=== PATIENT | female | born 1960 | race Caucasian/White ===

== ENCOUNTER 2020-05-04 15:03 | Outpatient (REF) | payer OTHER, SELFPAY | END 2020-05-04 15:04 | disposition home or self-care (01) | LOC: HO.BBR 15:03 | PROVIDERS: PCP Internal Medicine; Visit Provider Internal Medicine | DX: E83.110 Hereditary hemochromatosis (principal) | CPT/HCPCS: 99195 ==

== ENCOUNTER 2020-06-01 15:07 | Outpatient (REF) | payer OTHER, SELFPAY | END 2020-06-01 15:08 | disposition home or self-care (01) | LOC: HO.BBR 15:07 | PROVIDERS: PCP Internal Medicine; Visit Provider Internal Medicine | DX: Z13.89 Encounter for screening for other disorder (principal) ==

== ENCOUNTER 2020-06-01 16:19 | Outpatient (REF) | payer SELFPAY ==
[2020-06-01 17:20] LABS: Cholesterol 214 mg/dL
== END 2020-06-01 16:20 | disposition home or self-care (01) ==
LOC: HO.LNC 16:19
PROVIDERS: Visit Provider Pathology Anatomic Pathology & Clinical Pathology
DX: Z76.89 Persons encountering health services in other specified circumstances (principal)
CPT/HCPCS: 82465

== ENCOUNTER 2020-06-27 10:15 | Outpatient (REF) | payer OTHER, SELFPAY | END 2020-06-27 10:16 | disposition home or self-care (01) | LOC: HO.LAB 10:15 | PROVIDERS: Visit Provider Internal Medicine | DX: Z20.828 Contact with and (suspected) exposure to other viral communicable diseases (principal) | CPT/HCPCS: C9803; U0003 ==

== ENCOUNTER 2020-07-11 14:51 | Outpatient (REF) | payer OTHER, SELFPAY | END 2020-07-11 14:52 | disposition home or self-care (01) | LOC: HO.BBR 14:51 | PROVIDERS: PCP Internal Medicine; Visit Provider Internal Medicine | DX: Z13.89 Encounter for screening for other disorder (principal) ==

== ENCOUNTER 2020-08-09 12:20 | Outpatient (REF) | payer OTHER, SELFPAY ==
--- NOTE | 2020-08-09 12:33 | XR_ITS ---
EXAMINATION: XR FOREARM, RIGHT XR HAND, RIGHT CLINICAL INFORMATION: Pain in the right arm. Carpal tunnel syndrome. COMPARISON: None TECHNIQUE: Right forearm, 2 views Right hand, 3 views FINDINGS: Right forearm: Old, healed fracture of the distal radial metaphysis. Otherwise, the radius and ulna have normal density and shape. There are no lytic or osteoblastic lesions in the visualized distal humerus or forearm. Alignment is normal at the elbow and wrist. No elbow joint effusion. Soft tissues are unremarkable. Right hand: Old, healed fracture of the distal radial metaphysis. The wrist joint spaces are normal. Carpal bones are intact and have normal alignment. The metacarpophalangeal and proximal interphalangeal joints are unremarkable. At the DIP joints, there is narrowing of joint space and osteophyte formation. Minimal degenerative ulnar sided subluxation is noted at the second and third DIP joints. A small ossicle projects dorsal to the degenerated second DIP joint. No abnormal soft tissue calcifications. XR/XR forearm RT 2V IMPRESSION: * Old, healed fracture of the distal radial metaphysis. 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 * Carpal bones are normal.
--- NOTE | 2020-08-09 12:33 | XR_ITS ---
EXAMINATION: XR FOREARM, RIGHT XR HAND, RIGHT CLINICAL INFORMATION: Pain in the right arm. Carpal tunnel syndrome. COMPARISON: None TECHNIQUE: Right forearm, 2 views Right hand, 3 views FINDINGS: Right forearm: Old, healed fracture of the distal radial metaphysis. Otherwise, the radius and ulna have normal density and shape. There are no lytic or osteoblastic lesions in the visualized distal humerus or forearm. Alignment is normal at the elbow and wrist. No elbow joint effusion. Soft tissues are unremarkable. Right hand: Old, healed fracture of the distal radial metaphysis. The wrist joint spaces are normal. Carpal bones are intact and have normal alignment. The metacarpophalangeal and proximal interphalangeal joints are unremarkable. At the DIP joints, there is narrowing of joint space and osteophyte formation. Minimal degenerative ulnar sided subluxation is noted at the second and third DIP joints. A small ossicle projects dorsal to the degenerated second DIP joint. No abnormal soft tissue calcifications. XR/XR hand RT 2V IMPRESSION: * Old, healed fracture of the distal radial metaphysis. 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 * Carpal bones are normal.
[2020-08-09 12:44] LABS: MANUAL DIFF FLAG NO
[2020-08-09 12:55] LABS: Basophils Percent Auto 0.6 % (0-2); Eosinophils Absolute Auto 0.3 X10*3/uL (0.0-0.4); Eosinophils Percent Auto 5.4 % (0-4); Hematocrit 38.4 % (37-47); Hemoglobin 12.1 g/dl (12.0-16.0); Imm Gran Abs Auto 0.02 X10*3/uL (0.00-0.03); Imm Gran Pct Auto 0.4 % (0.0-0.4); Lymphocytes Absolute Auto 1.7 X10*3/uL (1.2-4.9); Lymphocytes Percent Auto 31.9 % (20-40); Mean Corpuscular HGB Conc 31.5 g/dl (31.0-35.0); Mean Corpuscular Hemoglobin 28.7 pg (27.0-33.0); Mean Platelet Volume 10.3 fL (9.4-12.3); Monocytes Absolute Auto 0.5 X10*3/uL (0.1-1.2); Monocytes Percent Auto 9.9 % (2-11); Neutrophils Absolute Auto 2.8 X10*3/uL (2.0-8.3); Neutrophils Percent Auto 51.8 % (45-73); Platelet Count 264 X10*3/uL (160-400); Red Blood Count 4.22 X10*6/uL (4.20-5.50); Red Cell Distribution Width 14.2 % (11.0-16.0); White Blood Count 5.3 X10*3/uL (4.8-10.8)
[2020-08-09 13:17] LABS: Alanine Aminotransferase 120 U/L (0-31); Albumin Level 4.2 g/dL (3.5-5.0); Alkaline Phosphatase 88 U/L (39-117); Anion Gap 14 (12-20); Aspartate Amino Transferase 136 U/L (5-31); Bilirubin Direct 0.3 mg/dL (0.0-0.5); Bilirubin Total 0.5 mg/dL (0.0-1.0); Blood Urea Nitrogen 16 mg/dL (9-16); Carbon Dioxide 28 mmol/L (22-29); Chloride 104 mmol/L (96-108); Estimated Glomerular Filt Rate > 60; Glucose Fasting 102 mg/dL (60-99); Sodium 142 mmol/L (135-145); Total Protein 7.2 g/dL (6.5-8.0)
== END 2020-08-09 12:21 | disposition home or self-care (01) ==
LOC: HO.LAB 12:20
PROVIDERS: PCP Internal Medicine; Visit Provider Nurse Practitioner Family
DX: M79.601 Pain in right arm (principal); M19.90 Unspecified osteoarthritis, unspecified site; G56.01 Carpal tunnel syndrome, right upper limb
CPT/HCPCS: 36415; 73090; 73120; 80048; 80076; 85025

== ENCOUNTER 2020-08-15 09:09 | Outpatient (REF) | payer OTHER, SELFPAY ==
[2020-08-18 17:07] LABS: HPV mRNA E6/E7 rflx Not Detected (Not Detected)
== END 2020-08-15 09:10 | disposition home or self-care (01) ==
LOC: HO.LAB 09:09
PROVIDERS: PCP Internal Medicine; Visit Provider Advanced Practice Midwife
DX: Z12.4 Encounter for screening for malignant neoplasm of cervix (principal); Z98.890 Other specified postprocedural states
CPT/HCPCS: 36415; 87624; 88142

== ENCOUNTER 2020-08-17 14:57 | Outpatient (REF) | payer OTHER, SELFPAY | END 2020-08-17 14:58 | disposition home or self-care (01) | LOC: HO.BBR 14:57 | PROVIDERS: Visit Provider Internal Medicine | DX: Z13.89 Encounter for screening for other disorder (principal) ==

== ENCOUNTER 2020-09-12 13:58 | Outpatient (REF) | payer OTHER, SELFPAY | END 2020-09-12 13:59 | disposition home or self-care (01) | LOC: HO.BBR 13:58 | PROVIDERS: PCP Internal Medicine; Visit Provider Internal Medicine | DX: Z13.89 Encounter for screening for other disorder (principal) ==

== ENCOUNTER → 2020-09-28 13:59 | Outpatient (BNV) | payer OTHER, SELFPAY | PROVIDERS: PCP Internal Medicine; Referring Provider Internal Medicine; Visit Provider Internal Medicine | DX: E83.19 Other disorders of iron metabolism (principal) | CPT/HCPCS: 99203; 99212; 99213; 99214; G2211 ==

== ENCOUNTER 2020-10-27 15:05 | Emergency (ER) | payer OTHER, SELFPAY ==
--- NOTE | ~2020-10-27 | CT_ITS ---
EXAMINATION: CT ABDOMEN AND PELVIS WITH CONTRAST CLINICAL INFORMATION: Right lower quadrant pain COMPARISON: CT abdomen pelvis 09/16/2017 TECHNIQUE: Multidetector volumetric images were obtained from the superior aspect of the liver through the pubic symphysis following administration 85 mL of Omnipaque 350 intravenous contrast. Sagittal and coronal reformatted images were obtained on the technologist's workstation. Oral contrast: No This CT examination was performed using dose optimization techniques as appropriate, variously including the following: *Automated exposure control *Adjustment of mA and/or kV according to patient size (this includes techniques or standardized protocols for targeted exams where dose is matched to indication/reason for exam; i.e. extremities or head) *Use of iterative reconstruction technique DLP: 758 mGy-cm FINDINGS: LUNG BASES: The visualized lung bases are unremarkable. Mild scarring present at the left lung base LIVER, GALLBLADDER, AND BILIARY TREE: The liver is enlarged measuring over 21 cm in greatest length and demonstrates hepatic steatosis with areas of focal fatty sparing adjacent to the gallbladder. No focal hepatic lesion or biliary ductal dilatation is present. The gallbladder is unremarkable with no evidence of radiopaque gallstones, gallbladder wall thickening, or obvious pericholecystic inflammatory changes. PANCREAS: Unremarkable. SPLEEN: Unremarkable. ADRENAL GLANDS: Unremarkable. KIDNEYS AND URETERS: The kidneys are normal in size, shape, and attenuation. No hydronephrosis, hydroureter, or calculi seen. No perinephric stranding. BLADDER: Unremarkable. GASTROINTESTINAL TRACT: Extensive diverticular changes are present throughout the colon most marked in the sigmoid and cecum. Of note, marked inflammatory changes are present adjacent to the cecum consistent with acute diverticulitis. No extraluminal air or adjacent fluid collections are seen. The appendix appears normal although inflammatory changes associated with the cecum extending towards the appendix. The appendix does appear somewhat thickened but the lumen is filled with air.. The small and large bowel are otherwise unremarkable. ABDOMINAL WALL: No significant hernia is appreciated. LYMPH NODES: Normal. VASCULAR: Both ovarian veins aren't dilated and there is reflux of contrast on the left with moderate left-sided pelvic varices. The aorta in the iliofemoral vessels are unremarkable. PELVIC VISCERA: An anteverted uterus is present. An abnormal adnexal mass is not seen. No free intraperitoneal fluid is present. OSSEOUS STRUCTURES: Degenerative changes present in the lower thoracic spine. No bony destructive lesions seen. CT/CT abdomen pelvis w con IMPRESSION: Marked acute inflammatory process centered at the cecum which I suspect is acute cecal diverticulitis. The appendix is adjacent to this that is filled with air. Mild inflammatory changes from the cecum extend towards the appendix. Incidental note made of an enlarged fatty liver and dilated bilateral ovarian veins with reflux and pelvic varices.
[2020-10-27 15:14] VITALS: BP 111/60; PULSE 84; RESP 19; TEMP 36.8; O2SAT 96; BMI 37.8
[2020-10-27 17:55] LABS: MANUAL DIFF FLAG NO
[2020-10-27 17:57] LABS: Basophils Percent Auto 0.3 % (0-2); Eosinophils Absolute Auto 0.1 X10*3/uL (0.0-0.4); Eosinophils Percent Auto 1.1 % (0-4); Hematocrit 40.2 % (37-47); Hemoglobin 13.1 g/dl (12.0-16.0); Imm Gran Abs Auto 0.03 X10*3/uL (0.00-0.03); Imm Gran Pct Auto 0.3 % (0.0-0.4); Lymphocytes Absolute Auto 2.2 X10*3/uL (1.2-4.9); Lymphocytes Percent Auto 21.6 % (20-40); Mean Corpuscular HGB Conc 32.6 g/dl (31.0-35.0); Mean Corpuscular Hemoglobin 29.4 pg (27.0-33.0); Mean Corpuscular Volume 90.3 fL (80-98); Mean Platelet Volume 10.3 fL (9.4-12.3); Monocytes Percent Auto 9.9 % (2-11); Neutrophils Absolute Auto 6.7 X10*3/uL (2.0-8.3); Neutrophils Percent Auto 66.8 % (45-73); Platelet Count 271 X10*3/uL (160-400); Red Blood Count 4.45 X10*6/uL (4.20-5.50)
[2020-10-27 18:26] VITALS: BP 119/59; PULSE 84; RESP 18; TEMP 36.8; O2SAT 95
[2020-10-27 18:26] LABS: Alanine Aminotransferase 63 U/L (0-31); Albumin Level 4.4 g/dL (3.5-5.0); Alkaline Phosphatase 95 U/L (39-117); Anion Gap 15 (12-20); Aspartate Amino Transferase 42 U/L (5-31); Blood Urea Nitrogen 11 mg/dL (9-16); Calcium 9.6 mg/dL (8.4-10.2); Carbon Dioxide 27 mmol/L (22-29); Chloride 101 mmol/L (96-108); Creatinine Clr Calc Pharmacy 78.6; Estimated Glomerular Filt Rate > 60; Glucose Random 89 mg/dL (60-115); Potassium 4.1 mmol/L (3.3-5.1); Sodium 139 mmol/L (135-145); Total Protein 7.6 g/dL (6.5-8.0)
[2020-10-27 18:49] LABS: Glucose Urine UA NEG (NEG); Leukocyte Esterase Urine NEG (NEG); Nitrite Urine NEG (NEG); Specific Gravity - Urine 1.015 (1.005-1.025); Urine Blood NEG (NEG); Urine Ketones NEG (NEG); Urine Protein NEG (NEG-TRACE)
[2020-10-27 18:50] LABS: Appearance Urine CLEAR; Color Urine YELLOW
[2020-10-27 19:15] LABS: INTERNATIONAL NORM RATIO 1.1 (0.9-1.1); Prothrombin Time 12.9 SEC (10.8-13.0)
[2020-10-27 19:17] LABS: Partial Thromboplastin Time 35.1 SEC (24.1-38.0)
[2020-10-27] MEDS: Ketorolac Tromethamine 30 MG/ML VIAL IVPUSH (19:24)
[2020-10-27] MEDS: 0.9 % Sodium Chloride 1,000 ML 999 ML IV (19:25)
--- NOTE | 2020-10-27 19:25 | PC.NURSE ---
patient a&ox3, iv inserted, labs previously drawn, pt medicated per order pt 03/24 rt abd pain, pt awaiting ct scan, will continue to monitor.
--- NOTE | 2020-10-27 19:30 | ED_ITS ---
HPI - Abdominal Pain General Chief Complaint: Abdominal Pain Stated Complaint: right lower side pain Time Seen by Provider: 10/27/20 20:52 Source: patient Mode of arrival: ambulatory Limitations: no limitations History of Present Illness HPI narrative: Patient presents to the ED for right lower quadrant pain and sta rted to a.m. this morning. Patient denies any nausea vomiting fever, chills, diarrhea, dysuria, hematuria, or flank pain. Patient denies any recent trauma to the area. MD elicited complaint: abdominal pain Related Data Home Medications Medication Instructions Recorded Confirmed carvedilol 25 mg tablet 25 mg PO BID 08/01/20 09/28/20 hydrochlorothiazide 25 mg tablet 25 mg PO QAM 08/01/20 09/28/20 losartan 25 mg tablet 25 mg PO DAILY 08/01/20 09/28/20 ergocalciferol (vitamin D2) 1,250 mcg PO QWEEK 09/28/20 09/28/20 [Vitamin D2] multivitamin 1 tab PO DAILY 09/28/20 09/28/20 elderberry fruit-honey ml PO DAILY 10/11/20 Previous Rx's Medication Instructions Recorded albuterol sulfate 90 mcg/actuation 1 inh INHALATION QID PRN 30 Days 05/09/20 aerosol inhaler #8.5 g acetaminophen 650 mg 650 mg PO Q12H 10 Days #20 tab 08/01/20 tablet,extended release amoxicillin-pot clavulanate 1 tab PO Q12H 10 Days #20 tab 10/27/20 [Augmentin] metronidazole 500 mg PO Q12H 7 Days #14 tab 10/27/20 naproxen 500 mg PO BID PRN #20 tab 10/27/20 Allergies Allergy/AdvReac Type Severity Reaction Status Date / Time ciprofloxacin [Cipro] Allergy Unknown hives Verified 10/27/20 15:13 dogs Allergy Unknown Itching Uncoded 09/28/20 14:15 MANY ENVIRONMENTAL and Allergy Unknown Itching Uncoded 09/28/20 14:15 possibl Review of Systems Review of Systems Yes all other systems are reviewed and are negative Constitutional: Reports as per HPI and Reports no additional constitutional complaints Eyes: Reports as per HPI and Reports no additional eye complaints Reports system reviewed and no additional complaints, except as documented and Reports as per HPI Cardiovascular: Reports as per HPI and Reports no additional cardiovascular complaints Respiratory: Reports as per HPI and Reports no additional respiratory complaints Gastrointestinal: Reports as per HPI, Reports no additional gastrointestinal complaints and Reports abdominal pain (Right lower quadrant) Genitourinary: Reports no additional female genitourinary complaints and Reports as per HPI Musculoskeletal: Reports no additional musculoskeletal complaints and Reports as per HPI Reports system reviewed and no additional complaints, except as documented and R eports as per HPI Psychiatric: Reports no additional psychiatric complaints and Reports as per HPI Physical Exam Vital Signs: Vital Signs: Last Vital Signs Temp 98.2 F 10/27/20 21:54 Pulse 67 10/27/20 21:54 Resp 18 10/27/20 21:54 BP 100/54 L 10/27/20 21:54 Pulse Ox 95 10/27/20 21:54 Body Mass Index 37.8 Const: General: cooperative, healthy appearing, comfortable, no acute distress, well developed, alert, awake and Physically active Orientation/consciousness: patient oriented x3 HENMT: Head: Yes normal to inspection, Yes No palpable skull fracture present, Yes normocephalic, Yes atraumatic, No abrasion, No Acrocyanosis present, No Christensen's sign, No contusion, No cranial bruits, No hematoma, No laceration, No occipital foramen tenderness, No palpable skull fracture, No raccoon eyes, No scalp lesion, No scalp tenderness, No Temporal artery tenderness present and No periorbital ecchymosis Eyes: General: appearance normal, both eyes and all related structures Neck: Neck: Yes normal visual inspection, Yes full ROM, Yes no lymphadenopathy, Yes no meningeal signs, Yes trachea midline, Yes supple and No tender Chest: Chest palpation & inspection: normal inspection of the chest and normal palpation of entire chest wall Resp: Effort & Inspection: normal respiratory effort and able to speak in complete sentences Cardio: Jugular venous distension: no JVD Heart sounds: S1 normal heart sound present and S2 normal heart sound present GI: Inspection: Yes normal to inspection and No abdominal wall ecchymosis P alpation (GI): Soft to palpation, not firm, Tenderness to palpation present (GI) in the RLQ, no guarding and not rigid : General: No CVA tenderness and Yes no CVA tenderness Back/Spine/Pelvis: Back: no CVA tenderness, No CVA tenderness and No back tenderness Skin: General skin exam: no rashes or lesions noted and elasticity normal Neuro: General: patient oriented x3, no meningeal signs and CN's II-XI intact bilaterally Cranial nerves: Yes CN's II-XII intact bilaterally Extrem: General: Yes normal to inspection and Yes full ROM Psych: Appearance: grossly normal, well kempt and not disheveled Course Course Course Narrative: Patient has significant right lower quadrant tenderness on palpation. Patient will be sent for CT scan of right lower quadrant to rule out appendicitis. Labs drawn and UA sent. Reevaluation(s) Reevaluation #1: UA negative for UTI. White blood cell count normal. Due to p atient still having pain was sent for CT scan to rule out appendicitis. Reevaluation #2: CT scan showed acute cecal diverticulitis, but no appendicitis. Due to patient having pain in right lower quadrants Dr. Hernandez of surgery was called and informed of patient's history, physical exam, diagnostic, and CT scan report. She states patient is not having appendicitis and patient only is having cecal diverticulitis and patient does not need any surgical intervention. Patient presently does not need admission. Patient does not have any elevated white blood cell count and vital signs are stable. Will discharge with p.o. antibiotics. MDM - Abdominal Pain Lab Data Result diagrams: 10/27/20 17:23 10/27/20 17:23 Labs: Lab Results 10/27/20 10/27/20 10/27/20 Range/Units 17:23 17:23 17:23 WBC 10.0 (4.8-10.8) X10*3/uL RBC 4.45 (4.20-5.50) X10*6/uL Hgb 13.1 (12.0-16.0) g/dl Hct 40.2 (37-47) % MCV 90.3 (80-98) fL MCH 29.4 (27.0-33.0) pg MCHC 32.6 (31.0-35.0) g/dl RDW 15.0 (11.0-16.0) % Plt Count 271 (160-400) X10*3/uL MPV 10.3 (9.4-12.3) fL Immature Gran % (Auto) 0.3 (0.0-0.4) % Neut % (Auto) 66.8 (45-73) % Lymph % (Auto) 21.6 (20-40) % Coos % (Auto) 9.9 (2-11) % Eos % (Auto) 1.1 (0-4) % Baso % (Auto) 0.3 (0-2) % Lymph # (Auto) 2.2 (1.2-4.9) X10*3/uL [place] # (Auto) 1.0 (0.1-1.2) X10*3/uL Eos # (Auto) 0.1 (0.0-0.4) X10*3/uL Baso # (Auto) 0.0 (0.0-0.2) X10*3/uL Abs Immat Gran (auto) 0.03 (0.00-0.03) X10*3/uL Absolute Neuts (auto) 6.7 (2.0-8.3) X10*3/uL Absolute Nucleated RBC 0.000 (0.0-0.012) X10*3/uL Nucleated RBC % (auto) 0.0 (0.0-0.2) /100WBC PT 12.9 (10.8-13.0) SEC INR 1.1 (0.9-1.1) APTT 35.1 (24.1-38.0) SEC Hold Blue Top SEE NOTE Sodium 139 (135-145) mmol/L Potassium 4.1 (3.3-5.1) mmol/L Chloride 101 (96-108) mmol/L Carbon Dioxide 27 (22-29) mmol/L Anion Gap 15 (12-20) BUN 11 (9-16) mg/dL Creatinine 0.77 (0.5-1.4) mg/dL Estim Creat Clear Calc 78.6 Estimated GFR > 60 Random Glucose 89 (60-115) mg/dL Calcium 9.6 D (8.4-10.2) mg/dL Total Bilirubin 1.0 (0.0-1.0) mg/dL AST 42 H D (5-31) U/L ALT 63 H (0-31) U/L Alkaline Phosphatase 95 (39-117) U/L Total Protein 7.6 (6.5-8.0) g/dL Albumin 4.4 (3.5-5.0) g/dL Urine Color Urine Appearance Urine pH (5.0-8.0) Ur Specific [place] (1.005-1.025) Urine Protein (NEG-TRACE) MG/DL Urine Glucose (UA) (NEG) MG/DL Urine Ketones (NEG) MG/DL Urine Blood (NEG) Urine Nitrite (NEG) Ur Leukocyte Esterase (NEG) 10/27/20 Range/Units 18:31 WBC (4.8-10.8) X10*3/uL RBC (4.20-5.50) X10*6/uL Hgb (12.0-16.0) g/dl Hct (37-47) % MCV (80-98) fL MCH (27.0-33.0) pg MCHC (31.0-35.0) g/dl RDW (11.0-16.0) % Plt Count (160-400) X10*3/uL MPV (9.4-12.3) fL Immature Gran % (Auto) (0.0-0.4) % Neut % (Auto) (45-73) % Lymph % (Auto) (20-40) % Coos % (Auto) (2-11) % Eos % (Auto) (0-4) % Baso % (Auto) (0-2) % Lymph # (Auto) (1.2-4.9) X10*3/uL Coos # (Auto) (0.1-1.2) X10*3/uL Eos # (Auto) (0.0-0.4) X10*3/uL Baso # (Auto) (0.0-0.2) X10*3/uL Abs Immat Gran (auto) (0.00-0.03) X10*3/uL Absolute Neuts (auto) (2.0-8.3) X10*3/uL Absolute Nucleated RBC (0.0-0.012) X10*3/uL Nucleated RBC % (auto) (0.0-0.2) /100WBC PT (10.8-13.0) SEC INR (0.9-1.1) APTT (24.1-38.0) SEC Hold Blue Top Sodium (135-145) mmol/L Potassium (3.3-5.1) mmol/L Chloride (96-108) mmol/L Carbon Dioxide (22-29) mmol/L Anion Gap (12-20) BUN (9-16) mg/dL Creatinine (0.5-1.4) mg/dL Estim Creat Clear Calc Estimated GFR Random Glucose (60-115) mg/dL Calcium (8.4-10.2) mg/dL Total Bilirubin (0.0-1.0) mg/dL AST (5-31) U/L ALT (0-31) U/L Alkaline Phosphatase (39-117) U/L Total Protein (6.5-8.0) g/dL Albumin (3.5-5.0) g/dL Urine Color YELLOW Urine Appearance CLEAR Urine pH 6.0 (5.0-8.0) Ur Specific [place] 1.015 (1.005-1.025) Urine Protein NEG (NEG-TRACE) MG/DL Urine Glucose (UA) NEG (NEG) MG/DL Urine Ketones NEG (NEG) MG/DL Urine Blood NEG (NEG) Urine Nitrite NEG (NEG) Ur Leukocyte Esterase NEG (NEG) Discharge Plan Discharge Clinical Impression: Diverticulitis Patient Disposition: Home, Self-Care Instructions: Diverticulitis (ED) Additional Instructions: Return to the ED immediately for worsening abdominal pain, nausea, vomiting, fever, chills, blood in stool, dizziness, weakness, or any other concerning symptoms. Prescriptions: New amoxicillin-pot clavulanate [Augmentin] 875-125 mg tablet 1 tab PO Q12H 10 Days Qty: 20 RF: 0 metronidazole 500 mg tablet 500 mg PO Q12H 7 Days Qty: 14 RF: 0 naproxen 500 mg tablet 500 mg PO BID PRN (Reason: pain) Qty: 20 RF: 0 No Action albuterol sulfate [Ventolin HFA] 90 mcg/actuation HFA aerosol inhaler 1 inh inhalation QID PRN (Reason: shortness of breath or wheezing) 30 Days Qty: 8.5 RF: 11 multivitamin Tablet 1 tab PO DAILY RF: 0 Vitamin D2 1,000 unit Capsule 1,250 mcg PO QWEEK RF: 0 elderberry fruit-honey 0.7-3 gram/7.5 mL Liquid PO DAILY RF: 0 losartan 25 mg tablet 25 mg PO DAILY RF: 0 hydrochlorothiazide 25 mg tablet 25 mg PO QAM RF: 0 carvedilol 25 mg tablet 25 mg PO BID RF: 0 acetaminophen [Tylenol Arthritis Pain] 650 mg tablet extended release 650 mg PO Q12H 10 Days Qty: 20 RF: 0 Referrals: Danuta Barboza MD [Primary Care Provider] - 2 days (Cecal diverticulitis) Interventions: ED Discharge Assessment Last Done: 10/27/20 22:01 Discharge Date/Time: 10/27/20 22:52 Print Language: Estonian [facility] Past Medical History Medical History (Updated 10/28/20 @ 00:01 by Kat Irizarry) Arthritis Carpal tunnel syndrome, right Family history of liver disease Hemochromatosis Pain in right arm Surgical History (Updated 09/28/20 @ 14:24 by Vickie Dooley MD) H/O knee surgery H/O right heart catheterization History of loop electrical excision procedure (LEEP) Family History Family History (Updated 09/28/20 @ 14:14 by Sena Novak) Father Diabetes Heart disease Stroke COPD (chronic obstructive pulmonary disease) High cholesterol Mother Diabetes Alzheimer disease HTN (hypertension) Brother Brain aneurysm Heart valve replaced Sister COPD (chronic obstructive pulmonary disease) Diabetes Social History Social History (Updated 09/28/20 @ 14:14 by Sena Novak) Alcohol intake: current Alcohol intake frequency: 0-2 drinks per day Alcohol type: wine Smoking Status: Never smoker Packs Per Day: 1 Use of substances other than those prescribed or required for medical reasons: No Advance Directives: No Advance Directives Information Provided: No
[2020-10-27] MEDS: iohexoL 350 MG/ML 100 ML INFUS..BTL IV (19:48)
[2020-10-27 20:25] VITALS: BP 99/47; PULSE 69; RESP 18; TEMP 36.8; O2SAT 95
--- NOTE | 2020-10-27 20:26 | PC.NURSE ---
patient a&ox3, vss, pt states her pain has decreased some with medication to710, ct scan has been performed, pt awaiting results, ivf continue to run slowly, will continue to monitor.
[2020-10-27] MEDS: metroNIDAZOLE 500 MG TABLET PO (21:41)
[2020-10-27] MEDS: Amoxicillin/Potassium Clav 875 MG TABLET PO (21:41)
--- NOTE | 2020-10-27 21:43 | PC.NURSE ---
patient medicated with antibiotics per order
[2020-10-27 21:54] VITALS: BP 100/54; PULSE 67; RESP 18; TEMP 36.8; O2SAT 95
== END 2020-10-27 22:52 | disposition home or self-care (01) ==
PROVIDERS: Physician Assistant; Emergency Provider Internal Medicine; PCP Internal Medicine
DX: K57.32 Diverticulitis of large intestine without perforation or abscess without bleeding (principal); R10.31 Right lower quadrant pain; Z79.899 Other long term (current) drug therapy
CPT/HCPCS: 36415; 74177; 80053; 81003; 85025; 85610; 85730; 96361; 96365; 96375; 99284; J1885; Q9967

== ENCOUNTER 2020-11-18 09:51 | Outpatient (REF) | payer OTHER, SELFPAY ==
--- NOTE | ~2020-11-18 | MM_ITS ---
EXAMINATION: MM SCREENING DIGITAL BREAST TOMOSYNTHESIS, BILATERAL CLINICAL INFORMATION: Screening. Asymptomatic. The lifetime risk of breast cancer based on the Tyrer-Cuzick Model is 4%. COMPARISON: Mammography: 06/19/2019, 05/23/2018, 05/01/2017 TECHNIQUE: Digital breast tomosynthesis is performed in both the craniocaudal and mediolateral oblique views along with computer-aided detection (CAD). Synthesized 2D images are generated from the tomosynthesis. FINDINGS: The breasts are almost entirely fatty (ACR BI-RADS breast composition Category a). There are no significant masses, abnormal calcifications, or other abnormalities. The axilla and skin contours are unremarkable. MM/MM tomosynthesis screening BI IMPRESSION: No mammographic evidence of malignancy. ASSESSMENT: BI-RADS 1: Negative RECOMMENDATION: Routine annual mammography screening. This patient's information was entered into a reminder system with a target due date for their next mammogram.
== END 2020-11-18 09:52 | disposition home or self-care (01) ==
LOC: HO.MAMMO 09:51
PROVIDERS: PCP Internal Medicine; Visit Provider Internal Medicine
DX: Z12.31 Encounter for screening mammogram for malignant neoplasm of breast (principal)
CPT/HCPCS: 77063; 77067

== ENCOUNTER 2021-01-24 14:28 | Outpatient (REF) | payer OTHER, SELFPAY | END 2021-01-24 14:29 | disposition home or self-care (01) | LOC: HO.BBR 14:28 | PROVIDERS: PCP Internal Medicine; Visit Provider Internal Medicine | DX: Z13.89 Encounter for screening for other disorder (principal) ==

== ENCOUNTER 2021-04-03 10:37 | Outpatient (REF) | payer OTHER, SELFPAY ==
[2021-04-03 12:30] LABS: Blood Urea Nitrogen 12 mg/dL (9-16); Estimated Glomerular Filt Rate > 60
== END 2021-04-03 10:38 | disposition home or self-care (01) ==
LOC: HO.LAB 10:37
PROVIDERS: PCP Internal Medicine; Visit Provider Internal Medicine
DX: K57.92 Diverticulitis of intestine, part unspecified, without perforation or abscess without bleeding (principal)
CPT/HCPCS: 36415; 82565; 84520

== ENCOUNTER 2021-04-04 08:58 | Outpatient (REF) | payer OTHER, SELFPAY ==
--- NOTE | ~2021-04-04 | CT_ITS ---
EXAMINATION: CT ABDOMEN AND PELVIS WITH CONTRAST CLINICAL INFORMATION: Diverticulitis COMPARISON: Previous CT scans most recent October 2020 TECHNIQUE: Multidetector volumetric images were obtained from the superior aspect of the liver through the pubic symphysis following administration 85 mL of Omnipaque 350 intravenous contrast. Sagittal and coronal reformatted images were obtained on the technologist's workstation. Oral contrast: Yes This CT examination was performed using dose optimization techniques as appropriate, variously including the following: *Automated exposure control *Adjustment of mA and/or kV according to patient size (this includes techniques or standardized protocols for targeted exams where dose is matched to indication/reason for exam; i.e. extremities or head) *Use of iterative reconstruction technique DLP: 620 mGy-cm FINDINGS: LUNG BASES: The visualized lung bases are unremarkable. LIVER, GALLBLADDER, AND BILIARY TREE: Biliary tree liver is low in attenuation suggestive of fatty infiltration. No focal liver lesion or biliary duct dilatation. The gallbladder is unremarkable with no evidence of radiopaque gallstones, gallbladder wall thickening, or obvious pericholecystic inflammatory changes. PANCREAS: Unremarkable. SPLEEN: Unremarkable. ADRENAL GLANDS: Unremarkable. KIDNEYS AND URETERS: The kidneys are normal in size, shape, and attenuation. No hydronephrosis, hydroureter, or calculi seen. No perinephric stranding. BLADDER: Unremarkable. GASTROINTESTINAL TRACT: There is diverticulosis of the colon. No evidence of diverticulitis is seen. The small and large bowel are otherwise unremarkable. The appendix is unremarkable. ABDOMINAL WALL: No significant hernia is appreciated. LYMPH NODES: Normal. VASCULAR: Unremarkable. PELVIC VISCERA: There are prominent pelvic vessels suggestive of pelvic congestion. Uterus and adnexa are unremarkable. OSSEOUS STRUCTURES: There are degenerative changes of the spine. CT/CT abdomen pelvis w con IMPRESSION: Diverticulosis. No evidence of diverticulitis. Fatty liver. Prominent pelvic vessels questionable for pelvic congestion.
[2021-04-04] MEDS: iohexoL 350 MG/ML 100 ML INFUS..BTL IV (11:17)
[2021-04-04] MEDS: Barium Sulfate Oral (Berry) 450 ML ORAL.SUSP 900 ML PO (11:17)
== END 2021-04-04 08:59 | disposition home or self-care (01) ==
LOC: HO.CT 08:58
PROVIDERS: Visit Provider Internal Medicine
DX: K57.92 Diverticulitis of intestine, part unspecified, without perforation or abscess without bleeding (principal)
CPT/HCPCS: 74177; Q9967

== ENCOUNTER 2021-04-26 14:39 | Outpatient (REF) | payer OTHER, SELFPAY | END 2021-04-26 14:40 | disposition home or self-care (01) | LOC: HO.BBR 14:39 | PROVIDERS: Visit Provider Internal Medicine | DX: Z13.89 Encounter for screening for other disorder (principal) ==

== ENCOUNTER 2021-06-01 15:10 | Outpatient (REF) | payer OTHER, SELFPAY | END 2021-06-01 15:11 | disposition home or self-care (01) | LOC: HO.BBR 15:10 | PROVIDERS: Visit Provider Internal Medicine | DX: Z13.89 Encounter for screening for other disorder (principal) ==

== ENCOUNTER 2021-06-12 08:26 | Day surgery (SDC) | payer OTHER, SELFPAY ==
[2021-06-02 14:53] VITALS: BMI 39.9
--- NOTE | 2021-06-07 08:38 | P.CONAN_ITS ---
Documented by User: Lupe Osborne NP 06/07/21 08:38 HPI - Anesthesia Eval Consult details Narrative: 60yo F for Colonoscopy PMFSH Active Problems Active Problems: All Active Problems (Updated 06/02/21 @ 11:51 by Era Aguillon RN) Iron overload (Chronic) Essential hypertension (Acute) Obesity (BMI 35.0-39.9 without comorbidity) (Acute) Mild persistent asthma (Acute) Diverticulitis (Acute) Hemochromatosis (Acute) Family history of liver disease (Acute) Arthritis (Acute) Carpal tunnel syndrome, right (Acute) Pain in right arm (Acute) Past Medical History Medical History Arthritis Carpal tunnel syndrome, right COVID-19 vaccine series completed Diverticulitis Essential hypertension Family history of liver disease Hemochromatosis IBS (irritable bowel syndrome) Mild persistent asthma Obesity (BMI 35.0-39.9 without comorbidity) Pain in right arm Ventricular bigeminy Family History Family History Father Diabetes Heart disease Stroke COPD (chronic obstructive pulmonary disease) High cholesterol Mother Diabetes Alzheimer disease HTN (hypertension) Brother Brain aneurysm Heart valve replaced Sister COPD (chronic obstructive pulmonary disease) Diabetes Surgical History Surgical History H/O colonoscopy H/O knee surgery H/O right heart catheterization History of esophagogastroduodenoscopy (EGD) History of loop electrical excision procedure (LEEP) Hx of foot surgery Social History Social History Housing: House Alcohol intake: current Alcohol intake frequency: 0-2 drinks per day Alcohol type: wine Patient Tobacco Use Status: Former Tobacco user Quit Date: >10 yrs ago Tobacco use type: Cigarette Cigarette Packs Per Day: 1 e-Cigarette/Vaping Use: Never Used Second Hand Smoke Exposure: No Use of substances other than those prescribed or required for medical reasons: No Advance Directives Information Provided: Yes (informational brochure mailed) Advance Directives on File: No service: No Current occupational status: employed Current occupational exposures/hazards: No Meds Allergies Allergy/AdvReac Type Severity Reaction Status Date / Time ciprofloxacin [Cipro] Allergy Intermediate hives Verified 03/28/21 09:45 dog dander [dogs] Allergy Intermediate Itching Verified 06/02/21 11:40 environmental Allergy Intermediate Itching Uncoded 06/02/21 11:40 Home Medications Medication Instructions Recorded Confirmed Last Taken Type carvedilol 25 mg tablet 25 mg PO BID 08/01/20 06/02/21 Unknown History losartan 25 mg tablet 25 mg PO DAILY 08/01/20 06/02/21 Unknown History ergocalciferol (vitamin D2) 1,000 1,250 mcg PO QWEEK 09/28/20 06/02/21 Unknown History unit capsule multivitamin 1 tab PO DAILY 09/28/20 06/02/21 Unknown History elderberry fruit 0.7 gram-honey 3 3 ml PO DAILY 10/11/20 06/02/21 Unknown History gram/7.5 mL oral liquid Exam Exam Date and Time: June 07, 2021 0838 Height,Weight and Vital Signs: Height 5 ft 1 in Weight 95.708 kg Assessment and Plan Assessment Anesthesia Assessment: Chart Reviewed Documented by User: Patricia Rojas MD 06/12/21 09:50 [facility] Past Medical History Medical History Arthritis Carpal tunnel syndrome, right COVID-19 vaccine series completed Diverticulitis Essential hypertension Family history of liver disease Hemochromatosis IBS (irritable bowel syndrome) Mild persistent asthma Obesity (BMI 35.0-39.9 without comorbidity) Pain in right arm Ventricular bigeminy Family History Family History Father Diabetes Heart disease Stroke COPD (chronic obstructive pulmonary disease) High cholesterol Mother Diabetes Alzheimer disease HTN (hypertension) Brother Brain aneurysm Heart valve replaced Sister COPD (chronic obstructive pulmonary disease) Diabetes Surgical History Surgical History H/O colonoscopy H/O knee surgery H/O right heart catheterization History of esophagogastroduodenoscopy (EGD) History of loop electrical excision procedure (LEEP) Hx of foot surgery History of Problems with Anesthesia: No Social History Social History Housing: House Alcohol intake: current Alcohol intake frequency: 0-2 drinks per day Alcohol type: wine Patient Tobacco Use Status: Former Tobacco user Quit Date: >10 yrs ago Tobacco use type: Cigarette Cigarette Packs Per Day: 1 e-Cigarette/Vaping Use: Never Used Second Hand Smoke Exposure: No Use of substances other than those prescribed or required for medical reasons: No Advance Directives Information Provided: Yes (informational brochure mailed) Advance Directives on File: No service: No Current occupational status: employed Current occupational exposures/hazards: No Meds Allergies Allergy/AdvReac Type Severity Reaction Status Date / Time ciprofloxacin [Cipro] Allergy Intermediate hives Verified 03/28/21 09:45 dog dander [dogs] Allergy Intermediate Itching Verified 06/02/21 11:40 environmental Allergy Intermediate Itching Uncoded 06/02/21 11:40 Home Medications Medication Instructions Recorded Confirmed Last Taken Type carvedilol 25 mg tablet 25 mg PO BID 08/01/20 06/02/21 Unknown History losartan 25 mg tablet 25 mg PO DAILY 08/01/20 06/02/21 Unknown History ergocalciferol (vitamin D2) 1,000 1,250 mcg PO QWEEK 09/28/20 06/02/21 Unknown History unit capsule multivitamin 1 tab PO DAILY 09/28/20 06/02/21 Unknown History elderberry fruit 0.7 gram-honey 3 3 ml PO DAILY 10/11/20 06/02/21 Unknown History gram/7.5 mL oral liquid Exam Airway Mallampati Class: II (Edentulous) TM Dist: >3cm Neck ROM: Full Denture: Upper and Lower Loose/Missing/Broken Teeth: Yes, Upper and Lower Heart: RRR Lungs: CTA Assessment and Plan Assessment Anesthesia Assessment: Anesthesia Plan Discussed Final Anesthetic Review History of Problems with Anesthesia: No NPO: Yes ASA Class: III Final Preanesthetic Review: Meds/Allgs Chart Reviewed, Consent Obtained/Reviewed and Anes Risks/Benef Reviewed Patient Risk: Intermediate Procedure Risk: Low Anesthetic Plan Anesthetic Plan: MAC: Disposition: Standard PACU
[2021-06-12 08:46] VITALS: BP 155/79; PULSE 80; RESP 16; TEMP 36.7; O2SAT 95
[2021-06-12] MEDS: Lactated Ringers 1,000 ML 100 ML IVCONT (09:08)
--- NOTE | 2021-06-12 10:31 | P.BOP_ITS ---
Brief Operative Note Date of Service: 06/12/21 Pre-op diagnosis: Screening Post-op diagnosis: other (Colon polyp) Procedure: Colonoscopy to the cecum and TI with bx/removal of polyp Surgeon: Peter Rojas Anesthesia: MAC Was an Pinked Edge Sewing Machine Operator used for this Procedure?: No Estimated blood loss (mL): 2.0 Pathology: other (A. Ascending colon polyp) Condition: stable Disposition: PACU
[2021-06-12 10:32] VITALS: BP 107/66; PULSE 83; RESP 20; TEMP 37.4; O2SAT 97
[2021-06-12 10:47] VITALS: BP 115/68; PULSE 75; RESP 18; TEMP 37.3; O2SAT 96
--- NOTE | 2021-06-12 13:16 | OP_ITS ---
SURGEON: Peter Rojas MD INDICATIONS: The patient presents for evaluation of colorectal cancer screening. Full consent has been obtained from her for this, including risks of bleeding and perforation. PREOPERATIVE DIAGNOSIS: Colorectal cancer screening. POSTOPERATIVE DIAGNOSIS: PROCEDURE PERFORMED: Colonoscopy to the cecum and terminal ileum with biopsy and removal of polyp. ESTIMATED BLOOD LOSS: COMPLICATIONS: ANESTHESIA: Monitored anesthesia care. ASSISTANTS: SPECIMENS: POSTOPERATIVE DIAGNOSES: Colorectal cancer screening, colon polyp, diverticulosis and internal hemorrhoids. DESCRIPTION OF PROCEDURE: The patient was placed in the left lateral decubitus position. The digital rectal exam revealed no abnormalities. The Olympus video pediatric colonoscope was entered into the rectum and advanced easily to the cecum. Once in the cecum, I did identify normal-appearing cecal pouch with appendiceal orifice and a normal-appearing ileocecal valve. The terminal ileum was cannulated and appeared normal. The scope was withdrawn back in the colon. The entire cecum was well visualized. I did not visualize any definitive diverticula in the area of the cecum. The scope was then slowly withdrawn assessing all mucosal surfaces carefully. Preparation was excellent. In the proximal ascending colon on a fold, was an approximately 5 mm flat polyp, which was biopsied and completely removed with cold biopsy forceps. I did not visualize any other polyps, colitis, nor angiodysplasia. There was a mild amount of sigmoid diverticulosis. In the rectum, scope was retroflexed visualizing internal hemorrhoids, but no other pathology. The rectal mucosa appeared normal. The scope was straightened out and withdrawn from the patient. She tolerated the procedure well and was returned to the recovery area in stable condition. IMPRESSION: 1. Colon polyp, status post biopsy and removal. 2. Diverticulosis. 3. Internal hemorrhoids. PLAN: The results of biopsy will be checked. If this is a tubular adenoma, I would recommend a repeat colonoscopy in 5 years. If it is a serrated polyp, I would recommend a repeat colonoscopy in 3 years. If it is only hyperplastic, I would recommend a followup colonoscopy in 10 years. She will otherwise see me on a p.r.n. basis. She was advised to use Metamucil on a regular basis with stool softeners as needed to avoid constipation in regard to the previous history of diverticulitis. MD LAZARO Briones/LONI / [id number] RANDOLPH
== END 2021-06-12 11:40 | disposition home or self-care (01) ==
PROVIDERS: PCP Internal Medicine; Visit Provider Internal Medicine
PROC: 0DJD8ZZ Inspection of Lower Intestinal Tract, Via Natural or Artificial Opening Endoscopic (ICD-10-PCS; CPT 45378; principal; 2021-06-12 09:30)
DX: Z12.11 Encounter for screening for malignant neoplasm of colon (principal); D12.2 Benign neoplasm of ascending colon; K57.30 Diverticulosis of large intestine without perforation or abscess without bleeding; K64.8 Other hemorrhoids; K58.9 Irritable bowel syndrome, unspecified; Z87.19 Personal history of other diseases of the digestive system; E83.119 Hemochromatosis, unspecified; I10 Essential (primary) hypertension; R00.8 Other abnormalities of heart beat; J45.909 Unspecified asthma, uncomplicated; Z79.899 Other long term (current) drug therapy; Z87.891 Personal history of nicotine dependence
CPT/HCPCS: 45380; 88305

== ENCOUNTER 2021-07-11 15:01 | Outpatient (REF) | payer OTHER, SELFPAY ==
[2021-07-11 16:39] LABS: Ferritin 122 ng/mL (10-250)
== END 2021-07-11 15:02 | disposition home or self-care (01) ==
LOC: HO.BBR 15:01
PROVIDERS: Visit Provider Internal Medicine
DX: E83.110 Hereditary hemochromatosis (principal)
CPT/HCPCS: 36415; 82728

== ENCOUNTER 2021-08-02 14:06 | Outpatient (REF) | payer OTHER, SELFPAY | END 2021-08-02 14:07 | disposition home or self-care (01) | LOC: HO.BBR 14:06 | PROVIDERS: Visit Provider Internal Medicine | DX: Z13.89 Encounter for screening for other disorder (principal) ==

== ENCOUNTER 2021-08-16 15:24 | Outpatient (REF) | payer OTHER, SELFPAY ==
[2021-08-16 15:58] LABS: Appearance Urine CLEAR; Color Urine YELLOW; Glucose Urine UA NEG (NEG); Leukocyte Esterase Urine NEG (NEG); Nitrite Urine NEG (NEG); Urine Blood NEG (NEG); Urine Ketones NEG (NEG); Urine Protein NEG (NEG-TRACE)
== END 2021-08-16 15:25 | disposition home or self-care (01) ==
LOC: HO.LAB 15:24
PROVIDERS: PCP Internal Medicine; Visit Provider Internal Medicine
DX: R30.0 Dysuria (principal)
CPT/HCPCS: 81003

== ENCOUNTER → 2021-08-21 09:35 | Outpatient (BNVA) | payer OTHER, SELFPAY | PROVIDERS: PCP Internal Medicine; Visit Provider Advanced Practice Midwife ==

== ENCOUNTER 2021-09-27 14:00 | Outpatient (REF) | payer OTHER, SELFPAY | END 2021-09-27 14:01 | disposition home or self-care (01) | LOC: HO.BBR 14:00 | PROVIDERS: Visit Provider Internal Medicine | DX: Z13.89 Encounter for screening for other disorder (principal) ==

== ENCOUNTER 2021-11-24 08:56 | Outpatient (REF) | payer OTHER, SELFPAY ==
--- NOTE | ~2021-11-24 | MM_ITS ---
EXAMINATION: MM SCREENING DIGITAL BREAST TOMOSYNTHESIS, BILATERAL CLINICAL INFORMATION: Screening. Asymptomatic. The lifetime risk of breast cancer based on the Tyrer-Cuzick Model is 5%. COMPARISON: Mammography: 11/18/2020, 06/19/2019, 05/23/2018 TECHNIQUE: Digital breast tomosynthesis is performed in both the craniocaudal and mediolateral oblique views along with computer-aided detection (CAD). Synthesized 2D images are generated from the tomosynthesis. Additional right MLO view is provided. FINDINGS: The breasts are almost entirely fatty (ACR BI-RADS breast composition Category a). There are no significant masses, abnormal calcifications, or other abnormalities. Background stromal and fibroglandular densities are stable. The axilla and skin contours are unremarkable. MM/MM tomosynthesis screening BI IMPRESSION: No mammographic evidence of malignancy. ASSESSMENT: BI-RADS 1: Negative RECOMMENDATION: Routine annual mammography screening. This patient's information was entered into a reminder system with a target due date for their next mammogram.
== END 2021-11-24 08:57 | disposition home or self-care (01) ==
LOC: HO.MAMMO 08:56
PROVIDERS: PCP Internal Medicine; Visit Provider Internal Medicine
DX: Z12.31 Encounter for screening mammogram for malignant neoplasm of breast (principal)
CPT/HCPCS: 77063; 77067

== ENCOUNTER 2021-11-29 14:06 | Outpatient (REF) | payer OTHER, SELFPAY | END 2021-11-29 14:07 | disposition home or self-care (01) | LOC: HO.BBR 14:06 | PROVIDERS: Visit Provider Internal Medicine | DX: Z13.89 Encounter for screening for other disorder (principal) ==

== ENCOUNTER 2022-01-02 11:40 | Outpatient (REF) | payer OTHER, SELFPAY ==
[2022-01-02 13:44] LABS: Alanine Aminotransferase 90 U/L (0-31); Albumin Level 4.3 g/dL (3.5-5.0); Alkaline Phosphatase 98 U/L (39-117); Anion Gap 14 (12-20); Aspartate Amino Transferase 109 U/L (5-31); Bilirubin Total 0.7 mg/dL (0.0-1.0); Blood Urea Nitrogen 11 mg/dL (9-16); Calcium 9.3 mg/dL (8.4-10.2); Carbon Dioxide 25 mmol/L (22-29); Chloride 103 mmol/L (96-108); Cholesterol 201 mg/dL; Estimated Glomerular Filt Rate > 60; Glucose Fasting 106 mg/dL (60-99); HDL Cholesterol 58 mg/dL; LDL Cholesterol Calculated 121 mg/dl; Sodium 138 mmol/L (135-145); Total Protein 7.5 g/dL (6.5-8.0); Triglycerides 113 mg/dL
[2022-01-07 18:45] LABS: Vitamin D 25-OH, D2 <4 ng/mL; Vitamin D 25-OH, D3 53 ng/mL; Vitamin D 25-OH, Total 53 ng/mL (30-100)
== END 2022-01-02 11:41 | disposition home or self-care (01) ==
LOC: HO.LAB 11:40
PROVIDERS: PCP Internal Medicine; Visit Provider Internal Medicine
DX: E78.5 Hyperlipidemia, unspecified (principal); I10 Essential (primary) hypertension; E55.9 Vitamin D deficiency, unspecified
CPT/HCPCS: 36415; 80053; 80061; 82306

== ENCOUNTER 2022-01-31 14:03 | Outpatient (REF) | payer OTHER, SELFPAY | END 2022-01-31 14:04 | disposition home or self-care (01) | LOC: HO.BBR 14:03 | PROVIDERS: Visit Provider Internal Medicine | DX: Z13.89 Encounter for screening for other disorder (principal) ==

== ENCOUNTER 2022-03-20 14:34 | Outpatient (REF) | payer OTHER, SELFPAY ==
--- NOTE | ~2022-03-20 | MM_ITS ---
EXAMINATION: MM DIAGNOSTIC DIGITAL BREAST TOMOSYNTHESIS, RIGHT US DIAGNOSTIC ULTRASOUND BREAST, RIGHT CLINICAL INFORMATION: Palpable nodule outer subareolar right breast noted by patient for approximately 4 months. No discharge. Mild tenderness. The lifetime risk of breast cancer based on the Tyrer-Cuzick Model is 5%. COMPARISON: Mammography: 11/24/2021, 11/18/2020 TECHNIQUE: Digital breast tomosynthesis is performed in both the craniocaudal and mediolateral oblique views along with computer-aided detection (CAD). Synthesized 2D images are generated from the tomosynthesis. Ultrasound right breast is targeted to the area of clinical concern. Patient is able to point to the area time of imaging. Grayscale imaging and color Doppler are performed without and with harmonics. FINDINGS: The breasts are almost entirely fatty (ACR BI-RADS breast composition Category a). Background stromal markings are similar to prior studies. There is no interval mass or developing density or architectural abnormality. No skin thickening or coarsening of the Rich's ligaments. No abnormal calcifications. Ultrasound demonstrates a small cyst 9:00 areolar corresponding to the palpable concern measuring 4 x 3 mm. The cyst resides within the deep dermis. There is no surrounding hyperemia on color Doppler. No edema tracking in soft tissue planes. No solid mass or architectural abnormality or duct ectasia. Results are discussed with the patient at time of visit. MM/MM tomosynthesis diagnostic BI IMPRESSION: -No mammographic evidence of malignancy. -Small benign-appearing intradermal cyst 9:00 areolar. This may represent epidermal cyst, sebaceous cyst, Griffith gland cyst. No surrounding inflammation. ASSESSMENT: BI-RADS 2: Benign RECOMMENDATION: 1. Patient may be managed based on the clinical impression. 2. Otherwise, routine annual screening mammography. This patient's information was entered into a reminder system with a target due date for their next mammogram.
== END 2022-03-20 14:35 | disposition home or self-care (01) ==
LOC: HO.MAMMO 14:34
PROVIDERS: PCP Internal Medicine; Visit Provider Internal Medicine
DX: N63.15 Unspecified lump in the right breast, overlapping quadrants (principal)
CPT/HCPCS: 76642; 77062; 77066

== ENCOUNTER 2022-04-04 14:07 | Outpatient (REF) | payer OTHER, SELFPAY | END 2022-04-04 14:08 | disposition home or self-care (01) | LOC: HO.BBR 14:07 | PROVIDERS: Visit Provider Internal Medicine | DX: Z13.89 Encounter for screening for other disorder (principal) ==

== ENCOUNTER 2022-06-06 14:04 | Outpatient (REF) | payer OTHER, SELFPAY | END 2022-06-06 14:05 | disposition home or self-care (01) | LOC: HO.BBR 14:04 | PROVIDERS: Visit Provider Internal Medicine | DX: Z13.89 Encounter for screening for other disorder (principal) ==

== ENCOUNTER 2022-08-14 14:40 | Outpatient (REF) | payer OTHER, SELFPAY | END 2022-08-14 14:41 | disposition home or self-care (01) | LOC: HO.BBR 14:40 | PROVIDERS: Visit Provider Internal Medicine | DX: Z13.89 Encounter for screening for other disorder (principal) ==

== ENCOUNTER 2022-08-15 14:09 | Outpatient (REF) | payer OTHER, SELFPAY | END 2022-08-15 14:10 | disposition home or self-care (01) | LOC: HO.BBR 14:09 | PROVIDERS: Visit Provider Internal Medicine | DX: Z13.89 Encounter for screening for other disorder (principal) ==

== ENCOUNTER 2022-10-26 15:07 | Outpatient (REF) | payer OTHER, SELFPAY | END 2022-10-26 15:08 | disposition home or self-care (01) | LOC: HO.BBR 15:07 | PROVIDERS: PCP Internal Medicine; Visit Provider Internal Medicine | DX: Z13.89 Encounter for screening for other disorder (principal) ==

== ENCOUNTER → 2022-11-13 08:37 | Outpatient (BNVA) | payer OTHER, SELFPAY | PROVIDERS: PCP Internal Medicine; Visit Provider Advanced Practice Midwife ==

== ENCOUNTER 2022-11-30 09:29 | Outpatient (REF) | payer OTHER, SELFPAY ==
--- NOTE | ~2022-11-30 | MM_ITS ---
EXAMINATION: MM SCREENING DIGITAL BREAST TOMOSYNTHESIS, BILATERAL CLINICAL INFORMATION: Screening. Asymptomatic. The lifetime risk of breast cancer based on the Tyrer-Cuzick Model is 5%. COMPARISON: Mammography: 03/20/2022, 11/24/2021, 11/18/2020, 06/19/2019; right breast ultrasound 03/20/2022. TECHNIQUE: Digital breast tomosynthesis is performed in both the craniocaudal and mediolateral oblique views along with computer-aided detection (CAD). Synthesized 2D images are generated from the tomosynthesis. FINDINGS: The breasts are almost entirely fatty (ACR BI-RADS breast composition Category a). Background stromal and fibroglandular densities are stable. No architectural abnormality or developing density. There are no significant masses, abnormal calcifications, or other abnormalities. The axilla and skin contours are unremarkable. MM/MM tomosynthesis screening BI IMPRESSION: No mammographic evidence of malignancy. ASSESSMENT: BI-RADS 1: Negative RECOMMENDATION: Routine annual mammography screening. This patient's information was entered into a reminder system with a target due date for their next mammogram.
== END 2022-11-30 09:30 | disposition home or self-care (01) ==
LOC: HO.MAMMO 09:29
PROVIDERS: Visit Provider Internal Medicine
DX: Z12.31 Encounter for screening mammogram for malignant neoplasm of breast (principal)
CPT/HCPCS: 77063; 77067

== ENCOUNTER 2023-01-02 14:01 | Outpatient (REF) | payer OTHER, SELFPAY | END 2023-01-02 14:02 | disposition home or self-care (01) | LOC: HO.BBR 14:01 | PROVIDERS: PCP Internal Medicine; Visit Provider Internal Medicine | DX: Z13.89 Encounter for screening for other disorder (principal) ==

== ENCOUNTER 2023-01-18 08:58 | Outpatient (REF) | payer OTHER, SELFPAY | END 2023-01-18 08:59 | disposition home or self-care (01) | LOC: HO.LAB 08:58 | PROVIDERS: PCP Internal Medicine; Visit Provider Internal Medicine | DX: R42 Dizziness and giddiness (principal); E78.5 Hyperlipidemia, unspecified | CPT/HCPCS: 36415; 80053; 80061 ==

== ENCOUNTER 2023-01-18 14:00 | Outpatient (RCR) | payer OTHER, SELFPAY ==
[2023-01-16 15:08] VITALS: BP 103/58; PULSE 78
--- NOTE | 2023-01-16 16:03 | MHC.PT.EP ---
[facility] Office [place] Office [place] Office [address] [phone] F: [phone] F: [phone] F: [phone] F: [phone] Physical Therapy Plan of Care Date of Evaluation: Date of Surgery: NA Diagnosis: Dizziness and giddiness Assessment: Vielka is a 62 year old female who is referred to PT for dizziness and giddiness . She reports of having symptoms of dizziness for about 2 months. She reports of having room spinning dizziness with rolling in bed, looking up and down, supine <> sit and it lasts for a few seconds. She also reports of having nausea. On PT examination she has intact visual tracking, smooth pursuit, saccades, negative for head thrust and negative VBI. She was positive for BPPV in [facility]. She lives with her . She is independent with all ADLs but does them slowly to avoid LOB. 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 She would benefit from skilled PT to address the aforementioned impairments and improve tolerance to functional activities. Frequency and Duration: The patient will be seen 2/week for 4 weeks Short Term Goals: Necktie Centralizing Machine Operator Goals: Patient to be educated on symptoms and indications to return to therapy when needed min 4 weeks. Pt will be negative for nystagmus or reports of vertigo in all diagnostic positions bilaterally to resolution of BPPV in 4 weeks. Patient to be able to functionally move in all planes and directions without provocation of dizziness to show return to PLOF in 4 weeks. Treatment Plan: Modalities to reduce pain, spasms and effusion. Manual therapy to restore motion and function. Therapeutic exercise to improve strength and flexibility. Neuromuscular re-education for posture and balance. Therapeutic activities to return to functional activities of daily living. Electronically signed by: Francisca Smith PT DPT Please sign and return to therapist. Thank you for your referral.
--- NOTE | 2023-02-18 08:31 | MHC.PT.DC ---
[facility] [place] [facility] [place] Office [place] Office [address] [facility] [phone] F: [phone] F: [phone] F: [phone] F: [phone] Physical Therapy Discharge Report Diagnosis: Dizziness and giddiness Date of Surgery: NA Date of Evaluation: 01/16/23 Date of Discharge: 02/18/23 Treatments to Date: 2 Cancellations to Date: 0 No Shows to Date: 0 Discharge Status: Achieved Goals Improved Function Discharge Summary: Vielka has had no symptoms of vestibular dysfunction in a month. She is therefore being d/c from PT. Electronically signed by: Francisca Smith PT DPT Please sign and return to therapist. Thank you for your referral.
== END 2023-02-18 08:31 | disposition home or self-care (01) ==
LOC: HO.PT 14:00
PROVIDERS: PCP Internal Medicine; Visit Provider Internal Medicine
DX: R42 Dizziness and giddiness (principal)
CPT/HCPCS: 95992; 97112; 97161

== ENCOUNTER 2023-03-04 14:59 | Outpatient (REF) | payer OTHER, SELFPAY | END 2023-03-04 15:00 | disposition home or self-care (01) | LOC: HO.BBR 14:59 | PROVIDERS: PCP Internal Medicine; Visit Provider Internal Medicine | DX: Z13.89 Encounter for screening for other disorder (principal) ==

== ENCOUNTER 2023-04-02 12:04 | Outpatient (AMB) | payer OTHER, SELFPAY ==
--- NOTE | 2023-04-02 13:21 | AM.OFFWIN_ITS ---
Intake Vital Signs 04/02/23 13:23 Weight 210 lb BP 130/80 Blood Pressure Location Lt brachial Position Sitting Pulse 74 Pulse Source Pulse Oximeter Temp 98.9 F Temp Source Oral Pulse Oximetry (%) 97 Oxygen Delivery Method Room Air Intake Visit Reasons: EP Sore throat, Cough (masked) Intake Note: Patient here for sore throat that has been present since last saturday, bodyaches, lower back pain, cough, slight SOB. Patient Tobacco Use Status: Former Tobacco user Quit Date: >10 yrs ago Allergies ciprofloxacin [Cipro] Allergy (Intermediate, Verified 04/02/23 13:46) hives dog dander [dogs] Allergy (Intermediate, Verified 04/02/23 13:46) Itching environmental Allergy (Intermediate, Uncoded 04/02/23 13:46) Itching Medication List - Last Reconciled 04/02/23 by James Vasquez MD albuterol sulfate 90 mcg/actuation (Ventolin HFA) 1 inh inhalation QID PRN 30 days carvedilol 25 mg PO BID elderberry fruit-honey 0.7-3 gram/7.5 mL 3 mL PO DAILY ergocalciferol (vitamin D2) 1,250 mcg PO QWEEK hydrochlorothiazide 25 mg PO QAM losartan 25 mg PO DAILY 90 days multivitamin 1 tab PO DAILY drsugzi-zmpb-hfbyl-oreg-capryl 100 mg-150 mg- 50 mg-150 mg 1 cap PO DAILY Do you need a note to return to daycare/school/sports/work: No HPI EP Sore throat, Cough (masked) HPI Details Patient presents for a sick visit. Reporting symptoms of sinus congestion, sore throat and difficulty swallowing. Low-grade fever. No family member is sick. No recent travel. Patient reports symptoms of malaise and fatigue. [facility] Medical History Arthritis Carpal tunnel syndrome, right COVID-19 vaccine series completed Diverticulitis Essential hypertension Family history of liver disease Hemochromatosis Hypovitaminosis D IBS (irritable bowel syndrome) Mild persistent asthma Obesity (BMI 35.0-39.9 without comorbidity) Pain in right arm Sciatica Ventricular bigeminy Surgical History H/O colonoscopy H/O knee surgery H/O right heart catheterization History of esophagogastroduodenoscopy (EGD) History of loop electrical excision procedure (LEEP) Hx of foot surgery Family History (Updated 01/02/23 @ 16:15 by Danuta Santiago MD) Father Diabetes Heart disease Stroke COPD (chronic obstructive pulmonary disease) High cholesterol Mother Diabetes Alzheimer disease HTN (hypertension) Brother Brain aneurysm Leukemia Sister COPD (chronic obstructive pulmonary disease) Diabetes Brother Heart valve replaced Social History Household Members: Spouse Housing: House Alcohol intake: current Alcohol intake frequency: 0-2 drinks per day Alcohol type: wine Patient Tobacco Use Status: Former Tobacco user Quit Date: >10 yrs ago Tobacco use type: Cigarette Cigarette Packs Per Day: 1 e-Cigarette/Vaping Use: Never Used Second Hand Smoke Exposure: No service: No Current occupational status: employed Current occupational exposures/hazards: No Sexual orientation: Straight/Heterosexual Gender identity: Female Cognitive needs: No Hearing needs: No Vision needs: Yes (glasses) Physical Exam Vital Signs: Last Vital Signs Temp 98.9 F 04/02/23 13:23 Pulse 74 04/02/23 13:23 BP 130/80 04/02/23 13:23 Pulse Ox 97 04/02/23 13:23 Oxygen Delivery Method Room Air 04/02/23 13:23 Const General: cooperative and healthy appearing Nutritional Appearance: well nourished Orientation/consciousness: patient oriented x3 Limitations: no limitations HEENT Head: Yes normal to inspection Eyes General: appearance normal, both eyes and all related structures Neck Neck: Yes normal visual inspection Chest Chest palpation & inspection: normal palpation of entire chest wall Resp Effort & Inspection: normal respiratory effort Neuro General: patient oriented x3 Results AMB Rapid Strep AMB Rapid Strep Negative Last Edit by MARCUS Olsen on 04/02/23 13:38 Results Reviewed Results Reviewed: Laboratory Last Values Strep Scn Rapid Clinic Negative 04/02/23 13:37 Assessment & Plan Assessment & Plan (1) Upper respiratory tract infection: Code(s): J06.9 - Acute upper respiratory infection, unspecified Plan: Antibiotics ordered. Increase fluid intake. Tylenol for aches and pains. If symptoms worsen, follow-up here for a recheck. Orders: Orders AMB Rapid Strep Screen Today Z13.9 - Encounter for screening, unspecified Coding Level of Care Code Est Pt Level 3 (12759) Diagnoses Upper respiratory tract infection J06.9
[2023-04-02 13:23] VITALS: BP 130/80; PULSE 74; TEMP 37.2; O2SAT 97
== END 2023-04-02 14:00 | disposition home or self-care (01) ==
PROVIDERS: PCP Internal Medicine; Visit Provider Internal Medicine
DX: J02.9 Acute pharyngitis, unspecified (principal); J06.9 Acute upper respiratory infection, unspecified
CPT/HCPCS: 87880; 99213

== ENCOUNTER 2023-04-10 15:31 | Outpatient (REF) | payer OTHER, SELFPAY | END 2023-04-10 15:32 | disposition home or self-care (01) | LOC: HO.BBR 15:31 | PROVIDERS: PCP Internal Medicine; Visit Provider Internal Medicine | DX: Z13.89 Encounter for screening for other disorder (principal) ==

== ENCOUNTER 2023-05-08 14:59 | Outpatient (REF) | payer OTHER, SELFPAY | END 2023-05-08 15:00 | disposition home or self-care (01) | LOC: HO.BBR 14:59 | PROVIDERS: PCP Internal Medicine; Visit Provider Internal Medicine | DX: Z13.89 Encounter for screening for other disorder (principal) ==

== ENCOUNTER 2023-06-05 15:00 | Outpatient (REF) | payer OTHER, SELFPAY | END 2023-06-05 15:01 | disposition home or self-care (01) | LOC: HO.BBR 15:00 | PROVIDERS: PCP Internal Medicine; Visit Provider Internal Medicine | DX: Z13.89 Encounter for screening for other disorder (principal) ==

== ENCOUNTER 2023-07-03 14:10 | Outpatient (REF) | payer OTHER, SELFPAY | END 2023-07-03 14:11 | disposition home or self-care (01) | LOC: HO.BBR 14:10 | PROVIDERS: PCP Internal Medicine; Visit Provider Internal Medicine | DX: Z13.89 Encounter for screening for other disorder (principal) ==

== ENCOUNTER 2023-07-31 15:00 | Outpatient (REF) | payer OTHER, SELFPAY | END 2023-07-31 15:01 | disposition home or self-care (01) | LOC: HO.BBR 15:00 | PROVIDERS: PCP Internal Medicine; Visit Provider Internal Medicine | DX: Z13.89 Encounter for screening for other disorder (principal) ==

== ENCOUNTER 2023-08-06 08:57 | Outpatient (REF) | payer OTHER, SELFPAY ==
--- NOTE | ~2023-08-06 | US_ITS ---
EXAMINATION: US COMPLETE ABDOMEN WITH LIVER ELASTOGRAPHY CLINICAL INFORMATION: Elevated liver function tests. COMPARISON: None available. TECHNIQUE: Real-time imaging of the abdominal viscera. Noninvasive ultrasound liver fibrosis assessment is performed using Leonora ElastPQ point quantification shear wave elastography (2D-SWE) with a C5-2 MHz transducer. Multiple elastography samples are obtained. FINDINGS: PANCREAS: Limited. The visualized pancreatic head and body are normal in appearance. The remainder of the pancreas is obscured from visualization by the overlying bowel gas. ABDOMINAL AORTA: The proximal, middle, and distal aortic segments are normal in caliber. INFERIOR VENA CAVA: Visualized portions are normal. LIVER: The liver demonstrates normal contour and increased echogenicity. No focal lesion or intrahepatic biliary duct dilatation. The right lobe measures 18.1 cm in length. The left lobe measures 12.8 cm in length. Portal flow is towards the liver (hepatopetal). Shear wave liver elastography median stiffness is 1.66 m/s (reference: normal median stiffness is 1.3 m/s or less). IQR/median stiffness to assess sampling precision is 0.15 (reference: good quality data set is IQR/median stiffness of 0.15 or less). GALLBLADDER: Normal. The gallbladder is physiologically distended without evidence of stones, sludge, polyps, wall thickening or pericholecystic fluid. COMMON BILE DUCT: Normal in caliber measuring 0.3 cm in diameter. RIGHT KIDNEY: Normal. No hydronephrosis. No renal calculi or focal parenchymal lesions. The kidney measures 10.7 cm in maximum dimension. LEFT KIDNEY: Normal. No hydronephrosis. No renal calculi or focal parenchymal lesions. The kidney measures 11.1 cm in maximum dimension. SPLEEN: Normal. The spleen measures 10.0 cm in maximum dimension. FREE FLUID: None. US/US abdomen comp w elastography IMPRESSION: 1. There is mild hepatomegaly. 2. There is generalized increase in hepatic echotexture, consistent with fatty infiltration or hepatocellular disease. Please correlate clinically. No focal hepatic mass or intrahepatic biliary dilatation is seen. 3. Liver elastography: In the absence of other known clinical signs, measurements rule out compensated advanced chronic liver disease. If there are known clinical signs, further testing may be needed for confirmation. 4. Technically limited ultrasound examination of the pancreas. REFERENCE: Society of Radiologists in Ultrasound Liver Stiffness Thresholds (2020): LIVER STIFFNESS THRESHOLDS: *Liver Stiffness equal or less than 1.3 m/s: High probability of being normal. *Liver Stiffness less than 1.7 m/s: In the absence of other known clinical signs, rules out compensated advanced chronic liver disease. *Liver Stiffness 1.7-2.1 m/s: Suggestive of compensated advanced chronic liver disease but need further test for confirmation. *Liver Stiffness over 2.1 m/s: Rules in compensated advanced chronic liver disease. *Liver Stiffness over 2.4 m/s: Suggestive of clinically significant portal hypertension. QUALITY OF DATA SET: *IQR/Median value equal or less than 0.15 implies a quality data set. *IQR/Median value over 0.15 implies a poor quality data set. SIGNIFICANT CHANGE FROM PRIOR EXAM: Significant change if liver stiffness measurement is 10% or greater from prior exam. OTHER CONSIDERATIONS: The stage of liver fibrosis may be overestimated in the setting of acute hepatitis, liver inflammation, elevated liver function tests, hepatic vascular congestion, obstructive cholestasis, non-fasting state, and infiltrative diseases such as amyloidosis and lymphoma. In some patients with NAFLD, the liver stiffness thresholds for compensated advanced chronic liver disease may be lower. In causes other than viral hepatitis and NAFLD, liver stiffness thresholds are not well established.
[2023-08-06 10:27] LABS: MANUAL DIFF FLAG NO
[2023-08-06 11:16] LABS: Basophils Percent Auto 0.2 % (0-2); Eosinophils Absolute Auto 0.1 X10*3/uL (0.0-0.4); Eosinophils Percent Auto 2.1 % (0-4); Hematocrit 36.8 % (37.0-47.0); Hemoglobin 12.3 g/dl (12.0-16.0); Imm Gran Abs Auto 0.01 X10*3/uL (0.00-0.03); Imm Gran Pct Auto 0.2 % (0.0-0.4); Lymphocytes Absolute Auto 1.6 X10*3/uL (1.2-4.9); Lymphocytes Percent Auto 36.9 % (20-40); Mean Corpuscular HGB Conc 33.4 g/dl (31.0-35.0); Mean Corpuscular Hemoglobin 31.6 pg (27.0-33.0); Mean Corpuscular Volume 94.6 fL (80.0-98.0); Mean Platelet Volume 10.5 fL (9.4-12.3); Monocytes Absolute Auto 0.5 X10*3/uL (0.1-1.2); Monocytes Percent Auto 10.5 % (2-11); Neutrophils Absolute Auto 2.1 x10*3/uL (2.0-8.3); Neutrophils Percent Auto 50.1 % (45-73); Platelet Count 247 X10*3/uL (160-400); Red Blood Count 3.89 X10*6/uL (4.20-5.50); Red Cell Distribution Width 12.8 % (11.0-16.0); White Blood Count 4.3 X10*3/uL (4.8-10.8)
[2023-08-06 11:18] LABS: Prothrombin Time 11.6 SEC (11.1-13.3)
[2023-08-06 12:32] LABS: HBS Num1 0.48 mIU/mL (0-7.99); HBc Num1 0.11 S/CO (0.00-0.79); HBsAGNum1 0.26 S/CO (0.00-0.99); Hepatitis A Antibody IgM 0.11 Index (0-0.79); Hepatitis B Core Antibody Nonreactive (Nonreactive); Hepatitis B Surface Antigen Negative (Negative); ~HepC Num1 0.07 S/CO (0.00-0.79); ~Hepatitis A Antibody IgM Nonreactive (Nonreactive); ~Hepatitis B Surface Antibody NONREACTIVE (Nonreactive); ~Hepatitis C Antibody Nonreactive (Nonreactive)
[2023-08-06 12:37] LABS: Ferritin 38 ng/mL (10-250)
[2023-08-06 12:38] LABS: Alanine Aminotransferase 41 U/L (0-31); Albumin Level 4.1 g/dL (3.5-5.0); Alkaline Phosphatase 99 U/L (39-117); Aspartate Amino Transferase 35 U/L (5-31); Bilirubin Direct 0.2 mg/dL (0.0-0.5); Bilirubin Total 0.6 mg/dL (0.0-1.0); Iron 46 mcg/dL (30-160); Percent Iron Saturation 17 % (15-50); Total Iron Binding Capacity 271 mcg/dL (228-428); Total Protein 7.3 g/dL (6.5-8.0); Unsaturated Iron Binding 225 ug/dL
[2023-08-08 01:29] LABS: Alpha 1 Anti-trypsin 153 mg/dL (83-199)
[2023-08-09 16:19] LABS: Smooth Muscle Antibody <20 U (<20)
[2023-08-12 13:18] LABS: Mitochondrial Antibodies NEGATIVE (NEGATIVE)
[2023-08-12 16:59] LABS: FIB-ALT 32 U/L (6-29); FIB-Alpha-2-Macroglobulin 227 mg/dL (106-279); FIB-Apolipoprotein A1 180 mg/dL (101-198); FIB-GGT 52 U/L (3-65); FIB-Haptoglobin 188 mg/dL (43-212); FIB-Total Bilirubin 0.6 mg/dL (0.2-1.2); Liver Fibrosis Score 0.24; Liver Fibrosis Stage F0-F1; Nec Inflam Act Grade A0; Nec Inflam Act Score 0.15
[2023-08-13 11:19] LABS: Anti Nuclear Antibody Screen NEGATIVE (NEGATIVE)
== END 2023-08-06 08:58 | disposition home or self-care (01) ==
LOC: HO.US 08:57
PROVIDERS: PCP Internal Medicine; Visit Provider Internal Medicine
DX: E83.110 Hereditary hemochromatosis (principal); R79.89 Other specified abnormal findings of blood chemistry
CPT/HCPCS: 36415; 76700; 76981; 80076; 81256; 81596; 82103; 82105; 82728; 83540; 85025; 85610; 86015; 86038; 86381; 86704; 86706; 86709; 86803; 87340

== ENCOUNTER 2023-08-17 12:53 | Emergency (ER) | payer OTHER, SELFPAY ==
--- NOTE | ~2023-08-17 | XR_ITS ---
EXAMINATION: XR ABDOMEN KUB CLINICAL INDICATION: Abdominal pain and nausea COMPARISON: None available. TECHNIQUE: AP view of the abdomen. FINDINGS: Mild stool burden. Nonobstructive bowel gas pattern. No free air. No suspicious calcifications. Degenerative changes spine. XR/XR KUB IMPRESSION: Nonobstructive bowel gas pattern. Mild stool burden.
[2023-08-17 13:05] VITALS: BP 109/64; PULSE 95; RESP 16; TEMP 36.4; O2SAT 94; BMI 39.7
--- NOTE | 2023-08-17 13:06 | ED_ITS ---
HPI - General Adult General Chief complaint: Abdominal Pain Stated complaint: abd pain Time Seen by Provider: 08/17/23 16:55 Source: patient Mode of arrival: ambulatory Limitations: no limitations History of Present Illness HPI narrative: Patient is a 63 year old assigned female at with a history of HTN presenting to the emergency department today with abdominal pain. Patient states that over the last 3 days she has had abdominal pain with no BM. Patient states that she has been passing gas but has not been able to have a full movement. Patient denies any dizziness, lightheadedness, nausea, vomiting, fever, chills, blurry vision, double vision, loss of vision, chest pain, difficulty breathing, shortness of breath, back pain, night sweats, pain with urination, increased urinary frequency, increased urinary urgency, blood in her urine or stool, syncope or a near syncopal episode, recent trauma or falls, bowel incontinence, bladder incontinence, bladder retention, or any other complaints at this time. Onset (ago): day(s) (3) Location: abdomen Radiation: non-radiation Severity: mild Severity scale (1-10): 3 Quality: aching Pain Consistency: constant Relieving factors: none Exacerbating factors: none Associated symptoms: denies other symptoms Treatments prior to arrival: none Related Data Home Medications Medication Instructions Recorded Confirmed carvedilol 25 mg tablet 25 mg PO BID 08/01/20 02/22/23 ergocalciferol (vitamin D2) 1,000 1,250 mcg PO QWEEK 09/28/20 02/22/23 unit capsule multivitamin 1 tab PO DAILY 09/28/20 02/22/23 elderberry fruit 0.7 gram-honey 3 3 ml PO DAILY 10/11/20 02/22/23 gram/7.5 mL oral liquid tumeric 100 mg-sean 150 mg-olive 1 cap PO DAILY 08/21/21 02/22/23 50 mg-oreg 150 mg-caprylate capsule Previous Rx's Medication Instructions Recorded losartan 25 mg tablet 25 mg PO DAILY 90 days #90 tabs 08/01/21 albuterol sulfate 90 mcg/actuation 1 inh inhalation QID PRN shortness 03/07/22 aerosol inhaler (Ventolin HFA) of breath or wheezing 30 days #8.5 grams hydrochlorothiazide 25 mg tablet 25 mg PO QAM #90 caps 10/30/22 azithromycin 250 mg tablet See Rx Instructions PO .COMPLEX #6 04/02/23 tabs meloxicam 15 mg tablet 15 mg PO DAILY #14 tabs 04/02/23 cefuroxime axetil 250 mg tablet 250 mg PO BID 7 days #14 tabs 08/17/23 Allergies Allergy/AdvReac Type Severity Reaction Status Date / Time ciprofloxacin [Cipro] Allergy Intermediate hives Verified 08/17/23 13:10 dog dander [dogs] Allergy Intermediate Itching Verified 08/17/23 13:10 environmental Allergy Intermediate Itching Uncoded 08/17/23 13:10 Review of Systems 2 Constitutional: Constitutional: Reports no additional constitutional complaints, Denies chills, Denies fever(s) and Denies night sweats Eyes: Eyes: Reports no additional eye complaints, Denies blurry vision, Denies change in vision, Denies diplopia, Denies eye discharge, Denies loss of vision and Denies eye pain ENT: Denies dizziness Cardiovascular: Cardiovascular: Reports no additional cardiovascular complaints, Denies chest pain, Denies lightheadedness, Denies Loss of Consciousness and Denies dyspnea Respiratory: Respiratory: Reports no additional respiratory complaints and Denies dyspnea Gastrointestinal: Gastrointestinal: Reports no additional gastrointestinal complaints, Reports abdominal pain, Denies melena, Denies hematochezia, Denies change in bowel habits, Reports change in stool character and Reports constipation Genitourinary: Genitourinary: Denies hematuria, Denies urinary frequency, Denies dysuria, Denies urinary incontinence, Denies urinary hesitancy and Denies urinary urgency Musculoskeletal: Musculoskeletal: Reports no additional musculoskeletal complaints, Denies numbness and Denies tingling Neurologic: Denies dizziness, Denies loss of vision, Denies numbness and Denies tingling Psychiatric: Psychiatric: Reports no additional psychiatric complaints Endocrine: Endocrine: Reports no additional endocrine complaints Hematologic/Lymphatic: Hematologic/Lymphatic: Reports no additional hematologic/lymphatic complaints Allergic/Immunologic: Allergic/Immunologic: Reports no additional allergic/immunologic complaints PMFSH Past Medical History Attestation statement: The following information was validated with the patient. Source: old records reviewed and nursing notes reviewed Medical History Upper respiratory tract infection Transaminitis Breast lump Morbid obesity with BMI of 40.0-44.9, adult Obesity (BMI 35.0-39.9 without comorbidity) Sciatica Hypovitaminosis D Ventricular bigeminy COVID-19 vaccine series completed IBS (irritable bowel syndrome) Essential hypertension Mild persistent asthma Diverticulitis Hemochromatosis Family history of liver disease Arthritis Carpal tunnel syndrome, right Pain in right arm Surgical History Hx of foot surgery History of esophagogastroduodenoscopy (EGD) H/O colonoscopy H/O right heart catheterization History of loop electrical excision procedure (LEEP) H/O knee surgery Family History Family History Father Diabetes Heart disease Stroke COPD (chronic obstructive pulmonary disease) High cholesterol Mother Diabetes Alzheimer disease HTN (hypertension) Brother Brain aneurysm Leukemia Sister COPD (chronic obstructive pulmonary disease) Diabetes Brother Heart valve replaced Social History Social History Household Members: Spouse Housing: House Alcohol intake: current Alcohol intake frequency: holidays/special occasions only Alcohol type: wine Patient Tobacco Use Status: Former Tobacco user Quit Date: >10 yrs ago Tobacco use type: Cigarette Cigarette Packs Per Day: 1 Smoked in Last 30 Days: No e-Cigarette/Vaping Use: Never Used Second Hand Smoke Exposure: No Use of substances other than those prescribed or required for medical reasons: No Advance Directives: No Advance Directives Information Provided: No Patient : No service: No Current occupational status: employed Current occupational exposures/hazards: No Sexual orientation: Straight/Heterosexual Gender identity: Female Cognitive needs: No Hearing needs: No Vision needs: Yes (glasses) Physical Exam ED Vital Signs: Vital Signs - 24 hr 08/17/23 13:05 08/17/23 16:57 Temperature 97.5 F 98.9 F Pulse Rate 95 89 Respiratory Rate 16 16 Blood Pressure 109/64 139/69 Pulse Oximetry 94 98 Oxygen Delivery Method Room Air Room Air BMI result Body Mass Index 39.7 Const General: cooperative, no acute distress, alert and awake Nutritional Appearance: well nourished Orientation/consciousness: patient oriented x3 Limitations: no limitations HENMT Head: Yes normal to inspection and Yes atraumatic Ears: hearing grossly normal bilaterally and external ears normal General nose exam: Normal external nose present, no nasal discharge noted and no epistaxis Face and sinus: Yes normal facial exam, No abrasion and No laceration Mouth: Normal oral and palatal mucosa present, no drooling and no muffled voice Eyes General: appearance normal, both eyes and all related structures Periorbital: periorbital findings normal Eyelids: Yes eyelids normal Conjunctivae: conjunctivae normal Pupils: Equal, round and reactive pupils present EOM: EOMs intact bilaterally Neck Neck: Yes normal visual inspection, Yes full ROM and Yes no lymphadenopathy Chest Chest palpation & inspection: normal inspection of the chest Resp Effort & Inspection: normal respiratory effort and able to speak in complete sentences GI Inspection: Yes normal to inspection Palpation (GI): Soft to palpation, not firm, nontender and no guarding Neuro General: patient oriented x3 and moves all extremities Cranial nerves: Yes Equal, round and reactive pupils present Cognition (Neuro): normal cognition Motor exam (neuro): 5/5 motor strength present throughout Sensory Exam: Normal double simultaneous stimulation for sensation Coordination: [id number] test normal Extrem General: Yes normal to inspection, Yes full ROM and Yes capillary refill normal Psych Appearance: grossly normal Mental Status: mental status grossly normal Affect: normal affect Attitude: cooperative Thought process: Normal thought process present Thought content: Normal thought content present Insight: Good insight present (Psych) Course Course Course Narrative: This is a rapid medical exam: Additional HPI, ROS, PE not included below will be deferred to primary provider. Patient is a 63-year-old female presenting to the ED with complaint of generalized abdominal pain and constipation for 3 days. Is able to pass gas. States normally has a daily bowel movement, but none in 3 days. Took OTC stool softner without relief. Rates pain at 8 or 9/10. Nausea without vomiting. Plan: EKG, labs, UA, KUB Medical Decision Making Medical Decision Making MDM Narrative: Patient is a 63 year old assigned female at with a history of HTN presenting to the emergency department today with abdominal pain. Patient's physical exam was unremarkable. Patient's blood work showed a mild hypokalemia but was otherwise unremarkable. Patient's urine showed a possible UTI, given the patient's current presentation, will treat. Patient's KUB x-ray showed constipation. I explained my physical exam findings as well as all test results to the patient. I answered all questions asked by the patient. Patient received a bed side enema which she stated helped her symptoms significantly. I stressed the importance of the patient taking her medication as prescribed. I stressed the importance of the patient following up with her primary care provider. I stressed the importance of the patient returning to the emergency department immediately if her symptoms were to worsen or if she were to develop any dizziness, shortness of breath, difficulty breathing, chest pain, blurry vision, loss of vision, nausea, vomiting, abdominal pain, fever, chills, back pain, or any other complaints. Patient verbalized agreement and understanding with this treatment plan and discharge. Differential Diagnosis Differential Diagnoses: The differential diagnosis associated with the presentation includes Constipation UTI Abdominal pain Admission/Observation Consideration of admission/observation: Escalation of care including admission/observation considered Patient would have been admitted to the hospital had her work up had any findings where hospital admission was appropriate and her clinical presentation warranted hospital admission. Lab Data [facility] Lab Attestation statement: I reviewed the patient's lab results. My interpretation of these results are in the [facility] Rationale portion of this note. 08/17/23 13:24 08/17/23 13:24 Labs: Lab Results 08/17/23 08/17/23 Range/Units 13:24 17:08 WBC 11.7 H (4.8-10.8) X10*3/uL RBC 3.96 L (4.20-5.50) X10*6/uL Hgb 12.5 (12.0-16.0) g/dl Hct 36.0 L (37.0-47.0) % MCV 90.9 (80.0-98.0) fL MCH 31.6 (27.0-33.0) pg MCHC 34.7 (31.0-35.0) g/dl RDW 12.7 (11.0-16.0) % Plt Count 258 (160-400) X10*3/uL MPV 9.8 (9.4-12.3) fL Immature Gran % (Auto) 0.3 (0.0-0.4) % Neut % (Auto) 78.9 H (45-73) % Lymph % (Auto) 11.8 L (20-40) % Ramsey % (Auto) 8.6 (2-11) % Eos % (Auto) 0.2 (0-4) % Baso % (Auto) 0.2 (0-2) % Lymph # (Auto) 1.4 (1.2-4.9) X10*3/uL Ramsey # (Auto) 1.0 (0.1-1.2) X10*3/uL Eos # (Auto) 0.0 (0.0-0.4) X10*3/uL Baso # (Auto) 0.0 (0.0-0.2) X10*3/uL Abs Immat Gran (auto) 0.03 (0.00-0.03) X10*3/uL Absolute Neuts (auto) 9.2 H (2.0-8.3) x10*3/uL Absolute Nucleated RBC 0.000 (0.0-0.012) X10*3/uL Nucleated RBC % (auto) 0.0 (0.0-0.2) /100WBC Sodium 140 (135-145) mmol/L Potassium 3.2 L (3.3-5.1) mmol/L Chloride 104 (96-108) mmol/L Carbon Dioxide 25 (22-29) mmol/L Anion Gap 14 (12-20) BUN 9 (9-16) mg/dL Creatinine 0.77 (0.5-1.4) mg/dL Estim Creat Clear Calc 77.8 Estimated GFR > 60 Random Glucose 131 H (60-115) mg/dL Calcium 9.6 (8.4-10.2) mg/dL Total Bilirubin 1.4 H (0.0-1.0) mg/dL AST 26 (5-31) U/L ALT 41 H (0-31) U/L Alkaline Phosphatase 81 (39-117) U/L Troponin I High Sens < 2.7 (<3.5-17.0) ng/L Total Protein 7.6 (6.5-8.0) g/dL Albumin 4.2 (3.5-5.0) g/dL Urine Color Dark Yellow Urine Appearance Clear Urine pH 6.5 (5.0-9.0) Ur Specific Zephyr 1.025 (1.005-1.025) Urine Protein 30 (1+) H (Neg-Trace) mg/dL Urine Glucose (UA) Negative (Negative) mg/dL Urine Ketones 15 (Negative) mg/dL Urine Blood Negative (Negative) Urine Nitrite Negative (Negative) Ur Leukocyte Esterase Moderate (2+) H (Negative) Urine RBC 0-2 (0-2) /HPF Urine WBC 6-10 H (0-5) /HPF Ur Squamous Epith Cells 0-2 (0-2) /HPF Urine Bacteria None Seen (None Seen) Hyaline Casts 0-2 (0-2) /LPF COVID-19 (ALBERTO) Negative (Negative) COVID-19 Clin Com See Note Influenza Type A (MICHAEL) Negative (Negative) Influenza Type B (MICHAEL) Negative (Negative) Influenza A & B Note See Note Independent Interpretation I performed an independent interpretation of an: Plain X-Ray Interpretation: My interpretation is in agreement with the radiologist's impression of this imaging study. - EXAMINATION: XR ABDOMEN KUB CLINICAL INDICATION: Abdominal pain and nausea COMPARISON: None available. TECHNIQUE: AP view of the abdomen. FINDINGS: Mild stool burden. Nonobstructive bowel gas pattern. No free air. No suspicious calcifications. Degenerative changes spine. XR/XR KUB IMPRESSION: Nonobstructive bowel gas pattern. Mild stool burden. Dictated By: Patricia Smith MD Signed By: Electronically signed by Patricia Smith MD 08/17/23 7240 Radiology Impression Discussion of test interpretation with radiology: I have reviewed the radiologist's reading. Chronic Conditions Patient?s care impacted by: Hypertension Discharge Plan Discharge Clinical Impression: Acute hypokalemia, Constipation, UTI (urinary tract infection) Patient Disposition: Home, Self-Care Instructions: Constipation (DC), Urinary Tract Infection in Women (DC), Potassium Content of Foods List (ED), Hypokalemia (ED) Additional Instructions: You can use sugar free Haribo gummy bears or magnesium citrate over the counter for constipation. Follow up with your primary care provider. Return to the emergency department immediately if your symptoms worsen or if you develop any dizziness, shortness of breath, difficulty breathing, chest pain, blurry vision, loss of vision, nausea, vomiting, abdominal pain, fever, chills, back pain, or any other complaints. Prescriptions: New cefuroxime axetil 250 mg tablet 250 mg PO BID 7 Days Qty: 14 0RF No Action losartan 25 mg tablet 25 mg PO DAILY 90 Days Qty: 90 1RF albuterol sulfate [Ventolin HFA] 90 mcg/actuation HFA aerosol inhaler 1 inh inhalation QID PRN (Reason: shortness of breath or wheezing) 30 Days Qty: 8.5 11RF hydrochlorothiazide 25 mg tablet 25 mg PO QAM Qty: 90 3RF multivitamin Tablet 1 tab PO DAILY Vitamin D2 1,000 unit Capsule 1,250 mcg PO QWEEK elderberry fruit-honey 0.7-3 gram/7.5 mL Liquid 3 ml PO DAILY carvedilol 25 mg tablet 25 mg PO BID azithromycin 250 mg tablet See Rx Instructions PO .COMPLEX Qty: 6 0RF Rx Instructions: take 500 mg today (day 1), then 250 mg for 4 days (days 2-5) PO meloxicam 15 mg tablet 15 mg PO DAILY Qty: 14 0RF ydpzwuz-trgh-qykvm-oreg-capryl 100 mg-150 mg- 50 mg-150 mg capsule 1 cap PO DAILY Referrals: Danuta Barboza MD [Primary Care Provider] - Interventions: ED Discharge Assessment Last Done: 08/17/23 18:45 Discharge Date/Time: 08/17/23 18:45 Print Language: Malawian
--- NOTE | 2023-08-17 13:08 | ECG_ITS ---
Test Reason : abd pain Blood Pressure : / mmHG Vent. Rate : 091 BPM Atrial Rate : 091 BPM P-R Int : 172 ms QRS Dur : 096 ms QT Int : 372 ms P-R-T Axes : 039 -33 007 degrees QTc Int : 457 ms Normal sinus rhythm Left axis deviation Minimal voltage criteria for LVH, may be normal variant ( R in aVL ) T wave abnormality, consider anterior ischemia Abnormal ECG When compared with ECG of 05-JUN-2012 19:32, Premature ventricular complexes are no longer Present Referred By: Janis Baugh Electronically Signed By:ANA LUNA MD
[2023-08-17 13:28] LABS: MANUAL DIFF FLAG NO
[2023-08-17 13:34] LABS: Basophils Percent Auto 0.2 % (0-2); Eosinophils Percent Auto 0.2 % (0-4); Hemoglobin 12.5 g/dl (12.0-16.0); Imm Gran Abs Auto 0.03 X10*3/uL (0.00-0.03); Imm Gran Pct Auto 0.3 % (0.0-0.4); Lymphocytes Absolute Auto 1.4 X10*3/uL (1.2-4.9); Lymphocytes Percent Auto 11.8 % (20-40); Mean Corpuscular HGB Conc 34.7 g/dl (31.0-35.0); Mean Corpuscular Hemoglobin 31.6 pg (27.0-33.0); Mean Corpuscular Volume 90.9 fL (80.0-98.0); Mean Platelet Volume 9.8 fL (9.4-12.3); Monocytes Percent Auto 8.6 % (2-11); Neutrophils Absolute Auto 9.2 x10*3/uL (2.0-8.3); Neutrophils Percent Auto 78.9 % (45-73); Platelet Count 258 X10*3/uL (160-400); Red Blood Count 3.96 X10*6/uL (4.20-5.50); Red Cell Distribution Width 12.7 % (11.0-16.0); White Blood Count 11.7 X10*3/uL (4.8-10.8)
[2023-08-17 13:48] LABS: Alanine Aminotransferase 41 U/L (0-31); Albumin Level 4.2 g/dL (3.5-5.0); Alkaline Phosphatase 81 U/L (39-117); Anion Gap 14 (12-20); Aspartate Amino Transferase 26 U/L (5-31); Bilirubin Total 1.4 mg/dL (0.0-1.0); Blood Urea Nitrogen 9 mg/dL (9-16); COVID-19 Test Negative (Negative); Calcium 9.6 mg/dL (8.4-10.2); Carbon Dioxide 25 mmol/L (22-29); Chloride 104 mmol/L (96-108); Creatinine Clr Calc Pharmacy 77.8; Estimated Glomerular Filt Rate > 60; Glucose Random 131 mg/dL (60-115); IDNOW Serial# 152EDE1D; Potassium 3.2 mmol/L (3.3-5.1); Sodium 140 mmol/L (135-145); Total Protein 7.6 g/dL (6.5-8.0)
[2023-08-17 13:49] LABS: IDNOW Serial# 08D9AD1C; Influenza A Negative (Negative); Influenza B2 Negative (Negative)
[2023-08-17 13:57] LABS: Troponin-I High Sensitivity < 2.7 ng/L (<3.5-17.0)
[2023-08-17 16:57] VITALS: BP 139/69; PULSE 89; RESP 16; TEMP 37.2; O2SAT 98
--- NOTE | 2023-08-17 17:02 | PC.NURSE ---
a&ox4. vss and up to date. pt presents to the ED to an increase in generalized abd pain/nausea x a few days. pt states pain radiates to the lower back bilaterally. pt unable to have a BM x 3 days. pt denies any urinary sx. states she has had general issues w/ abdominal pain for years and thinks it is a flare up. abd tender upon palpation. distension noted to upper abdomen. pt able to ambulate to restroom independently w/ steady gait. urine sample obtained/sent to lab. no sob/wob noted. respirations even and unlabored. bedside for support. call gates placed within reach.
[2023-08-17 17:21] LABS: Appearance Urine Clear; Color Urine Dark Yellow; Glucose Urine UA Negative (Negative); Leukocyte Esterase Urine Moderate (2+) (Negative); Nitrite Urine Negative (Negative); PH 6.5 (5.0-9.0); Specific Gravity - Urine 1.025 (1.005-1.025); UMIC TRIGGER UACC YES; Urine Blood Negative (Negative); Urine Ketones 15 mg/dL (Negative); Urine Protein 30 (1+) mg/dL (Neg-Trace)
--- NOTE | 2023-08-17 17:33 | PC.NURSE ---
soap suds enema administered. commode placed bedside. effectiveness pending. call gates placed within reach.
[2023-08-17 17:41] LABS: Bacteria Urine None Seen (None Seen); Hyaline Casts Urine 0-2 /LPF (0-2); RBC Urine 0-2 /HPF (0-2); Squamous Epithelial Cell Urine 0-2 /HPF (0-2); UACC Culture Trigger YES
== END 2023-08-17 18:45 | disposition home or self-care (01) ==
PROVIDERS: Registered Nurse Emergency; Emergency Provider Emergency Medicine Emergency Medical Services; PCP Internal Medicine
DX: E87.6 Hypokalemia (principal); K59.00 Constipation, unspecified; N39.0 Urinary tract infection, site not specified; I10 Essential (primary) hypertension; E78.00 Pure hypercholesterolemia, unspecified; Z79.899 Other long term (current) drug therapy; Z11.52 Encounter for screening for COVID-19
CPT/HCPCS: 74018; 80053; 81001; 84484; 85025; 87086; 87502; 87635; 93005; 99284; 99285

== ENCOUNTER → 2023-08-17 13:08 | Outpatient (BNV) | payer OTHER, SELFPAY | PROVIDERS: Emergency Provider Emergency Medicine Emergency Medical Services; PCP Internal Medicine; Visit Provider Internal Medicine Cardiovascular Disease | DX: R10.9 Unspecified abdominal pain (principal) | CPT/HCPCS: 93010 ==

== ENCOUNTER 2023-08-22 15:36 | Inpatient (IN) | payer OTHER, SELFPAY ==
--- NOTE | ~2023-08-22 | CT_ITS ---
EXAMINATION: CT ABDOMEN AND PELVIS WITH CONTRAST CLINICAL INFORMATION: Left lower quadrant pain with history of diverticulitis COMPARISON: CT abdomen pelvis 04/04/2021. TECHNIQUE: Multidetector volumetric images were obtained from the superior aspect of the liver through the pubic symphysis following administration 85 mL of Omnipaque 350 intravenous contrast. Sagittal and coronal reformatted images were obtained on the technologist's workstation. Oral contrast: No This CT examination was performed using dose optimization techniques as appropriate, variously including the following: *Automated exposure control *Adjustment of mA and/or kV according to patient size (this includes techniques or standardized protocols for targeted exams where dose is matched to indication/reason for exam; i.e. extremities or head) *Use of iterative reconstruction technique DLP: 680 mGy-cm FINDINGS: LUNG BASES: There is platelike atelectasis. The heart size is normal. LIVER, GALLBLADDER, AND BILIARY TREE: The liver is enlarged in size measuring 19 cm. It has normal shape, and attenuation. No focal hepatic lesion or biliary ductal dilatation is present. The gallbladder is unremarkable with no evidence of radiopaque gallstones, gallbladder wall thickening, or obvious pericholecystic inflammatory changes. PANCREAS: Unremarkable. SPLEEN: Unremarkable. ADRENAL GLANDS: Unremarkable. KIDNEYS AND URETERS: The kidneys are normal in size, shape, and attenuation. No hydronephrosis, hydroureter, or calculi seen. No perinephric stranding. BLADDER: Unremarkable. GASTROINTESTINAL TRACT: There are diverticuli and diffuse mural thickening involving the sigmoid colon without pericolic fat stranding suggestive of diverticulitis. There is a multiloculated abscess superior and to the right of fundal uterus. It measures 7.5 cm AP, 2.8 cm wide and 3.8 cm in craniocaudad length. It has air-fluid level and a solid component more anteriorly. The appendix is suggested that and appears normal caliber. There is minimal scattered stool in the rest the colon. There is no obstruction. The small bowel loops are normal caliber. There is gas visualized within the fundal endometrium suspicious for a fistula. ABDOMINAL WALL: No significant hernia is appreciated. LYMPH NODES: Normal. VASCULAR: The abdominal aorta is of normal caliber. No retroperitoneal lymph nodes or mass seen. PELVIC VISCERA: There is a right pelvic abscess and fat stranding with induration. No abnormal pelvic lymph nodes OSSEOUS STRUCTURES: No aggressive lytic or sclerotic process seen. Mild facet joint arthropathy is noted at L5-S1, L4-L5 disc levels. CT/CT abdomen pelvis w IV con IMPRESSION: 1. Sigmoid diverticulitis with a multiloculated abscess superior and to the right of fundal uterus. There is gas visualized within the fundal endometrium suspicious for a fistula. There is scattered diverticula in the rest the colon 2. No abnormal pelvic or retroperitoneal lymph nodes seen. 3. Bibasilar atelectasis. 4. The appendix is normal caliber. There is no bowel obstruction. No free air seen in the abdomen. Fleischner guidelines were followed.
--- NOTE | ~2023-08-22 | CT_ITS ---
EXAMINATION: CT ABDOMEN AND PELVIS WITHOUT CONTRAST CLINICAL INFORMATION: Follow-up diverticular abscess COMPARISON: 08/22/2023 TECHNIQUE: Multidetector volumetric imaging was performed from the superior aspect of the liver through the pubic symphysis. Sagittal and coronal reformatted images were obtained on the technologist's workstation. Examination performed following oral contrast administration only This CT examination was performed using dose optimization techniques as appropriate, variously including the following: *Automated exposure control *Adjustment of mA and/or kV according to patient size (this includes techniques or standardized protocols for targeted exams where dose is matched to indication/reason for exam; i.e. extremities or head) *Use of iterative reconstruction technique DLP: 1147 mGy-cm FINDINGS: LUNG BASES: The visualized lung bases are unremarkable. LIVER, GALLBLADDER, AND BILIARY TREE: The liver is normal in size, shape, and attenuation. No focal hepatic lesion or biliary ductal dilatation is present. The gallbladder is unremarkable with no evidence of radiopaque gallstones, gallbladder wall thickening, or obvious pericholecystic inflammatory changes. PANCREAS: Unremarkable. SPLEEN: Unremarkable. ADRENAL GLANDS: Unremarkable. KIDNEYS AND URETERS: The kidneys are normal in size, shape, and attenuation. No hydronephrosis, hydroureter, or calculi seen. No perinephric stranding. BLADDER: Urinary bladder decompressed GASTROINTESTINAL TRACT: There is enlarged in size and intensity abscess formation in the pelvis and lower abdomen adjacent to the inflamed and thickened wall of the descending colon consistent with abscess formation and perforation. No abscess is inseparable from the uterus is irregular collection of air measured 3.0 x 3.2 cm. Another collection is smaller and connected to the described 1. Small abscess collection seen in the vicinity. ABDOMINAL WALL: No significant hernia is appreciated. LYMPH NODES: Normal. VASCULAR: Unremarkable. PELVIC VISCERA: The uterus revealed a are in endometrial most likely due to: Vaginal fistula OSSEOUS STRUCTURES: Unremarkable. CT/CT abdomen pelvis wo IV con IMPRESSION: Growing abscess with perforation and suspicious for colovaginal fistula Fleischner guidelines were followed.
--- NOTE | ~2023-08-22 | XR_ITS ---
EXAMINATION: XR CHEST CLINICAL INFORMATION: Preop. COMPARISON: 07/07/2018. TECHNIQUE: Frontal view of the chest was obtained. FINDINGS: The cardiomediastinal silhouette is stable. There is no focal lung consolidation or pleural effusion. The bony structures and soft tissues are unremarkable. XR/XR chest 1V IMPRESSION: No acute cardiopulmonary process.
[2023-08-22 15:41] VITALS: BP 104/58; PULSE 84; O2SAT 99
--- NOTE | 2023-08-22 15:41 | ED_ITS ---
HPI - Abdominal Pain General Chief Complaint: Abdominal Pain Stated Complaint: L ABD PAIN,NO BM X DAYS PER EMS Time Seen by Provider: 08/22/23 19:34 Source: patient Mode of arrival: ambulatory Limitations: no limitations History of Present Illness HPI narrative: Patient's history of diverticulosis been complaining of lower abdominal pain for last 7 days was seen here on 08/17 and Fleet enema was given for constipation still not able to move her bowels in not eating much discomfort in the left lower abdominal no nausea no vomiting no fever or chills no blood in the stool no significant history of constipated in the past patient does have discomfort in left lower quadrant when she tried to move her bowels Related Data Home Medications Medication Instructions Recorded Confirmed carvedilol 25 mg tablet 25 mg PO BID 08/01/20 08/22/23 multivitamin 1 tab PO DAILY 09/28/20 08/22/23 Previous Rx's Medication Instructions Recorded losartan 25 mg tablet 25 mg PO DAILY 90 days #90 tabs 08/01/21 albuterol sulfate 90 mcg/actuation 1 inh inhalation QID PRN shortness 03/07/22 aerosol inhaler (Ventolin HFA) of breath or wheezing 30 days #8.5 grams hydrochlorothiazide 25 mg tablet 25 mg PO QAM #90 caps 10/30/22 colostomy bags 3 #30 ea 09/05/23 omeprazole 20 mg capsule,delayed 20 mg PO DAILY #30 caps 09/05/23 release oxycodone 5 mg tablet 5 mg PO Q4H PRN pain (scale score 09/05/23 7-10) #26 tabs walker (Ultra-Light Rollator misc) #1 ea 09/05/23 amoxicillin 875 mg-potassium 1 tab PO BID #10 tabs 09/06/23 clavulanate 125 mg tablet Allergies Allergy/AdvReac Type Severity Reaction Status Date / Time ciprofloxacin [Cipro] Allergy Intermediate hives Verified 08/17/23 13:10 dog dander [dogs] Allergy Intermediate Itching Verified 08/17/23 13:10 environmental Allergy Intermediate Itching Uncoded 08/17/23 13:10 Review of Systems Review of Systems Yes all other systems are reviewed and are negative PMFSH Past Medical History Medical History Upper respiratory tract infection Transaminitis Breast lump Morbid obesity with BMI of 40.0-44.9, adult Obesity (BMI 35.0-39.9 without comorbidity) Sciatica Hypovitaminosis D Ventricular bigeminy COVID-19 vaccine series completed IBS (irritable bowel syndrome) Essential hypertension Mild persistent asthma Diverticulitis Hemochromatosis Family history of liver disease Arthritis Carpal tunnel syndrome, right Pain in right arm Surgical History Hx of foot surgery History of esophagogastroduodenoscopy (EGD) H/O colonoscopy H/O right heart catheterization History of loop electrical excision procedure (LEEP) H/O knee surgery Family History Family History Father Diabetes Heart disease Stroke COPD (chronic obstructive pulmonary disease) High cholesterol Mother Diabetes Alzheimer disease HTN (hypertension) Brother Brain aneurysm Leukemia Sister COPD (chronic obstructive pulmonary disease) Diabetes Brother Heart valve replaced Social History Social History Household Members: Spouse Housing: House Do you presently have visiting nurse or other home services: No Alcohol intake: current Alcohol intake frequency: 0-2 drinks per day Alcohol type: wine Patient Tobacco Use Status: Former Tobacco user Quit Date: 1985 Tobacco use type: Cigarette Cigarette Packs Per Day: 1 e-Cigarette/Vaping Use: Never Used Second Hand Smoke Exposure: No Advance Directives Date on File: 08/22/23 service: No Current occupational status: employed Current occupational exposures/hazards: No Sexual orientation: Straight/Heterosexual Gender identity: Female Cognitive needs: No Hearing needs: No Vision needs: Yes (glasses) Physical Exam ED Vital Signs: Vital Signs - 24 hr 08/22/23 16:09 08/22/23 19:53 08/22/23 22:28 Temperature 98.4 F 98.3 F 98.3 F Pulse Rate 81 68 65 Respiratory Rate 16 16 14 Blood Pressure 90/47 L 106/53 L 76/37 L Pulse Oximetry 96 97 96 Oxygen Delivery Method Room Air Room Air Room Air BMI result Body Mass Index 38.5 Appearance: Alert. Oriented X3. No acute distress. Eyes: No pallor or icterus ENT: Pharynx normal. Oral Mucosa moist Neck: Normal inspection. Neck supple. CVS: Normal heart rate and rhythm. Pulses normal. Respiratory: No respiratory distress. Equal air entry bilateral, no wheezing/rales/rhonchi Abdomen: Soft , tenderness in left lower quadrant and suprapubic area with guarding and rebound tenderness + sounds are present, no mass palpable, no CVA tenderness Skin: Skin warm and dry. Normal skin color. Normal skin turgor. Extremities: No lower extremity edema. No calf tenderness Neuro: Oriented X 3. Course Course Course Narrative: RME: Lower abdominal pain since Saturday, 03/24. Seen in this ED on Saturday for same symptoms. Diagnosed with constipation and UTI. Been taking antibiotics. States she has not moved her bowels in 3 days, passing flatus. Tried 'little gummies' for constipation with no relief. Medical Decision Making Medical Decision Making [facility] Narrative: Patient with complicated diverticulitis with perforation with multiloculated abscesses suspicion of a fistula to fundus. Case discussed Dr. Avery will admit to surgical service patient was given IV Zosyn normal lactic acid level. Admit to the surgery Differential Diagnosis Differential Diagnoses: The differential diagnosis associated with the presentation includes Diverticulitis/constipation / bowel perforation Admission/Observation Consideration of admission/observation: Escalation of care including admission/observation considered Consult Healthcare Provider Management of the patient was discussed with: [facility] T[employer] Surgery Dr. Avery Lab Data [facility] Lab Attestation statement: I reviewed the patient's lab results. 08/31/23 05:44 08/31/23 05:44 Labs: Lab Results 08/22/23 08/22/23 Range/Units 16:25 21:42 WBC 10.5 (4.8-10.8) X10*3/uL RBC 3.97 L (4.20-5.50) X10*6/uL Hgb 12.2 (12.0-16.0) g/dl Hct 36.2 L (37.0-47.0) % MCV 91.2 (80.0-98.0) fL MCH 30.7 (27.0-33.0) pg MCHC 33.7 (31.0-35.0) g/dl RDW 12.3 (11.0-16.0) % Plt Count 316 (160-400) X10*3/uL MPV 9.8 (9.4-12.3) fL Immature Gran % (Auto) 0.8 H (0.0-0.4) % Neut % (Auto) 76.0 H (45-73) % Lymph % (Auto) 12.2 L (20-40) % Larimer % (Auto) 9.5 (2-11) % Eos % (Auto) 1.2 (0-4) % Baso % (Auto) 0.3 (0-2) % Lymph # (Auto) 1.3 (1.2-4.9) X10*3/uL Larimer # (Auto) 1.0 (0.1-1.2) X10*3/uL Eos # (Auto) 0.1 (0.0-0.4) X10*3/uL Baso # (Auto) 0.0 (0.0-0.2) X10*3/uL Abs Immat Gran (auto) 0.08 H (0.00-0.03) X10*3/uL Absolute Neuts (auto) 7.9 (2.0-8.3) x10*3/uL Absolute Nucleated RBC 0.000 (0.0-0.012) X10*3/uL Nucleated RBC % (auto) 0.0 (0.0-0.2) /100WBC Sodium 135 (135-145) mmol/L Potassium 3.2 L (3.3-5.1) mmol/L Chloride 99 (96-108) mmol/L Carbon Dioxide 25 (22-29) mmol/L Anion Gap 14 (12-20) BUN 18 H (9-16) mg/dL Creatinine 1.07 (0.5-1.4) mg/dL Estim Creat Clear Calc 55.1 Estimated GFR 52 Random Glucose 109 (60-115) mg/dL Lactic Acid 0.9 (0.5-2.0) mmol/L Calcium 9.9 (8.4-10.2) mg/dL Phosphorus 4.1 (2.7-4.5) mg/dL Magnesium 2.4 (1.6-2.6) mg/dL Total Bilirubin 0.7 (0.0-1.0) mg/dL AST 31 (5-31) U/L ALT 34 H (0-31) U/L Alkaline Phosphatase 75 (39-117) U/L Total Protein 7.7 (6.5-8.0) g/dL Albumin 4.0 (3.5-5.0) g/dL Independent Interpretation I performed an independent interpretation of an: CT Scan Radiology Impression Discussion of test interpretation with radiology: I have reviewed the radiologist's reading. Radiologist Impression: [address] [address] [address] Scan Report Signed Patient: Vielka Palomino MR#: [id number] : 1960 Acct:[id number] Age/Sex: 63 / F ADM Date: 08/22/23 Loc: HO.ED Attending Dr: Ordering Physician: Lester Flores MD Date of Service: 08/22/23 Procedure(s): CT abdomen pelvis w IV con Accession Number(s): [id number] cc: Danuta Barboza MD; Lester Flores MD~ EXAMINATION: CT ABDOMEN AND PELVIS WITH CONTRAST CLINICAL INFORMATION: Left lower quadrant pain with history of diverticulitis COMPARISON: CT abdomen pelvis 04/04/2021. TECHNIQUE: Multidetector volumetric images were obtained from the superior aspect of the liver through the pubic symphysis following administration 85 mL of Omnipaque 350 intravenous contrast. Sagittal and coronal reformatted images were obtained on the technologist's workstation. Oral contrast: No This CT examination was performed using dose optimization techniques as appropriate, variously including the following: *Automated exposure control *Adjustment of mA and/or kV according to patient size (this includes techniques or standardized protocols for targeted exams where dose is matched to indication/reason for exam; i.e. extremities or head) *Use of iterative reconstruction technique DLP: 680 mGy-cm FINDINGS: LUNG BASES: There is platelike atelectasis. The heart size is normal. LIVER, GALLBLADDER, AND BILIARY TREE: The liver is enlarged in size measuring 19 cm. It has normal shape, and attenuation. No focal hepatic lesion or biliary ductal dilatation is present. The gallbladder is unremarkable with no evidence of radiopaque gallstones, gallbladder wall thickening, or obvious pericholecystic inflammatory changes. PANCREAS: Unremarkable. SPLEEN: Unremarkable. ADRENAL GLANDS: Unremarkable. KIDNEYS AND URETERS: The kidneys are normal in size, shape, and attenuation. No hydronephrosis, hydroureter, or calculi seen. No perinephric stranding. BLADDER: Unremarkable. GASTROINTESTINAL TRACT: There are diverticuli and diffuse mural thickening involving the sigmoid colon without pericolic fat stranding suggestive of diverticulitis. There is a multiloculated abscess superior and to the right of fundal uterus. It measures 7.5 cm AP, 2.8 cm wide and 3.8 cm in craniocaudad length. It has air-fluid level and a solid component more anteriorly. The appendix is suggested that and appears normal caliber. There is minimal scattered stool in the rest the colon. There is no obstruction. The small bowel loops are normal caliber. There is gas visualized within the fundal endometrium suspicious for a fistula. ABDOMINAL WALL: No significant hernia is appreciated. LYMPH NODES: Normal. VASCULAR: The abdominal aorta is of normal caliber. No retroperitoneal lymph nodes or mass seen. PELVIC VISCERA: There is a right pelvic abscess and fat stranding with induration. No abnormal pelvic lymph nodes OSSEOUS STRUCTURES: No aggressive lytic or sclerotic process seen. Mild facet joint arthropathy is noted at L5-S1, L4-L5 disc levels. CT/CT abdomen pelvis w IV con IMPRESSION: 1. Sigmoid diverticulitis with a multiloculated abscess superior and to the right of fundal uterus. There is gas visualized within the fundal endometrium suspicious for a fistula. There is scattered diverticula in the rest the colon 2. No abnormal pelvic or retroperitoneal lymph nodes seen. 3. Bibasilar atelectasis. 4. The appendix is normal caliber. There is no bowel obstruction. No free air seen in the abdomen. Fleischner guidelines were followed. Medications Administered Discontinued Medications Generic Name Dose Route Start Last Admin Trade Name Freq PRN Reason Stop Dose Admin Amoxicillin/Clavulanate Potassium 500 mg 09/05/23 19:00 09/06/23 05:59 Amoxicillin/Potassium Clav 500 Mg Tablet PO 500 mg Q12H KARLA Administration Barium Sulfate 900 ml 08/26/23 14:18 08/26/23 14:19 Barium Sulfate Oral (Vanilla) 450 Ml Oral.Susp PO 08/26/23 14:19 900 ml ONCE ONE Administration Benzocaine 1 lozenge 08/28/23 12:02 09/05/23 21:15 Throat Lozenge, Medicated Lozenge MUCOUS MEM 1 lozenge Q2H PRN Administration Sore Throat Carvedilol 12.5 mg 08/24/23 21:00 09/06/23 09:07 Carvedilol 12.5 Mg Tablet PO 12.5 mg BID KARLA Administration Protocol Hydromorphone HCl 0.5 mg 08/22/23 22:35 09/06/23 09:15 Hydromorphone Hcl 0.5 Mg/0.5 Ml Syringe IVPUSH 0.5 mg Q3H PRN Administration Pain, Severe (Pain Scale 7-10) Protocol Hydromorphone HCl 0.25 mg 08/27/23 14:33 08/27/23 16:05 Hydromorphone Hcl 0.5 Mg/0.5 Ml Syringe IVPUSH 0.25 mg Q5M PRN Administration Pain, Severe (Pain Scale 7-10) Protocol Sodium Chloride 1,000 mls @ 999 mls/hr 08/22/23 19:56 08/22/23 23:07 Ns IV 08/22/23 20:56 Infused .Q1H1M ONE Infusion Piperacillin Sod/Tazobactam 50 mls @ 100 mls/hr 08/22/23 21:29 08/22/23 22:35 Sod 3.375 gm/ Sodium Chloride IV 08/22/23 21:58 Infused ONCE ONE Infusion Acetaminophen 1,000 mg in 100 mls @ 400 mls/hr 08/22/23 23:00 08/23/23 17:14 Ofirmev IV 08/23/23 17:14 Infused Q6H KARLA Infusion Dextrose/Lactated Ringer's 1,000 mls @ 125 mls/hr 08/22/23 22:45 08/25/23 01:45 D5lr IVCONT Infused .Q8H KARLA Infusion Piperacillin Sod/Tazobactam 50 mls @ 100 mls/hr 08/23/23 04:00 09/02/23 04:36 Sod 3.375 gm/ Sodium Chloride IV Infused Q6H KARLA Infusion Potassium Chloride 10 meq in 100 mls @ 100 mls/hr 08/23/23 06:00 08/23/23 14:19 Potassium Chloride/H20 IV 08/23/23 09:59 Infused Q1H KARLA Infusion Dextrose/Lactated Ringer's 1,000 mls @ 125 mls/hr 08/25/23 10:15 08/28/23 17:57 D5lr IVCONT Infused .Q8H KARLA Infusion Potassium Chloride 10 meq in 100 mls @ 100 mls/hr 08/26/23 08:00 08/26/23 11:13 Potassium Chloride/H20 IV 08/26/23 09:59 Infused Q1H KARLA Infusion Acetaminophen 1,000 mg in 100 mls @ 400 mls/hr 08/28/23 12:00 08/31/23 06:06 Ofirmev IV Infused Q6H KARLA Infusion Iohexol 100 ml 08/22/23 20:47 08/22/23 20:47 Iohexol 350 Mg/Ml 100 Ml Infus..Btl IV 08/22/23 20:48 85 ml ONCE ONE Administration Lorazepam 1 mg 08/26/23 11:10 08/26/23 11:25 Lorazepam 2 Mg/Ml Vial IVPUSH 08/26/23 11:11 1 mg ONCE ONE Administration Lorazepam 0.5 mg 08/26/23 13:04 08/26/23 13:35 Lorazepam 0.5 Mg Tablet PO 08/26/23 13:05 0.5 mg ONCE ONE Administration Lorazepam 0.5 mg 08/28/23 12:02 08/30/23 09:05 Lorazepam 0.5 Mg Tablet PO 0.5 mg Q8H PRN Administration Anxiety Morphine Sulfate 4 mg 08/22/23 19:56 08/22/23 20:35 Morphine Sulfate 4 Mg/Ml Cartridge IVPUSH 08/22/23 19:57 4 mg ONCE ONE Administration Protocol Omeprazole 20 mg 09/02/23 19:55 09/06/23 05:59 Omeprazole 20 Mg Capsule.Dr PO 20 mg BID@0630,1630 KARLA Administration Ondansetron HCl 4 mg 08/22/23 19:56 08/22/23 20:35 Ondansetron Hcl 4 Mg/2 Ml Vial IVPUSH 08/22/23 19:57 4 mg ONCE ONE Administration Ondansetron HCl 4 mg 08/22/23 22:35 09/02/23 17:08 Ondansetron Hcl 4 Mg/2 Ml Vial IVPUSH 4 mg QID PRN Administration Nausea Oxycodone HCl 5 mg 08/28/23 11:40 09/02/23 04:39 Oxycodone Hcl Immed Release 5 Mg Tablet PO 5 mg Q4H PRN Administration Pain, Moderate(Pain Scale 4-6) Oxycodone HCl 10 mg 08/28/23 11:40 09/01/23 16:42 Oxycodone Hcl Immed Release 5 Mg Tablet PO 10 mg Q4H PRN Administration Pain, Severe (Pain Scale 7-10) Oxycodone HCl 10 mg 09/02/23 18:13 09/06/23 14:11 Oxycodone Hcl Immed Release 5 Mg Tablet PO 10 mg Q4H PRN Administration Pain, Severe (Pain Scale 7-10) Sodium Chloride 3 ml 08/23/23 00:00 09/06/23 09:07 0.9 % Sodium Chloride Flush 3 Ml Syringe IVFLUSH 3 ml QSHIFT KARLA Administration Discharge Plan Discharge Clinical Impression: Diverticulitis of colon with perforation Patient Disposition: Admitted As Inpatient Interventions: Admission Worksheet (ED) Last Done: 08/23/23 07:59 Discharge Date/Time: 08/23/23 08:28
[2023-08-22 16:09] VITALS: BP 90/47; PULSE 81; RESP 16; TEMP 36.9; O2SAT 96; BMI 38.5
[2023-08-22 16:28] LABS: MANUAL DIFF FLAG NO
[2023-08-22 16:30] LABS: Basophils Percent Auto 0.3 % (0-2); Eosinophils Absolute Auto 0.1 X10*3/uL (0.0-0.4); Eosinophils Percent Auto 1.2 % (0-4); Hematocrit 36.2 % (37.0-47.0); Hemoglobin 12.2 g/dl (12.0-16.0); Imm Gran Abs Auto 0.08 X10*3/uL (0.00-0.03); Imm Gran Pct Auto 0.8 % (0.0-0.4); Lymphocytes Absolute Auto 1.3 X10*3/uL (1.2-4.9); Lymphocytes Percent Auto 12.2 % (20-40); Mean Corpuscular HGB Conc 33.7 g/dl (31.0-35.0); Mean Corpuscular Hemoglobin 30.7 pg (27.0-33.0); Mean Corpuscular Volume 91.2 fL (80.0-98.0); Mean Platelet Volume 9.8 fL (9.4-12.3); Monocytes Percent Auto 9.5 % (2-11); Neutrophils Absolute Auto 7.9 x10*3/uL (2.0-8.3); Platelet Count 316 X10*3/uL (160-400); Red Blood Count 3.97 X10*6/uL (4.20-5.50); Red Cell Distribution Width 12.3 % (11.0-16.0); White Blood Count 10.5 X10*3/uL (4.8-10.8)
[2023-08-22 16:43] LABS: Alanine Aminotransferase 34 U/L (0-31); Alkaline Phosphatase 75 U/L (39-117); Anion Gap 14 (12-20); Aspartate Amino Transferase 31 U/L (5-31); Bilirubin Total 0.7 mg/dL (0.0-1.0); Blood Urea Nitrogen 18 mg/dL (9-16); Calcium 9.9 mg/dL (8.4-10.2); Carbon Dioxide 25 mmol/L (22-29); Chloride 99 mmol/L (96-108); Creatinine Clr Calc Pharmacy 55.1; Estimated Glomerular Filt Rate 52; Glucose Random 109 mg/dL (60-115); Magnesium 2.4 mg/dL (1.6-2.6); Phosphorus 4.1 mg/dL (2.7-4.5); Potassium 3.2 mmol/L (3.3-5.1); Sodium 135 mmol/L (135-145); Total Protein 7.7 g/dL (6.5-8.0)
--- NOTE | 2023-08-22 19:34 | PC.NURSE ---
Pt reports no BM since last sat, 08/17/2023. Unable to eat as it feels like it gets stuck . Abd is soft and tende with + bowel sounds in all quadrants. Pending physician eval.
[2023-08-22 19:53] VITALS: BP 106/53; PULSE 68; RESP 16; TEMP 36.8; O2SAT 97
[2023-08-22] MEDS: ondansetron HCL 4 MG/2 ML VIAL IVPUSH (20:35)
[2023-08-22] MEDS: Morphine Sulfate 4 MG/ML CARTRIDGE IVPUSH (20:35)
[2023-08-22] MEDS: 0.9 % Sodium Chloride 1,000 ML 999 ML IV (20:36)
[2023-08-22] MEDS: iohexoL 350 MG/ML 100 ML INFUS..BTL IV (20:47)
[2023-08-22] MEDS: Piperacillin Sodium/Tazobactam 3.375 GM in 0.9 % Sodium Chloride 50 ML IV (21:52)
[2023-08-22 21:57] LABS: Lactic Acid 0.9 mmol/L (0.5-2.0)
--- NOTE | 2023-08-22 22:07 | ECG_ITS ---
Test Reason : HYPOTENSIVE Blood Pressure : / mmHG Vent. Rate : 063 BPM Atrial Rate : 063 BPM P-R Int : 180 ms QRS Dur : 100 ms QT Int : 452 ms P-R-T Axes : 056 -26 -15 degrees QTc Int : 462 ms Normal sinus rhythm T wave abnormality, consider anterior ischemia - there is also artifact in V3 Abnormal ECG When compared with ECG of 17-AUG-2023 13:19, No significant change was found Referred By: Lester Flores Electronically Signed By:HAIR SOFIA
--- NOTE | 2023-08-22 22:19 | PHA.MEDREC ---
Pharmacy Consult ? Medication Reconciliation Pharmacy has completed the medication reconciliation. Patient reproted medications. Iris Marshall, GretaD
[2023-08-22 22:28] VITALS: BP 76/37; PULSE 65; RESP 14; TEMP 36.8; O2SAT 96
[2023-08-22 22:45] VITALS: BP 92/51; PULSE 63; RESP 18
[2023-08-22] MEDS: Acetaminophen 1,000 MG/100 ML PIGGYBACK 400 MG IV (23:15)
[2023-08-22] MEDS: Dextrose 5 % and Lactated Ring 1,000 ML 125 ML IVCONT (23:15)
[2023-08-22] MEDS: 0.9 % Sodium Chloride Flush 3 ML SYRINGE IVFLUSH (23:18)
[2023-08-22 23:28] LABS: INTERNATIONAL NORM RATIO 1.2 (0.9-1.1); Prothrombin Time 14.7 SEC (11.1-13.3)
[2023-08-22 23:31] LABS: Partial Thromboplastin Time 30.1 SEC (26.0-36.8)
[2023-08-23] MEDS: Acetaminophen 1,000 MG/100 ML PIGGYBACK 400 MG IV ×3 (04:14→16:59)
[2023-08-23] MEDS: Piperacillin Sodium/Tazobactam 3.375 GM in 0.9 % Sodium Chloride 50 ML IV ×4 (04:14→20:49)
[2023-08-23 05:14] LABS: MANUAL DIFF FLAG NO
[2023-08-23 05:17] LABS: Basophils Percent Auto 0.3 % (0-2); Eosinophils Absolute Auto 0.2 X10*3/uL (0.0-0.4); Eosinophils Percent Auto 2.2 % (0-4); Hematocrit 30.4 % (37.0-47.0); Hemoglobin 10.1 g/dl (12.0-16.0); Imm Gran Abs Auto 0.05 X10*3/uL (0.00-0.03); Imm Gran Pct Auto 0.7 % (0.0-0.4); Lymphocytes Absolute Auto 1.6 X10*3/uL (1.2-4.9); Lymphocytes Percent Auto 22.4 % (20-40); Mean Corpuscular HGB Conc 33.2 g/dl (31.0-35.0); Mean Corpuscular Hemoglobin 31.1 pg (27.0-33.0); Mean Corpuscular Volume 93.5 fL (80.0-98.0); Mean Platelet Volume 10.2 fL (9.4-12.3); Monocytes Absolute Auto 0.8 X10*3/uL (0.1-1.2); Monocytes Percent Auto 10.8 % (2-11); Neutrophils Absolute Auto 4.6 x10*3/uL (2.0-8.3); Neutrophils Percent Auto 63.6 % (45-73); Platelet Count 253 X10*3/uL (160-400); Red Blood Count 3.25 X10*6/uL (4.20-5.50); Red Cell Distribution Width 12.6 % (11.0-16.0); White Blood Count 7.2 X10*3/uL (4.8-10.8)
[2023-08-23 05:47] LABS: Anion Gap 14 (12-20); Blood Urea Nitrogen 21 mg/dL (9-16); Calcium 8.5 mg/dL (8.4-10.2); Carbon Dioxide 25 mmol/L (22-29); Chloride 101 mmol/L (96-108); Creatinine Clr Calc Pharmacy 65.5; Estimated Glomerular Filt Rate > 60; Glucose Random 128 mg/dL (60-115); Potassium 2.6 mmol/L (3.3-5.1); Sodium 137 mmol/L (135-145)
[2023-08-23] MEDS: Potassium Chloride/H20 10 MEQ/100 ML PIGGYBACK 100 MEQ IV ×4 (06:45→13:19)
--- NOTE | 2023-08-23 07:42 | P.HPGS_ITS ---
History of Present Illness History of Present Illness Date of Service: 08/23/23 Chief complaint: Diverticulitis with abscess Narrative: Vielka Palomino is a 63 year old female presenting with complaints of abdominal pain in the left lower quadrant of 2 days' duration. She reports a previous history of similar pain which resolved with antibiotics. She was evaluated by colonoscopy with Dr. Rojas in 2020 which revealed benign polyps. A repeat colonoscopy was recommended after 5 years. The current episode was associated with nausea without vomiting, chills without fever. The pain is mainly in the left lower quadrant without radiation. She presented to the emergency department and was noted to have tenderness in the left lower quadrant but normal WBC. CT abdomen and pelvis revealed a multiloculated abscess superior into the right of the fundal uterus measuring 7.5 x 2.8 x 3.8 cm. There air-fluid levels and a more solid component anteriorly. She is admitted to the surgical service for IV antibiotics and possible IR drainage. This morning she does feel somewhat improved with decreased abdominal pain after receiving pain medication. Repeat WBC is normal as well. Review of Systems Review of Systems: Yes all other systems are reviewed and are negative Constitutional: Constitutional: Reports chills, Denies fever(s), Denies headache(s), Denies poor appetite and Denies weakness ENT: Denies headache(s) Cardiovascular: Cardiovascular: Denies chest pain, Denies irregular heart rhythm, Denies palpitations and Denies dyspnea Respiratory: Respiratory: Denies cough, Denies excessive phlegm production and Denies dyspnea Gastrointestinal: Gastrointestinal: Reports abdominal pain, Denies bloating, Denies change in bowel habits, Reports constipation, Denies heartburn, Denies diarrhea, Reports nausea and Denies vomiting Genitourinary: Genitourinary: Denies urinary frequency Comments: Dark urine Musculoskeletal: Musculoskeletal: Denies back pain, Denies muscle weakness and Denies numbness Integumentary/Breasts: Skin/Breast: Denies changing lesions and Denies unusual bruising Neurologic: Denies headache(s), Denies numbness, Denies paresthesias and Denies weakness Psychiatric: Psychiatric: Denies anxiety and Denies depression Endocrine: Endocrine: Denies palpitations Hematologic/Lymphatic: Hematologic/Lymphatic: Denies lymphadenopathy PMFSH Past Medical History Medical History Upper respiratory tract infection Transaminitis Breast lump Morbid obesity with BMI of 40.0-44.9, adult Obesity (BMI 35.0-39.9 without comorbidity) Sciatica Hypovitaminosis D Ventricular bigeminy COVID-19 vaccine series completed IBS (irritable bowel syndrome) Essential hypertension Mild persistent asthma Diverticulitis Hemochromatosis Family history of liver disease Arthritis Carpal tunnel syndrome, right Pain in right arm Family History Family History Father Diabetes Heart disease Stroke COPD (chronic obstructive pulmonary disease) High cholesterol Mother Diabetes Alzheimer disease HTN (hypertension) Brother Brain aneurysm Leukemia Sister COPD (chronic obstructive pulmonary disease) Diabetes Brother Heart valve replaced Surgical History Surgical History Hx of foot surgery History of esophagogastroduodenoscopy (EGD) H/O colonoscopy H/O right heart catheterization History of loop electrical excision procedure (LEEP) H/O knee surgery Social History Social History Household Members: Spouse Housing: House Alcohol intake: current Alcohol intake frequency: 0-2 drinks per day Alcohol type: wine Patient Tobacco Use Status: Former Tobacco user Quit Date: >10 yrs ago Tobacco use type: Cigarette Cigarette Packs Per Day: 1 Smoked in Last 30 Days: No e-Cigarette/Vaping Use: Never Used Second Hand Smoke Exposure: No Use of substances other than those prescribed or required for medical reasons: No Advance Directives: Yes Advance Directives on File: Yes Advance Directives Date on File: 08/22/23 Nutrition Risks: No Nutritional Risk Patient : No service: No Current occupational status: employed Current occupational exposures/hazards: No Sexual orientation: Straight/Heterosexual Gender identity: Female Cognitive needs: No Hearing needs: No Vision needs: Yes (glasses) Meds Allergies Allergy/AdvReac Type Severity Reaction Status Date / Time ciprofloxacin [Cipro] Allergy Intermediate hives Verified 08/17/23 13:10 dog dander [dogs] Allergy Intermediate Itching Verified 08/17/23 13:10 environmental Allergy Intermediate Itching Uncoded 08/17/23 13:10 Active Medications: Current Medications Albuterol Sulfate (Albuterol Sulfate 90 Mcg 8 Gm Inhaler) 1 puff INHALE QID PRN PRN Reason: shortness of breath or wheezing Hydromorphone HCl (Hydromorphone Hcl 0.5 Mg/0.5 Ml Syringe) 0.5 mg IVPUSH Q3H PRN; Protocol PRN Reason: Pain, Severe (Pain Scale 7-10) Acetaminophen (Ofirmev) 1,000 mg in 100 mls @ 400 mls/hr IV Q6H [facility] Stop: 08/23/23 17:14 Last Infusion: 08/23/23 04:57 Dose: Infused Dextrose/Lactated Ringer's (D5lr) 1,000 mls @ 125 mls/hr IVCONT .Q8H [facility] Last Admin: 08/22/23 23:15 Dose: 125 mls/hr Piperacillin Sod/Tazobactam (Sod 3.375 gm/ Sodium Chloride) 50 mls @ 100 mls/hr IV Q6H [facility] Last Infusion: 08/23/23 04:57 Dose: Infused Potassium Chloride (Potassium Chloride/H20) 10 meq in 100 mls @ 100 mls/hr IV Q1H [facility] Stop: 08/23/23 09:59 Last Admin: 08/23/23 06:45 Dose: 100 mls/hr Ondansetron HCl (Ondansetron Hcl 4 Mg/2 Ml Vial) 4 mg IVPUSH QID PRN PRN Reason: Nausea Sodium Chloride (0.9 % Sodium Chloride Flush 3 Ml Syringe) 3 ml IVFLUSH QSHIFT [facility] Last Admin: 08/22/23 23:18 Dose: 3 ml Zolpidem Tartrate (Zolpidem Tartrate 5 Mg Tablet) 5 mg PO BEDTIME PRN PRN Reason: Insomnia Home Medications Medication Instructions Recorded Confirmed Last Taken Type carvedilol 25 mg tablet 25 mg PO BID 08/01/20 08/22/23 08/22/23 History multivitamin 1 tab PO DAILY 09/28/20 08/22/23 08/22/23 History Physical Exam Vital Signs: Vital Signs: Last Vital Signs Temp 98.3 F 08/22/23 22:28 Pulse 63 08/22/23 22:45 Resp 18 08/22/23 22:45 BP 92/51 L 08/22/23 22:45 Pulse Ox 96 08/22/23 22:28 O2 Del Method Room Air 08/22/23 22:28 BMI result Body Mass Index 38.5 Const: General: cooperative and no acute distress Nutritional Appearance: well nourished Orientation/consciousness: patient oriented x3 Limitations: no limitations HEENT: Head: Yes normocephalic and Yes atraumatic Ears: hearing grossly normal bilaterally Resp: Effort & Inspection: normal respiratory effort, no audible wheezes, no cough and no respiratory distress Cardio: Jugular venous distension: no JVD GI: Inspection: Yes normal to inspection Palpation (GI): Soft to palpation, Tenderness to palpation present (GI) in the LLQ; with no rebound tenderness, no guarding, not rigid and No hepatosplenomegaly present Skin: Other: Warm, dry, no rash Neuro: General: patient oriented x3 Extrem: General: Yes no clubbing, cyanosis or edema Results Results Labs: Short CBC 08/22/23 08/23/23 Range/Units 16:25 04:49 WBC 10.5 7.2 (4.8-10.8) X10*3/uL Hgb 12.2 10.1 L (12.0-16.0) g/dl Hct 36.2 L 30.4 L (37.0-47.0) % Plt Count 316 253 (160-400) X10*3/uL BMP 08/22/23 08/23/23 16:25 04:49 Sodium 135 137 Potassium 3.2 L 2.6 L* Chloride 99 101 Carbon Dioxide 25 25 BUN 18 H 21 H Creatinine 1.07 0.90 Calcium 9.9 8.5 D Liver Function 08/22/23 Range/Units 16:25 Total Bilirubin 0.7 (0.0-1.0) mg/dL AST 31 (5-31) U/L ALT 34 H (0-31) U/L Alkaline Phosphatase 75 (39-117) U/L Albumin 4.0 (3.5-5.0) g/dL Assessment and Plan (1) Diverticulitis of colon with perforation: Status: Acute Plan 63-year-old female patient presenting with complaints of left lower quadrant abdominal pain found to have sigmoid diverticulitis with a multiloculated abscess extending to the fundus of the uterus. Patient may be a candidate for IR drainage of this abscess. Patient also has been placed on IV Zosyn. Once the acute infection has resolved, she would be a candidate for sigmoid resection to prevent further recurrence of complicated diverticulitis. Patient expressed understanding and agrees with the plan. Quality Stroke Does the patient have a stroke diagnosis?: No VTE Prior VTE?: No VTE Risk Level:: Surgical - moderate VTE Device Contraindication: N/A - Device Ordered VTE Drug Contraindication: Treatment Not Indicated Procedures Date of Service Date of Service: 08/23/23
[2023-08-23 07:45] VITALS: BP 87/51; PULSE 56; RESP 14; TEMP 36.6; O2SAT 97
[2023-08-23 08:23] VITALS: BP 94/46; PULSE 57; RESP 21
[2023-08-23 08:58] VITALS: BP 96/55; PULSE 57; RESP 18; TEMP 36.3; O2SAT 98
--- NOTE | 2023-08-23 09:22 | P.CONHOSP_ITS ---
History of Present Illness Data of Consult Service Date: 08/23/23 Primary Care Provider: Danuta Santiago MD HPI Reason for consult: medical management The patient is a 63 year old female with a PMH as outlined below who presented [facility] on 08/22 for the second time in 1 week for abdominal complaints. The patient reported abdominal pain and inability to have BM for about 1 week. She reported concurrent nausea withtout vomiting. Denied fevers or chills. Denies any such prior episode. Last colonoscopy was in 2020, which revealed polyps. In the ED, work up revealed multiloculated abscess. She has been given IVF and IV antibiotics. She was admitted to the surgical services and medical consult requested for medical mgmt. In regards to her medical history, she has a documented history of ventricular bigeminy. She reports chronically low blood pressure, although is on 3 antihypertensives. She denies any history of CAD/[place] but reports a history of cardiomyopathy . She also has hemochromatosis, for which she gets therapeutic phlebotomy every month. Pt seen and examined on . She reports improvement in her abdominal symptoms. Denies any cp / sob. Denies any vomiting. Review of Systems 2 Review of Systems: Negative except HPI/interval history. [facility] Medical History Upper respiratory tract infection Transaminitis Breast lump Morbid obesity with BMI of 40.0-44.9, adult Obesity (BMI 35.0-39.9 without comorbidity) Sciatica Hypovitaminosis D Ventricular bigeminy COVID-19 vaccine series completed IBS (irritable bowel syndrome) Essential hypertension Mild persistent asthma Diverticulitis Hemochromatosis Family history of liver disease Arthritis Carpal tunnel syndrome, right Pain in right arm Family History Father Diabetes Heart disease Stroke COPD (chronic obstructive pulmonary disease) High cholesterol Mother Diabetes Alzheimer disease HTN (hypertension) Brother Brain aneurysm Leukemia Sister COPD (chronic obstructive pulmonary disease) Diabetes Brother Heart valve replaced Surgical History Hx of foot surgery History of esophagogastroduodenoscopy (EGD) H/O colonoscopy H/O right heart catheterization History of loop electrical excision procedure (LEEP) H/O knee surgery Social History Household Members: Spouse Housing: House Do you presently have visiting nurse or other home services: No Alcohol intake: current Alcohol intake frequency: 0-2 drinks per day Alcohol type: wine Patient Tobacco Use Status: Former Tobacco user Quit Date: 1985 Tobacco use type: Cigarette Cigarette Packs Per Day: 1 e-Cigarette/Vaping Use: Never Used Second Hand Smoke Exposure: No Advance Directives Date on File: 08/22/23 service: No Current occupational status: employed Current occupational exposures/hazards: No Sexual orientation: Straight/Heterosexual Gender identity: Female Cognitive needs: No Hearing needs: No Vision needs: Yes (glasses) Meds Allergies Allergy/AdvReac Type Severity Reaction Status Date / Time ciprofloxacin [Cipro] Allergy Intermediate hives Verified 08/17/23 13:10 dog dander [dogs] Allergy Intermediate Itching Verified 08/17/23 13:10 environmental Allergy Intermediate Itching Uncoded 08/17/23 13:10 Active Medications: Current Medications Albuterol Sulfate (Albuterol Sulfate 90 Mcg 8 Gm Inhaler) 1 puff INHALE QID PRN PRN Reason: shortness of breath or wheezing Hydromorphone HCl (Hydromorphone Hcl 0.5 Mg/0.5 Ml Syringe) 0.5 mg IVPUSH Q3H PRN; Protocol PRN Reason: Pain, Severe (Pain Scale 7-10) Acetaminophen (Ofirmev) 1,000 mg in 100 mls @ 400 mls/hr IV Q6H [facility] Stop: 08/23/23 17:14 Last Infusion: 08/23/23 04:57 Dose: Infused Dextrose/Lactated Ringer's (D5lr) 1,000 mls @ 125 mls/hr IVCONT .Q8H [facility] Last Admin: 08/22/23 23:15 Dose: 125 mls/hr Piperacillin Sod/Tazobactam (Sod 3.375 gm/ Sodium Chloride) 50 mls @ 100 mls/hr IV Q6H [facility] Last Infusion: 08/23/23 04:57 Dose: Infused Potassium Chloride (Potassium Chloride/H20) 10 meq in 100 mls @ 100 mls/hr IV Q1H [facility] Stop: 08/23/23 09:59 Last Admin: 08/23/23 06:45 Dose: 100 mls/hr Ondansetron HCl (Ondansetron Hcl 4 Mg/2 Ml Vial) 4 mg IVPUSH QID PRN PRN Reason: Nausea Sodium Chloride (0.9 % Sodium Chloride Flush 3 Ml Syringe) 3 ml IVFLUSH QSHIFT [facility] Last Admin: 08/22/23 23:18 Dose: 3 ml Zolpidem Tartrate (Zolpidem Tartrate 5 Mg Tablet) 5 mg PO BEDTIME PRN PRN Reason: Insomnia Home Medications Medication Instructions Recorded Confirmed Last Taken Type carvedilol 25 mg tablet 25 mg PO BID 08/01/20 08/22/23 08/22/23 History multivitamin 1 tab PO DAILY 09/28/20 08/22/23 08/22/23 History Physical Exam 2 Vital Signs and Narrative: Vital Signs: Last Vital Signs Temp 97.3 F 08/23/23 08:58 Pulse 57 08/23/23 08:58 Resp 18 08/23/23 08:58 BP 96/55 L 08/23/23 08:58 Pulse Ox 98 08/23/23 08:58 O2 Del Method Room Air 08/23/23 08:58 BMI result Body Mass Index 38.5 Const: Other: Constitutional - Awake and Alert, No apparent distress Eyes - PERRLA, EOMI Cardiovascular - S1S2, RRR, No edema Respiratory - Normal lung expansion, Normal respiratory effort, No respiratory distress, CTA bilaterally Gastrointestinal - soft with TTP in the LLQ without rebound or guarding - No CVA tenderness Extremities - no calf tenderness bilaterally, no swelling Musculoskeletal - Normal inspection, normal ROM Skin - Warm/Dry Neurological - Alert & oriented x3, No focal deficit Psychological - Appropriate affect Results Labs 08/26/23 04:37 08/26/23 04:37 Labs: Laboratory Results - last 24 hr 08/22/23 08/22/23 08/22/23 16:25 21:42 23:12 MCV 91.2 MCH 30.7 MCHC 33.7 RDW 12.3 Plt Count 316 MPV 9.8 Immature Gran % (Auto) 0.8 H Neut % (Auto) 76.0 H Lymph % (Auto) 12.2 L Mercer % (Auto) 9.5 Eos % (Auto) 1.2 Baso % (Auto) 0.3 Lymph # (Auto) 1.3 Mercer # (Auto) 1.0 Eos # (Auto) 0.1 Baso # (Auto) 0.0 Abs Immat Gran (auto) 0.08 H Absolute Neuts (auto) 7.9 Absolute Nucleated RBC 0.000 Nucleated RBC % (auto) 0.0 PT 14.7 H D INR 1.2 H APTT 30.1 Anion Gap 14 Estim Creat Clear Calc 55.1 Estimated GFR 52 Random Glucose 109 Lactic Acid 0.9 Calcium 9.9 Phosphorus 4.1 Magnesium 2.4 Total Bilirubin 0.7 AST 31 ALT 34 H Alkaline Phosphatase 75 Total Protein 7.7 Albumin 4.0 Blood Type Antibody Screen 08/23/23 08/23/23 00:18 04:49 MCV 93.5 MCH 31.1 MCHC 33.2 RDW 12.6 Plt Count 253 MPV 10.2 Immature Gran % (Auto) 0.7 H Neut % (Auto) 63.6 Lymph % (Auto) 22.4 Mercer % (Auto) 10.8 Eos % (Auto) 2.2 Baso % (Auto) 0.3 Lymph # (Auto) 1.6 Mercer # (Auto) 0.8 Eos # (Auto) 0.2 Baso # (Auto) 0.0 Abs Immat Gran (auto) 0.05 H Absolute Neuts (auto) 4.6 Absolute Nucleated RBC 0.000 Nucleated RBC % (auto) 0.0 PT INR APTT Anion Gap 14 Estim Creat Clear Calc 65.5 Estimated GFR > 60 Random Glucose 128 H Lactic Acid Calcium 8.5 D Phosphorus Magnesium Total Bilirubin AST ALT Alkaline Phosphatase Total Protein Albumin Blood Type O Positive Antibody Screen NEGATIVE Imaging Radiologist's Impressions: Impressions Abdomen/Pelvis CT 08/22/23 20:52 IMPRESSION: 1. Sigmoid diverticulitis with a multiloculated abscess superior and to the right of fundal uterus. There is gas visualized within the fundal endometrium suspicious for a fistula. There is scattered diverticula in the rest the colon 2. No abnormal pelvic or retroperitoneal lymph nodes seen. 3. Bibasilar atelectasis. 4. The appendix is normal caliber. There is no bowel obstruction. No free air seen in the abdomen. Fleischner guidelines were followed. Chest X-Ray 08/22/23 22:50 IMPRESSION: No acute cardiopulmonary process. Assessment and Plan (1) Diverticulitis of colon with perforation: Status: Acute Plan 63 yo F sigmoid diverticulitis and abscess who is admitted under the surgical services. The patient reports a history of hemochromatosis, irregular heart beat (Ventricular bigeminy), CMP (unknown EF). Medical consult requested for med mgmt. 1. Low BP relative, without any symptoms continue IVF hold antihypertensives 2. ? history of CMP, ventricular bigeminy will see if she [place] [facility] [place] [facility]; (Briefly -- pt with history of dilated CMP in the past with EF 25-30%. However, latest cardiology notes from Mar 2023 indicate that she has recovered EF). with place her on tele for now 3. ? HTN hold bp meds 4. asthma prn inhalers 5. Sigmoid diverticulitis w/ abscess plan for gen surg 6. HypoK on IVF with potassium and being supplement 40meq IV will repeat later Will follow along
[2023-08-23] MEDS: HYDROmorphone HCl 0.5 MG/0.5 ML SYRINGE IVPUSH ×2 (09:33→20:55)
[2023-08-23] MEDS: 0.9 % Sodium Chloride Flush 3 ML SYRINGE IVFLUSH ×2 (09:34→20:43)
[2023-08-23] MEDS: Dextrose 5 % and Lactated Ring 1,000 ML 125 ML IVCONT ×3 (09:40→20:44)
--- NOTE | 2023-08-23 09:47 | MHC.CM.PN ---
PATIENT IS FROM HOME WITH . [employer]CTION[facility] INDEPEND[facility]. DENIES ANY SERVICES OR DME. PCP: EDUARD GARNER MD HCP: ON FILE AND VERIFIED, [facility] [phone] DP: GOAL IS HOME SELF CARE, DOES NOT ANTICIPATE THE NEED FOR SERVICES. FAMILY TO TRANSPORT. CM WILL CONTINUE TO FOLLOW FOR DC NEEDS.
[2023-08-23 15:20] VITALS: BP 125/65; PULSE 62; RESP 18; TEMP 36.6; O2SAT 96
[2023-08-23 18:57] LABS: Potassium 3.5 mmol/L (3.3-5.1)
[2023-08-23 19:35] VITALS: BP 110/59; PULSE 68; RESP 18; TEMP 37.1; O2SAT 95
[2023-08-24 03:46] VITALS: BP 104/57; PULSE 74; RESP 18; TEMP 36.7; O2SAT 98
[2023-08-24] MEDS: Piperacillin Sodium/Tazobactam 3.375 GM in 0.9 % Sodium Chloride 50 ML IV ×4 (04:22→20:52)
[2023-08-24] MEDS: Dextrose 5 % and Lactated Ring 1,000 ML 125 ML IVCONT ×3 (04:23→19:32)
[2023-08-24 07:55] VITALS: BP 98/55; PULSE 70; RESP 18; TEMP 36.3; O2SAT 97
[2023-08-24] MEDS: HYDROmorphone HCl 0.5 MG/0.5 ML SYRINGE IVPUSH ×3 (08:21→20:52)
[2023-08-24 11:32] VITALS: BP 91/52; PULSE 70
--- NOTE | 2023-08-24 11:36 | PC.NURSE ---
MD Prajapati made aware holding Carvedilol for BP 91/52 HR 70, pt aware.
--- NOTE | 2023-08-24 12:50 | HO.PM.IMPN ---
Subjective Subjective Date of Service: 08/24/23 Interval History: No acute medical issues overnight. Still complains of left lower quadrant pain Review of Systems Denies chest pain Denies shortness of breath Denies nausea vomiting diarrhea Denies fever chills Physical Exam Vital Signs: Vital Signs: Last Vital Signs Temp 97.4 F 08/24/23 07:55 Pulse 70 08/24/23 11:32 Resp 18 08/24/23 07:55 BP 91/52 L 08/24/23 11:32 Pulse Ox 97 08/24/23 07:55 O2 Del Method Room Air 08/24/23 07:55 BMI result Body Mass Index 38.5 Const: Other: Awake alert resting quietly in bed Resp: Other: Clear to auscultation bilaterally no rales rhonchi or wheezes Cardio: Other: No S4; positive S1-S2; no S3 murmurs rubs or gallops GI: Other: Soft quiet bowel sounds. Mild guarding with no rebound left lower quadrant Extrem: Other: No edema bilaterally Objective Data Active Medications Albuterol Sulfate (Albuterol Sulfate 90 Mcg 8 Gm Inhaler) 1 puff INHALE QID PRN PRN Reason: shortness of breath or wheezing Carvedilol (Carvedilol 25 Mg Tablet) 25 mg PO BID [facility]; Protocol Hydromorphone HCl (Hydromorphone Hcl 0.5 Mg/0.5 Ml Syringe) 0.5 mg IVPUSH Q3H PRN; Protocol PRN Reason: Pain, Severe (Pain Scale 7-10) Last Admin: 08/24/23 08:21 Dose: 0.5 mg Documented By: NIECY Dextrose/Lactated Ringer's (D5lr) 1,000 mls @ 125 mls/hr IVCONT .Q8H [facility] Last Admin: 08/24/23 11:55 Dose: 125 mls/hr Documented By: NIECY Piperacillin Sod/Tazobactam (Sod 3.375 gm/ Sodium Chloride) 50 mls @ 100 mls/hr IV Q6H [facility] Last Infusion: 08/24/23 10:18 Dose: Infused Documented By: NIECY Ondansetron HCl (Ondansetron Hcl 4 Mg/2 Ml Vial) 4 mg IVPUSH QID PRN PRN Reason: Nausea Sodium Chloride (0.9 % Sodium Chloride Flush 3 Ml Syringe) 3 ml IVFLUSH QSHIFT [facility] Last Admin: 08/24/23 08:33 Dose: Not Given Documented By: NIECY Non-Admin Reason: IV Running Zolpidem Tartrate (Zolpidem Tartrate 5 Mg Tablet) 5 mg PO BEDTIME PRN PRN Reason: Insomnia Labs 08/23/23 04:49 08/23/23 14:48 Microbiology Microbiology Results: Microbiology 08/22/23 21:51 Blood Culture - Preliminary Blood - Venous No growth after 24 hours. 08/22/23 21:42 Blood Culture - Preliminary Blood - Venous No growth after 24 hours. Assessment and Plan (1) Essential hypertension: Status: Acute (2) Diverticulitis of colon with perforation: Status: Acute Plan 63 yo F sigmoid diverticulitis and abscess who is admitted under the surgical services. The patient reports a history of hemochromatosis, irregular heart beat (Ventricular bigeminy), CMP (unknown EF). Medical consult requested for med mgmt. 1. Hypertension (by history) -relative hypotension without any symptoms -continue IVF -unclear indication for Coreg; will add back add half-normal dose as tolerated. (would hold for SBP less than 90) 2. History of dilated cardiomyopathy -will attempt to continue Coreg at half usual doses as tolerated -add back other therapies as clinically indicated -will review [facility] records 3. Sigmoid diverticulitis w/ abscess -Zosyn (2) -further management as per surgery 6. HypoK.. Low normal and response to therapies -continue IVF with potassium and being supplement 40meq IV -follow renals/divalents Will continue to follw Quality Stroke Does the patient have a stroke diagnosis?: No VTE Prior VTE?: No VTE Risk Level:: Surgical - moderate VTE Device Contraindication: N/A - Device Ordered VTE Drug Contraindication: Treatment Not Indicated
[2023-08-24 16:00] VITALS: BP 106/59; PULSE 67; RESP 18; TEMP 36.6; O2SAT 94
[2023-08-24 19:25] VITALS: BP 129/58; PULSE 68; RESP 20; TEMP 36.6; O2SAT 94
--- NOTE | 2023-08-24 19:45 | PM.PNGS ---
Subjective Subjective Date of Service: 08/24/23 Interval history: feeling ok, tired. still with some pain but not as bad as before, no nausea or vomiting wants to eat as hungry Physical Exam Vital Signs: Vital Signs: Last Vital Signs Temp 97.8 F 08/24/23 19:25 Pulse 68 08/24/23 19:25 Resp 20 08/24/23 19:25 BP 129/58 L 08/24/23 19:25 Pulse Ox 94 08/24/23 19:25 O2 Del Method Room Air 08/24/23 19:25 BMI result Body Mass Index 38.5 Const: General: cooperative, healthy appearing, comfortable and no acute distress Orientation/consciousness: patient oriented x3 Resp: Effort & Inspection: normal respiratory effort and able to speak in complete sentences Auscultation: clear to auscultation bilaterally Cardio: Rate: regular rate Rhythm: regular rhythm GI: Other: abdo soft nondistended tender in lower abdomen area with some mild guarding no peritonitis Neuro: General: patient oriented x3 Psych: Appearance: grossly normal Mental Status: mental status grossly normal Speech and movement: Normal speech and movement present Affect: normal affect Attitude: cooperative Thought process: Normal thought process present Objective Data Active Medications Albuterol Sulfate (Albuterol Sulfate 90 Mcg 8 Gm Inhaler) 1 puff INHALE QID PRN PRN Reason: shortness of breath or wheezing Carvedilol (Carvedilol 12.5 Mg Tablet) 12.5 mg PO BID [facility]; Protocol Last Admin: 08/24/23 19:36 Dose: Not Given Documented By: MADELAINE Non-Admin Reason: Patient Refused Hydromorphone HCl (Hydromorphone Hcl 0.5 Mg/0.5 Ml Syringe) 0.5 mg IVPUSH Q3H PRN; Protocol PRN Reason: Pain, Severe (Pain Scale 7-10) Last Admin: 08/24/23 14:43 Dose: 0.5 mg Documented By: NIECY Dextrose/Lactated Ringer's (D5lr) 1,000 mls @ 125 mls/hr IVCONT .Q8H [facility] Last Admin: 08/24/23 19:32 Dose: 125 mls/hr Documented By: MADELAINE Piperacillin Sod/Tazobactam (Sod 3.375 gm/ Sodium Chloride) 50 mls @ 100 mls/hr IV Q6H [facility] Last Infusion: 08/24/23 16:51 Dose: Infused Documented By: NIECY Ondansetron HCl (Ondansetron Hcl 4 Mg/2 Ml Vial) 4 mg IVPUSH QID PRN PRN Reason: Nausea Sodium Chloride (0.9 % Sodium Chloride Flush 3 Ml Syringe) 3 ml IVFLUSH QSHIFT [facility] Last Admin: 08/24/23 16:24 Dose: Not Given Documented By: NIECY Non-Admin Reason: IV Running Zolpidem Tartrate (Zolpidem Tartrate 5 Mg Tablet) 5 mg PO BEDTIME PRN PRN Reason: Insomnia Labs 08/23/23 04:49 08/23/23 14:48 Microbiology Microbiology Results: Microbiology 08/22/23 21:51 Blood Culture - Preliminary Blood - Venous No growth after 24 hours. 08/22/23 21:42 Blood Culture - Preliminary Blood - Venous No growth after 24 hours. Procedures Date of Service Date of Service: 08/24/23 Progress Note: A&P Assessment and plan (1) Diverticulitis of colon with perforation: Status: Acute Assessment and Plan: HD#2 with perf diverticulitis with confined pelvic abscess - so far doing well with iv antibx and bowel rest. afeb, less tender, wbc better. plan to cont with conservative care and consider if need to do IR drainage early next week if not improving. Pt agrees. Time Spent With Patient Time: Total time managing care of this patient today ____ minutes. Quality Stroke Does the patient have a stroke diagnosis?: No VTE Prior VTE?: No VTE Risk Level:: Surgical - moderate VTE Device Contraindication: N/A - Device Ordered VTE Drug Contraindication: Treatment Not Indicated
[2023-08-25] MEDS: HYDROmorphone HCl 0.5 MG/0.5 ML SYRINGE IVPUSH ×5 (01:46→21:32)
[2023-08-25] MEDS: Piperacillin Sodium/Tazobactam 3.375 GM in 0.9 % Sodium Chloride 50 ML IV ×4 (03:22→21:20)
[2023-08-25 03:41] VITALS: BP 113/56; PULSE 70; RESP 16; TEMP 36.8; O2SAT 92
[2023-08-25 05:43] LABS: MANUAL DIFF FLAG NO
[2023-08-25 05:47] LABS: Basophils Percent Auto 0.4 % (0-2); Eosinophils Absolute Auto 0.2 X10*3/uL (0.0-0.4); Eosinophils Percent Auto 2.7 % (0-4); Hematocrit 34.5 % (37.0-47.0); Hemoglobin 11.3 g/dl (12.0-16.0); Imm Gran Abs Auto 0.03 X10*3/uL (0.00-0.03); Imm Gran Pct Auto 0.4 % (0.0-0.4); Lymphocytes Absolute Auto 1.3 X10*3/uL (1.2-4.9); Mean Corpuscular HGB Conc 32.8 g/dl (31.0-35.0); Mean Corpuscular Hemoglobin 30.8 pg (27.0-33.0); Mean Platelet Volume 10.2 fL (9.4-12.3); Monocytes Absolute Auto 0.8 X10*3/uL (0.1-1.2); Neutrophils Absolute Auto 4.6 x10*3/uL (2.0-8.3); Neutrophils Percent Auto 66.5 % (45-73); Platelet Count 299 X10*3/uL (160-400); Red Blood Count 3.67 X10*6/uL (4.20-5.50); Red Cell Distribution Width 12.4 % (11.0-16.0); White Blood Count 6.9 X10*3/uL (4.8-10.8)
[2023-08-25 06:06] LABS: Alanine Aminotransferase 19 U/L (0-31); Albumin Level 3.2 g/dL (3.5-5.0); Alkaline Phosphatase 63 U/L (39-117); Anion Gap 12 (12-20); Aspartate Amino Transferase 18 U/L (5-31); Bilirubin Total 0.5 mg/dL (0.0-1.0); Blood Urea Nitrogen 5 mg/dL (9-16); Calcium 9.3 mg/dL (8.4-10.2); Carbon Dioxide 27 mmol/L (22-29); Chloride 107 mmol/L (96-108); Creatinine Clr Calc Pharmacy 85.3; Estimated Glomerular Filt Rate > 60; Glucose Fasting 88 mg/dL (60-99); Potassium 3.4 mmol/L (3.3-5.1); Sodium 143 mmol/L (135-145); Total Protein 6.3 g/dL (6.5-8.0)
[2023-08-25 07:08] VITALS: BP 122/58; PULSE 71; RESP 18; TEMP 36.4; O2SAT 95
[2023-08-25] MEDS: 0.9 % Sodium Chloride Flush 3 ML SYRINGE IVFLUSH ×2 (08:54→15:29)
[2023-08-25] MEDS: Dextrose 5 % and Lactated Ring 1,000 ML 125 ML IVCONT ×2 (10:27→18:39)
--- NOTE | 2023-08-25 13:22 | P.PNIM_ITS ---
Subjective Subjective Date of Service: 08/25/23 Interval History: Still with considerable pain left lower quadrant Review of Systems Denies chest pain Denies shortness of breath Denies nausea vomiting diarrhea Denies fever chills Physical Exam 2 Vital Signs: Vital Signs: Last Vital Signs Temp 97.5 F 08/25/23 07:08 Pulse 71 08/25/23 07:08 Resp 18 08/25/23 07:08 BP 122/58 L 08/25/23 07:08 Pulse Ox 95 08/25/23 07:08 O2 Del Method Room Air 08/25/23 07:08 BMI result Body Mass Index 38.5 Const: Other: Awake alert resting quietly in bed Resp: Other: Clear to auscultation bilaterally no rales rhonchi or wheezes Cardio: Other: No S4; positive S1-S2; no S3 murmurs rubs or gallops GI: Other: Soft quiet bowel sounds. Mild guarding with no rebound left lower quadrant Extrem: Other: No edema bilaterally Objective Data Active Medications Albuterol Sulfate (Albuterol Sulfate 90 Mcg 8 Gm Inhaler) 1 puff INHALE QID PRN PRN Reason: shortness of breath or wheezing Carvedilol (Carvedilol 12.5 Mg Tablet) 12.5 mg PO BID [facility]; Protocol Last Admin: 08/25/23 07:35 Dose: Not Given Documented By: NIECY Non-Admin Reason: Patient Refused Hydromorphone HCl (Hydromorphone Hcl 0.5 Mg/0.5 Ml Syringe) 0.5 mg IVPUSH Q3H PRN; Protocol PRN Reason: Pain, Severe (Pain Scale 7-10) Last Admin: 08/25/23 10:24 Dose: 0.5 mg Documented By: NIECY Piperacillin Sod/Tazobactam (Sod 3.375 gm/ Sodium Chloride) 50 mls @ 100 mls/hr IV Q6H [facility] Last Infusion: 08/25/23 09:59 Dose: Infused Documented By: NIECY Dextrose/Lactated Ringer's (D5lr) 1,000 mls @ 125 mls/hr IVCONT .Q8H [facility] Last Admin: 08/25/23 10:27 Dose: 125 mls/hr Documented By: NIECY Ondansetron HCl (Ondansetron Hcl 4 Mg/2 Ml Vial) 4 mg IVPUSH QID PRN PRN Reason: Nausea Sodium Chloride (0.9 % Sodium Chloride Flush 3 Ml Syringe) 3 ml IVFLUSH QSHIFT [facility] Last Admin: 08/25/23 08:54 Dose: 3 ml Documented By: NIECY Zolpidem Tartrate (Zolpidem Tartrate 5 Mg Tablet) 5 mg PO BEDTIME PRN PRN Reason: Insomnia Labs 08/25/23 05:07 08/25/23 05:07 Labs: Laboratory Results - last 24 hr 08/25/23 05:07 MCV 94.0 MCH 30.8 MCHC 32.8 RDW 12.4 Plt Count 299 MPV 10.2 Immature Gran % (Auto) 0.4 Neut % (Auto) 66.5 Lymph % (Auto) 19.0 L [place] % (Auto) 11.0 Eos % (Auto) 2.7 Baso % (Auto) 0.4 Lymph # (Auto) 1.3 [place] # (Auto) 0.8 Eos # (Auto) 0.2 Baso # (Auto) 0.0 Abs Immat Gran (auto) 0.03 Absolute Neuts (auto) 4.6 Absolute Nucleated RBC 0.000 Nucleated RBC % (auto) 0.0 Anion Gap 12 Estim Creat Clear Calc 85.3 Estimated GFR > 60 Fasting Glucose 88 Calcium 9.3 D Total Bilirubin 0.5 AST 18 ALT 19 Alkaline Phosphatase 63 Total Protein 6.3 L Albumin 3.2 L Microbiology Microbiology Results: Microbiology 08/22/23 21:51 Blood Culture - Preliminary Blood - Venous No growth after 48 hours. 08/22/23 21:42 Blood Culture - Preliminary Blood - Venous No growth after 48 hours. Assessment and Plan (1) Diverticulitis of colon with perforation: Status: Acute (2) Essential hypertension: Status: Acute Plan 63 yo F sigmoid diverticulitis and abscess who is admitted under the surgical services. The patient reports a history of hemochromatosis, irregular heart beat (Ventricular bigeminy), CMP (unknown EF). Medical consult requested for med mgmt. 1. Hypertension (by history) -relative hypotension without any symptoms -continue IVF -add back Coreg as tolerated 2. History of dilated cardiomyopathy -will attempt to continue Coreg at half usual doses as tolerated -add back other therapies as clinically indicated -will review [facility] records 3. Sigmoid diverticulitis w/ abscess -Ivan (3) -further management as per surgery 6. HypoK.. Low normal and response to therapies -continue IVF with potassium and being supplement 40meq IV -follow renals/divalents Will continue to follw Quality Stroke Does the patient have a stroke diagnosis?: No VTE Prior VTE?: No VTE Risk Level:: Surgical - moderate VTE Device Contraindication: N/A - Device Ordered VTE Drug Contraindication: Treatment Not Indicated
[2023-08-25 16:00] VITALS: BP 131/71; PULSE 69; RESP 16; TEMP 36.3; O2SAT 94
--- NOTE | 2023-08-25 16:29 | PC.NURSE ---
Pt endorsing pain and swelling in left AC, upon assessment site appears pink and edematous, Pt had IV at this site that was removed 08/24/23. Site outlined, timed, and dated with skin marker. Dr. Villafana at bedside at this time assessed site. Recommended warm compress. No new orders at this time.
[2023-08-25 20:00] VITALS: BP 124/59; PULSE 71; RESP 20; TEMP 36.6; O2SAT 95
[2023-08-25] MEDS: carvediloL 12.5 MG TABLET PO (21:21)
--- NOTE | 2023-08-25 21:24 | P.PNGS_ITS ---
Subjective Subjective Date of Service: 08/25/23 Interval history: pt still having abdo pain left arm with some swelling and pain from iv infiltration Physical Exam 2 Vital Signs: Vital Signs: Last Vital Signs Temp 97.8 F 08/25/23 20:00 Pulse 71 08/25/23 20:00 Resp 20 08/25/23 20:00 BP 124/59 L 08/25/23 20:00 Pulse Ox 95 08/25/23 20:00 O2 Del Method Room Air 08/25/23 20:00 BMI result Body Mass Index 38.5 Const: General: cooperative, healthy appearing and comfortable Resp: Effort & Inspection: normal respiratory effort Auscultation: clear to auscultation bilaterally Cardio: Rate: regular rate GI: Other: abdomen is soft but tender lower abdomen midline the most Objective Data Active Medications Albuterol Sulfate (Albuterol Sulfate 90 Mcg 8 Gm Inhaler) 1 puff INHALE QID PRN PRN Reason: shortness of breath or wheezing Carvedilol (Carvedilol 12.5 Mg Tablet) 12.5 mg PO BID [facility]; Protocol Last Admin: 08/25/23 07:35 Dose: Not Given Documented By: NIECY Non-Admin Reason: Patient Refused Hydromorphone HCl (Hydromorphone Hcl 0.5 Mg/0.5 Ml Syringe) 0.5 mg IVPUSH Q3H PRN; Protocol PRN Reason: Pain, Severe (Pain Scale 7-10) Last Admin: 08/25/23 18:34 Dose: 0.5 mg Documented By: NIECY Piperacillin Sod/Tazobactam (Sod 3.375 gm/ Sodium Chloride) 50 mls @ 100 mls/hr IV Q6H [facility] Last Infusion: 08/25/23 15:58 Dose: Infused Documented By: NIECY Dextrose/Lactated Ringer's (D5lr) 1,000 mls @ 125 mls/hr IVCONT .Q8H [facility] Last Admin: 08/25/23 18:39 Dose: 125 mls/hr Documented By: NIECY Ondansetron HCl (Ondansetron Hcl 4 Mg/2 Ml Vial) 4 mg IVPUSH QID PRN PRN Reason: Nausea Sodium Chloride (0.9 % Sodium Chloride Flush 3 Ml Syringe) 3 ml IVFLUSH QSHIFT [facility] Last Admin: 08/25/23 20:12 Dose: Not Given Documented By: ANTONIA Non-Admin Reason: IV Running Zolpidem Tartrate (Zolpidem Tartrate 5 Mg Tablet) 5 mg PO BEDTIME PRN PRN Reason: Insomnia Labs 08/25/23 05:07 08/25/23 05:07 Labs: Laboratory Results - last 24 hr 08/25/23 05:07 MCV 94.0 MCH 30.8 MCHC 32.8 RDW 12.4 Plt Count 299 MPV 10.2 Immature Gran % (Auto) 0.4 Neut % (Auto) 66.5 Lymph % (Auto) 19.0 L [place] % (Auto) 11.0 Eos % (Auto) 2.7 Baso % (Auto) 0.4 Lymph # (Auto) 1.3 [place] # (Auto) 0.8 Eos # (Auto) 0.2 Baso # (Auto) 0.0 Abs Immat Gran (auto) 0.03 Absolute Neuts (auto) 4.6 Absolute Nucleated RBC 0.000 Nucleated RBC % (auto) 0.0 Anion Gap 12 Estim Creat Clear Calc 85.3 Estimated GFR > 60 Fasting Glucose 88 Calcium 9.3 D Total Bilirubin 0.5 AST 18 ALT 19 Alkaline Phosphatase 63 Total Protein 6.3 L Albumin 3.2 L Microbiology Microbiology Results: Microbiology 08/22/23 21:51 Blood Culture - Preliminary Blood - Venous No growth after 48 hours. 08/22/23 21:42 Blood Culture - Preliminary Blood - Venous No growth after 48 hours. Procedures Date of Service Date of Service: 08/25/23 Progress Note: A&P Assessment and plan (1) Diverticulitis of colon with perforation: Status: Acute Plan hd#3 with perf diverticulitis and abscess . pt vitals good but stil tneder, will most likely need to pursue IR drainage. cont with iv antibx, compresses on arm, clear liquids Time Spent With Patient Time: Total time managing care of this patient today ____ minutes. Quality Stroke Does the patient have a stroke diagnosis?: No VTE Prior VTE?: No VTE Risk Level:: Surgical - moderate VTE Device Contraindication: N/A - Device Ordered VTE Drug Contraindication: Treatment Not Indicated
[2023-08-26] MEDS: Dextrose 5 % and Lactated Ring 1,000 ML 125 ML IVCONT ×3 (02:33→16:34)
[2023-08-26] MEDS: HYDROmorphone HCl 0.5 MG/0.5 ML SYRINGE IVPUSH ×6 (02:38→23:26)
[2023-08-26] MEDS: Piperacillin Sodium/Tazobactam 3.375 GM in 0.9 % Sodium Chloride 50 ML IV ×4 (03:15→22:02)
[2023-08-26 03:28] VITALS: BP 99/55; PULSE 67; RESP 16; TEMP 37.3; O2SAT 92
[2023-08-26 05:56] LABS: MANUAL DIFF FLAG NO
[2023-08-26 06:00] LABS: Basophils Percent Auto 0.2 % (0-2); Eosinophils Absolute Auto 0.2 X10*3/uL (0.0-0.4); Eosinophils Percent Auto 1.8 % (0-4); Hematocrit 31.6 % (37.0-47.0); Hemoglobin 10.2 g/dl (12.0-16.0); Imm Gran Abs Auto 0.04 X10*3/uL (0.00-0.03); Imm Gran Pct Auto 0.5 % (0.0-0.4); Lymphocytes Absolute Auto 1.2 X10*3/uL (1.2-4.9); Lymphocytes Percent Auto 14.1 % (20-40); Mean Corpuscular HGB Conc 32.3 g/dl (31.0-35.0); Mean Corpuscular Hemoglobin 30.3 pg (27.0-33.0); Mean Corpuscular Volume 93.8 fL (80.0-98.0); Mean Platelet Volume 10.4 fL (9.4-12.3); Monocytes Absolute Auto 0.8 X10*3/uL (0.1-1.2); Monocytes Percent Auto 10.2 % (2-11); Neutrophils Percent Auto 73.2 % (45-73); Platelet Count 316 X10*3/uL (160-400); Red Blood Count 3.37 X10*6/uL (4.20-5.50); Red Cell Distribution Width 12.4 % (11.0-16.0); White Blood Count 8.1 X10*3/uL (4.8-10.8)
[2023-08-26 06:20] LABS: Alanine Aminotransferase 16 U/L (0-31); Alkaline Phosphatase 56 U/L (39-117); Anion Gap 12 (12-20); Aspartate Amino Transferase 17 U/L (5-31); Bilirubin Total 0.5 mg/dL (0.0-1.0); Blood Urea Nitrogen 5 mg/dL (9-16); Calcium 8.6 mg/dL (8.4-10.2); Carbon Dioxide 26 mmol/L (22-29); Chloride 107 mmol/L (96-108); Creatinine Clr Calc Pharmacy 86.6; Estimated Glomerular Filt Rate > 60; Glucose Fasting 105 mg/dL (60-99); Potassium 3.2 mmol/L (3.3-5.1); Sodium 142 mmol/L (135-145)
[2023-08-26 07:44] VITALS: BP 118/61; PULSE 66; RESP 16; TEMP 36.9; O2SAT 94
--- NOTE | 2023-08-26 08:07 | P.PNGS_ITS ---
Subjective Subjective Date of Service: 08/26/23 Interval history: Reports moving her bowels but does still have abdominal pain in the lower quadrants. Denies nausea or vomiting. Physical Exam 2 Vital Signs: Vital Signs: Last Vital Signs Temp 98.4 F 08/26/23 07:44 Pulse 66 08/26/23 07:44 Resp 16 08/26/23 07:44 BP 118/61 08/26/23 07:44 Pulse Ox 94 08/26/23 07:44 O2 Del Method Room Air 08/26/23 07:44 BMI result Body Mass Index 38.5 Const: General: no acute distress Nutritional Appearance: well nourished Orientation/consciousness: patient oriented x3 Resp: Effort & Inspection: normal respiratory effort GI: Inspection: Yes normal to inspection Palpation (GI): Soft to palpation, Tenderness to palpation present (GI) in the LLQ; with no rebound tenderness, no guarding and not rigid Percussion: Yes normal to percussion Neuro: General: patient oriented x3 Extrem: General: No edema Objective Data Active Medications Albuterol Sulfate (Albuterol Sulfate 90 Mcg 8 Gm Inhaler) 1 puff INHALE QID PRN PRN Reason: shortness of breath or wheezing Carvedilol (Carvedilol 12.5 Mg Tablet) 12.5 mg PO BID [facility]; Protocol Last Admin: 08/25/23 21:21 Dose: 12.5 mg Documented By: ANTONIA Hydromorphone HCl (Hydromorphone Hcl 0.5 Mg/0.5 Ml Syringe) 0.5 mg IVPUSH Q3H PRN; Protocol PRN Reason: Pain, Severe (Pain Scale 7-10) Last Admin: 08/26/23 02:38 Dose: 0.5 mg Documented By: SHRUTI Piperacillin Sod/Tazobactam (Sod 3.375 gm/ Sodium Chloride) 50 mls @ 100 mls/hr IV Q6H [facility] Last Infusion: 08/26/23 03:52 Dose: Infused Documented By: SHRUTI Dextrose/Lactated Ringer's (D5lr) 1,000 mls @ 125 mls/hr IVCONT .Q8H [facility] Last Infusion: 08/26/23 03:52 Dose: 125 mls/hr Documented By: SHRUTI Potassium Chloride (Potassium Chloride/H20) 10 meq in 100 mls @ 100 mls/hr IV Q1H [facility] Stop: 08/26/23 09:59 Ondansetron HCl (Ondansetron Hcl 4 Mg/2 Ml Vial) 4 mg IVPUSH QID PRN PRN Reason: Nausea Sodium Chloride (0.9 % Sodium Chloride Flush 3 Ml Syringe) 3 ml IVFLUSH QSHIFT [facility] Last Admin: 08/25/23 20:12 Dose: Not Given Documented By: ANTONIA Non-Admin Reason: IV Running Zolpidem Tartrate (Zolpidem Tartrate 5 Mg Tablet) 5 mg PO BEDTIME PRN PRN Reason: Insomnia Labs 08/26/23 04:37 08/26/23 04:37 Labs: Laboratory Results - last 24 hr 08/26/23 04:37 MCV 93.8 MCH 30.3 MCHC 32.3 RDW 12.4 Plt Count 316 MPV 10.4 Immature Gran % (Auto) 0.5 H Neut % (Auto) 73.2 H Lymph % (Auto) 14.1 L [place] % (Auto) 10.2 Eos % (Auto) 1.8 Baso % (Auto) 0.2 Lymph # (Auto) 1.2 [place] # (Auto) 0.8 Eos # (Auto) 0.2 Baso # (Auto) 0.0 Abs Immat Gran (auto) 0.04 H Absolute Neuts (auto) 6.0 Absolute Nucleated RBC 0.000 Nucleated RBC % (auto) 0.0 Anion Gap 12 Estim Creat Clear Calc 86.6 Estimated GFR > 60 Fasting Glucose 105 H Calcium 8.6 D Total Bilirubin 0.5 AST 17 ALT 16 Alkaline Phosphatase 56 Total Protein 6.0 L Albumin 3.0 L Procedures Date of Service Date of Service: 08/26/23 Progress Note: A&P Assessment and plan (1) Diverticulitis of colon with perforation: Status: Acute Plan 63-year-old female patient with sigmoid diverticulitis found to have an abscess in the pelvis. I reviewed the images with radiology this morning once again. A clear window for drainage is not identified due to surrounding vessels/nerves. Continue IV antibiotics. I will repeat the CT abdomen and pelvis to evaluate the interval changes. Patient expressed understanding and agrees with the plan. Time Spent With Patient Time: Total time managing care of this patient today ____ minutes. Quality Stroke Does the patient have a stroke diagnosis?: No VTE Prior VTE?: No VTE Risk Level:: Surgical - moderate VTE Device Contraindication: N/A - Device Ordered VTE Drug Contraindication: Treatment Not Indicated
[2023-08-26] MEDS: 0.9 % Sodium Chloride Flush 3 ML SYRINGE IVFLUSH ×2 (08:29→21:59)
[2023-08-26 08:35] LABS: Magnesium 1.8 mg/dL (1.6-2.6)
[2023-08-26] MEDS: Potassium Chloride/H20 10 MEQ/100 ML PIGGYBACK 100 MEQ IV ×2 (09:07→10:13)
--- NOTE | 2023-08-26 10:37 | MHC.CM.PN ---
EMR reviewed. Patient is not medically cleared for dc at this time. No change to dc plan, home self care. CM will continue to follow.
[2023-08-26] MEDS: LORazepam 2 MG/ML VIAL 1 MG IVPUSH (11:25)
--- NOTE | 2023-08-26 12:25 | HO.PM.IMPN ---
Subjective Subjective Date of Service: 08/26/23 Interval History: c/o LLQ pain not improved no fever Review of Systems Review of Systems: Yes all other systems are reviewed and are negative Physical Exam Vital Signs: Vital Signs: Last Vital Signs Temp 98.4 F 08/26/23 07:44 Pulse 66 08/26/23 07:44 Resp 16 08/26/23 07:44 BP 118/61 08/26/23 07:44 Pulse Ox 94 08/26/23 07:44 O2 Del Method Room Air 08/26/23 07:44 BMI result Body Mass Index 38.5 Gen: in no acute distress HEENT: sclera anicteric, moist mucus membranes Neck: supple Lungs: clear to auscultation bilaterally Heart: regular rate and rhythm, no murmurs Abd: soft, LLQ tender without rebound Ext: no edema Skin: warm/well-perfused Neuro: alert and oriented x3, no focal findings Psych: appropriate affect Objective Data Active Medications Albuterol Sulfate (Albuterol Sulfate 90 Mcg 8 Gm Inhaler) 1 puff INHALE QID PRN PRN Reason: shortness of breath or wheezing Carvedilol (Carvedilol 12.5 Mg Tablet) 12.5 mg PO BID [facility]; Protocol Last Admin: 08/26/23 08:34 Dose: Not Given Documented By: YURIDIA Non-Admin Reason: NPO Hydromorphone HCl (Hydromorphone Hcl 0.5 Mg/0.5 Ml Syringe) 0.5 mg IVPUSH Q3H PRN; Protocol PRN Reason: Pain, Severe (Pain Scale 7-10) Last Admin: 08/26/23 10:36 Dose: 0.5 mg Documented By: YURIDIA Piperacillin Sod/Tazobactam (Sod 3.375 gm/ Sodium Chloride) 50 mls @ 100 mls/hr IV Q6H [facility] Last Infusion: 08/26/23 08:59 Dose: Infused Documented By: YURIDIA Dextrose/Lactated Ringer's (D5lr) 1,000 mls @ 125 mls/hr IVCONT .Q8H [facility] Last Admin: 08/26/23 10:13 Dose: 125 mls/hr Documented By: YURIDIA Ondansetron HCl (Ondansetron Hcl 4 Mg/2 Ml Vial) 4 mg IVPUSH QID PRN PRN Reason: Nausea Sodium Chloride (0.9 % Sodium Chloride Flush 3 Ml Syringe) 3 ml IVFLUSH QSHIFT [facility] Last Admin: 08/26/23 08:29 Dose: 3 ml Documented By: YURIDIA Zolpidem Tartrate (Zolpidem Tartrate 5 Mg Tablet) 5 mg PO BEDTIME PRN PRN Reason: Insomnia Labs 08/26/23 04:37 08/26/23 04:37 Labs: Laboratory Results - last 24 hr 08/26/23 04:37 MCV 93.8 MCH 30.3 MCHC 32.3 RDW 12.4 Plt Count 316 MPV 10.4 Immature Gran % (Auto) 0.5 H Neut % (Auto) 73.2 H Lymph % (Auto) 14.1 L [place] % (Auto) 10.2 Eos % (Auto) 1.8 Baso % (Auto) 0.2 Lymph # (Auto) 1.2 [place] # (Auto) 0.8 Eos # (Auto) 0.2 Baso # (Auto) 0.0 Abs Immat Gran (auto) 0.04 H Absolute Neuts (auto) 6.0 Absolute Nucleated RBC 0.000 Nucleated RBC % (auto) 0.0 Anion Gap 12 Estim Creat Clear Calc 86.6 Estimated GFR > 60 Fasting Glucose 105 H Calcium 8.6 D Magnesium 1.8 Total Bilirubin 0.5 AST 17 ALT 16 Alkaline Phosphatase 56 Total Protein 6.0 L Albumin 3.0 L Assessment and Plan (1) Diverticulitis of colon with perforation: Status: Acute (2) Essential hypertension: Status: Acute Plan d5 63yo F admitted to Gen Surg for sigmoid diverticulitis with abscess, hospitalist consult for management of comorbid medical conditions sigmoid diverticulitis with abscess - pip/mary anne 08/23- - repeat CT scan per Gen Surg today hx nonischemic cardiomyopathy with recovered EF - continue carvedilol hemochromatosis - undergoes periodic therapeutic phlebotomy asthma - prn albuterol hypoK - replete + recheck level VTE ppx - SCDs dispo - TBD In my clinical judgment, the patient requires continued inpatient hospitalization for the following reasons: IV ABX, abscess drainage? Total time managing care of this patient today: 35 minutes. Quality Stroke Does the patient have a stroke diagnosis?: No VTE Prior VTE?: No VTE Risk Level:: Surgical - moderate VTE Device Contraindication: N/A - Device Ordered VTE Drug Contraindication: Treatment Not Indicated
[2023-08-26] MEDS: LORazepam 0.5 MG TABLET PO (13:35)
[2023-08-26] MEDS: Barium Sulfate Oral (Vanilla) 450 ML ORAL.SUSP 900 ML PO (14:19)
--- NOTE | 2023-08-26 14:22 | PC.NURSE ---
Patient refusing CT scan this morning due to claustrophobia. Patient educated about the fine details of exam and medicated with ativan. MD at bedside to explain risks of refusal of imaging. Patient cooperative this afternoon and able to successfully obtain ABD CT
[2023-08-26 15:16] VITALS: BP 132/61; PULSE 70; RESP 17; TEMP 36.1; O2SAT 93
[2023-08-26 19:08] VITALS: BP 116/55; PULSE 73; RESP 18; TEMP 37.1; O2SAT 94
[2023-08-26] MEDS: carvediloL 12.5 MG TABLET PO (21:58)
[2023-08-27] VITALS (13 sets, daily range): BP systolic 95–132; BP diastolic 39–66; PULSE 64–80; RESP 16–28; TEMP 36.4–38.1; O2SAT 93–99
[2023-08-27] MEDS: Dextrose 5 % and Lactated Ring 1,000 ML 125 ML IVCONT ×3 (02:03→17:03)
[2023-08-27] MEDS: HYDROmorphone HCl 0.5 MG/0.5 ML SYRINGE IVPUSH ×4 (03:22→21:14)
[2023-08-27] MEDS: Piperacillin Sodium/Tazobactam 3.375 GM in 0.9 % Sodium Chloride 50 ML IV ×4 (03:24→21:20)
[2023-08-27 05:48] LABS: MANUAL DIFF FLAG NO
[2023-08-27 05:54] LABS: Basophils Percent Auto 0.3 % (0-2); Eosinophils Absolute Auto 0.2 X10*3/uL (0.0-0.4); Eosinophils Percent Auto 2.8 % (0-4); Hematocrit 31.6 % (37.0-47.0); Hemoglobin 10.5 g/dl (12.0-16.0); Imm Gran Abs Auto 0.02 X10*3/uL (0.00-0.03); Imm Gran Pct Auto 0.3 % (0.0-0.4); Lymphocytes Absolute Auto 1.2 X10*3/uL (1.2-4.9); Lymphocytes Percent Auto 16.7 % (20-40); Mean Corpuscular HGB Conc 33.2 g/dl (31.0-35.0); Mean Corpuscular Hemoglobin 30.8 pg (27.0-33.0); Mean Corpuscular Volume 92.7 fL (80.0-98.0); Mean Platelet Volume 9.8 fL (9.4-12.3); Monocytes Absolute Auto 0.6 X10*3/uL (0.1-1.2); Monocytes Percent Auto 8.6 % (2-11); Neutrophils Absolute Auto 5.1 x10*3/uL (2.0-8.3); Neutrophils Percent Auto 71.3 % (45-73); Platelet Count 290 X10*3/uL (160-400); Red Blood Count 3.41 X10*6/uL (4.20-5.50); Red Cell Distribution Width 12.5 % (11.0-16.0); White Blood Count 7.2 X10*3/uL (4.8-10.8)
[2023-08-27 06:04] LABS: Alanine Aminotransferase 15 U/L (0-31); Alkaline Phosphatase 54 U/L (39-117); Anion Gap 12 (12-20); Aspartate Amino Transferase 18 U/L (5-31); Bilirubin Total 0.5 mg/dL (0.0-1.0); Blood Urea Nitrogen 3 mg/dL (9-16); Calcium 8.7 mg/dL (8.4-10.2); Carbon Dioxide 26 mmol/L (22-29); Chloride 107 mmol/L (96-108); Creatinine Clr Calc Pharmacy 86.6; Estimated Glomerular Filt Rate > 60; Glucose Fasting 117 mg/dL (60-99); Glucose Random 116 mg/dL (60-115); Potassium 3.5 mmol/L (3.3-5.1); Sodium 141 mmol/L (135-145)
[2023-08-27] MEDS: 0.9 % Sodium Chloride Flush 3 ML SYRINGE IVFLUSH ×3 (07:15→21:14)
[2023-08-27] MEDS: carvediloL 12.5 MG TABLET PO ×2 (07:16→21:18)
--- NOTE | 2023-08-27 07:52 | P.PNGS_ITS ---
<Statement entered by Clayton Avery MD - 08/27/23 08:24> Agree with the assessment and plan . Patient continues to have pain despite antibiotic treatment. Repeat CT not red at the time of this dictation however abscess does appear to be larger. Patient continues to have pain requiring IV pain medications. Abscess is not in a position which will allow IR drainage. In addition increased air seen in uterus suggestive of a fistula. Patient does since that she is passing gas. Discussed the options of management but would recommend exploratory laparotomy, partial colectomy with end colostomy (Timoteo procedure ) as the safest management. I reviewed the procedure, risks, alternatives, as well as postoperative restrictions and need for further surgery at least 3 months following the procedure To reverse the colostomy. After this discussion, she consents to an exploratory laparotomy, sigmoid colectomy with end-colostomy ( Timoteo procedure ). She has been added onto the operative schedule for today. Subjective Subjective Date of Service: 08/27/23 <Gauri Cisse PA-C - Last Filed: 08/27/23 09:10> 08/27/23 <Clayton Avery MD - Last Filed: 08/27/23 08:25> Interval history: Continues to have severe pain, requiring IV analgesics frequently. < ALBINO Ribera Last Filed: 08/27/23 09:10> Physical Exam 2 Vital Signs: Vital Signs: Last Vital Signs Temp 97.6 F 08/27/23 07:18 Pulse 72 08/27/23 07:18 Resp 20 08/27/23 07:18 BP 125/53 L 08/27/23 07:18 Pulse Ox 96 08/27/23 07:18 O2 Del Method Room Air 08/27/23 07:18 BMI result Body Mass Index 38.5 <ALBINO Ribera Last Filed: 08/27/23 09:10> Const: General: comfortable, no acute distress and alert <ALBINO Ribera Last Filed: 08/27/23 09:10> Orientation/consciousness: patient oriented x3 <ALBINO Ribera Last Filed: 08/27/23 09:10> Resp: Effort & Inspection: normal respiratory effort <ALBINO Ribera Filed: 08/27/23 09:10> GI: Inspection: No distended <ALBINO Ribera Last Filed: 08/27/23 09:10> Palpation (GI): Soft to palpation, Tenderness to palpation present (GI) (mild diffuse, marked in LLQ) with rebound tenderness (LLQ), no guarding and not rigid <ALBINO Ribera Last Filed: 08/27/23 09:10> Percussion: Yes normal to percussion <ALBINO Ribera Last Filed: 08/27/23 09:10> Skin: General skin exam: no rashes or lesions noted <ALBINO Ribera Last Filed: 08/27/23 09:10> Neuro: General: patient oriented x3 <ALBINO Ribera Last Filed: 08/27/23 09:10> Objective Data Active Medications Albuterol Sulfate (Albuterol Sulfate 90 Mcg 8 Gm Inhaler) 1 puff INHALE QID PRN PRN Reason: shortness of breath or wheezing Carvedilol (Carvedilol 12.5 Mg Tablet) 12.5 mg PO BID [facility]; Protocol Last Admin: 08/27/23 07:16 Dose: 12.5 mg Documented By: YURIDIA Hydromorphone HCl (Hydromorphone Hcl 0.5 Mg/0.5 Ml Syringe) 0.5 mg IVPUSH Q3H PRN; Protocol PRN Reason: Pain, Severe (Pain Scale 7-10) Last Admin: 08/27/23 07:10 Dose: 0.5 mg Documented By: YURIDIA Piperacillin Sod/Tazobactam (Sod 3.375 gm/ Sodium Chloride) 50 mls @ 100 mls/hr IV Q6H [facility] Last Infusion: 08/27/23 04:02 Dose: Infused Documented By: DEREK Dextrose/Lactated Ringer's (D5lr) 1,000 mls @ 125 mls/hr IVCONT .Q8H [facility] Last Infusion: 08/27/23 04:02 Dose: 125 mls/hr Documented By: DEREK Ondansetron HCl (Ondansetron Hcl 4 Mg/2 Ml Vial) 4 mg IVPUSH QID PRN PRN Reason: Nausea Sodium Chloride (0.9 % Sodium Chloride Flush 3 Ml Sy[facility]) [facility] Last Admin: 08/27/23 07:15 Dose: 3 ml Documented By: YURIDIA Zolpidem Tartrate (Zolpidem Tartrate 5 Mg Tablet) 5 mg PO BEDTIME PRN PRN Reason: Insomnia <Gauri Cisse PA-C - Last Filed: 08/27/23 09:10> Labs CBC & Chem 7: 08/27/23 05:42 08/27/23 05:42 <Gauri Cisse PA-C - Last Filed: 08/27/23 09:10> Labs: Laboratory Results - last 24 hr 08/26/23 08/27/23 04:37 05:42 MCV 92.7 MCH 30.8 MCHC 33.2 RDW 12.5 Plt Count 290 MPV 9.8 Immature Gran % (Auto) 0.3 Neut % (Auto) 71.3 Lymph % (Auto) 16.7 L [place] % (Auto) 8.6 Eos % (Auto) 2.8 Baso % (Auto) 0.3 Lymph # (Auto) 1.2 [place] # (Auto) 0.6 Eos # (Auto) 0.2 Baso # (Auto) 0.0 Abs Immat Gran (auto) 0.02 Absolute Neuts (auto) 5.1 Absolute Nucleated RBC 0.000 Nucleated RBC % (auto) 0.0 Anion Gap 12 Estim Creat Clear Calc 86.6 Estimated GFR > 60 Random Glucose 116 H Fasting Glucose 117 H Calcium 8.7 Magnesium 1.8 Total Bilirubin 0.5 AST 18 ALT 15 Alkaline Phosphatase 54 Total Protein 6.0 L Albumin 3.0 L <Gauri Cisse PA-C - Last Filed: 08/27/23 09:10> Procedures Date of Service Date of Service: 08/27/23 <Gauri Cisse PA-C - Last Filed: 08/27/23 09:10> 08/27/23 <Clayton Avery MD - Last Filed: 08/27/23 08:25> Progress Note: A&P Assessment and plan (1) Diverticulitis of colon with perforation: Status: Acute <ALBINO Ribera Last Filed: 08/27/23 09:10> Assessment and Plan: 63-year-old female patient with sigmoid diverticulitis found to have an abscess in the pelvis, unable to perform IR drainage due to surrounding vessels/nerves. Repeat CT abdomen and pelvis yesterday has worsening inflammatory changes of the sigmoid and she continues to have severe pain. Will proceed with exploratory laparotomy, sigmoid resection, likely end colostomy today given no significant improvement. Risks, benefits, alternatives of ex lap, sigmoid resection, colostomy were reviewed with the patient and included but not limited to bleeding, infection, numbness, pain, scarring, injury to surrounding structures including ureter, vasculature. Patient understands and agrees with plan. <ALBINO Ribera Last Filed: 08/27/23 09:10> Time Spent With Patient Time: Total time managing care of this patient today ____ minutes. <ALBINO Ribera Last Filed: 08/27/23 09:10> Quality Stroke Does the patient have a stroke diagnosis?: No <Gauri Cisse PA-C Last Filed: 08/27/23 09:10> VTE Prior VTE?: No <ALBINO Ribera Filed: 08/27/23 09:10> VTE Risk Level:: Surgical - moderate <ALBINO Ribera Filed: 08/27/23 09:10> VTE Device Contraindication: N/A - Device Ordered <ALBINO Ribera Last Filed: 08/27/23 09:10> VTE Drug Contraindication: Treatment Not Indicated <ALBINO Ribera Filed: 08/27/23 09:10>
--- NOTE | 2023-08-27 11:09 | PC.NURSE ---
IV #22 right forearm, red, tender to touch, pain with IV flush. IV removed. New IV access #20 right hand obtained by Linda Alanis RN.
--- NOTE | 2023-08-27 11:17 | P.PNIM_ITS ---
Subjective Subjective Date of Service: 08/27/23 Interval History: LLQ pain unrelieved no fever CT shows abscess larger and possible fistulization to uterus Review of Systems Review of Systems: Yes all other systems are reviewed and are negative Physical Exam 2 Vital Signs: Vital Signs: Last Vital Signs Temp 100.5 F H 08/27/23 11:03 Pulse 80 08/27/23 11:03 Resp 16 08/27/23 11:03 BP 132/61 08/27/23 11:03 Pulse Ox 95 08/27/23 11:03 O2 Del Method Room Air 08/27/23 11:03 BMI result Body Mass Index 38.5 Gen: in no acute distress HEENT: sclera anicteric, moist mucus membranes Neck: supple Lungs: clear to auscultation bilaterally Heart: regular rate and rhythm, no murmurs Abd: soft, LLQ tender without rebound Ext: no edema Skin: warm/well-perfused Neuro: alert and oriented x3, no focal findings Psych: appropriate affect Objective Data Active Medications Albuterol Sulfate (Albuterol Sulfate 90 Mcg 8 Gm Inhaler) 1 puff INHALE QID PRN PRN Reason: shortness of breath or wheezing Carvedilol (Carvedilol 12.5 Mg Tablet) 12.5 mg PO BID [facility]; Protocol Last Admin: 08/27/23 07:16 Dose: 12.5 mg Documented By: YURIDIA Hydromorphone HCl (Hydromorphone Hcl 0.5 Mg/0.5 Ml Syringe) 0.5 mg IVPUSH Q3H PRN; Protocol PRN Reason: Pain, Severe (Pain Scale 7-10) Last Admin: 08/27/23 07:10 Dose: 0.5 mg Documented By: YURIDIA Piperacillin Sod/Tazobactam (Sod 3.375 gm/ Sodium Chloride) 50 mls @ 100 mls/hr IV Q6H [facility] Last Infusion: 08/27/23 10:45 Dose: Infused Documented By: YURIDIA Dextrose/Lactated Ringer's (D5lr) 1,000 mls @ 125 mls/hr IVCONT .Q8H [facility] Last Admin: 08/27/23 10:15 Dose: 125 mls/hr Documented By: YURIDIA Ondansetron HCl (Ondansetron Hcl 4 Mg/2 Ml Vial) 4 mg IVPUSH QID PRN PRN Reason: Nausea Sodium Chloride (0.9 % Sodium Chloride Flush 3 Ml Syringe) 3 ml IVFLUSH QSHIFT [facility] Last Admin: 08/27/23 07:15 Dose: 3 ml Documented By: YURIDIA Zolpidem Tartrate (Zolpidem Tartrate 5 Mg Tablet) 5 mg PO BEDTIME PRN PRN Reason: Insomnia Labs 08/27/23 05:42 08/27/23 05:42 Labs: Laboratory Results - last 24 hr 08/27/23 08/27/23 05:42 09:20 MCV 92.7 MCH 30.8 MCHC 33.2 RDW 12.5 Plt Count 290 MPV 9.8 Immature Gran % (Auto) 0.3 Neut % (Auto) 71.3 Lymph % (Auto) 16.7 L [place] % (Auto) 8.6 Eos % (Auto) 2.8 Baso % (Auto) 0.3 Lymph # (Auto) 1.2 [place] # (Auto) 0.6 Eos # (Auto) 0.2 Baso # (Auto) 0.0 Abs Immat Gran (auto) 0.02 Absolute Neuts (auto) 5.1 Absolute Nucleated RBC 0.000 Nucleated RBC % (auto) 0.0 Anion Gap 12 Estim Creat Clear Calc 86.6 Estimated GFR > 60 Random Glucose 116 H Fasting Glucose 117 H Calcium 8.7 Total Bilirubin 0.5 AST 18 ALT 15 Alkaline Phosphatase 54 Total Protein 6.0 L Albumin 3.0 L Blood Type O Positive Antibody Screen NEGATIVE Assessment and Plan (1) Diverticulitis of colon with perforation: Status: Acute (2) Essential hypertension: Status: Acute Plan d6 63yo F admitted to Gen Surg for sigmoid diverticulitis with abscess, hospitalist consult for management of comorbid medical conditions sigmoid diverticulitis with abscess - pip/mary anne 08/23- - repeat CT scan shows larger abscess and no safe path for CT-guided drainage; also possible fistulization to uterus. NPO for OR today. hx nonischemic cardiomyopathy with recovered EF - no current CHF symptoms. Cardiology note from [facility] [Mar 2023] reviewed; EF recovered. Continue carvedilol hemochromatosis - undergoes periodic therapeutic phlebotomy asthma - prn albuterol hypoK - repleted VTE ppx - SCDs dispo - TBD In my clinical judgment, the patient requires continued inpatient hospitalization for the following reasons: operative management Total time managing care of this patient today: 35 minutes. Quality Stroke Does the patient have a stroke diagnosis?: No VTE Prior VTE?: No VTE Risk Level:: Surgical - moderate VTE Device Contraindication: N/A - Device Ordered VTE Drug Contraindication: Treatment Not Indicated
--- NOTE | 2023-08-27 14:32 | HO.ANESPROP2 ---
HPI - Anesthesia Eval Consult details Narrative: 63-year-old female here with diverticulitis of colon with perforation presenting for colectomy with diverting colostomy PMF Active Problems Active Problems: All Active Problems (Updated 08/23/23 @ 00:36 by Lester Flores MD) Diverticulitis of colon with perforation (Acute) Vertigo (Acute) Sciatica (Acute) Ventricular bigeminy (Acute) Pure hypercholesterolemia (Acute) Hereditary hemochromatosis (Acute) Hypovitaminosis D (Acute) Iron overload (Chronic) Essential hypertension (Acute) Mild persistent asthma (Acute) Diverticulitis (Acute) Hemochromatosis (Acute) Family history of liver disease (Acute) Arthritis (Acute) Carpal tunnel syndrome, right (Acute) Pain in right arm (Acute) Past Medical History Medical History Upper respiratory tract infection Transaminitis Breast lump Morbid obesity with BMI of 40.0-44.9, adult Obesity (BMI 35.0-39.9 without comorbidity) Sciatica Hypovitaminosis D Ventricular bigeminy COVID-19 vaccine series completed IBS (irritable bowel syndrome) Essential hypertension Mild persistent asthma Diverticulitis Hemochromatosis Family history of liver disease Arthritis Carpal tunnel syndrome, right Pain in right arm Family History Family History Father Diabetes Heart disease Stroke COPD (chronic obstructive pulmonary disease) High cholesterol Mother Diabetes Alzheimer disease HTN (hypertension) Brother Brain aneurysm Leukemia Sister COPD (chronic obstructive pulmonary disease) Diabetes Brother Heart valve replaced Family history of problems with anesthesia: No Surgical History Surgical History Hx of foot surgery History of esophagogastroduodenoscopy (EGD) H/O colonoscopy H/O right heart catheterization History of loop electrical excision procedure (LEEP) H/O knee surgery History of Problems with Anesthesia: No Social History Social History Household Members: Spouse Housing: House Do you presently have visiting nurse or other home services: No Alcohol intake: current Alcohol intake frequency: 0-2 drinks per day Alcohol type: wine Patient Tobacco Use Status: Former Tobacco user Quit Date: 1985 Tobacco use type: Cigarette Cigarette Packs Per Day: 1 Smoked in Last 30 Days: No e-Cigarette/Vaping Use: Never Used Second Hand Smoke Exposure: No Use of substances other than those prescribed or required for medical reasons: No Currently Displaying Signs/Symptoms of Drug Intoxication Withdrawal: No Have you been hit, kicked, punched, or otherwise hurt by someone within the past year? If so, by whom?: No Do you feel safe in your current relationship?: No Is there a partner from a previous relationship who is making you feel unsafe now?: No Are you made to feel afraid or neglected: No Spiritism Healthcare Practices: cathloic Are you DNR?: No Advance Directives: Yes Advance Directives on File: Yes Advance Directives Date on File: 08/22/23 Do you have thoughts of harming others: None Do you have a plan to hurt others: No Plan Recently lost weight without trying: No How much weight loss: Not applicable Eating poorly because of decreased appetite: Yes Nutrition screen score: 1 Nutrition Risks: Poor intake 0-25% >4 days Patient : No : No Poor oral hygiene: No service: No Current occupational status: employed Current occupational exposures/hazards: No Sexual orientation: Straight/Heterosexual Gender identity: Female Cognitive needs: No Hearing needs: No Vision needs: Yes (glasses) Meds Allergies Allergy/AdvReac Type Severity Reaction Status Date / Time ciprofloxacin [Cipro] Allergy Intermediate hives Verified 08/17/23 13:10 dog dander [dogs] Allergy Intermediate Itching Verified 08/17/23 13:10 environmental Allergy Intermediate Itching Uncoded 08/17/23 13:10 Active Medications: Current Medications Albuterol Sulfate (Albuterol Sulfate 90 Mcg 8 Gm Inhaler) 1 puff INHALE QID PRN PRN Reason: shortness of breath or wheezing Carvedilol (Carvedilol 12.5 Mg Tablet) 12.5 mg PO BID [facility]; Protocol Last Admin: 08/27/23 07:16 Dose: 12.5 mg Hydromorphone HCl (Hydromorphone Hcl 0.5 Mg/0.5 Ml Syringe) 0.5 mg IVPUSH Q3H PRN; Protocol PRN Reason: Pain, Severe (Pain Scale 7-10) Last Admin: 08/27/23 07:10 Dose: 0.5 mg Piperacillin Sod/Tazobactam (Sod 3.375 gm/ Sodium Chloride) 50 mls @ 100 mls/hr IV Q6H [facility] Last Infusion: 08/27/23 10:45 Dose: Infused Dextrose/Lactated Ringer's (D5lr) 1,000 mls @ 125 mls/hr IVCONT .Q8H [facility] Last Admin: 08/27/23 10:15 Dose: 125 mls/hr Ondansetron HCl (Ondansetron Hcl 4 Mg/2 Ml Vial) 4 mg IVPUSH QID PRN PRN Reason: Nausea Sodium Chloride (0.9 % Sodium Chloride Flush 3 Ml Syringe) 3 ml IVFLUSH QSHIFT [facility] Last Admin: 08/27/23 07:15 Dose: 3 ml Zolpidem Tartrate (Zolpidem Tartrate 5 Mg Tablet) 5 mg PO BEDTIME PRN PRN Reason: Insomnia Home Medications Medication Instructions Recorded Confirmed Last Taken Type carvedilol 25 mg tablet 25 mg PO BID 08/01/20 08/22/23 08/22/23 History multivitamin 1 tab PO DAILY 09/28/20 08/22/23 08/22/23 History Exam Height,Weight and Vital Signs: Height 5 ft 1 in Weight 204 lb Last Vital Signs Temp 100.5 F H 08/27/23 11:03 Pulse 80 08/27/23 11:03 Resp 16 08/27/23 11:03 BP 132/61 08/27/23 11:03 Pulse Ox 95 08/27/23 11:03 O2 Del Method Room Air 08/27/23 11:03 Pertinent Lab Results Pertinent Lab Results: Laboratory Tests 08/22/23 08/22/23 08/22/23 16:25 21:42 23:12 WBC 10.5 RBC 3.97 L Hgb 12.2 Hct 36.2 L MCV 91.2 MCH 30.7 MCHC 33.7 RDW 12.3 Plt Count 316 MPV 9.8 Immature Gran % (Auto) 0.8 H Neut % (Auto) 76.0 H Lymph % (Auto) 12.2 L [place] % (Auto) 9.5 Eos % (Auto) 1.2 Baso % (Auto) 0.3 Lymph # (Auto) 1.3 [place] # (Auto) 1.0 Eos # (Auto) 0.1 Baso # (Auto) 0.0 Abs Immat Gran (auto) 0.08 H Absolute Neuts (auto) 7.9 Absolute Nucleated RBC 0.000 Nucleated RBC % (auto) 0.0 PT 14.7 H D INR 1.2 H APTT 30.1 Sodium 135 Potassium 3.2 L Chloride 99 Carbon Dioxide 25 Anion Gap 14 BUN 18 H Creatinine 1.07 Estim Creat Clear Calc 55.1 Estimated GFR 52 Random Glucose 109 Fasting Glucose Lactic Acid 0.9 Calcium 9.9 Phosphorus 4.1 Magnesium 2.4 Total Bilirubin 0.7 AST 31 ALT 34 H Alkaline Phosphatase 75 Total Protein 7.7 Albumin 4.0 Blood Type Antibody Screen 08/23/23 08/23/23 08/23/23 00:18 04:49 14:48 WBC 7.2 RBC 3.25 L Hgb 10.1 L Hct 30.4 L MCV 93.5 MCH 31.1 MCHC 33.2 RDW 12.6 Plt Count 253 MPV 10.2 Immature Gran % (Auto) 0.7 H Neut % (Auto) 63.6 Lymph % (Auto) 22.4 [place] % (Auto) 10.8 Eos % (Auto) 2.2 Baso % (Auto) 0.3 Lymph # (Auto) 1.6 [place] # (Auto) 0.8 Eos # (Auto) 0.2 Baso # (Auto) 0.0 Abs Immat Gran (auto) 0.05 H Absolute Neuts (auto) 4.6 Absolute Nucleated RBC 0.000 Nucleated RBC % (auto) 0.0 PT INR APTT Sodium 137 Potassium 2.6 L* 3.5 D Chloride 101 Carbon Dioxide 25 Anion Gap 14 BUN 21 H Creatinine 0.90 Estim Creat Clear Calc 65.5 Estimated GFR > 60 Random Glucose 128 H Fasting Glucose Lactic Acid Calcium 8.5 D Phosphorus Magnesium Total Bilirubin AST ALT Alkaline Phosphatase Total Protein Albumin Blood Type O Positive Antibody Screen NEGATIVE 08/25/23 08/26/23 08/27/23 05:07 04:37 05:42 WBC 6.9 8.1 7.2 RBC 3.67 L 3.37 L 3.41 L Hgb 11.3 L 10.2 L 10.5 L Hct 34.5 L 31.6 L 31.6 L MCV 94.0 93.8 92.7 MCH 30.8 30.3 30.8 MCHC 32.8 32.3 33.2 RDW 12.4 12.4 12.5 Plt Count 299 316 290 MPV 10.2 10.4 9.8 Immature Gran % (Auto) 0.4 0.5 H 0.3 Neut % (Auto) 66.5 73.2 H 71.3 Lymph % (Auto) 19.0 L 14.1 L 16.7 L [place] % (Auto) 11.0 10.2 8.6 Eos % (Auto) 2.7 1.8 2.8 Baso % (Auto) 0.4 0.2 0.3 Lymph # (Auto) 1.3 1.2 1.2 [place] # (Auto) 0.8 0.8 0.6 Eos # (Auto) 0.2 0.2 0.2 Baso # (Auto) 0.0 0.0 0.0 Abs Immat Gran (auto) 0.03 0.04 H 0.02 Absolute Neuts (auto) 4.6 6.0 5.1 Absolute Nucleated RBC 0.000 0.000 0.000 Nucleated RBC % (auto) 0.0 0.0 0.0 PT INR APTT Sodium 143 142 141 Potassium 3.4 3.2 L 3.5 Chloride 107 107 107 Carbon Dioxide 27 26 26 Anion Gap 12 12 12 BUN 5 L 5 L 3 L Creatinine 0.69 0.68 0.68 Estim Creat Clear Calc 85.3 86.6 86.6 Estimated GFR > 60 > 60 > 60 Random Glucose 116 H Fasting Glucose 88 105 H 117 H Lactic Acid Calcium 9.3 D 8.6 D 8.7 Phosphorus Magnesium 1.8 Total Bilirubin 0.5 0.5 0.5 AST 18 17 18 ALT 19 16 15 Alkaline Phosphatase 63 56 54 Total Protein 6.3 L 6.0 L 6.0 L Albumin 3.2 L 3.0 L 3.0 L Blood Type Antibody Screen 08/27/23 09:20 WBC RBC Hgb Hct MCV MCH MCHC RDW Plt Count MPV Immature Gran % (Auto) Neut % (Auto) Lymph % (Auto) [place] % (Auto) Eos % (Auto) Baso % (Auto) Lymph # (Auto) [place] # (Auto) Eos # (Auto) Baso # (Auto) Abs Immat Gran (auto) Absolute Neuts (auto) Absolute Nucleated RBC Nucleated RBC % (auto) PT INR APTT Sodium Potassium Chloride Carbon Dioxide Anion Gap BUN Creatinine Estim Creat Clear Calc Estimated GFR Random Glucose Fasting Glucose Lactic Acid Calcium Phosphorus Magnesium Total Bilirubin AST ALT Alkaline Phosphatase Total Protein Albumin Blood Type O Positive Antibody Screen NEGATIVE Airway Mallampati Class: IV TM Dist: >3cm Neck ROM: Full Denture: Upper and Lower Assessment and Plan Assessment Anesthesia Assessment: Anesthesia Plan Discussed and Chart Reviewed Final Anesthetic Review Family History of Problems with Anesthesia: No History of Problems with Anesthesia: No NPO: Yes ASA Class: III Final Preanesthetic Review: No Changes in Pt Med Stat, Meds/Allgs Chart Reviewed, Consent Obtained/Reviewed and Anes Risks/Benef Reviewed Patient Risk: Intermediate Procedure Risk: Intermediate Anesthetic Plan Anesthetic Plan: GA and Regional Block Disposition: Standard PACU
--- NOTE | 2023-08-27 14:44 | MHC.SHP ---
Pre-Procedural Eval Section A - 24 Hr Update-Section A only Date of Service: 08/27/23 The patient is an INPATIENT: Yes Section B - Complete if H&P > 30 days Chief Complaint: Diverticulitis with abscess Allergies: Allergies Allergy/AdvReac Type Severity Reaction Status Date / Time ciprofloxacin [Cipro] Allergy Intermediate hives Verified 08/17/23 13:10 dog dander [dogs] Allergy Intermediate Itching Verified 08/17/23 13:10 environmental Allergy Intermediate Itching Uncoded 08/17/23 13:10 Plan Diagnosis/Plan: Unchanged I have reviewed the history and physical and performed a pertinent physical examination on my patient. No changes have occurred unless specified. Time Spent With Patient Time: Total time managing care of this patient today ____ minutes.
--- NOTE | 2023-08-27 14:45 | W.PM.OPN ---
Operative Note Operative Note Date of Service: 08/27/23 Narrative: Preoperative diagnosis: Perforated sigmoid diverticulitis with abscess, colovaginal fistula Postoperative diagnosis: Perforated sigmoid diverticulitis with abscess, colo salpingo fistula Procedure: Exploratory laparotomy, drainage of diverticular abscess, sigmoid colectomy with end pouch and descending colostomy (Timoteo procedure), repair of colo salpingo fistula. Surgeon: Clayton Avery MD Chemical Plant Operator Supervisor: Gauri Cisse PA-C, ТАТЬЯНА Pérez Anesthesia: General endotracheal Indications for procedure: 63-year-old female patient presenting with complaints of abdominal pain in the lower quadrants left greater than right. Patient presented to the emergency department and was noted to have evidence of sigmoid diverticulitis with abscess. Also noted was air within the vagina and uterus. Patient was treated with IV antibiotics however after several days of treatment her pain began to increase. A repeat CT revealed increase in the size of the abscess. She presents now for a Timoteo procedure. Operative findings: Large area of sigmoid diverticulitis with phlegmon, abscess formation, and fistula to the right fimbria and tube. Specimen: Sigmoid colon, wound culture from abscess Estimated blood loss: 20 mL Complications: None Procedure details: Patient was brought to the OR and placed in a supine position. After administering general anesthesia the patient's abdomen was prepped with ChloraPrep and draped in a sterile fashion. A surgical time-out was called the consent confirmed. Patient received ongoing antibiotics of Zosyn. Venodyne boots were in place. A generous midline incision was created around the umbilicus and carried out through subcutaneous tissue through the linea alba into the abdominal cavity. The abdomen was explored in the above findings noted. A Bookwalter retractor was placed. Adhesions of the omentum were taken down using the LigaSure. Small bowel was packed away from the sigmoid colon. An area of thickening was noted extending into the pelvis and attached to the fimbria on the right side. The affected sigmoid colon was mobilized along the mesentery both the right and left side. An area of proximal sigmoid colon was identified as having a normal texture. The mesentery below this was divided. A SHAHBAZ stapler was then used to divide the bowel at this level. A LigaSure was then used to divide the mesentery below the diseased distal sigmoid colon. This was difficult dissection due to the extensive inflammatory change in phlegmon. Further dissection down to the uterus revealed a large abscess which was drained and cultured. The abscess cavity was included in the dissection. The dissection was continued down into the pelvis to just proximal of the rectosigmoid junction. The mesentery was then divided using the LigaSure into an area of less diseased bowel. A TA 60 stapler was then used with a green reload to divide the bowel at this level. The specimen was removed and sent to pathology for further examination. The abdominal cavity was then thoroughly irrigated using IrriSept followed by warm saline solution. The proximal sigmoid colon was then mobilized along the white line of Toldt in preparation for the descending colostomy. A circular incision was then made in the left lower quadrant just lateral to the umbilicus. This was carried down through the subcutaneous tissue up to the anterior rectus sheath. A cruciate incision was then made in the anterior rectus sheath. The rectus muscle was then and posterior sheath and peritoneum entered. This was dilated with 3 fingers. The proximal sigmoid was then brought up through this circular incision. This was held in place with 2 [place]cocks while the midline incision was closed. Midline incision was closed using a running looped 0 PDS suture. Subcutaneous tissue was then irrigated with saline solution and suctioned dry. Subcutaneous tissue and dermis were then reapproximated using interrupted 3-0 Polysorb sutures. Skin was closed using skin joaquin. The colostomy was then matured using interrupted 3-0 Polysorb sutures to create a [place] by securing the mucosa serosa and dermis in 4 quadrants. The remainder of the mucosa was approximated to the skin using interrupted 3-0 Polysorb sutures. Sterile dressings and ostomy appliance were then applied. The patient tolerated the procedure well. Sponge, instrument, and needle counts reported as correct. The patient was transferred to PACU in stable condition.
[2023-08-27] MEDS: HYDROmorphone HCl 0.5 MG/0.5 ML SYRINGE 0.25 MG IVPUSH (16:05)
[2023-08-28] MEDS: Dextrose 5 % and Lactated Ring 1,000 ML 125 ML IVCONT ×2 (01:04→09:29)
[2023-08-28] MEDS: HYDROmorphone HCl 0.5 MG/0.5 ML SYRINGE IVPUSH ×4 (01:11→19:38)
[2023-08-28 02:08] VITALS: BP 115/60; PULSE 58; RESP 18; TEMP 36.1; O2SAT 94
[2023-08-28] MEDS: Piperacillin Sodium/Tazobactam 3.375 GM in 0.9 % Sodium Chloride 50 ML IV ×4 (03:51→21:45)
[2023-08-28 07:16] VITALS: BP 125/57; PULSE 63; RESP 16; TEMP 36.1; O2SAT 98
[2023-08-28 07:31] LABS: Hematocrit 31.8 % (37.0-47.0); Hemoglobin 10.5 g/dl (12.0-16.0); Mean Corpuscular Hemoglobin 30.5 pg (27.0-33.0); Mean Corpuscular Volume 92.4 fL (80.0-98.0); Platelet Count 307 X10*3/uL (160-400); Red Blood Count 3.44 X10*6/uL (4.20-5.50); Red Cell Distribution Width 12.4 % (11.0-16.0)
[2023-08-28 07:47] LABS: Anion Gap 12 (12-20); Blood Urea Nitrogen 4 mg/dL (9-16); Calcium 8.8 mg/dL (8.4-10.2); Carbon Dioxide 25 mmol/L (22-29); Chloride 110 mmol/L (96-108); Creatinine Clr Calc Pharmacy 87.9; Estimated Glomerular Filt Rate > 60; Glucose Random 170 mg/dL (60-115); Potassium 3.8 mmol/L (3.3-5.1); Sodium 143 mmol/L (135-145)
--- NOTE | 2023-08-28 09:20 | PM.PNGS ---
Subjective Subjective Date of Service: 08/28/23 Interval history: Feels ok this morning. Sore at incision site especially when coughing. Using incentive spirometer, has not gotten OOB yet. Denies nausea. Physical Exam Vital Signs: Vital Signs: Last Vital Signs Temp 96.9 F 08/28/23 07:16 Pulse 63 08/28/23 07:16 Resp 16 08/28/23 07:16 BP 125/57 L 08/28/23 07:16 Pulse Ox 98 08/28/23 07:16 O2 Del Method Nasal Cannula 08/28/23 07:16 O2 Flow Rate 2 08/28/23 07:16 BMI result Body Mass Index 38.5 Const: General: comfortable, no acute distress and alert Orientation/consciousness: patient oriented x3 Resp: Effort & Inspection: normal respiratory effort GI: Other: colostomy pink, no output in appliance Inspection: No distended and Yes incision (dressing c/d/i) Palpation (GI): Soft to palpation, Tenderness to palpation present (GI) (moderate incisional), no guarding and not rigid Percussion: Yes normal to percussion Skin: General skin exam: no rashes or lesions noted Neuro: General: patient oriented x3 Objective Data Active Medications Albuterol Sulfate (Albuterol Sulfate 90 Mcg 8 Gm Inhaler) 1 puff INHALE QID PRN PRN Reason: shortness of breath or wheezing Carvedilol (Carvedilol 12.5 Mg Tablet) 12.5 mg PO BID [facility]; Protocol Last Admin: 08/27/23 21:18 Dose: 12.5 mg Documented By: DEREK Hydromorphone HCl (Hydromorphone Hcl 0.5 Mg/0.5 Ml Syringe) 0.5 mg IVPUSH Q3H PRN; Protocol PRN Reason: Pain, Severe (Pain Scale 7-10) Last Admin: 08/28/23 06:40 Dose: 0.5 mg Documented By: DEREK Piperacillin Sod/Tazobactam (Sod 3.375 gm/ Sodium Chloride) 50 mls @ 100 mls/hr IV Q6H [facility] Last Infusion: 08/28/23 04:23 Dose: Infused Documented By: DEREK Dextrose/Lactated Ringer's (D5lr) 1,000 mls @ 125 mls/hr IVCONT .Q8H [facility] Last Admin: 08/28/23 01:04 Dose: 125 mls/hr Documented By: DEREK Ondansetron HCl (Ondansetron Hcl 4 Mg/2 Ml Vial) 4 mg IVPUSH QID PRN PRN Reason: Nausea Sodium Chloride (0.9 % Sodium Chloride Flush 3 Ml Syringe) 3 ml IVFLUSH QSHIFT [facility] Last Admin: 08/27/23 21:14 Dose: 3 ml Documented By: DEREK Zolpidem Tartrate (Zolpidem Tartrate 5 Mg Tablet) 5 mg PO BEDTIME PRN PRN Reason: Insomnia Labs 08/28/23 07:23 08/28/23 07:23 Labs: Laboratory Results - last 24 hr 08/27/23 08/28/23 09:20 07:23 MCV 92.4 MCH 30.5 MCHC 33.0 RDW 12.4 Plt Count 307 MPV 10.0 Absolute Nucleated RBC 0.000 Nucleated RBC % (auto) 0.0 Anion Gap 12 Estim Creat Clear Calc 87.9 Estimated GFR > 60 Random Glucose 170 H Calcium 8.8 Blood Type O Positive Antibody Screen NEGATIVE Microbiology Microbiology Results: Microbiology 08/22/23 21:51 Blood Culture - Final Blood - Venous No growth after 5 days. 08/22/23 21:42 Blood Culture - Final Blood - Venous No growth after 5 days. 08/27/23 Unknown Gram Stain - Final Abdomen - Abscess Procedures Date of Service Date of Service: 08/28/23 Progress Note: A&P Assessment and plan (1) Diverticulitis of colon with perforation: Status: Acute Plan POD #1 s/p exploratory laparotomy, drainage of diverticular abscess, sigmoid colectomy with end pouch and descending colostomy (Timoteo procedure), repair of colo salpingo fistula for perforated sigmoid diverticulitis with abscess, colo salpingo fistula. Doing fairly well post op. Pain controlled. VSS. Abd exam with appropriate post op tenderness, dressing c/d/i with viable appearing colostomy. Will advance to clear liquids. Encouraged OOB at least to recliner today, incentive spirometer use. Dc oswald. WBC slightly elevated this am, likely reactive. Cont IVF, IV abx. Await culture results. Time Spent With Patient Time: Total time managing care of this patient today ____ minutes. Quality Stroke Does the patient have a stroke diagnosis?: No VTE Prior VTE?: No VTE Risk Level:: Surgical - moderate VTE Device Contraindication: N/A - Device Ordered VTE Drug Contraindication: Treatment Not Indicated
--- NOTE | 2023-08-28 09:23 | PM.PNGS ---
Subjective Subjective Date of Service: 08/28/23 Interval history: Pod 1 following Timoteo procedure.Patient reports incisional pain, reports being thirsty. Denies any nausea or vomiting. Physical Exam Vital Signs: Vital Signs: Last Vital Signs Temp 96.9 F 08/28/23 07:16 Pulse 63 08/28/23 07:16 Resp 16 08/28/23 07:16 BP 125/57 L 08/28/23 07:16 Pulse Ox 98 08/28/23 07:16 O2 Del Method Nasal Cannula 08/28/23 07:16 O2 Flow Rate 2 08/28/23 07:16 BMI result Body Mass Index 38.5 Const: General: no acute distress Nutritional Appearance: well nourished Orientation/consciousness: patient oriented x3 Limitations: no limitations Resp: Effort & Inspection: normal respiratory effort GI: Other: midline dressings are clean, dry, and intact. Ostomy is pink and viable with serous fluid within the bag but no gas or stool. Inspection: Yes normal to inspection Skin: General skin exam: dry skin Neuro: General: patient oriented x3 Extrem: General: No edema Objective Data Active Medications Albuterol Sulfate (Albuterol Sulfate 90 Mcg 8 Gm Inhaler) 1 puff INHALE QID PRN PRN Reason: shortness of breath or wheezing Carvedilol (Carvedilol 12.5 Mg Tablet) 12.5 mg PO BID [facility]; Protocol Last Admin: 08/27/23 21:18 Dose: 12.5 mg Documented By: DEREK Hydromorphone HCl (Hydromorphone Hcl 0.5 Mg/0.5 Ml Syringe) 0.5 mg IVPUSH Q3H PRN; Protocol PRN Reason: Pain, Severe (Pain Scale 7-10) Last Admin: 08/28/23 06:40 Dose: 0.5 mg Documented By: DEREK Piperacillin Sod/Tazobactam (Sod 3.375 gm/ Sodium Chloride) 50 mls @ 100 mls/hr IV Q6H [facility] Last Infusion: 08/28/23 04:23 Dose: Infused Documented By: DEREK Dextrose/Lactated Ringer's (D5lr) 1,000 mls @ 125 mls/hr IVCONT .Q8H [facility] Last Admin: 08/28/23 01:04 Dose: 125 mls/hr Documented By: DEREK Ondansetron HCl (Ondansetron Hcl 4 Mg/2 Ml Vial) 4 mg IVPUSH QID PRN PRN Reason: Nausea Sodium Chloride (0.9 % Sodium Chloride Flush 3 Ml Syringe) 3 ml IVFLUSH QSHIFT [facility] Last Admin: 08/27/23 21:14 Dose: 3 ml Documented By: DEREK Zolpidem Tartrate (Zolpidem Tartrate 5 Mg Tablet) 5 mg PO BEDTIME PRN PRN Reason: Insomnia Labs 08/28/23 07:23 08/28/23 07:23 Labs: Laboratory Results - last 24 hr 08/27/23 08/28/23 09:20 07:23 MCV 92.4 MCH 30.5 MCHC 33.0 RDW 12.4 Plt Count 307 MPV 10.0 Absolute Nucleated RBC 0.000 Nucleated RBC % (auto) 0.0 Anion Gap 12 Estim Creat Clear Calc 87.9 Estimated GFR > 60 Random Glucose 170 H Calcium 8.8 Blood Type O Positive Antibody Screen NEGATIVE Microbiology Microbiology Results: Microbiology 08/22/23 21:51 Blood Culture - Final Blood - Venous No growth after 5 days. 08/22/23 21:42 Blood Culture - Final Blood - Venous No growth after 5 days. 08/27/23 Unknown Gram Stain - Final Abdomen - Abscess Procedures Date of Service Date of Service: 08/28/23 Progress Note: A&P Assessment and plan (1) Diverticulitis of colon with perforation: Status: Acute Plan Pod 1 following open Timoteo procedure. She is hemodynamically stable in the ostomy is patent and viable. No gas or stool was noted within the bag. Will start clear liquids today. Encouraged out of bed and ambulation. Incentive spirometry q.1 hour while awake. Time Spent With Patient Time: Total time managing care of this patient today ____ minutes. Quality Stroke Does the patient have a stroke diagnosis?: No VTE Prior VTE?: No VTE Risk Level:: Surgical - moderate VTE Device Contraindication: N/A - Device Ordered VTE Drug Contraindication: Treatment Not Indicated
[2023-08-28] MEDS: carvediloL 12.5 MG TABLET PO ×2 (09:29→19:38)
--- NOTE | 2023-08-28 09:42 | P.PNIM_ITS ---
Subjective Subjective Date of Service: 08/28/23 Interval History: POD1 c/o postop pain no N/V Review of Systems Review of Systems: Yes all other systems are reviewed and are negative Physical Exam 2 Vital Signs: Vital Signs: Last Vital Signs Temp 96.9 F 08/28/23 07:16 Pulse 63 08/28/23 07:16 Resp 16 08/28/23 07:16 BP 125/57 L 08/28/23 07:16 Pulse Ox 98 08/28/23 07:16 O2 Del Method Nasal Cannula 08/28/23 07:16 O2 Flow Rate 2 08/28/23 07:16 BMI result Body Mass Index 38.5 Gen: in no acute distress HEENT: sclera anicteric, moist mucus membranes Neck: supple Lungs: clear to auscultation bilaterally Heart: regular rate and rhythm, no murmurs Abd: soft, dry laparotomy dressing, stoma pink Ext: no edema Skin: warm/well-perfused Neuro: alert and oriented x3, no focal findings Psych: appropriate affect Objective Data Active Medications Albuterol Sulfate (Albuterol Sulfate 90 Mcg 8 Gm Inhaler) 1 puff INHALE QID PRN PRN Reason: shortness of breath or wheezing Carvedilol (Carvedilol 12.5 Mg Tablet) 12.5 mg PO BID [facility]; Protocol Last Admin: 08/28/23 09:29 Dose: 12.5 mg Documented By: RUBIO Hydromorphone HCl (Hydromorphone Hcl 0.5 Mg/0.5 Ml Syringe) 0.5 mg IVPUSH Q3H PRN; Protocol PRN Reason: Pain, Severe (Pain Scale 7-10) Last Admin: 08/28/23 06:40 Dose: 0.5 mg Documented By: DEREK Piperacillin Sod/Tazobactam (Sod 3.375 gm/ Sodium Chloride) 50 mls @ 100 mls/hr IV Q6H [facility] Last Admin: 08/28/23 09:28 Dose: 100 mls/hr Documented By: RUBIO Dextrose/Lactated Ringer's (D5lr) 1,000 mls @ 125 mls/hr IVCONT .Q8H [facility] Last Admin: 08/28/23 09:29 Dose: 125 mls/hr Documented By: RUBIO Ondansetron HCl (Ondansetron Hcl 4 Mg/2 Ml Vial) 4 mg IVPUSH QID PRN PRN Reason: Nausea Sodium Chloride (0.9 % Sodium Chloride Flush 3 Ml Syringe) 3 ml IVFLUSH QSHIFT [facility] Last Admin: 08/28/23 09:38 Dose: Not Given Documented By: RUBIO Non-Admin Reason: IV Running Zolpidem Tartrate (Zolpidem Tartrate 5 Mg Tablet) 5 mg PO BEDTIME PRN PRN Reason: Insomnia Labs 08/28/23 07:23 08/28/23 07:23 Labs: Laboratory Results - last 24 hr 08/27/23 08/28/23 09:20 07:23 MCV 92.4 MCH 30.5 MCHC 33.0 RDW 12.4 Plt Count 307 MPV 10.0 Absolute Nucleated RBC 0.000 Nucleated RBC % (auto) 0.0 Anion Gap 12 Estim Creat Clear Calc 87.9 Estimated GFR > 60 Random Glucose 170 H Calcium 8.8 Blood Type O Positive Antibody Screen NEGATIVE Microbiology Microbiology Results: Microbiology 08/22/23 21:51 Blood Culture - Final Blood - Venous No growth after 5 days. 08/22/23 21:42 Blood Culture - Final Blood - Venous No growth after 5 days. 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 Cardiology note from [facility] [Mar 2023] reviewed; EF recovered. Continue carvedilol hemochromatosis - undergoes periodic therapeutic phlebotomy asthma - prn albuterol hypoK - repleted VTE ppx - SCDs dispo - TBD In my clinical judgment, the patient requires continued inpatient hospitalization for the following reasons: postop care Total time managing care of this patient today: 35 minutes. Quality Stroke Does the patient have a stroke diagnosis?: No VTE Prior VTE?: No VTE Risk Level:: Surgical - moderate VTE Device Contraindication: N/A - Device Ordered VTE Drug Contraindication: Treatment Not Indicated
--- NOTE | 2023-08-28 10:31 | MHC.CLN ---
NUTRITION PATIENT WITH NEW OSTOMY 08/27. DIET ADVANCED TO CLEAR LIQUIDS 08/28. FOLLOW FOR DIET ADVANCEMENT.
--- NOTE | 2023-08-28 10:45 | MHC.CM.PN ---
EMR reviewed. Per MD rounds patient is not medically cleared. POD1 s/p colostomy. CM met with patient, will plan for new HVNA on dc. CM will continue to follow for dc needs.
[2023-08-28] MEDS: LORazepam 0.5 MG TABLET PO (12:08)
[2023-08-28] MEDS: Acetaminophen 1,000 MG/100 ML PIGGYBACK 400 MG IV ×2 (12:08→17:49)
[2023-08-28] MEDS: oxyCODONE HCl Immed Release 5 MG TABLET 10 MG PO (12:08)
[2023-08-28] MEDS: Throat Lozenge, Medicated LOZENGE 1 LOZENGE MUCOUS MEM ×2 (12:08→16:28)
[2023-08-28 15:13] VITALS: BP 115/63; PULSE 60; RESP 16; TEMP 36.6; O2SAT 92
--- NOTE | 2023-08-28 17:43 | HO.POSTANES ---
Post Anesthesia Evaluation Post Anesthesia Evaluation Date of Service: 08/28/23 Vital Signs: Vital Signs Temp Pulse Resp BP Pulse Ox O2 Del Method O2 Flow Rate 08/28/23 15:13 97.9 F 60 16 115/63 92 Room Air 08/28/23 07:16 96.9 F 63 16 125/57 L 98 Nasal Cannula 2 Anesthesia: General Endotracheal-GETA Mental Status: Awake Pain Control: Satisfactory Nausea/Vomiting: None Hydration: Adequate Anesthesia-Related Issues: No Anes. Related Issues
[2023-08-28 19:09] VITALS: BP 135/65; PULSE 59; RESP 16; TEMP 36.2; O2SAT 96
[2023-08-28] MEDS: 0.9 % Sodium Chloride Flush 3 ML SYRINGE IVFLUSH (19:38)
[2023-08-29] MEDS: Acetaminophen 1,000 MG/100 ML PIGGYBACK 400 MG IV ×4 (00:24→17:14)
[2023-08-29] MEDS: HYDROmorphone HCl 0.5 MG/0.5 ML SYRINGE IVPUSH ×6 (00:48→23:28)
[2023-08-29] MEDS: Piperacillin Sodium/Tazobactam 3.375 GM in 0.9 % Sodium Chloride 50 ML IV ×4 (03:15→21:27)
--- NOTE | 2023-08-29 06:54 | PM.PNGS ---
Subjective Subjective Date of Service: 08/29/23 <[facility] - Last Filed: 08/29/23 07:12> 08/29/23 <Gauri Cisse PA-C - Last Filed: 08/29/23 07:30> 08/29/23 <Clayton Avery MD - Last Filed: 08/29/23 07:51> Interval history: Patient was seen this morning, she endorsed slight nausea but denied vomiting. She has been ambulating to the bathroom. Continues to use her incentive spirometer. She has been passing gas as well. Patient did endorse pain around the incision only when ambulating and states its a 6/10 on a pain scale. Other burgos she says she feels well. <[facility] Last Filed: 08/29/23 07:12> Physical Exam Vital Signs: Vital Signs: Last Vital Signs Temp 97.1 F 08/28/23 19:09 Pulse 59 08/28/23 19:09 Resp 16 08/28/23 19:09 BP 135/65 08/28/23 19:09 Pulse Ox 96 08/28/23 19:09 O2 Del Method Room Air 08/28/23 19:09 O2 Flow Rate 2 08/28/23 07:16 BMI result Body Mass Index 38.5 <[facility] Last Filed: 08/29/23 07:12> Const: General: comfortable, no acute distress, alert and awake; No acute distress <[facility] Last Filed: 08/29/23 07:12> Orientation/consciousness: patient oriented x3 <[facility] Last Filed: 08/29/23 07:12> Resp: Effort & Inspection: normal respiratory effort, able to speak in complete sentences and no respiratory distress <[facility] Last Filed: 08/29/23 07:12> GI: Other: tender to palpation around the incision site. Abdomen soft, no rebound tenderness or guarding. <[facility] Last Filed: 08/29/23 07:12> Other: tender to palpation around the incision site. Abdomen soft, no rebound tenderness or guarding. <Gauri Cisse PA-C - Last Filed: 08/29/23 07:30> Palpation (GI): Soft to palpation, no guarding and No Rebound tenderness present <[facility] Last Filed: 08/29/23 07:12> Skin: Other: incision dry, clean, and without drainage. Colostomy pink and without leakage <[facility] Last Filed: 08/29/23 07:12> Neuro: General: patient oriented x3 <[facility] Last Filed: 08/29/23 07:12> Objective Data Active Medications Albuterol Sulfate (Albuterol Sulfate 90 Mcg 8 Gm Inhaler) 1 puff INHALE QID PRN PRN Reason: shortness of breath or wheezing Benzocaine (Throat Lozenge, Medicated Lozenge) 1 lozenge MUCOUS MEM Q2H PRN PRN Reason: Sore Throat Last Admin: 08/28/23 16:28 Dose: 1 lozenge Documented By: RUBIO Carvedilol (Carvedilol 12.5 Mg Tablet) 12.5 mg PO BID [facility]; Protocol Last Admin: 08/28/23 19:38 Dose: 12.5 mg Documented By: YUMIKO Hydromorphone HCl (Hydromorphone Hcl 0.5 Mg/0.5 Ml Syringe) 0.5 mg IVPUSH Q3H PRN; Protocol PRN Reason: Pain, Severe (Pain Scale 7-10) Last Admin: 08/29/23 06:16 Dose: 0.5 mg Documented By: YUMIKO Piperacillin Sod/Tazobactam (Sod 3.375 gm/ Sodium Chloride) 50 mls @ 100 mls/hr IV Q6H [facility] Last Infusion: 08/29/23 03:48 Dose: Infused Documented By: YUMIKO Acetaminophen (Ofirmev) 1,000 mg in 100 mls @ 400 mls/hr IV Q6H [facility] Last Infusion: 08/29/23 06:38 Dose: Infused Documented By: YUMIKO Lorazepam (Lorazepam 0.5 Mg Tablet) 0.5 mg PO Q8H PRN PRN Reason: Anxiety Last Admin: 08/28/23 12:08 Dose: 0.5 mg Documented By: TC Ondansetron HCl (Ondansetron Hcl 4 Mg/2 Ml Vial) 4 mg IVPUSH QID PRN PRN Reason: Nausea Oxycodone HCl (Oxycodone Hcl Immed Release 5 Mg Tablet) 5 mg PO Q4H PRN PRN Reason: Pain, Moderate(Pain Scale 4-6) Oxycodone HCl (Oxycodone Hcl Immed Release 5 Mg Tablet) 10 mg PO Q4H PRN PRN Reason: Pain, Severe (Pain Scale 7-10) Last Admin: 08/28/23 12:08 Dose: 10 mg Documented By: TC Sodium Chloride (0.9 % Sodium Chloride Flush 3 Ml Syringe) [facility] Last Admin: 08/28/23 19:38 Dose: 3 ml Documented By: SARABJITQC Zolpidem Tartrate (Zolpidem Tartrate 5 Mg Tablet) 5 mg PO BEDTIME PRN PRN Reason: Insomnia <[facility] - Last Filed: 08/29/23 07:12> Labs CBC & Chem 7: 08/29/23 05:46 08/29/23 05:46 <[facility] Last Filed: 08/29/23 07:12> Labs: Laboratory Results - last 24 hr 08/28/23 07:23 MCV 92.4 MCH 30.5 MCHC 33.0 RDW 12.4 Plt Count 307 MPV 10.0 Absolute Nucleated RBC 0.000 Nucleated RBC % (auto) 0.0 Anion Gap 12 Estim Creat Clear Calc 87.9 Estimated GFR > 60 Random Glucose 170 H Calcium 8.8 <[facility] Last Filed: 08/29/23 07:12> Microbiology Microbiology Results: Microbiology 08/27/23 Unknown Gram Stain - Final Abdomen - Abscess Routine Culture - Preliminary <[facility] - Last Filed: 08/29/23 07:12> Procedures Date of Service Date of Service: 08/29/23 <[facility] - Last Filed: 08/29/23 07:12> 08/29/23 <Gauri Cisse PA-C - Last Filed: 08/29/23 07:30> 08/29/23 <Clayton Avery MD - Last Filed: 08/29/23 07:51> Progress Note: A&P Assessment and plan (1) Diverticulitis of colon with perforation: Status: Acute <[facility] Last Filed: 08/29/23 07:12> Assessment and Plan: POD #2 s/p exploratory laparotomy, drainage of diverticular abscess, sigmoid colectomy with end pouch and descending colostomy (Timoteo procedure), repair of colo salpingo fistula for perforated sigmoid diverticulitis with abscess, colo salpingo fistula. Colostomy is pink and is without drainage although has serousanguineous fluid in the colostomy collection bag. Incision site clean, dry and without drainage. Patient has appropiate post-op tenderness. Patient was counseled to use the incentive spirometer continuously and encouraged to ambulate. <Asim Jerez - Last Filed: 08/29/23 07:12> POD #2 s/p exploratory laparotomy, drainage of diverticular abscess, sigmoid colectomy with end pouch and descending colostomy (Timoteo procedure), repair of colo salpingo fistula for perforated sigmoid diverticulitis with abscess, colo salpingo fistula. Colostomy is pink and is without drainage although has serousanguineous fluid in the colostomy collection bag. Incision site clean, dry and without drainage. Patient has appropiate post-op tenderness. Patient was counseled to use the incentive spirometer continuously and encouraged to ambulate. Patient discussed with ТАТЬЯНА. Patient doing well post operatively. Tolerating liquids, OOB and ambulating, pain improved this morning, now passing flatus. Abd is benign with clean incision and viable appearing colostomy. Will advance to solid diet. Continue OOB/ambulation and IS use. Colostomy education. <Gauri Cisse PA-C - Last Filed: 08/29/23 07:30> POD #2 s/p exploratory laparotomy, drainage of diverticular abscess, sigmoid colectomy with end pouch and descending colostomy (Timoteo procedure), repair of colo salpingo fistula for perforated sigmoid diverticulitis with abscess, colo salpingo fistula. Colostomy is pink and is without drainage although has serousanguineous fluid in the colostomy collection bag. Incision site clean, dry and without drainage. Patient has appropiate post-op tenderness. Patient was counseled to use the incentive spirometer continuously and encouraged to ambulate. Patient discussed with ТАТЬЯНА. Patient doing well post operatively. Tolerating liquids, OOB and ambulating, pain improved this morning, now passing flatus. Abd is benign with clean incision and viable appearing colostomy. Will advance to solid diet. Continue OOB/ambulation and IS use. Colostomy education. Agree with the above assessment and plan. Patient much improved this morning. Ostomy is producing some gas but no stool yet. Abdomen is clean, dry with no redness or discharge. Encouraged patient to continue ambulation and incentive spirometry. Agree with advancing diet as tolerated. <Clayton Avery MD - Last Filed: 08/29/23 07:51> Time Spent With Patient Time: Total time managing care of this patient today ____ minutes. <[facility] - Last Filed: 08/29/23 07:12> Quality Stroke Does the patient have a stroke diagnosis?: No <[facility] - Last Filed: 08/29/23 07:12> VTE Prior VTE?: No <[facility] - Last Filed: 08/29/23 07:12> VTE Risk Level:: Surgical - moderate <[facility] - Last Filed: 08/29/23 07:12> VTE Device Contraindication: N/A - Device Ordered <[facility] - Last Filed: 08/29/23 07:12> VTE Drug Contraindication: Treatment Not Indicated <[facility] - Last Filed: 08/29/23 07:12>
[2023-08-29 07:05] LABS: MANUAL DIFF FLAG NO
[2023-08-29 07:08] LABS: Basophils Percent Auto 0.3 % (0-2); Eosinophils Percent Auto 0.1 % (0-4); Hematocrit 29.2 % (37.0-47.0); Hemoglobin 9.6 g/dl (12.0-16.0); Imm Gran Abs Auto 0.08 X10*3/uL (0.00-0.03); Imm Gran Pct Auto 0.7 % (0.0-0.4); Lymphocytes Absolute Auto 1.1 X10*3/uL (1.2-4.9); Lymphocytes Percent Auto 10.1 % (20-40); Mean Corpuscular HGB Conc 32.9 g/dl (31.0-35.0); Mean Corpuscular Hemoglobin 31.3 pg (27.0-33.0); Mean Corpuscular Volume 95.1 fL (80.0-98.0); Mean Platelet Volume 10.6 fL (9.4-12.3); Monocytes Absolute Auto 0.7 X10*3/uL (0.1-1.2); Monocytes Percent Auto 6.5 % (2-11); Neutrophils Percent Auto 82.3 % (45-73); Platelet Count 328 X10*3/uL (160-400); Red Blood Count 3.07 X10*6/uL (4.20-5.50); Red Cell Distribution Width 12.5 % (11.0-16.0); White Blood Count 10.9 X10*3/uL (4.8-10.8)
[2023-08-29 07:10] LABS: Hematocrit 29.6 % (37.0-47.0); Hemoglobin 9.5 g/dl (12.0-16.0); Mean Corpuscular HGB Conc 32.1 g/dl (31.0-35.0); Mean Corpuscular Hemoglobin 30.3 pg (27.0-33.0); Mean Corpuscular Volume 94.3 fL (80.0-98.0); Mean Platelet Volume 10.5 fL (9.4-12.3); Platelet Count 339 X10*3/uL (160-400); Red Blood Count 3.14 X10*6/uL (4.20-5.50); Red Cell Distribution Width 12.5 % (11.0-16.0); White Blood Count 10.9 X10*3/uL (4.8-10.8)
[2023-08-29 07:21] VITALS: BP 118/58; PULSE 58; RESP 16; TEMP 36; O2SAT 92
[2023-08-29 07:31] LABS: Anion Gap 10 (12-20); Blood Urea Nitrogen 8 mg/dL (9-16); Calcium 8.6 mg/dL (8.4-10.2); Carbon Dioxide 26 mmol/L (22-29); Chloride 110 mmol/L (96-108); Creatinine Clr Calc Pharmacy 92.1; Estimated Glomerular Filt Rate > 60; Glucose Random 80 mg/dL (60-115); Potassium 3.3 mmol/L (3.3-5.1); Sodium 143 mmol/L (135-145)
[2023-08-29] MEDS: carvediloL 12.5 MG TABLET PO ×2 (08:16→19:51)
[2023-08-29] MEDS: 0.9 % Sodium Chloride Flush 3 ML SYRINGE IVFLUSH ×2 (08:17→19:52)
--- NOTE | 2023-08-29 11:24 | HO.PM.IMPN ---
Subjective Subjective Date of Service: 08/29/23 Interval History: pain controlled mild nausea ostomy producing gas no chest pain or dyspnea Review of Systems Review of Systems: Yes all other systems are reviewed and are negative Physical Exam Vital Signs: Vital Signs: Last Vital Signs Temp 96.8 F 08/29/23 07:21 Pulse 58 08/29/23 07:21 Resp 16 08/29/23 07:21 BP 118/58 L 08/29/23 07:21 Pulse Ox 92 08/29/23 07:21 O2 Del Method Room Air 08/29/23 07:21 O2 Flow Rate 2 08/28/23 07:16 BMI result Body Mass Index 38.5 Gen: in no acute distress HEENT: sclera anicteric, moist mucus membranes Neck: supple Lungs: clear to auscultation bilaterally Heart: regular rate and rhythm, no murmurs Abd: soft, dry laparotomy dressing, stoma pink Ext: no edema Skin: warm/well-perfused Neuro: alert and oriented x3, no focal findings Psych: appropriate affect Objective Data Active Medications Albuterol Sulfate (Albuterol Sulfate 90 Mcg 8 Gm Inhaler) 1 puff INHALE QID PRN PRN Reason: shortness of breath or wheezing Benzocaine (Throat Lozenge, Medicated Lozenge) 1 lozenge MUCOUS MEM Q2H PRN PRN Reason: Sore Throat Last Admin: 08/28/23 16:28 Dose: 1 lozenge Documented By: RUBIO Carvedilol (Carvedilol 12.5 Mg Tablet) 12.5 mg PO BID [facility]; Protocol Last Admin: 08/29/23 08:16 Dose: 12.5 mg Documented By: EMANUEL Hydromorphone HCl (Hydromorphone Hcl 0.5 Mg/0.5 Ml Syringe) 0.5 mg IVPUSH Q3H PRN; Protocol PRN Reason: Pain, Severe (Pain Scale 7-10) Last Admin: 08/29/23 10:35 Dose: 0.5 mg Documented By: EREN Piperacillin Sod/Tazobactam (Sod 3.375 gm/ Sodium Chloride) 50 mls @ 100 mls/hr IV Q6H [facility] Last Infusion: 08/29/23 10:36 Dose: Infused Documented By: EREN Acetaminophen (Ofirmev) 1,000 mg in 100 mls @ 400 mls/hr IV Q6H [facility] Last Infusion: 08/29/23 06:38 Dose: Infused Documented By: YUMIKO Lorazepam (Lorazepam 0.5 Mg Tablet) 0.5 mg PO Q8H PRN PRN Reason: Anxiety Last Admin: 08/28/23 12:08 Dose: 0.5 mg Documented By: TC Ondansetron HCl (Ondansetron Hcl 4 Mg/2 Ml Vial) 4 mg IVPUSH QID PRN PRN Reason: Nausea Oxycodone HCl (Oxycodone Hcl Immed Release 5 Mg Tablet) 5 mg PO Q4H PRN PRN Reason: Pain, Moderate(Pain Scale 4-6) Oxycodone HCl (Oxycodone Hcl Immed Release 5 Mg Tablet) 10 mg PO Q4H PRN PRN Reason: Pain, Severe (Pain Scale 7-10) Last Admin: 08/28/23 12:08 Dose: 10 mg Documented By: TC Sodium Chloride (0.9 % Sodium Chloride Flush 3 Ml Syringe) 3 ml IVFLUSH [facility] Last Admin: 08/29/23 08:17 Dose: 3 ml Documented By: EMANUEL Zolpidem Tartrate (Zolpidem Tartrate 5 Mg Tablet) 5 mg PO BEDTIME PRN PRN Reason: Insomnia Labs 08/29/23 05:46 08/29/23 05:46 Labs: Laboratory Results - last 24 hr 08/29/23 08/29/23 08/29/23 05:46 05:46 05:46 MCV 94.3 95.1 MCH 30.3 31.3 MCHC 32.1 RDW Plt Count MPV Immature Gran % (Auto) Neut % (Auto) Lymph % (Auto) [place] % (Auto) Eos % (Auto) Baso % (Auto) Lymph # (Auto) [place] # (Auto) Eos # (Auto) Baso # (Auto) Abs Immat Gran (auto) Absolute Neuts (auto) Absolute Nucleated RBC Nucleated RBC % (auto) Anion Gap Estim Creat Clear Calc Estimated GFR Random Glucose Calcium 08/29/23 08/29/23 08/29/23 05:46 05:46 05:46 MCV MCH MCHC 32.9 RDW 12.5 12.5 Plt Count 339 328 MPV 10.5 Immature Gran % (Auto) Neut % (Auto) Lymph % (Auto) [place] % (Auto) Eos % (Auto) Baso % (Auto) Lymph # (Auto) [place] # (Auto) Eos # (Auto) Baso # (Auto) Abs Immat Gran (auto) Absolute Neuts (auto) Absolute Nucleated RBC Nucleated RBC % (auto) Anion Gap Estim Creat Clear Calc Estimated GFR Random Glucose Calcium 08/29/23 08/29/23 08/29/23 05:46 05:46 05:46 MCV MCH MCHC RDW Plt Count MPV 10.6 Immature Gran % (Auto) 0.7 H Neut % (Auto) 82.3 H Lymph % (Auto) 10.1 L [place] % (Auto) 6.5 Eos % (Auto) 0.1 Baso % (Auto) 0.3 Lymph # (Auto) 1.1 L [place] # (Auto) 0.7 Eos # (Auto) 0.0 Baso # (Auto) 0.0 Abs Immat Gran (auto) 0.08 H Absolute Neuts (auto) 9.0 H Absolute Nucleated RBC 0.000 0.000 Nucleated RBC % (auto) 0.0 0.0 Anion Gap 10 L Estim Creat Clear Calc 92.1 Estimated GFR > 60 Random Glucose 80 Calcium 8.6 Microbiology Microbiology Results: Microbiology 08/27/23 Unknown Gram Stain - Final Abdomen - Abscess Routine Culture - Final Assessment and Plan (1) Diverticulitis of colon with perforation: Status: Acute (2) Essential hypertension: Status: Acute Plan d8 63yo F admitted to Gen Surg for sigmoid diverticulitis with abscess, hospitalist consult for management of comorbid medical conditions sigmoid diverticulitis with abscess and colo-salpingo fistula - s/p ex-lap/drainage of diverticular abscess/sigmoid colectomy with end pouch and descending colostomy (Timoteo procedure) and repair of colo-salpingo fistula 08/27/23 - advanced to solids today per Gen Surg - pip/mary anne 08/23- hx nonischemic cardiomyopathy with recovered EF - no current CHF symptoms. Cardiology note from [facility] [Mar 2023] reviewed; EF recovered. Continue carvedilol hemochromatosis - undergoes periodic therapeutic phlebotomy asthma - prn albuterol hypoK - repleted VTE ppx - SCDs dispo - TBD In my clinical judgment, the patient requires continued inpatient hospitalization for the following reasons: postop care Total time managing care of this patient today: 35 minutes. Quality Stroke Does the patient have a stroke diagnosis?: No VTE Prior VTE?: No VTE Risk Level:: Surgical - moderate VTE Device Contraindication: N/A - Device Ordered VTE Drug Contraindication: Treatment Not Indicated
[2023-08-29 15:00] VITALS: BP 104/55; PULSE 67; RESP 18; TEMP 36.1; O2SAT 95
[2023-08-29 19:54] VITALS: BP 130/66; PULSE 68; RESP 17; TEMP 36.2; O2SAT 96
[2023-08-29 23:38] VITALS: BP 129/61; PULSE 73; RESP 16; TEMP 36.4; O2SAT 93
[2023-08-30] VITALS (7 sets, daily range): BP systolic 100–156; BP diastolic 50–76; PULSE 71–78; RESP 16–20; TEMP 36–37; O2SAT 93–94
[2023-08-30] MEDS: Acetaminophen 1,000 MG/100 ML PIGGYBACK 400 MG IV ×4 (00:42→17:51)
[2023-08-30] MEDS: LORazepam 0.5 MG TABLET PO ×2 (00:44→09:05)
[2023-08-30] MEDS: HYDROmorphone HCl 0.5 MG/0.5 ML SYRINGE IVPUSH ×3 (03:11→21:56)
[2023-08-30] MEDS: Piperacillin Sodium/Tazobactam 3.375 GM in 0.9 % Sodium Chloride 50 ML IV ×4 (04:03→21:59)
[2023-08-30] MEDS: oxyCODONE HCl Immed Release 5 MG TABLET 10 MG PO ×3 (06:50→17:50)
--- NOTE | 2023-08-30 07:35 | PM.PNGS ---
Subjective Subjective Date of Service: 08/30/23 Interval history: Patient denies any nausea or vomiting. She states there has been no stool output in her colostomy bag, but she is passing flatus. She endorsed heartburn with diet. Patient says she's been up ambulating once yesterday. She otherwise has no other concerns. Physical Exam Vital Signs: Vital Signs: Last Vital Signs Temp 96.9 F 08/30/23 03:31 Pulse 72 08/30/23 03:31 Resp 16 08/30/23 03:31 BP 100/50 L 08/30/23 03:31 Pulse Ox 93 08/30/23 03:31 O2 Del Method Room Air 08/30/23 03:31 O2 Flow Rate 2 08/28/23 07:16 BMI result Body Mass Index 38.5 Const: General: no acute distress, alert and awake Orientation/consciousness: patient oriented x3 Resp: Effort & Inspection: normal respiratory effort, able to speak in complete sentences and no respiratory distress GI: Other: mild tenderness of incision site. Colostomy is pink, intact and without leakage. Incision clean, dry, intact Inspection: No distended Percussion: Yes normal to percussion Skin: Other: Incision intact, clean, dry and without drainage. Neuro: General: patient oriented x3 Objective Data Active Medications Albuterol Sulfate (Albuterol Sulfate 90 Mcg 8 Gm Inhaler) 1 puff INHALE QID PRN PRN Reason: shortness of breath or wheezing Benzocaine (Throat Lozenge, Medicated Lozenge) 1 lozenge MUCOUS MEM Q2H PRN PRN Reason: Sore Throat Last Admin: 08/28/23 16:28 Dose: 1 lozenge Documented By: RUBIO Carvedilol (Carvedilol 12.5 Mg Tablet) 12.5 mg PO BID [facility]; Protocol Last Admin: 08/29/23 19:51 Dose: 12.5 mg Documented By: JULIANNE Comments: BP 130/66 H 68 Hydromorphone HCl (Hydromorphone Hcl 0.5 Mg/0.5 Ml Syringe) 0.5 mg IVPUSH Q3H PRN; Protocol PRN Reason: Pain, Severe (Pain Scale 7-10) Last Admin: 08/30/23 03:11 Dose: 0.5 mg Documented By: JULIANNE Piperacillin Sod/Tazobactam (Sod 3.375 gm/ Sodium Chloride) 50 mls @ 100 mls/hr IV Q6H [facility] Last Infusion: 08/30/23 04:45 Dose: Infused Documented By: JULIANNE Acetaminophen (Ofirmev) 1,000 mg in 100 mls @ 400 mls/hr IV Q6H [facility] Last Infusion: 08/30/23 06:22 Dose: Infused Documented By: JULIANNE Lorazepam (Lorazepam 0.5 Mg Tablet) 0.5 mg PO Q8H PRN PRN Reason: Anxiety Last Admin: 08/30/23 00:44 Dose: 0.5 mg Documented By: JULIANNE Ondansetron HCl (Ondansetron Hcl 4 Mg/2 Ml Vial) 4 mg IVPUSH QID PRN PRN Reason: Nausea Oxycodone HCl (Oxycodone Hcl Immed Release 5 Mg Tablet) 5 mg PO Q4H PRN PRN Reason: Pain, Moderate(Pain Scale 4-6) Oxycodone HCl (Oxycodone Hcl Immed Release 5 Mg Tablet) 10 mg PO Q4H PRN PRN Reason: Pain, Severe (Pain Scale 7-10) Last Admin: 08/30/23 06:50 Dose: 10 mg Documented By: TC Sodium Chloride (0.9 % Sodium Chloride Flush 3 Ml Syringe) 3 ml IVFLUSH QSHIFT [facility] Last Admin: 08/30/23 06:53 Dose: Not Given Documented By: TC Non-Admin Reason: IV Running Zolpidem Tartrate (Zolpidem Tartrate 5 Mg Tablet) 5 mg PO BEDTIME PRN PRN Reason: Insomnia Labs 08/29/23 05:46 08/29/23 05:46 Microbiology Microbiology Results: Microbiology 08/27/23 Unknown Gram Stain - Final Abdomen - Abscess Routine Culture - Final Procedures Date of Service Date of Service: 08/30/23 Progress Note: A&P Assessment and plan Plan POD #3 s/p exploratory laparotomy, drainage of diverticular abscess, sigmoid colectomy with end pouch and descending colostomy (Timoteo procedure), repair of colo salpingo fistula for perforated sigmoid diverticulitis with abscess, colo salpingo fistula. Colostomy is pink, intact and is without drainage. Incision site clean, dry and without drainage. Patient has appropiate post-op tenderness controlled with pain medication. Developed new heartburn and indigestion associated with diet. Patient was encouraged to ambulate more throughout the day. Plan to transition to full liquid diet and monitor for colostomy output. She is otherwise doing well. Time Spent With Patient Time: Total time managing care of this patient today ____ minutes. Quality Stroke Does the patient have a stroke diagnosis?: No VTE Prior VTE?: No VTE Risk Level:: Surgical - moderate VTE Device Contraindication: N/A - Device Ordered VTE Drug Contraindication: Treatment Not Indicated
[2023-08-30] MEDS: carvediloL 12.5 MG TABLET PO ×2 (09:06→21:54)
--- NOTE | 2023-08-30 12:02 | P.PNIM_ITS ---
Subjective Subjective Date of Service: 08/30/23 Interval History: some nausea on full liquid diet no stool in ostomy yet no chest pain or dyspnea Review of Systems Review of Systems: Yes all other systems are reviewed and are negative Physical Exam 2 Vital Signs: Vital Signs: Last Vital Signs Temp 98.0 F 08/30/23 07:45 Pulse 71 08/30/23 07:45 Resp 16 08/30/23 07:45 BP 128/67 08/30/23 07:45 Pulse Ox 93 08/30/23 07:45 O2 Del Method Room Air 08/30/23 07:45 O2 Flow Rate 2 08/28/23 07:16 BMI result Body Mass Index 38.5 Gen: in no acute distress HEENT: sclera anicteric, moist mucus membranes Neck: supple Lungs: clear to auscultation bilaterally Heart: regular rate and rhythm, no murmurs Abd: soft, dry laparotomy dressing, stoma pink Ext: no edema Skin: warm/well-perfused Neuro: alert and oriented x3, no focal findings Psych: appropriate affect Objective Data Active Medications Albuterol Sulfate (Albuterol Sulfate 90 Mcg 8 Gm Inhaler) 1 puff INHALE QID PRN PRN Reason: shortness of breath or wheezing Benzocaine (Throat Lozenge, Medicated Lozenge) 1 lozenge MUCOUS MEM Q2H PRN PRN Reason: Sore Throat Last Admin: 08/28/23 16:28 Dose: 1 lozenge Documented By: RUBIO Carvedilol (Carvedilol 12.5 Mg Tablet) 12.5 mg PO BID [facility]; Protocol Last Admin: 08/30/23 09:06 Dose: 12.5 mg Documented By: TC Hydromorphone HCl (Hydromorphone Hcl 0.5 Mg/0.5 Ml Syringe) 0.5 mg IVPUSH Q3H PRN; Protocol PRN Reason: Pain, Severe (Pain Scale 7-10) Last Admin: 08/30/23 03:11 Dose: 0.5 mg Documented By: JULIANNE Piperacillin Sod/Tazobactam (Sod 3.375 gm/ Sodium Chloride) 50 mls @ 100 mls/hr IV Q6H [facility] Last Infusion: 08/30/23 10:20 Dose: Infused Documented By: TC Acetaminophen (Ofirmev) 1,000 mg in 100 mls @ 400 mls/hr IV Q6H [facility] Last Infusion: 08/30/23 06:22 Dose: Infused Documented By: JULIANNE Lorazepam (Lorazepam 0.5 Mg Tablet) 0.5 mg PO Q8H PRN PRN Reason: Anxiety Last Admin: 08/30/23 09:05 Dose: 0.5 mg Documented By: TC Ondansetron HCl (Ondansetron Hcl 4 Mg/2 Ml Vial) 4 mg IVPUSH QID PRN PRN Reason: Nausea Oxycodone HCl (Oxycodone Hcl Immed Release 5 Mg Tablet) 5 mg PO Q4H PRN PRN Reason: Pain, Moderate(Pain Scale 4-6) Oxycodone HCl (Oxycodone Hcl Immed Release 5 Mg Tablet) 10 mg PO Q4H PRN PRN Reason: Pain, Severe (Pain Scale 7-10) Last Admin: 08/30/23 10:41 Dose: 10 mg Documented By: TC Sodium Chloride (0.9 % Sodium Chloride Flush 3 Ml Syringe) [address] [facility] [facility] Last Admin: 08/30/23 06:53 Dose: Not Given Documented By: TC Non-Admin Reason: IV Running Zolpidem Tartrate (Zolpidem Tartrate 5 Mg Tablet) 5 mg PO BEDTIME PRN PRN Reason: Insomnia Labs 08/29/23 05:46 08/29/23 05:46 Microbiology Microbiology Results: Microbiology 08/27/23 Unknown Gram Stain - Final Abdomen - Abscess Routine Culture - Final Assessment and Plan (1) Diverticulitis of colon with perforation: Status: Acute (2) Essential hypertension: Status: Acute Plan d9 63yo F admitted to Gen Surg for sigmoid diverticulitis with abscess, hospitalist consult for management of comorbid medical conditions sigmoid diverticulitis with abscess and colo-salpingo fistula - s/p ex-lap/drainage of diverticular abscess/sigmoid colectomy with end pouch and descending colostomy (Timoteo procedure) and repair of colo-salpingo fistula 08/27/23 - on full liquid diet, advance per Gen Surg - pip/mary anne 08/23- hx nonischemic cardiomyopathy with recovered EF - no current CHF symptoms. Cardiology note from [facility] [Mar 2023] reviewed; EF recovered. Continue carvedilol hemochromatosis - undergoes periodic therapeutic phlebotomy asthma - prn albuterol hypoK - repleted VTE ppx - SCDs dispo - TBD In my clinical judgment, the patient requires continued inpatient hospitalization for the following reasons: postop care Total time managing care of this patient today: 35 minutes. Quality Stroke Does the patient have a stroke diagnosis?: No VTE Prior VTE?: No VTE Risk Level:: Surgical - moderate VTE Device Contraindication: N/A - Device Ordered VTE Drug Contraindication: Treatment Not Indicated
[2023-08-30] MEDS: 0.9 % Sodium Chloride Flush 3 ML SYRINGE IVFLUSH ×2 (16:09→21:56)
[2023-08-31] MEDS: Throat Lozenge, Medicated LOZENGE 1 LOZENGE MUCOUS MEM (00:01)
[2023-08-31] MEDS: Acetaminophen 1,000 MG/100 ML PIGGYBACK 400 MG IV ×2 (00:02→05:49)
[2023-08-31 03:52] VITALS: BP 117/59; PULSE 74; RESP 19; TEMP 36.6; O2SAT 93
[2023-08-31] MEDS: HYDROmorphone HCl 0.5 MG/0.5 ML SYRINGE IVPUSH ×5 (04:36→19:41)
[2023-08-31] MEDS: Piperacillin Sodium/Tazobactam 3.375 GM in 0.9 % Sodium Chloride 50 ML IV ×4 (04:40→22:41)
[2023-08-31 06:14] LABS: Hematocrit 31.9 % (37.0-47.0); Hemoglobin 10.4 g/dl (12.0-16.0); Mean Corpuscular HGB Conc 32.6 g/dl (31.0-35.0); Mean Corpuscular Hemoglobin 30.3 pg (27.0-33.0); Platelet Count 394 X10*3/uL (160-400); Red Blood Count 3.43 X10*6/uL (4.20-5.50); Red Cell Distribution Width 12.8 % (11.0-16.0); White Blood Count 10.8 X10*3/uL (4.8-10.8)
[2023-08-31 06:30] LABS: Anion Gap 16 (12-20); Blood Urea Nitrogen 9 mg/dL (9-16); Calcium 8.5 mg/dL (8.4-10.2); Carbon Dioxide 22 mmol/L (22-29); Chloride 105 mmol/L (96-108); Creatinine Clr Calc Pharmacy 99.9; Estimated Glomerular Filt Rate > 60; Glucose Random 62 mg/dL (60-115); Potassium 3.5 mmol/L (3.3-5.1); Sodium 139 mmol/L (135-145)
[2023-08-31 07:29] VITALS: BP 132/61; PULSE 75; RESP 18; TEMP 36.4; O2SAT 93
[2023-08-31] MEDS: carvediloL 12.5 MG TABLET PO ×2 (09:17→19:43)
[2023-08-31] MEDS: 0.9 % Sodium Chloride Flush 3 ML SYRINGE IVFLUSH ×3 (09:24→19:40)
--- NOTE | 2023-08-31 09:36 | P.PNGS_ITS ---
Subjective Subjective Date of Service: 08/31/23 Interval history: Pain level okay She says she has not ready for regular food - says she had a lot of burping and reflux yesterday No events reported Physical Exam 2 Vital Signs: Vital Signs: Last Vital Signs Temp 97.6 F 08/31/23 07:29 Pulse 75 08/31/23 07:29 Resp 18 08/31/23 07:29 BP 132/61 08/31/23 07:29 Pulse Ox 93 08/31/23 07:29 O2 Del Method Room Air 08/31/23 07:29 O2 Flow Rate 2 08/28/23 07:16 BMI result Body Mass Index 38.5 Const: General: comfortable and no acute distress Resp: Effort & Inspection: normal respiratory effort Cardio: Rate: regular rate GI: Other: Stoma viable, a little bit of stool on the stoma opening Palpation (GI): Soft to palpation, not firm and no guarding Objective Data Active Medications Albuterol Sulfate (Albuterol Sulfate 90 Mcg 8 Gm Inhaler) 1 puff INHALE QID PRN PRN Reason: shortness of breath or wheezing Benzocaine (Throat Lozenge, Medicated Lozenge) 1 lozenge MUCOUS MEM Q2H PRN PRN Reason: Sore Throat Last Admin: 08/31/23 00:01 Dose: 1 lozenge Documented By: DEREK Carvedilol (Carvedilol 12.5 Mg Tablet) 12.5 mg PO BID [facility]; Protocol Last Admin: 08/31/23 09:17 Dose: 12.5 mg Documented By: EDINSON Hydromorphone HCl (Hydromorphone Hcl 0.5 Mg/0.5 Ml Syringe) 0.5 mg IVPUSH Q3H PRN; Protocol PRN Reason: Pain, Severe (Pain Scale 7-10) Last Admin: 08/31/23 09:17 Dose: 0.5 mg Documented By: EDINSON Piperacillin Sod/Tazobactam (Sod 3.375 gm/ Sodium Chloride) 50 mls @ 100 mls/hr IV Q6H [facility] Last Infusion: 08/31/23 05:44 Dose: Infused Documented By: DEREK Acetaminophen (Ofirmev) 1,000 mg in 100 mls @ 400 mls/hr IV Q6H [facility] Last Infusion: 08/31/23 06:06 Dose: Infused Documented By: DEREK Lorazepam (Lorazepam 0.5 Mg Tablet) 0.5 mg PO Q8H PRN PRN Reason: Anxiety Last Admin: 08/30/23 09:05 Dose: 0.5 mg Documented By: TC Ondansetron HCl (Ondansetron Hcl 4 Mg/2 Ml Vial) 4 mg IVPUSH QID PRN PRN Reason: Nausea Oxycodone HCl (Oxycodone Hcl Immed Release 5 Mg Tablet) 5 mg PO Q4H PRN PRN Reason: Pain, Moderate(Pain Scale 4-6) Oxycodone HCl (Oxycodone Hcl Immed Release 5 Mg Tablet) 10 mg PO Q4H PRN PRN Reason: Pain, Severe (Pain Scale 7-10) Last Admin: 08/30/23 17:50 Dose: 10 mg Documented By: COTEMA Sodium Chloride (0.9 % Sodium Chloride Flush 3 Ml Syringe) [facility] Last Admin: 08/31/23 09:24 Dose: 3 ml Documented By: EDINSON Zolpidem Tartrate (Zolpidem Tartrate 5 Mg Tablet) 5 mg PO BEDTIME PRN PRN Reason: Insomnia Labs 08/31/23 05:44 08/31/23 05:44 Labs: Laboratory Results - last 24 hr 08/31/23 05:44 MCV 93.0 MCH 30.3 MCHC 32.6 RDW 12.8 Plt Count 394 MPV 10.0 Absolute Nucleated RBC 0.000 Nucleated RBC % (auto) 0.0 Anion Gap 16 Estim Creat Clear Calc 99.9 Estimated GFR > 60 Random Glucose 62 Calcium 8.5 Procedures Date of Service Date of Service: 08/31/23 Progress Note: A&P Assessment and plan (1) Diverticulitis of colon with perforation: Status: Acute Assessment and Plan: Status post Timoteo's procedure Clinically improving postop A little bit of stool seen on stoma opening She says she wants to stay on full liquids for now and does not feel ready to advance diet Encouraged to get out of bed Pain management Looks well overall Time Spent With Patient Time: Total time managing care of this patient today ____ minutes. Quality Stroke Does the patient have a stroke diagnosis?: No VTE Prior VTE?: No VTE Risk Level:: Surgical - moderate VTE Device Contraindication: N/A - Device Ordered VTE Drug Contraindication: Treatment Not Indicated
--- NOTE | 2023-08-31 10:54 | HO.PM.IMPN ---
Subjective Subjective Date of Service: 08/31/23 Interval History: nausea resolved a little bit of stool at stoma opening no chest pain or dyspnea Review of Systems Review of Systems: Yes all other systems are reviewed and are negative Physical Exam Vital Signs: Vital Signs: Last Vital Signs Temp 97.6 F 08/31/23 07:29 Pulse 75 08/31/23 07:29 Resp 18 08/31/23 07:29 BP 132/61 08/31/23 07:29 Pulse Ox 93 08/31/23 07:29 O2 Del Method Room Air 08/31/23 07:29 O2 Flow Rate 2 08/28/23 07:16 BMI result Body Mass Index 38.5 Gen: in no acute distress HEENT: sclera anicteric, moist mucus membranes Neck: supple Lungs: clear to auscultation bilaterally Heart: regular rate and rhythm, no murmurs Abd: soft, dry laparotomy dressing, stoma pink Ext: no edema Skin: warm/well-perfused Neuro: alert and oriented x3, no focal findings Psych: appropriate affect Objective Data Active Medications Albuterol Sulfate (Albuterol Sulfate 90 Mcg 8 Gm Inhaler) 1 puff INHALE QID PRN PRN Reason: shortness of breath or wheezing Benzocaine (Throat Lozenge, Medicated Lozenge) 1 lozenge MUCOUS MEM Q2H PRN PRN Reason: Sore Throat Last Admin: 08/31/23 00:01 Dose: 1 lozenge Documented By: DEREK Carvedilol (Carvedilol 12.5 Mg Tablet) 12.5 mg PO BID [facility]; Protocol Last Admin: 08/31/23 09:17 Dose: 12.5 mg Documented By: EDINSON Hydromorphone HCl (Hydromorphone Hcl 0.5 Mg/0.5 Ml Syringe) 0.5 mg IVPUSH Q3H PRN; Protocol PRN Reason: Pain, Severe (Pain Scale 7-10) Last Admin: 08/31/23 09:17 Dose: 0.5 mg Documented By: EDINSON Piperacillin Sod/Tazobactam (Sod 3.375 gm/ Sodium Chloride) 50 mls @ 100 mls/hr IV Q6H [facility] Last Infusion: 08/31/23 05:44 Dose: Infused Documented By: DEREK Acetaminophen (Ofirmev) 1,000 mg in 100 mls @ 400 mls/hr IV Q6H [facility] Last Infusion: 08/31/23 06:06 Dose: Infused Documented By: DEREK Lorazepam (Lorazepam 0.5 Mg Tablet) 0.5 mg PO Q8H PRN PRN Reason: Anxiety Last Admin: 08/30/23 09:05 Dose: 0.5 mg Documented By: TC Ondansetron HCl (Ondansetron Hcl 4 Mg/2 Ml Vial) 4 mg IVPUSH QID PRN PRN Reason: Nausea Oxycodone HCl (Oxycodone Hcl Immed Release 5 Mg Tablet) 5 mg PO Q4H PRN PRN Reason: Pain, Moderate(Pain Scale 4-6) Oxycodone HCl (Oxycodone Hcl Immed Release 5 Mg Tablet) 10 mg PO Q4H PRN PRN Reason: Pain, Severe (Pain Scale 7-10) Last Admin: 08/30/23 17:50 Dose: 10 mg Documented By: COTEMA Sodium Chloride (0.9 % Sodium Chloride Flush 3 Ml Syringe) [facility] Last Admin: 08/31/23 09:24 Dose: 3 ml Documented By: EDINSON Zolpidem Tartrate (Zolpidem Tartrate 5 Mg Tablet) 5 mg PO BEDTIME PRN PRN Reason: Insomnia Labs 08/31/23 05:44 08/31/23 05:44 Labs: Laboratory Results - last 24 hr 08/31/23 05:44 MCV 93.0 MCH 30.3 MCHC 32.6 RDW 12.8 Plt Count 394 MPV 10.0 Absolute Nucleated RBC 0.000 Nucleated RBC % (auto) 0.0 Anion Gap 16 Estim Creat Clear Calc 99.9 Estimated GFR > 60 Random Glucose 62 Calcium 8.5 Assessment and Plan (1) Diverticulitis of colon with perforation: Status: Acute (2) Essential hypertension: Status: Acute Plan d10 63yo F admitted to Gen Surg for sigmoid diverticulitis with abscess, hospitalist consult for management of comorbid medical conditions sigmoid diverticulitis with abscess and colo-salpingo fistula - s/p ex-lap/drainage of diverticular abscess/sigmoid colectomy with end pouch and descending colostomy (Timoteo procedure) and repair of colo-salpingo fistula 08/27/23 - on full liquid diet, advance per Gen Surg - pip/mary anne 08/23- hx nonischemic cardiomyopathy with recovered EF - no current CHF symptoms. Cardiology note from [facility] [Mar 2023] reviewed; EF recovered. Continue carvedilol hemochromatosis - undergoes periodic therapeutic phlebotomy asthma - prn albuterol hypoK - repleted VTE ppx - SCDs dispo - TBD In my clinical judgment, the patient requires continued inpatient hospitalization for the following reasons: postop care Thank you for this consultation. We are signing off the case at this time. Please communicate with us if any new medical questions arise. Total time managing care of this patient today: 35 minutes. Quality Stroke Does the patient have a stroke diagnosis?: No VTE Prior VTE?: No VTE Risk Level:: Surgical - moderate VTE Device Contraindication: N/A - Device Ordered VTE Drug Contraindication: Treatment Not Indicated
[2023-08-31 11:22] VITALS: BP 121/58; PULSE 75; RESP 18; TEMP 36.7; O2SAT 95
[2023-08-31] MEDS: oxyCODONE HCl Immed Release 5 MG TABLET 10 MG PO (13:16)
[2023-08-31 15:22] VITALS: BP 135/63; PULSE 77; RESP 18; TEMP 36.9; O2SAT 96
[2023-08-31] MEDS: oxyCODONE HCl Immed Release 5 MG TABLET PO (16:28)
[2023-08-31 19:38] VITALS: BP 156/67; PULSE 87; RESP 18; TEMP 36.6; O2SAT 96
[2023-08-31 23:03] VITALS: BP 110/57; PULSE 80; RESP 18; TEMP 36.8; O2SAT 93
[2023-09-01] VITALS (7 sets, daily range): BP systolic 95–142; BP diastolic 57–67; PULSE 75–86; RESP 16–20; TEMP 36.5–37.5; O2SAT 93–95
[2023-09-01] MEDS: HYDROmorphone HCl 0.5 MG/0.5 ML SYRINGE IVPUSH ×6 (02:24→21:35)
[2023-09-01] MEDS: Piperacillin Sodium/Tazobactam 3.375 GM in 0.9 % Sodium Chloride 50 ML IV ×4 (04:07→21:42)
[2023-09-01] MEDS: oxyCODONE HCl Immed Release 5 MG TABLET PO (04:13)
[2023-09-01] MEDS: carvediloL 12.5 MG TABLET PO ×2 (07:38→21:38)
[2023-09-01] MEDS: 0.9 % Sodium Chloride Flush 3 ML SYRINGE IVFLUSH ×3 (07:46→21:34)
[2023-09-01] MEDS: oxyCODONE HCl Immed Release 5 MG TABLET 10 MG PO ×2 (09:54→16:42)
--- NOTE | 2023-09-01 10:26 | PM.PNGS ---
Subjective Subjective Date of Service: 09/01/23 Interval history: Not much of output from the stoma yet Small amount of stool in the stoma opening She says she thinks she may have noticed some small amounts of flatus through the stoma She says she some burping with oral intake She feels she has not ready for regular diet Physical Exam Vital Signs: Vital Signs: Last Vital Signs Temp 98.9 F 09/01/23 07:16 Pulse 75 09/01/23 07:16 Resp 20 09/01/23 07:16 BP 122/64 09/01/23 07:16 Pulse Ox 95 09/01/23 07:16 O2 Del Method Room Air 09/01/23 07:16 O2 Flow Rate 2 08/28/23 07:16 BMI result Body Mass Index 38.5 Const: General: no acute distress Resp: Effort & Inspection: normal respiratory effort Cardio: Rate: regular rate GI: Other: obese so difficult to say whether she is this done or not Incision clean Stoma viable, small amount of stool on the stomal opening Objective Data Active Medications Albuterol Sulfate (Albuterol Sulfate 90 Mcg 8 Gm Inhaler) 1 puff INHALE QID PRN PRN Reason: shortness of breath or wheezing Benzocaine (Throat Lozenge, Medicated Lozenge) 1 lozenge MUCOUS MEM Q2H PRN PRN Reason: Sore Throat Last Admin: 08/31/23 00:01 Dose: 1 lozenge Documented By: DEREK Carvedilol (Carvedilol 12.5 Mg Tablet) 12.5 mg PO BID [facility]; Protocol Last Admin: 09/01/23 07:38 Dose: 12.5 mg Documented By: EDINSON Comments: Patient requested medication early. Hydromorphone HCl (Hydromorphone Hcl 0.5 Mg/0.5 Ml Syringe) 0.5 mg IVPUSH Q3H PRN; Protocol PRN Reason: Pain, Severe (Pain Scale 7-10) Last Admin: 09/01/23 07:38 Dose: 0.5 mg Documented By: EDINSON Piperacillin Sod/Tazobactam (Sod 3.375 gm/ Sodium Chloride) 50 mls @ 100 mls/hr IV Q6H [facility] Last Admin: 09/01/23 09:56 Dose: 100 mls/hr Documented By: ANN Lorazepam (Lorazepam 0.5 Mg Tablet) 0.5 mg PO Q8H PRN PRN Reason: Anxiety Last Admin: 08/30/23 09:05 Dose: 0.5 mg Documented By: TC Ondansetron HCl (Ondansetron Hcl 4 Mg/2 Ml Vial) 4 mg IVPUSH QID PRN PRN Reason: Nausea Oxycodone HCl (Oxycodone Hcl Immed Release 5 Mg Tablet) 5 mg PO Q4H PRN PRN Reason: Pain, Moderate(Pain Scale 4-6) Last Admin: 09/01/23 04:13 Dose: 5 mg Documented By: DEREK Oxycodone HCl (Oxycodone Hcl Immed Release 5 Mg Tablet) 10 mg PO Q4H PRN PRN Reason: Pain, Severe (Pain Scale 7-10) Last Admin: 09/01/23 09:54 Dose: 10 mg Documented By: ANN Sodium Chloride (0.9 % Sodium Chloride Flush 3 Ml Syringe) [facility] Last Admin: 09/01/23 07:46 Dose: 3 ml Documented By: KEBBAJ Labs 08/31/23 05:44 08/31/23 05:44 Procedures Date of Service Date of Service: 09/01/23 Progress Note: A&P Assessment and plan (1) Diverticulitis of colon with perforation: Status: Acute Assessment and Plan: Status post Timoteo's procedure Small amount of stool in the stoma opening for now May have a little bit of delay with return of GI function We will keep on full liquids Encouraged to get out of bed Pain management as she says she has pain whenever she tries to move around Labs okay yesterday On IV antibiotics Time Spent With Patient Time: Total time managing care of this patient today ____ minutes. Quality Stroke Does the patient have a stroke diagnosis?: No VTE Prior VTE?: No VTE Risk Level:: Surgical - moderate VTE Device Contraindication: N/A - Device Ordered VTE Drug Contraindication: Treatment Not Indicated
[2023-09-02] VITALS (7 sets, daily range): BP systolic 100–140; BP diastolic 55–66; PULSE 75–80; RESP 16–19; TEMP 36.3–37.2; O2SAT 93–96
[2023-09-02] MEDS: HYDROmorphone HCl 0.5 MG/0.5 ML SYRINGE IVPUSH ×5 (01:09→20:37)
[2023-09-02] MEDS: Piperacillin Sodium/Tazobactam 3.375 GM in 0.9 % Sodium Chloride 50 ML IV (03:56)
[2023-09-02] MEDS: oxyCODONE HCl Immed Release 5 MG TABLET PO (04:39)
[2023-09-02] MEDS: carvediloL 12.5 MG TABLET PO ×2 (08:37→19:47)
[2023-09-02] MEDS: 0.9 % Sodium Chloride Flush 3 ML SYRINGE IVFLUSH ×3 (08:38→21:41)
--- NOTE | 2023-09-02 08:52 | P.PNGS_ITS ---
Subjective Subjective Date of Service: 09/02/23 Interval history: feels ok smearing on stoma opening no events overnight Physical Exam 2 Vital Signs: Vital Signs: Last Vital Signs Temp 97.4 F 09/02/23 07:20 Pulse 79 09/02/23 07:20 Resp 18 09/02/23 07:20 BP 120/59 L 09/02/23 07:20 Pulse Ox 93 09/02/23 07:20 O2 Del Method Room Air 09/02/23 07:20 O2 Flow Rate 2 08/28/23 07:16 BMI result Body Mass Index 38.5 Const: General: no acute distress Orientation/consciousness: patient oriented x3 Resp: Effort & Inspection: normal respiratory effort Cardio: Rate: regular rate GI: Other: obese, soft, small amount of smearing on stoma opening Neuro: General: patient oriented x3 Objective Data Active Medications Albuterol Sulfate (Albuterol Sulfate 90 Mcg 8 Gm Inhaler) 1 puff INHALE QID PRN PRN Reason: shortness of breath or wheezing Benzocaine (Throat Lozenge, Medicated Lozenge) 1 lozenge MUCOUS MEM Q2H PRN PRN Reason: Sore Throat Last Admin: 08/31/23 00:01 Dose: 1 lozenge Documented By: DEREK Carvedilol (Carvedilol 12.5 Mg Tablet) 12.5 mg PO BID [facility]; Protocol Last Admin: 09/02/23 08:37 Dose: 12.5 mg Documented By: EDINSON Hydromorphone HCl (Hydromorphone Hcl 0.5 Mg/0.5 Ml Syringe) 0.5 mg IVPUSH Q3H PRN; Protocol PRN Reason: Pain, Severe (Pain Scale 7-10) Last Admin: 09/02/23 06:20 Dose: 0.5 mg Documented By: DEREK Lorazepam (Lorazepam 0.5 Mg Tablet) 0.5 mg PO Q8H PRN PRN Reason: Anxiety Last Admin: 08/30/23 09:05 Dose: 0.5 mg Documented By: TC Ondansetron HCl (Ondansetron Hcl 4 Mg/2 Ml Vial) 4 mg IVPUSH QID PRN PRN Reason: Nausea Oxycodone HCl (Oxycodone Hcl Immed Release 5 Mg Tablet) 5 mg PO Q4H PRN PRN Reason: Pain, Moderate(Pain Scale 4-6) Last Admin: 09/02/23 04:39 Dose: 5 mg Documented By: DEREK Oxycodone HCl (Oxycodone Hcl Immed Release 5 Mg Tablet) 10 mg PO Q4H PRN PRN Reason: Pain, Severe (Pain Scale 7-10) Last Admin: 09/01/23 16:42 Dose: 10 mg Documented By: EDINSON Sodium Chloride (0.9 % Sodium Chloride Flush 3 Ml Syringe) 3 ml IVFLUSH [facility] Last Admin: 09/02/23 08:38 Dose: 3 ml Documented By: EDINSON Labs 08/31/23 05:44 08/31/23 05:44 Procedures Date of Service Date of Service: 09/02/23 Progress Note: A&P Assessment and plan (1) Diverticulitis of colon with perforation: Status: Acute Assessment and Plan: s/p Hartmanns very little output from stoma pt does not want to advance to regular diet looks well overall await good stoma function encouraged to get OOB to recliner incision clean dw plan with nurse Time Spent With Patient Time: Total time managing care of this patient today ____ minutes. Quality Stroke Does the patient have a stroke diagnosis?: No VTE Prior VTE?: No VTE Risk Level:: Surgical - moderate VTE Device Contraindication: N/A - Device Ordered VTE Drug Contraindication: Treatment Not Indicated
--- NOTE | 2023-09-02 15:35 | P.PNGS_ITS ---
Subjective Subjective Date of Service: 09/02/23 Interval history: Patient has no new issues or complaints. Minimal output from ostomy. Patient has been out of bed/ambulating. Using incentive spirometry. Physical Exam 2 Vital Signs: Vital Signs: Last Vital Signs Temp 97.3 F 09/02/23 15:20 Pulse 80 09/02/23 15:20 Resp 18 09/02/23 15:20 BP 111/55 L 09/02/23 15:20 Pulse Ox 94 09/02/23 15:20 O2 Del Method Room Air 09/02/23 15:20 O2 Flow Rate 2 08/28/23 07:16 BMI result Body Mass Index 38.5 GI: Other: Abdomen is soft. Ostomy minimal output, pink. Very mild erythema around incision. To follow for now. Objective Data Active Medications Albuterol Sulfate (Albuterol Sulfate 90 Mcg 8 Gm Inhaler) 1 puff INHALE QID PRN PRN Reason: shortness of breath or wheezing Benzocaine (Throat Lozenge, Medicated Lozenge) 1 lozenge MUCOUS MEM Q2H PRN PRN Reason: Sore Throat Last Admin: 08/31/23 00:01 Dose: 1 lozenge Documented By: DEREK Carvedilol (Carvedilol 12.5 Mg Tablet) 12.5 mg PO BID [facility]; Protocol Last Admin: 09/02/23 08:37 Dose: 12.5 mg Documented By: EDINSON Hydromorphone HCl (Hydromorphone Hcl 0.5 Mg/0.5 Ml Syringe) 0.5 mg IVPUSH Q3H PRN; Protocol PRN Reason: Pain, Severe (Pain Scale 7-10) Last Admin: 09/02/23 12:00 Dose: 0.5 mg Documented By: ANN Ondansetron HCl (Ondansetron Hcl 4 Mg/2 Ml Vial) 4 mg IVPUSH QID PRN PRN Reason: Nausea Sodium Chloride (0.9 % Sodium Chloride Flush 3 Ml Syringe) 3 ml IVFLUSH QSHIFT [facility] Last Admin: 09/02/23 08:38 Dose: 3 ml Documented By: EDINSON Labs 08/31/23 05:44 08/31/23 05:44 Procedures Date of Service Date of Service: 02/19/24 Progress Note: A&P Assessment and plan (1) Diverticulitis of colon with perforation: Status: Acute Plan Continue current plan; out of bed, incentive spirometry, awaiting bowel function, all questions answered. Time Spent With Patient Time: Total time managing care of this patient today ____ minutes. Quality Stroke Does the patient have a stroke diagnosis?: No VTE Prior VTE?: No VTE Risk Level:: Surgical - moderate VTE Device Contraindication: N/A - Device Ordered VTE Drug Contraindication: Treatment Not Indicated
[2023-09-02] MEDS: ondansetron HCL 4 MG/2 ML VIAL IVPUSH (17:08)
[2023-09-02] MEDS: oxyCODONE HCl Immed Release 5 MG TABLET 10 MG PO (19:47)
[2023-09-02] MEDS: Omeprazole 20 MG CAPSULE.DR PO (20:37)
[2023-09-03] VITALS (7 sets, daily range): BP systolic 106–132; BP diastolic 58–63; PULSE 70–82; RESP 14–19; TEMP 36–37; O2SAT 93–95
[2023-09-03] MEDS: HYDROmorphone HCl 0.5 MG/0.5 ML SYRINGE IVPUSH ×7 (03:33→23:56)
[2023-09-03] MEDS: Omeprazole 20 MG CAPSULE.DR PO ×2 (06:04→15:43)
[2023-09-03] MEDS: carvediloL 12.5 MG TABLET PO ×2 (07:41→20:28)
--- NOTE | 2023-09-03 13:35 | P.PNGS_ITS ---
Subjective Subjective Date of Service: 09/03/23 Interval history: Vomiting after eating dinner last night. Feels slightly improved today. Ostomy now with output. OOB and ambulating. Physical Exam 2 Vital Signs: Vital Signs: Last Vital Signs Temp 97.8 F 09/03/23 12:00 Pulse 74 09/03/23 12:00 Resp 16 09/03/23 12:00 BP 125/58 L 09/03/23 12:00 Pulse Ox 93 09/03/23 12:00 O2 Del Method Room Air 09/03/23 12:00 O2 Flow Rate 2 08/28/23 07:16 BMI result Body Mass Index 38.5 Const: General: comfortable, no acute distress and alert O rientation/consciousness: patient oriented x3 Resp: Effort & Inspection: normal respiratory effort GI: Other: ostomy pink, soft brown stool in appliance incision with erythema at inferior aspect and just proximal to umbilicus Inspection: No distended Palpation (GI): Soft to palpation, Tenderness to palpation present (GI), no guarding and not rigid Neuro: General: patient oriented x3 Objective Data Active Medications Albuterol Sulfate (Albuterol Sulfate 90 Mcg 8 Gm Inhaler) 1 puff INHALE QID PRN PRN Reason: shortness of breath or wheezing Benzocaine (Throat Lozenge, Medicated Lozenge) 1 lozenge MUCOUS MEM Q2H PRN PRN Reason: Sore Throat Last Admin: 08/31/23 00:01 Dose: 1 lozenge Documented By: DEREK Carvedilol (Carvedilol 12.5 Mg Tablet) 12.5 mg PO BID [facility]; Protocol Last Admin: 09/03/23 07:41 Dose: 12.5 mg Documented By: ALYSSA Hydromorphone HCl (Hydromorphone Hcl 0.5 Mg/0.5 Ml Syringe) 0.5 mg IVPUSH Q3H PRN; Protocol PRN Reason: Pain, Severe (Pain Scale 7-10) Last Admin: 09/03/23 10:38 Dose: 0.5 mg Documented By: ALYSSA Omeprazole (Omeprazole 20 Mg Capsule.) 20 mg PO BID@0630,1630 [facility] Last Admin: 09/03/23 06:04 Dose: 20 mg Documented By: COTLOBO Ondansetron HCl (Ondansetron Hcl 4 Mg/2 Ml Vial) 4 mg IVPUSH QID PRN PRN Reason: Nausea Last Admin: 09/02/23 17:08 Dose: 4 mg Documented By: EDINSON Oxycodone HCl (Oxycodone Hcl Immed Release 5 Mg Tablet) 5 mg PO Q4H PRN PRN Reason: Pain, Moderate(Pain Scale 4-6) Oxycodone HCl (Oxycodone Hcl Immed Release 5 Mg Tablet) 10 mg PO Q4H PRN PRN Reason: Pain, Severe (Pain Scale 7-10) Last Admin: 09/02/23 19:47 Dose: 10 mg Documented By: COTEMA Sodium Chloride (0.9 % Sodium Chloride Flush 3 Ml Syringe) [facility] Last Admin: 09/03/23 07:35 Dose: Not Given Documented By: ALYSSA Non-Admin Reason: Previously Administered Labs 08/31/23 05:44 08/31/23 05:44 Procedures Date of Service Date of Service: 09/03/23 Progress Note: A&P Assessment and plan (1) Diverticulitis of colon with perforation: Status: Acute Plan Wound erythema noted this morning - a couple of joaquin were removed at inferior aspect of incision and just proximal to umbilicus with evacuation of thick, dark old blood. Wound probed with qtip with more evacuation. Wound openings gently packed with corner of fluff followed by dry fluffs, abd dressing and tape. Patient tolerated well. Diet as tolerated. Will add protein supplements. Continue ostomy education, patient participation. Home in next few days when tolerating diet. Time Spent With Patient Time: Total time managing care of this patient today ____ minutes. Quality Stroke Does the patient have a stroke diagnosis?: No VTE Prior VTE?: No VTE Risk Level:: Surgical - moderate VTE Device Contraindication: N/A - Device Ordered VTE Drug Contraindication: Treatment Not Indicated
--- NOTE | 2023-09-03 14:07 | MHC.CLN ---
NUTRITION PER SURGERY NOTE, ADDED ENSURE MAX PROTEIN BID. SUPPLEMENT PROVIDES 300 KCALS, 60 G PROTEIN. DIET=REGULAR. RECENT EPISODE OF VOMITING NOTED.
--- NOTE | 2023-09-03 14:47 | HO.OSTOMY ---
Wound Consult: Initial 63yr old?Female admitted to [facility] on 08/22/23 - See progress notes and H&P for detailed history.? Ostomy consult placed for new colostomy creation assessment and teaching. Patient agreeable to assessment and photo documentation.? Colostomy creation on 08/27/23. Left Abd Stoma with mild erythema noted and flush to skin - Photo sent to IKER ELLISON via TT. Arrival to patients room with IKER Ribera from [facility]. Upon entry into patient's room, she is lying in her bed, alert and oriented x 3, she currently has no complaints. ?Introductions were completed, she is agreeable to continuing with consult and photo documentation. ?Gauri assessed and treated midline incision with staple removal - see her note for details. The patient reports increasing the use of her IS and ambulating the unit. ?We began by discussing general knowledge about the Colostomy and questions she had. ?We discussed opening and closing the ostomy pouch. She was able to independently provide a return demonstration on an empty pouch after practicing a few times. ?She had not yet emptied her pouch. ?We discussed the importance of emptying pouch when 1/3 to 1/2 full, how to empty pouch, and lining water with toilet paper to prevent splash back. With an empty Coloplast pouch she performed a demonstration. ? She was also educated on when to contact hand singer/Dr Avery's office/seek emergency medical treatment. Patient is aware that Rx written for pouches and rings will be sent by Doctors office for home delivery with [facility]. Reviewed written education with patient and left at bedside for further review. Pouch was assessed and she was agreeable to a pouch change. No leaking noted however at time of removal the pouch was noted to be cut to large for the stoma size. The patient was educated on the importance of cutting the appropriate pouch size. The peristomal tissue is noted for pink erythema - intact. ? Midline dressing was able to not be disrupted when the pouch was removed. ?She was changed into a Coloplast # [id number], 1 Piece cut to fit (35 Oval), MCJ intact, Stoma red / pink and moist. Stoma is flush to the skin and will benefit from Convex pouching in the future. ?She observed the pouch change but requested to not participate today. ?She had excellent questions that led to further discussion. ?After the pouch was changed she was able to open close on the pouch attached to her abdomen without coaching. ?She reported having no questions at this time. ?She will benefit from VNA services at time of discharge. ?All questions and concerns addressed at this time. Next teaching session goals: Demonstrate open and close independently Empty Pouch Steps to a pouch change she is able to recall When to seek emergency treatment We discussed the following steps: 1. Empty pouch before pouch change 2. Remove pouch using push/pull technique from top to bottom 3. Cleanse stoma and skin with tap water only - no soap or baby wipes 4. Pat dry 5. Measure stoma and cut new pouch no more than 1/8 inch larger than stoma and no smaller than stoma 6. Press the new pouch into place and hold for several minutes (close pouch tail) 7. Empty pouch when 1/3 to 1/2 full 8. Change pouch twice weekly on a schedule (for example, every Saturday and ) and as needed for any leaking (feels like intense itch or burn at edge of stoma) 9. May order pre-cut pouches (already cut to size of stoma) once stoma measures the same size consistently after approximately 12 weeks. ?
[2023-09-03] MEDS: 0.9 % Sodium Chloride Flush 3 ML SYRINGE IVFLUSH ×2 (15:43→20:33)
[2023-09-04] VITALS (7 sets, daily range): BP systolic 111–121; BP diastolic 54–64; PULSE 74–79; RESP 14–18; TEMP 36.3–37.1; O2SAT 93–95
[2023-09-04] MEDS: HYDROmorphone HCl 0.5 MG/0.5 ML SYRINGE IVPUSH ×5 (03:06→23:29)
[2023-09-04] MEDS: Omeprazole 20 MG CAPSULE.DR PO ×2 (06:04→16:24)
[2023-09-04] MEDS: oxyCODONE HCl Immed Release 5 MG TABLET 10 MG PO ×2 (06:04→11:40)
[2023-09-04] MEDS: 0.9 % Sodium Chloride Flush 3 ML SYRINGE IVFLUSH ×3 (08:14→19:25)
[2023-09-04] MEDS: carvediloL 12.5 MG TABLET PO ×2 (08:14→19:36)
--- NOTE | 2023-09-04 09:13 | PM.PNGS ---
Subjective Subjective Date of Service: 09/04/23 Interval history: Continues to have belching and heartburn with solid diet. Physical Exam Vital Signs: Vital Signs: Last Vital Signs Temp 98.0 F 09/04/23 07:38 Pulse 75 09/04/23 07:38 Resp 16 09/04/23 07:38 BP 111/59 L 09/04/23 07:38 Pulse Ox 95 09/04/23 07:38 O2 Del Method Room Air 09/04/23 07:38 O2 Flow Rate 2 08/28/23 07:16 BMI result Body Mass Index 38.5 Const: General: comfortable, no acute distress and alert Orientation/consciousness: patient oriented x3 Resp: Effort & Inspection: normal respiratory effort and no respiratory distress GI: Other: ostomy pink, soft stool in appliance incision with less erythema, continues to drain small amount of blood, no gross purulent drainage Inspection: No distended Palpation (GI): Soft to palpation, Tenderness to palpation present (GI) (mild, improved at incision site), no guarding and not rigid Skin: General skin exam: no rashes or lesions noted Neuro: General: patient oriented x3 and moves all extremities Objective Data Active Medications Albuterol Sulfate (Albuterol Sulfate 90 Mcg 8 Gm Inhaler) 1 puff INHALE QID PRN PRN Reason: shortness of breath or wheezing Benzocaine (Throat Lozenge, Medicated Lozenge) 1 lozenge MUCOUS MEM Q2H PRN PRN Reason: Sore Throat Last Admin: 08/31/23 00:01 Dose: 1 lozenge Documented By: DEREK Carvedilol (Carvedilol 12.5 Mg Tablet) 12.5 mg PO BID [facility]; Protocol Last Admin: 09/04/23 08:14 Dose: 12.5 mg Documented By: SCOTTIE Hydromorphone HCl (Hydromorphone Hcl 0.5 Mg/0.5 Ml Syringe) 0.5 mg IVPUSH Q3H PRN; Protocol PRN Reason: Pain, Severe (Pain Scale 7-10) Last Admin: 09/04/23 08:18 Dose: 0.5 mg Documented By: SCOTTIE Omeprazole (Omeprazole 20 Mg Capsule.) 20 mg PO BID@0630,1630 [facility] Last Admin: 09/04/23 06:04 Dose: 20 mg Documented By: MICHELLE Ondansetron HCl (Ondansetron Hcl 4 Mg/2 Ml Vial) 4 mg IVPUSH QID PRN PRN Reason: Nausea Last Admin: 09/02/23 17:08 Dose: 4 mg Documented By: EDINSON Oxycodone HCl (Oxycodone Hcl Immed Release 5 Mg Tablet) 5 mg PO Q4H PRN PRN Reason: Pain, Moderate(Pain Scale 4-6) Oxycodone HCl (Oxycodone Hcl Immed Release 5 Mg Tablet) 10 mg PO Q4H PRN PRN Reason: Pain, Severe (Pain Scale 7-10) Last Admin: 09/04/23 06:04 Dose: 10 mg Documented By: MICHELLE Sodium Chloride (0.9 % Sodium Chloride Flush 3 Ml Syringe) 3 ml IVFLUSH [facility] Last Admin: 09/04/23 08:14 Dose: 3 ml Documented By: PARROWA Labs 08/31/23 05:44 08/31/23 05:44 Procedures Date of Service Date of Service: 09/04/23 Progress Note: A&P Assessment and plan (1) Diverticulitis of colon with perforation: Status: Acute Plan Encouraged increasing activity and limiting narcotics as possible to promote GI function. Incision with less erythema this morning, continues with old bloody drainage. Diet as tolerated. Continue ostomy education, patient participation. Home in next few days when tolerating diet. Time Spent With Patient Time: Total time managing care of this patient today ____ minutes. Quality Stroke Does the patient have a stroke diagnosis?: No VTE Prior VTE?: No VTE Risk Level:: Surgical - moderate VTE Device Contraindication: N/A - Device Ordered VTE Drug Contraindication: Treatment Not Indicated
--- NOTE | 2023-09-04 12:01 | MHC.CM.PN ---
EMR reviewed. Patient is not medically cleared for dc at this time, as she is not currently tolerating diet. Participating in ostomy teaching. No change to dc plan - home w/ new [facility] once tolerating diet. CM will continue to follow.
[2023-09-05] VITALS (7 sets, daily range): BP systolic 108–126; BP diastolic 55–71; PULSE 73–82; RESP 17–20; TEMP 36–36.6; O2SAT 92–94
[2023-09-05] MEDS: oxyCODONE HCl Immed Release 5 MG TABLET 10 MG PO ×4 (02:38→21:15)
[2023-09-05] MEDS: HYDROmorphone HCl 0.5 MG/0.5 ML SYRINGE IVPUSH ×4 (06:17→23:27)
[2023-09-05] MEDS: Omeprazole 20 MG CAPSULE.DR PO ×2 (06:17→17:26)
--- NOTE | 2023-09-05 07:39 | PM.PNGS ---
Subjective Subjective Date of Service: 09/05/23 Interval history: Patient generally feels improved today with no further nausea or vomiting. She was able to tolerate approximately 50% of her meal yesterday. Ostomy continues to produce soft stool. Denies any significant abdominal pain at this time. Physical Exam Vital Signs: Vital Signs: Last Vital Signs Temp 97.3 F 09/05/23 03:17 Pulse 78 09/05/23 03:17 Resp 17 09/05/23 03:17 BP 111/55 L 09/05/23 03:17 Pulse Ox 94 09/05/23 03:17 O2 Del Method Room Air 09/05/23 03:17 O2 Flow Rate 2 08/28/23 07:16 BMI result Body Mass Index 38.5 Const: General: comfortable, no acute distress and alert Orientation/consciousness: patient oriented x3 Resp: Effort & Inspection: normal respiratory effort and no respiratory distress GI: Other: ostomy pink, soft stool in appliance Soft and nondistended. Dressings intact. Inspection: No distended Palpation (GI): Soft to palpation, Tenderness to palpation present (GI) (mild, improved at incision site), no guarding and not rigid Skin: General skin exam: no rashes or lesions noted Neuro: General: patient oriented x3 and moves all extremities Objective Data Active Medications Albuterol Sulfate (Albuterol Sulfate 90 Mcg 8 Gm Inhaler) 1 puff INHALE QID PRN PRN Reason: shortness of breath or wheezing Benzocaine (Throat Lozenge, Medicated Lozenge) 1 lozenge MUCOUS MEM Q2H PRN PRN Reason: Sore Throat Last Admin: 08/31/23 00:01 Dose: 1 lozenge Documented By: DEREK Carvedilol (Carvedilol 12.5 Mg Tablet) 12.5 mg PO BID [facility]; Protocol Last Admin: 09/04/23 19:36 Dose: 12.5 mg Documented By: YUMIKO Hydromorphone HCl (Hydromorphone Hcl 0.5 Mg/0.5 Ml Syringe) 0.5 mg IVPUSH Q3H PRN; Protocol PRN Reason: Pain, Severe (Pain Scale 7-10) Last Admin: 09/05/23 06:17 Dose: 0.5 mg Documented By: YUMIKO Omeprazole (Omeprazole 20 Mg Capsule.) 20 mg PO BID@0630,1630 [facility] Last Admin: 09/05/23 06:17 Dose: 20 mg Documented By: YUMIKO Ondansetron HCl (Ondansetron Hcl 4 Mg/2 Ml Vial) 4 mg IVPUSH QID PRN PRN Reason: Nausea Last Admin: 09/02/23 17:08 Dose: 4 mg Documented By: JOHNNYAJ Oxycodone HCl (Oxycodone Hcl Immed Release 5 Mg Tablet) 5 mg PO Q4H PRN PRN Reason: Pain, Moderate(Pain Scale 4-6) Oxycodone HCl (Oxycodone Hcl Immed Release 5 Mg Tablet) 10 mg PO Q4H PRN PRN Reason: Pain, Severe (Pain Scale 7-10) Last Admin: 09/05/23 02:38 Dose: 10 mg Documented By: YUMIKO Sodium Chloride (0.9 % Sodium Chloride Flush 3 Ml Syringe) 3 ml IVFLUSH QSHIFT [facility] Last Admin: 09/04/23 19:25 Dose: 3 ml Documented By: YUMIKO Labs 08/31/23 05:44 08/31/23 05:44 Procedures Date of Service Date of Service: 09/05/23 Progress Note: A&P Assessment and plan (1) Diverticulitis of colon with perforation: Status: Acute Plan Patient reports improved nausea no further vomiting overnight. She was able to tolerate food yesterday as well. Will check back later for wound dressing change. Time Spent With Patient Time: Total time managing care of this patient today ____ minutes. Quality Stroke Does the patient have a stroke diagnosis?: No VTE Prior VTE?: No VTE Risk Level:: Surgical - moderate VTE Device Contraindication: N/A - Device Ordered VTE Drug Contraindication: Treatment Not Indicated
[2023-09-05] MEDS: carvediloL 12.5 MG TABLET PO ×2 (08:53→21:15)
[2023-09-05] MEDS: 0.9 % Sodium Chloride Flush 3 ML SYRINGE IVFLUSH ×3 (08:53→23:28)
[2023-09-05] MEDS: Amoxicillin/Potassium Clav 500 MG TABLET PO (18:10)
[2023-09-05] MEDS: Throat Lozenge, Medicated LOZENGE 1 LOZENGE MUCOUS MEM (21:15)
[2023-09-06] MEDS: oxyCODONE HCl Immed Release 5 MG TABLET 10 MG PO ×2 (02:28→14:11)
[2023-09-06 03:37] VITALS: BP 119/56; PULSE 81; RESP 18; TEMP 36.7; O2SAT 93
[2023-09-06 05:59] VITALS: RESP 19
[2023-09-06] MEDS: HYDROmorphone HCl 0.5 MG/0.5 ML SYRINGE IVPUSH ×2 (05:59→09:15)
[2023-09-06] MEDS: Omeprazole 20 MG CAPSULE.DR PO (05:59)
[2023-09-06] MEDS: Amoxicillin/Potassium Clav 500 MG TABLET PO (05:59)
[2023-09-06 07:35] VITALS: BP 102/54; PULSE 85; RESP 18; TEMP 36.4; O2SAT 92
--- NOTE | 2023-09-06 08:43 | P.PNGS_ITS ---
Subjective Subjective Date of Service: 09/06/23 Interval history: Tolerated all meals yesterday without nausea or vomiting. Pain is controlled. Nervous about incision and going home, ostomy care. Has not been participating in care per RN. Physical Exam 2 Vital Signs: Vital Signs: Last Vital Signs Temp 97.6 F 09/06/23 07:35 Pulse 85 09/06/23 07:35 Resp 18 09/06/23 07:35 BP 102/54 L 09/06/23 07:35 Pulse Ox 92 09/06/23 07:35 O2 Del Method Room Air 09/06/23 07:35 O2 Flow Rate 2 08/28/23 07:16 BMI result Body Mass Index 38.5 Const: General: comfortable, no acute distress and alert O rientation/consciousness: patient oriented x3 Resp: Effort & Inspection: normal respiratory effort GI: Other: incision with persistent erythema of superior and inferior aspect, probed again with qtip to ensure drainage, central incision with pale erythema now too and staple removed and probed with no drainage encountered ostomy pink, soft stool in appliance Palpation (GI): Soft to palpation and no guarding Neuro: General: patient oriented x3 and moves all extremities Objective Data Active Medications Albuterol Sulfate (Albuterol Sulfate 90 Mcg 8 Gm Inhaler) 1 puff INHALE QID PRN PRN Reason: shortness of breath or wheezing Amoxicillin/Clavulanate Potassium (Amoxicillin/Potassium Clav 500 Mg Tablet) 500 mg PO Q12H [facility] Last Admin: 09/06/23 05:59 Dose: 500 mg Documented By: COTEMA Benzocaine (Throat Lozenge, Medicated Lozenge) 1 lozenge MUCOUS MEM Q2H PRN PRN Reason: Sore Throat Last Admin: 09/05/23 21:15 Dose: 1 lozenge Documented By: COTEMA Carvedilol (Carvedilol 12.5 Mg Tablet) 12.5 mg PO BID [facility]; Protocol Last Admin: 09/05/23 21:15 Dose: 12.5 mg Documented By: COTEMA Hydromorphone HCl (Hydromorphone Hcl 0.5 Mg/0.5 Ml Syringe) 0.5 mg IVPUSH Q3H PRN; Protocol PRN Reason: Pain, Severe (Pain Scale 7-10) Last Admin: 09/06/23 05:59 Dose: 0.5 mg Documented By: COTEMA Omeprazole (Omeprazole 20 Mg Capsule.) 20 mg PO BID@0630,1630 [facility] Last Admin: 09/06/23 05:59 Dose: 20 mg Documented By: DARIO Ondansetron HCl (Ondansetron Hcl 4 Mg/2 Ml Vial) 4 mg IVPUSH QID PRN PRN Reason: Nausea Last Admin: 09/02/23 17:08 Dose: 4 mg Documented By: GOLDYBBAJ Oxycodone HCl (Oxycodone Hcl Immed Release 5 Mg Tablet) 5 mg PO Q4H PRN PRN Reason: Pain, Moderate(Pain Scale 4-6) Oxycodone HCl (Oxycodone Hcl Immed Release 5 Mg Tablet) 10 mg PO Q4H PRN PRN Reason: Pain, Severe (Pain Scale 7-10) Last Admin: 09/06/23 02:28 Dose: 10 mg Documented By: TC Sodium Chloride (0.9 % Sodium Chloride Flush 3 Ml Syringe) [facility] Last Admin: 09/05/23 23:28 Dose: 3 ml Documented By: COTEMA Labs 08/31/23 05:44 08/31/23 05:44 Procedures Date of Service Date of Service: 09/06/23 Progress Note: A&P Assessment and plan (1) Diverticulitis of colon with perforation: Status: Acute Plan Stable for dc to home today with VNA services for ostomy, wound care. Will dc on PO abx for incision. Will ask [employer] energy manager to provide education again today, change appliance prior to dc. Patient comfortable with plan. F/u in office in 1 week. Time Spent With Patient Time: Total time managing care of this patient today ____ minutes. Quality Stroke Does the patient have a stroke diagnosis?: No VTE Prior VTE?: No VTE Risk Level:: Surgical - moderate VTE Device Contraindication: N/A - Device Ordered VTE Drug Contraindication: Treatment Not Indicated
[2023-09-06] MEDS: carvediloL 12.5 MG TABLET PO (09:07)
[2023-09-06] MEDS: 0.9 % Sodium Chloride Flush 3 ML SYRINGE IVFLUSH (09:07)
--- NOTE | 2023-09-06 11:13 | MHC.CM.PN ---
Patient is discharged to home today with new NA. Home services will start on Saturday. Ostomy supplies have been given to the patient. She has arranged for transportation home.
[2023-09-06 11:24] VITALS: BP 110/56; PULSE 80; RESP 18; TEMP 36.3; O2SAT 92
--- NOTE | 2023-09-06 13:14 | PC.NURSE ---
Ostomy changed and teaching complete, no questions at this time. plan for discharge.
--- NOTE | 2023-09-06 14:13 | W.MHC.F2F ---
Service Date Service Date: 09/06/23 Encounter Date of encounter: 09/06/23 Reasons for Services Signs and symptoms assessed: PO intake, abdominal pain, colostomy output and appearance, activity Reason for care home: wound care and postoperative assessment and/or care Homebound: Leaving the home is medically contraindicated at this time without the asist of a device and/or another person due th the listed conditions above and below. Reason homebound: weakness related to hospital stay and unable to drive Homebound supporting statement: Ms. Palomino is s/p naomy procedure for perforated diverticulitis with abscess. She will need VNA services for colostomy and wound care. Certification: Based on the above findings, I certify that this patient is confined to the home and needs intermittent care home care, physical therapy and/or speech therapy, or continues to need occupational therapy. The patient is under my care, and I have initiated the establishment of the plan of care. The patient will be followed by a physician who will periodically review the plan of care. Time Spent With Patient Time: Total time managing care of this patient today ____ minutes.
--- NOTE | 2023-09-06 14:28 | PM.DS ---
DS: Providers Provider Date of Service: 09/06/23 Date of admission: 08/22/23 22:36 Primary care physician: Danuta Santiago MD Attending physician on admission: Clayton Avery Consults: 08/22/23 22:36 Consult to Hospitalist Routine Comment: Consulting Provider: Hospitalist Reason For Exam: diverticulitis, abscess, med management 09/03/23 15:10 Consult to Ostomy Care Routine Attending physician on discharge: Clayton Avery DS: Diagnosis Discharge Diagnosis (1) Diverticulitis of colon with perforation: Status: Acute DS: Summary Hospital Course Hospital Course: HPI AT HOSPITAL: Vielka Palomino is a 63 year old female presenting with complaints of abdominal pain in the left lower quadrant of 2 days' duration. She reports a previous history of similar pain which resolved with antibiotics. She was evaluated by colonoscopy with Dr. Rojas in 2020 which revealed benign polyps. A repeat colonoscopy was recommended after 5 years. The current episode was associated with nausea without vomiting, chills without fever. The pain is mainly in the left lower quadrant without radiation. She presented to the emergency department and was noted to have tenderness in the left lower quadrant but normal WBC. CT abdomen and pelvis revealed a multiloculated abscess superior into the right of the fundal uterus measuring 7.5 x 2.8 x 3.8 cm. There air-fluid levels and a more solid component anteriorly. HOSPITAL COURSE: She is admitted to the surgical service for IV antibiotics and possible IR drainage. Patient was treated with IV antibiotics however after several days of treatment her pain began to increase. A repeat CT revealed increase in the size of the abscess and this was unamenable to IR drainage. It was therefore recommended to proceed with exploratory laparotomy, sigmoid resection, end colostomy. She understood and agreed to proceed. On 09/06/23, an exploratory laparotomy, drainage of diverticular abscess, sigmoid colectomy with end pouch and descending colostomy (Naomy procedure), repair of colo salpingo fistula was performed by Dr. Avery without complication. The patient tolerated the procedure well. She had an uncomplicated but slow recovery course and difficulty advancing her diet with intermittent nausea and vomiting. She was continued on IV zosyn post operatively for 6 days. Her oswald was discontinued on POD #1. She was advanced to clear liquids. She began passing flatus on POD #2 and she was advanced to solids. Colostomy education was performed. Her activity remained minimal despite attempts and encouragement therefore PT was consulted. She began to have stool output from her colostomy. She remained inpatient for pain control and while her oral intake remained marginal. This gradually improved over the next week or so. She was started on omeprazole for heartburn. Her activity increased. She was encouraged to avoid narcotics as much as possible. She did develop some incisional erythema and some joaquin were removed and the wound was probed with evaucation of an old hematoma. This improved the erythema slightly but it persisted so Augmentin PO was added. On the day of discharge, she was tolerating a solid diet without nausea or vomiting. Her abdomen was soft, non distended with good colostomy output. Her incision had pale erythema with a small amount of old bloody drianage. She was ambulating with a walker without difficulty. She was discharged to home on 09/06/23 in stable condition with VNA services for incisional wound and colostomy care. She was discharged on a course of PO Augmentin. She is to follow up in the office in 1 week. Status at Discharge Functional status at discharge: uses cane/walker Overall status at discharge: patient is progressing back to baseline Time Attestation Discharge coordination time: Less than 30 minutes Quality: Safe Use of Opioids Does Pt have an Active Cancer Diagnosis on the Problem List?: No Quality: Stroke Does the patient have a stroke diagnosis?: No Physical Exam Vital Signs: Vital Signs: Last Vital Signs Temp 97.3 F 09/06/23 11:24 Pulse 80 09/06/23 11:24 Resp 18 09/06/23 11:24 BP 110/56 L 09/06/23 11:24 Pulse Ox 92 09/06/23 11:24 O2 Del Method Room Air 09/06/23 11:24 O2 Flow Rate 2 08/28/23 07:16 BMI result Body Mass Index 38.5 Const: General: comfortable, no acute distress and alert Orientation/consciousness: patient oriented x3 Resp: Effort & Inspection: normal respiratory effort GI: Other: incision with pale erythema of superior, umbilical and inferior aspects, some joaquin removed in these areas and areas probed with no significant drainage colostomy pink, soft stool in appliance Inspection: No distended Palpation (GI): Soft to palpation, Tenderness to palpation present (GI) (mild incisional), no guarding and not rigid Skin: General skin exam: no rashes or lesions noted Neuro: General: patient oriented x3 and moves all extremities DS: Data Data Completed and Pending Completed studies during hospitalization [Text1]: 08/27/23 14:21 Surgical [PTH] Routine Colon, segmental resection: - Diverticular-associated segmental colitis with abscess formation. - Four reactive lymph nodes Discharge Plan Discharge Anticipated Discharge Date/Time: 09/05/23 12:41 Patient Disposition: Home Health Service Discharge Diagnosis: diverticulitis with abscess Referrals: Akilah GUTIERREZ [Outside] - 1 Week Clayton Avery MD [Physician] - 1 Week Danuta Barboza MD [Primary Care Provider] - 1 Week Discharge Medications: New omeprazole 20 mg capsule,delayed release(DR/EC) 20 mg PO DAILY Qty: 30 0RF (DME) Ultra-Light Rollator Misc See Rx Instructions .Route Qty: 1 0RF Rx Instructions: As directed oxycodone 5 mg tablet 5 mg PO Q4H PRN (Reason: pain (scale score 7-10)) Qty: 26 0RF Rx Instructions: Partial Fill upon patient request. (DME) colostomy bags 3 misc See Rx Instructions .ROUTE .MEDSUPPLY Qty: 30 1RF Rx Instructions: As directed amoxicillin-pot clavulanate 875-125 mg tablet 1 tab PO BID Qty: 10 0RF Continued losartan 25 mg tablet 25 mg PO DAILY 90 Days Qty: 90 1RF albuterol sulfate [Ventolin HFA] 90 mcg/actuation HFA aerosol inhaler 1 inh inhalation QID PRN (Reason: shortness of breath or wheezing) 30 Days Qty: 8.5 11RF hydrochlorothiazide 25 mg tablet 25 mg PO QAM Qty: 90 3RF multivitamin Tablet 1 tab PO DAILY carvedilol 25 mg tablet 25 mg PO BID Discontinued cefuroxime axetil 250 mg tablet 250 mg PO BID 7 Days Qty: 14 0RF Rx Instructions: FINISH 08/25/23 Discharge Orders: Discharge Order (Routine); Ordered 09/06/23 Ordered By: Gauri Cisse Diet: Advance to usual diet Activity on Discharge: No heavy lifting Stand Alone Forms: Patient Portal Discharge page Activity Restrictions/Additional Instructions: Ok to shower. No tub bath. You have joaquin closing your incision and these will be removed approximately 10-14 days after surgery. NO HEAVY LIFTING (>10lbs) or strenuous activity. Coloplast #[id number]; apply to colostomy every 3-4 days and as needed. Wound care: apply 4x4 followed by abdominal dressing to incision while it continues to drain, change every other day. Follow up in office. ([phone]) Call Your Doctor If: -Your temperature exceeds 101.5? F -You experience excessive pain or swelling -You have an unexpected reaction to medication -You have excessive bleeding -You experience continued vomiting/nausea -Your incision begins to separate -Your incision shows signs of infection such as increased worsening redness, swelling Care Plan Goals: Return to baseline health and resume normal activities following recovery period. Health Concerns: diverticulitis with abscess Plan of Treatment: s/p naomy procedure antibiotic course home with VNA services for colostomy and wound care F/u in office in 1 week Assessment: Doing well post op. Discharge Date/Time: 09/06/23 14:27
== END 2023-09-06 14:27 | disposition home health service (06) | DRG 231 ==
LOC: HO.ED 22:16 → HO.EDOVER 22:48 → HO.S3 08-23 07:43
PROVIDERS: Family Medicine; Hospitalist; Nurse Practitioner Family; Physician Assistant Surgical; Admitting Provider Surgery; Emergency Provider Internal Medicine; PCP Internal Medicine; Visit Provider Surgery
PROC: 0D1M0Z4 Bypass Descending Colon to Cutaneous, Open Approach (ICD-10-PCS; CPT 49000; principal; 2023-08-27 12:30)
DX: K57.30 Diverticulosis of large intestine without perforation or abscess without bleeding (principal); I42.0 Dilated cardiomyopathy; G89.18 Other acute postprocedural pain; N82.3 Fistula of vagina to large intestine; E83.119 Hemochromatosis, unspecified; I10 Essential (primary) hypertension; E87.6 Hypokalemia; J45.30 Mild persistent asthma, uncomplicated; Z87.891 Personal history of nicotine dependence; Z79.899 Other long term (current) drug therapy
CPT/HCPCS: 36415; 71045; 74176; 74177; 80048; 80053; 83605; 83735; 84100; 84132; 85025; 85027; 85610; 85730; 86850; 86900; 86901; 87040; 87070; 87205; 88307; 93005; 97116; 97163; 97530; 99285; C1758; J0131; J1100; J1170; J2060; J2250; J2270; J2371; J2405; J2543; J2704; J2795; J3010; J3480; Q9967

== ENCOUNTER → 2023-08-22 22:07 | Outpatient (BNV) | payer OTHER, SELFPAY | PROVIDERS: Admitting Provider Surgery; Emergency Provider Internal Medicine; PCP Internal Medicine; Visit Provider Internal Medicine | DX: I95.9 Hypotension, unspecified (principal) | CPT/HCPCS: 93010 ==

== ENCOUNTER → 2023-08-22 22:36 | Outpatient (BNV) | payer OTHER, SELFPAY | PROVIDERS: Admitting Provider Surgery; Emergency Provider Internal Medicine; PCP Internal Medicine; Visit Provider Hospitalist | DX: K57.20 Diverticulitis of large intestine with perforation and abscess without bleeding (principal); I10 Essential (primary) hypertension | CPT/HCPCS: 99223; 99232 ==

== ENCOUNTER → 2023-08-22 22:36 | Outpatient (BNV) | payer OTHER, SELFPAY | PROVIDERS: Admitting Provider Surgery; Emergency Provider Internal Medicine; PCP Internal Medicine; Visit Provider Surgery | DX: K57.20 Diverticulitis of large intestine with perforation and abscess without bleeding (principal) | CPT/HCPCS: 44143; 99024; 99222; 99232; G0180 ==

== ENCOUNTER 2023-09-17 08:52 | Outpatient (AMB) | payer OTHER, SELFPAY ==
--- NOTE | 2023-09-17 09:02 | MHC.OFFVIS ---
Intake Intake Visit Reasons: F/U inpt. - sigmoid colectomy, colostomy Intake Note: Patient is seen in office for post op assessment post exploratory laparotomy, sigmoid colectomy & repair of colo salpingo fistula. Pt c/o: Op:08/27/23 Allergies ciprofloxacin [Cipro] Allergy (Intermediate, Verified 09/17/23 09:08) hives dog dander [dogs] Allergy (Intermediate, Verified 09/17/23 09:08) Itching environmental Allergy (Intermediate, Uncoded 09/17/23 09:08) Itching HPI HPI Comments History of Present Illness Details 63-year-old female patient returning status post Timoteo procedure for perforated sigmoid diverticulitis with abscess. She is still having some problems with nausea with not much of an appetite. She continues to have discharge from the incision as well at the sites where joaquin were removed. She has not comfortable with changing the appliance just yet. She reports daily bowel movements however. She continues to have VNA change the ostomy. She was encouraged to take part in the ostomy change so she could become more comfortable. [facility] Medical History Upper respiratory tract infection Transaminitis Breast lump Morbid obesity with BMI of 40.0-44.9, adult Obesity (BMI 35.0-39.9 without comorbidity) Sciatica Hypovitaminosis D Ventricular bigeminy COVID-19 vaccine series completed IBS (irritable bowel syndrome) Essential hypertension Mild persistent asthma Diverticulitis Hemochromatosis Family history of liver disease Arthritis Carpal tunnel syndrome, right Pain in right arm Surgical History History of exploratory laparotomy (08/27/23) Hx of foot surgery History of esophagogastroduodenoscopy (EGD) H/O colonoscopy H/O right heart catheterization History of loop electrical excision procedure (LEEP) H/O knee surgery Family History Father Diabetes Heart disease Stroke COPD (chronic obstructive pulmonary disease) High cholesterol Mother Diabetes Alzheimer disease HTN (hypertension) Brother Brain aneurysm Leukemia Sister COPD (chronic obstructive pulmonary disease) Diabetes Brother Heart valve replaced Social History Household Members: Spouse Housing: House Do you presently have visiting nurse or other home services: No Alcohol intake: current Alcohol intake frequency: 0-2 drinks per day Alcohol type: wine Patient Tobacco Use Status: Former Tobacco user Quit Date: 1985 Tobacco use type: Cigarette Cigarette Packs Per Day: 1 e-Cigarette/Vaping Use: Never Used Second Hand Smoke Exposure: No Advance Directives Date on File: 08/22/23 service: No Current occupational status: employed Current occupational exposures/hazards: No Sexual orientation: Straight/Heterosexual Gender identity: Female Cognitive needs: No Hearing needs: No Vision needs: Yes (glasses) Physical Exam Const General: no acute distress Nutritional Appearance: average body habitus Orientation/consciousness: patient oriented x3 Limitations: no limitations Resp Effort & Inspection: normal respiratory effort, no audible wheezes, no cough and no respiratory distress GI Other: Soft, nondistended, midline incision with intact joaquin. Some serous discharge noted from the lower incision and mid incision at the site where joaquin were removed. No evidence of cellulitis or abscess. Joaquin removed and Steri-Strips applied. Dry sterile dressings applied. Ostomy is pink and patent, current ostomy bags clean Skin Other: Warm, dry, no rash Neuro General: patient oriented x3 Extrem General: Yes no clubbing, cyanosis or edema Assessment & Plan Assessment & Plan (1) Diverticulitis of colon with perforation: Code(s): K57.20 - Diverticulitis of large intestine with perforation and abscess without bleeding Plan 63-year-old female patient proximally one-month status post Timoteo procedure for perforated sigmoid diverticulitis. Her wounds are clean and intact. There is some serous discharge from the lower incision. [place] removed and Steri-Strips applied. Patient was encouraged to take part in her ostomy care. She will follow-up in 1 month to make arrangements for closure of the colostomy. Anticipated date of closure approximately 2 more months. Coding Level of Care Code Global (14653) Diagnoses Diverticulitis of colon with perforation K57.20
== END 2023-09-17 09:30 | disposition home or self-care (01) ==
PROVIDERS: PCP Internal Medicine; Visit Provider Surgery
DX: K57.20 Diverticulitis of large intestine with perforation and abscess without bleeding (principal)
CPT/HCPCS: 99024

== ENCOUNTER → 2023-09-17 08:52 | Outpatient (BNVA) | payer OTHER, SELFPAY | PROVIDERS: PCP Internal Medicine; Visit Provider Surgery | DX: K57.20 Diverticulitis of large intestine with perforation and abscess without bleeding (principal) | CPT/HCPCS: 99212 ==

== ENCOUNTER 2023-10-01 14:26 | Outpatient (AMB) | payer OTHER, SELFPAY ==
[2023-10-01 14:32] VITALS: BP 108/52; PULSE 80; BMI 34.6
--- NOTE | 2023-10-01 14:32 | A.OFFVIS_ITS ---
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: No Accompanied by: Self / Same As Patient Allergies ciprofloxacin [Cipro] Allergy (Intermediate, Verified 10/01/23 14:32) hives dog dander [dogs] Allergy (Intermediate, Verified 10/01/23 14:32) Itching environmental Allergy (Intermediate, Uncoded 10/01/23 14:32) Itching Medication List - Last Reconciled 10/01/23 by Berny Macdonald MD albuterol sulfate 90 mcg/actuation (Ventolin HFA) 1 inh inhalation QID PRN 30 days carvedilol 25 mg PO BID colostomy bags As directed hydrochlorothiazide 25 mg PO QAM losartan 25 mg PO DAILY 90 days multivitamin 1 tab PO DAILY omeprazole 20 mg PO DAILY ondansetron HCl 4 mg PO Q8H walker (Ultra-Light Rollator misc) As directed HPI HPI Comments History of Present Illness Details Vielka is here for consultation regarding cardiomyopathy. In the past, has seen [facility] as well as [facility]. She has had cardiomyopathy, LV dysfunction for almost 20 years. Initially diagnosed in 2000. She has been described to have EF in the 25-30% range as well as 35-40% range at different times. There is also mention of apical RV hypokinesis. It seems that she has been offered ICD implantation for primary prevention the past but then declined. Otherwise, for the most part she is doing fine. No clear- cut anginal-type symptoms. With activity, she is again mostly feeling okay but may feel short of breath upon climbing stairs. No heart failure hospitalizations at all. Uncertain etiology for the cardiomyopathy. Otherwise, she also has a history of PVCs with intolerance to amiodarone. It seems that she has had attempted PVC ablation as well many years ago. Etiology for the cardiomyopathy is not clear. There is no malignancy history. She has hemochromatosis. However, a prior cardiac MRI did not show infiltrative disease. REPLACED BY [facility] Medical History (Updated 10/01/23 @ 14:45 by Berny Macdonald MD) PVC (premature ventricular contraction) NICM (nonischemic cardiomyopathy) Upper respiratory tract infection Transaminitis Breast lump Morbid obesity with BMI of 40.0-44.9, adult Obesity (BMI 35.0-39.9 without comorbidity) Sciatica Hypovitaminosis D Ventricular bigeminy COVID-19 vaccine series completed IBS (irritable bowel syndrome) Essential hypertension Mild persistent asthma Diverticulitis Hemochromatosis Family history of liver disease Arthritis Carpal tunnel syndrome, right Pain in right arm Surgical History History of exploratory laparotomy (08/27/23) Hx of foot surgery History of esophagogastroduodenoscopy (EGD) H/O colonoscopy H/O right heart catheterization History of loop electrical excision procedure (LEEP) H/O knee surgery Family History Father Diabetes Heart disease Stroke COPD (chronic obstructive pulmonary disease) High cholesterol Mother Diabetes Alzheimer disease HTN (hypertension) Brother Brain aneurysm Leukemia Sister COPD (chronic obstructive pulmonary disease) Diabetes Brother Heart valve replaced Social History Household Members: Spouse Housing: House Do you presently have visiting nurse or other home services: No Alcohol intake: current Alcohol intake frequency: 0-2 drinks per day Alcohol type: wine Patient Tobacco Use Status: Former Tobacco user Quit Date: 1985 Tobacco use type: Cigarette Cigarette Packs Per Day: 1 e-Cigarette/Vaping Use: Never Used Second Hand Smoke Exposure: No Advance Directives Date on File: 08/22/23 service: No Current occupational status: employed Current occupational exposures/hazards: No Sexual orientation: Straight/Heterosexual Gender identity: Female Cognitive needs: No Hearing needs: No Vision needs: Yes (glasses) Review of Systems Const Denies chills, Denies daytime sleepiness, Denies fatigue, Denies fever(s), Denies frequent falls, Denies night sweats, Denies snoring, Denies weakness, Denies weight gain and Denies weight loss Eyes Denies loss of vision ENT Denies dizziness and Denies hearing loss Card Denies chest pain, Denies chest pain with activity, Denies syncope, Denies rapid heart rate, Denies edema, Denies claudication, Denies leg edema, Denies lightheadedness, Denies palpitations, Denies dyspnea, Denies dyspnea on exertion and Denies orthopnea Resp Denies cough, Denies excessive phlegm production, Denies dyspnea, Denies dyspnea on exertion, Denies snoring and Denies wheezing GI Denies abdominal pain, Denies hematochezia, Denies change in bowel habits, Denies change in stool character, Denies heartburn, Denies nausea and Denies vomiting Denies hematuria, Denies urinary frequency and Denies dysuria Musc Denies arthralgias, Denies muscle weakness, Denies numbness and Denies tingling Skin/Breast Denies nail changes and Denies rash Neuro Denies Abnormal speech present, Denies dizziness, Denies syncope, Denies frequent falls, Denies loss of vision, Denies memory loss, Denies numbness, Denies tingling and Denies weakness Psych Denies depression and Denies memory loss Endo Denies fatigue and Denies palpitations Aller/Immun Denies wheezing Physical Exam Vital Signs: Last Vital Signs Pulse 80 10/01/23 14:32 BP 108/52 L 10/01/23 14:32 BMI result Body Mass Index 34.6 Const General: comfortable and no acute distress Orientation/consciousness: patient oriented x3 HEENT Other: Unremarkable Head: Yes normal to inspection Neck Neck: Yes normal visual inspection Chest Chest palpation & inspection: normal inspection of the chest Resp Auscultation: clear to auscultation bilaterally Cardio Palpation: normal PMI Heart sounds: S1 normal heart sound present, S2 normal heart sound present, no gallops, no murmurs and no rubs GI Palpation (GI): Soft to palpation Back/Spine/Pelvis Other: unremarkable Skin General skin exam: no rashes or lesions noted Neuro General: patient oriented x3 Speech: No Abnormal speech present Extrem General: Yes normal to inspection Psych Mental Status: mental status grossly normal Assessment & Plan Assessment & Plan (1) NICM (nonischemic cardiomyopathy): Code(s): I42.8 - Other cardiomyopathies Plan: LVEF at various times have been 25-30%, 30-40%, 35-40% extra at different times. There is also mention of apical RV hypokinesis. We will repeat echocardiogram as it has been several years. It seems that she has had a stress test, again many years ago but unknown results. Not known to have coronary disease. At some point, consider coronary CTA or repeat stress testing. Clinically, no heart failure symptoms or signs. Continue current dose of carvedilol/losartan. Entresto was apparently very expensive. (2) PVC (premature ventricular contraction): Code(s): I49.3 - Ventricular premature depolarization Plan: History of attempted PVC ablation many years ago. This is a question of epicardial origin. We can recheck PVC burden. In the past, there is also amiodarone intolerance. Orders: Orders CA echo transthoracic complete Today I42.8 - Other cardiomyopathies ECG 3 day holter monitor Today I49.3 - Ventricular premature depolarization Coding Level of Care Code New Pt Level 4 (31919) Diagnoses NICM (nonischemic cardiomyopathy) I42.8 PVC (premature ventricular contraction) I49.3
== END 2023-10-01 14:50 | disposition home or self-care (01) ==
PROVIDERS: PCP Internal Medicine; Visit Provider Internal Medicine
DX: I42.8 Other cardiomyopathies (principal); I49.3 Ventricular premature depolarization
CPT/HCPCS: 99214

== ENCOUNTER → 2023-10-01 14:26 | Outpatient (BNVA) | payer OTHER, SELFPAY | PROVIDERS: PCP Internal Medicine; Visit Provider Internal Medicine | DX: I49.3 Ventricular premature depolarization (principal); I42.8 Other cardiomyopathies | CPT/HCPCS: 99212 ==

== ENCOUNTER 2023-10-09 15:03 | Outpatient (REF) | payer OTHER, SELFPAY | END 2023-10-09 15:04 | disposition home or self-care (01) | LOC: HO.BBR 15:03 | PROVIDERS: PCP Internal Medicine; Visit Provider Internal Medicine | DX: Z13.89 Encounter for screening for other disorder (principal) ==

== ENCOUNTER 2023-10-15 10:05 | Outpatient (AMB) | payer OTHER, SELFPAY ==
--- NOTE | 2023-10-15 10:08 | A.OFFVIS_ITS ---
Intake Vital Signs 10/15/23 10:14 Height 5 ft 1 in Weight 184 lb 6 oz BMI 34.8 BP 110/63 Blood Pressure Location Lt brachial Position Sitting Pulse 70 Intake Visit Reasons: one month sigmoid colectomy, colostomy Intake Note: Patient is seen in office for one month follow up visit, post sigmoid colectomy. 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 Accompanied by: Self / Same As Patient Allergies ciprofloxacin [Cipro] Allergy (Intermediate, Verified 10/15/23 10:14) hives dog dander [dogs] Allergy (Intermediate, Verified 10/15/23 10:14) Itching environmental Allergy (Intermediate, Uncoded 10/15/23 10:14) Itching Medication List - Last Reconciled 10/15/23 by Clayton Avery MD albuterol sulfate 90 mcg/actuation (Ventolin HFA) 1 inh inhalation QID PRN 30 days bisacodyl (Dulcolax (bisacodyl)) 10 mg (2 x 5 mg) PO BEDTIME 2 days carvedilol 25 mg PO BID colostomy bags As directed erythromycin 1 g (2 x 500 mg) PO TID hydrochlorothiazide 25 mg PO QAM losartan 25 mg PO DAILY 90 days multivitamin 1 tab PO DAILY neomycin 1 g (2 x 500 mg) PO TID 3 doses omeprazole 20 mg PO DAILY ondansetron HCl 4 mg PO Q8H walker (Ultra-Light Rollator misc) As directed HPI HPI Comments History of Present Illness Details 63-year-old female patient returning sta tus post Timoteo procedure for perforated sigmoid diverticulitis with abscess. She feels much improved with improved appetite and no abdominal symptoms at this time. She has been managing her ostomy independently and feels much more comfortable changing the ostomy bag. She denies fever, chills, nausea, or vomiting. She is anxious to proceed to closure of the colostomy. [facility] Medical History PVC (premature ventricular contraction) NICM (nonischemic cardiomyopathy) Upper respiratory tract infection Transaminitis Breast lump Morbid obesity with BMI of 40.0-44.9, adult Obesity (BMI 35.0-39.9 without comorbidity) Sciatica Hypovitaminosis D Ventricular bigeminy COVID-19 vaccine series completed IBS (irritable bowel syndrome) Essential hypertension Mild persistent asthma Diverticulitis Hemochromatosis Family history of liver disease Arthritis Carpal tunnel syndrome, right Pain in right arm Surgical History History of exploratory laparotomy (08/27/23) Hx of foot surgery History of esophagogastroduodenoscopy (EGD) H/O colonoscopy H/O right heart catheterization History of loop electrical excision procedure (LEEP) H/O knee surgery Family History Father Diabetes Heart disease Stroke COPD (chronic obstructive pulmonary disease) High cholesterol Mother Diabetes Alzheimer disease HTN (hypertension) Brother Brain aneurysm Leukemia Sister COPD (chronic obstructive pulmonary disease) Diabetes Brother Heart valve replaced Social History Household Members: Spouse Housing: House Do you presently have visiting nurse or other home services: No Alcohol intake: current Alcohol intake frequency: 0-2 drinks per day Alcohol type: wine Patient Tobacco Use Status: Former Tobacco user Quit Date: 1985 Tobacco use type: Cigarette Cigarette Packs Per Day: 1 e-Cigarette/Vaping Use: Never Used Second Hand Smoke Exposure: No Advance Directives Date on File: 08/22/23 service: No Current occupational status: employed Current occupational exposures/hazards: No Sexual orientation: Straight/Heterosexual Gender identity: Female Cognitive needs: No Hearing needs: No Vision needs: Yes (glasses) Review of Systems Const All systems reviewed & are unremarkable except as noted in HPI and below Physical Exam Vital Signs: Last Vital Signs Pulse 70 10/15/23 10:14 BP 110/63 10/15/23 10:14 BMI result Body Mass Index 34.8 Const General: no acute distress Nutritional Appearance: average body habitus Orientation/consciousness: patient oriented x3 Limitations: no limitations Resp Effort & Inspection: normal respiratory effort, no audible wheezes, no cough and no respiratory distress GI Other: Soft, nondistended, nontender with healing incision in the midline. Ostomy is pink and patent with nonbloody stool. Small dressing noted on the lower portion of the incision which is dry. Skin Other: Warm, dry, no rash Neuro General: patient oriented x3 Extrem General: Yes no clubbing, cyanosis or edema Assessment & Plan Assessment & Plan (1) Diverticulitis of colon with perforation: Code(s): K57.20 - Diverticulitis of large intestine with perforation and abscess without bleeding Plan 63-year-old female patient status post Timoteo procedure for perforated sigmoid diverticulitis with abscess now returning for discussion regarding closure of colostomy. She generally feels well and denies any fever, chills, nausea or vomiting. We discussed the procedure, risks and alternatives regarding closure of the colostomy. She gives her consent for closure of colostomy. This will be performed as a short-stay admit. Antibiotics and bowel prep had been ordered. Medications: New erythromycin administer at 1 PM, 2 PM, and 11 PM the day prior to surgery 1 g (2 x 500 mg) PO TID 6 tabs 0RF neomycin administer at 1 PM, 2 PM, and 11 PM the day prior to surgery 1 g (2 x 500 mg) PO TID 6 tabs 0RF bisacodyl (Dulcolax (bisacodyl)) Clear liquids day prior to surgery. Take 2 tablets before bedtime day prior to surgery. 10 mg (2 x 5 mg) PO BEDTIME 2 days 4 tabs 0RF Coding Level of Care Code Global (77784) Diagnoses Diverticulitis of colon with perforation K57.20
[2023-10-15 10:14] VITALS: BP 110/63; PULSE 70; BMI 34.8
== END 2023-10-15 10:25 | disposition home or self-care (01) ==
PROVIDERS: PCP Internal Medicine; Visit Provider Surgery
DX: K57.20 Diverticulitis of large intestine with perforation and abscess without bleeding (principal)
CPT/HCPCS: 99024

== ENCOUNTER → 2023-10-15 10:05 | Outpatient (BNVA) | payer OTHER, SELFPAY | PROVIDERS: PCP Internal Medicine; Visit Provider Surgery | DX: K57.20 Diverticulitis of large intestine with perforation and abscess without bleeding (principal) | CPT/HCPCS: 99212 ==

== ENCOUNTER → 2023-11-26 10:19 | Outpatient (REF) | payer OTHER, SELFPAY ==
--- NOTE | 2023-11-26 10:22 | CA_ITS ---
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 [id number] LV systolic dysfunction with LVEF of 40-45% with grade 1 diastolic dysfunction 2. Normal cardiac valvular Doppler 3. Normal RV systolic pressure 4. Trivial pericardial effusion Findings Left Ventricle Normal left ventricular cavity size. There is normal left ventricular wall thickness. The left ventricular systolic function is mild to moderately decreased. The visually estimated ejection fraction is between 40-45%. There is moderate global hypokinesis. Spectral Doppler is indicative of an impaired relaxation filling pattern. E/E prime ratio is <8, consistent with normal filling pressures. Evidence suggests grade I (mild) diastolic dysfunction. Right Ventricle Normal right ventricular cavity size. There is normal right ventricular systolic function. Atria The left atrium is likely dilated. Interatrial shunt cannot be excluded. The right atrium was not well visualized. Aortic Valve Normal aortic valve structure and function. There is no aortic valve stenosis. There is no aortic valve regurgitation. Mitral Valve Normal mitral valve structure and function. There is trace mitral valve regurgitation. There is no mitral valve stenosis. Pulmonic Valve The pulmonic valve was not well visualized. Tricuspid Valve Likely normal tricuspid valve structure and function. There is trace tricuspid valve regurgitation. The right ventricular systolic pressure is normal. The right ventricular systolic pressure is 23 mmHg. Normal right atrial pressure. There is no evidence of pulmonary hypertension. Great Vessels The aorta was not well visualized. The pulmonary artery was not well visualized. There is mild dilatation of the ascending aorta measuring 3.80 cm. Venous The inferior vena cava is normal in size and collapses greater than 50% with inspiration. Pericardium/Pleural There is a trivial pericardial effusion. Prior Study Comparison No prior study available for comparison. Measurements 2D Linear Measurements IVSd: 1.16 0.6-0.9/0.6-1.0 cm LVIDd: 4.78 3.9-5.3/4.2-5.9 cm LVIDd Index: 2.61 2.4-3.2/2.2-3.1 cm/m2 LVIDs: 3.14 2.0-3.6 cm LVPWd: 1.09 0.7-1.1 cm Ao Root: 3.60 2.1-3.5 cm LA Diam: 3.90 2.7-3.8/3.0-4.0 cm LAIDs Index: 2.13 1.5-2.3 cm/m2 LV Mass: 247.74 67-162/88-224 g LV Mass Index: 135.38 43-95/49-115 g/m2 LVOT Diam: 2.20 3.0+(-)1.3 cm 2D Systolic Function EF 4C: 38.60 >55% EF 2C: 43.80 >55% EF BiP: 40.60 >55% Mitral Valve MV Pk E: 0.54 MV PK A: 0.63 MV Decel Time: 245.00 E/A: 0.90 E'Lateral: 10.10 E'Medial: 6.31 E/E' Med: 8.60 E/E' Lat: 5.30 PHT: 72.00 MVA PHT: 3.06 Decel [place]: 2.20 Aortic Valve AoV Pk Zoran: 1.08 AoV Mn Zoran: 0.64 AoV VTI: 0.25 AoV Pk Grad: 5.00 Aov Mn Grad: 2.00 JOSELUIS Cont.VTI: 2.99 LVOT LVOT Pk Zoran: 0.77 LVOT Mn Zoran: 0.45 LVOT VTI: 0.19 LVOT Pk Grad: 2.00 LVOT Mn Grad: 1.00 LVOT Diam: 2.20 LVOT Area: 3.80 Diastolic Function MV Pk E: 0.54 MV Pk A: 0.63 E/A: 0.90 E'Medial: 6.31 E/E' Med: 8.60 E' Laterial: 10.10 E/E' Lat: 5.30 Right Ventricle TAPSE (mm): 29.00 TVS' Zoran: 16.00 Tricuspid Valve TR Pk Zoran: 2.25 TR Pk Grad: 20.00 RA Press: 3.00 RVSP: 23.00 Great Vessels Aorta Ao Root-2D: 3.60 2.0-3.7 cm Ao Asc: 3.80 2.1-3.4 cm Pulmonary Valve PV Pk Zoran: 0.73 Peak PV Grad: 2.00 Updated in Other Vendor System with Status of Final Johnson Hsu MD electronically signed on 11/27/2023 11:05:10 AM with status of Final
[2023-11-26 12:52] LABS: Alanine Aminotransferase 21 U/L (0-31); Albumin Level 4.1 g/dL (3.5-5.0); Alkaline Phosphatase 90 U/L (39-117); Aspartate Amino Transferase 26 U/L (5-31); Bilirubin Direct 0.3 mg/dL (0.0-0.5); Total Protein 7.2 g/dL (6.5-8.0)
== END ==
LOC: HO.CARD 10:19
PROVIDERS: Internal Medicine; Visit Provider Internal Medicine
DX: I42.8 Other cardiomyopathies (principal)
CPT/HCPCS: 36415; 80076; 93306; Q9957

== ENCOUNTER → 2023-11-26 10:22 | Outpatient (BNV) | payer OTHER, SELFPAY | PROVIDERS: Visit Provider Internal Medicine Cardiovascular Disease | DX: I42.8 Other cardiomyopathies (principal); R93.1 Abnormal findings on diagnostic imaging of heart and coronary circulation | CPT/HCPCS: 93306 ==

== ENCOUNTER 2023-12-02 05:48 | Inpatient (IN) | payer OTHER, SELFPAY ==
[2023-11-25 12:22] VITALS: BP 111/62; PULSE 78; RESP 20; O2SAT 97; BMI 36.8
[2023-12-02] VITALS (18 sets, daily range): BP systolic 98–136; BP diastolic 52–79; PULSE 60–77; RESP 14–19; TEMP 36.2–36.8; O2SAT 94–99; BMI 35.0
[2023-12-02] MEDS: Lactated Ringers 1,000 ML 100 ML IVCONT (06:18)
--- NOTE | 2023-12-02 07:10 | HO.ANESPROP2 ---
Documented by User: Lupe Osborne NP 11/27/23 15:22 HPI - Anesthesia Eval Consult details Narrative: 63yo F for Colostomy Closure, 12/02/23 s/p ex lap 08/2023 with GA-ETT 7, bilat TAP block No recent illness No CP/SOB with housework Cardiac cleared reduced heart function, similiar to before NICM - EF 40-45% Asthma. Controlled. Rare albuterol PMFSH Active Problems Active Problems: All Active Problems Diverticulitis of colon with perforation (Acute) Vertigo (Acute) Pure hypercholesterolemia (Acute) Hereditary hemochromatosis (Acute) Iron overload (Chronic) PVC (premature ventricular contraction) (Acute) NICM (nonischemic cardiomyopathy) (Acute) Sciatica (Acute) Ventricular bigeminy (Acute) Hypovitaminosis D (Acute) Essential hypertension (Acute) Mild persistent asthma (Acute) Diverticulitis (Acute) Hemochromatosis (Acute) Family history of liver disease (Acute) Arthritis (Acute) Carpal tunnel syndrome, right (Acute) Pain in right arm (Acute) Past Medical History Medical History PVC (premature ventricular contraction) NICM (nonischemic cardiomyopathy) Upper respiratory tract infection Transaminitis Sciatica Morbid obesity with BMI of 40.0-44.9, adult Hypovitaminosis D Ventricular bigeminy IBS (irritable bowel syndrome) Essential hypertension Obesity (BMI 35.0-39.9 without comorbidity) Mild persistent asthma Diverticulitis Hemochromatosis Family history of liver disease Arthritis Carpal tunnel syndrome, right Pain in right arm Family History Family History Father Diabetes Heart disease Stroke COPD (chronic obstructive pulmonary disease) High cholesterol Mother Diabetes Alzheimer disease HTN (hypertension) Brother Brain aneurysm Leukemia Sister COPD (chronic obstructive pulmonary disease) Diabetes Brother Heart valve replaced Family history of problems with anesthesia: No Surgical History Surgical History History of exploratory laparotomy (08/27/23) Hx of foot surgery History of esophagogastroduodenoscopy (EGD) H/O colonoscopy H/O right heart catheterization History of loop electrical excision procedure (LEEP) H/O knee surgery History of Problems with Anesthesia: No Social History Social History Household Members: Spouse Housing: House Are you a primary palliative care specialist to a significant other at home: No Do you presently have visiting nurse or other home services: No Alcohol intake: current Alcohol intake frequency: 0-2 drinks per day Alcohol type: wine Patient Tobacco Use Status: Former Tobacco user Quit Date: 1985 Tobacco use type: Cigarette Cigarette Packs Per Day: 1 Years Smoked: 7 e-Cigarette/Vaping Use: Never Used Second Hand Smoke Exposure: No Use of substances other than those prescribed or required for medical reasons: No Have you been hit, kicked, punched, or otherwise hurt by someone within the past year? If so, by whom?: No Are you DNR?: No Advance Directives: Yes ( & daughter) Advance Directives Information Provided: Yes Advance Directives on File: Yes Advance Directives Date on File: 08/22/23 Recently lost weight without trying: No Eating poorly because of decreased appetite: No Nutrition Risks: No Nutritional Risk Poor oral hygiene: No (upper full & lower partial dentures) service: No Current occupational status: employed Current occupational exposures/hazards: No Sexual orientation: Straight/Heterosexual Gender identity: Female Cognitive needs: No Hearing needs: No Vision needs: Yes (glasses) Meds Allergies Allergy/AdvReac Type Severity Reaction Status Date / Time ciprofloxacin [Cipro] Allergy Intermediate hives Verified 12/02/23 06:34 dog dander [dogs] Allergy Intermediate Itching Verified 12/02/23 06:34 environmental allergies Allergy Intermediate Itching Verified 12/02/23 06:34 Home Medications ?Medication ?Instructions ?Recorded ?Confirmed ?Last Taken ?Type carvedilol 25 mg tablet 25 mg PO BID 08/01/20 12/02/23 12/02/23 History multivitamin 1 tab PO QAM 09/28/20 12/02/23 11/30/23 History losartan 25 mg tablet 25 mg PO QAM 11/25/23 12/02/23 11/30/23 History Exam Height,Weight and Vital Signs: Height 5 ft 1 in Weight 88.451 kg Last Vital Signs Pulse 78 11/25/23 12:22 Resp 20 11/25/23 12:22 BP 111/62 11/25/23 12:22 Pulse Ox 97 11/25/23 12:22 O2 Del Method Room Air 11/25/23 12:22 Pertinent Lab Results Pertinent Lab Results: Laboratory Tests 08/31/23 05:44 WBC 10.8 Hgb 10.4 L Hct 31.9 L Plt Count 394 Sodium 139 Potassium 3.5 Chloride 105 Carbon Dioxide 22 BUN 9 Creatinine 0.59 Narrative Narrative: EKG 2023 Vent. Rate : 063 BPM Atrial Rate : 063 BPM P-R Int : 180 ms QRS Dur : 100 ms QT Int : 452 ms P-R-T Axes : 056 -26 -15 degrees QTc Int : 462 ms Normal sinus rhythm T wave abnormality, consider anterior ischemia - there is also artifact in V3 Abnormal ECG When compared with ECG of 17-AUG-2023 13:19, No significant change was found ECHO 2023 Conclusions: - 1. [id number]-[id number] LV systolic dysfunction with LVEF of 40-45% with grade 1 diastolic dysfunction 2. Normal cardiac valvular Doppler 3. Normal RV systolic pressure 4. Trivial pericardial effusion Airway Mallampati Class: IV TM Dist: >3cm Neck ROM: Full Denture: Upper and Lower Heart: RRR Lungs: CTAB Assessment and Plan Assessment Anesthesia Assessment: Anesthesia Plan Discussed and PAT Visit Final Anesthetic Review Family History of Problems with Anesthesia: No History of Problems with Anesthesia: No Documented by User: Ana Lord DO 12/02/23 08:29 [facility] Past Medical History Medical History PVC (premature ventricular contraction) NICM (nonischemic cardiomyopathy) Upper respiratory tract infection Transaminitis Sciatica Morbid obesity with BMI of 40.0-44.9, adult Hypovitaminosis D Ventricular bigeminy IBS (irritable bowel syndrome) Essential hypertension Obesity (BMI 35.0-39.9 without comorbidity) Mild persistent asthma Diverticulitis Hemochromatosis Family history of liver disease Arthritis Carpal tunnel syndrome, right Pain in right arm Family History Family History Father Diabetes Heart disease Stroke COPD (chronic obstructive pulmonary disease) High cholesterol Mother Diabetes Alzheimer disease HTN (hypertension) Brother Brain aneurysm Leukemia Sister COPD (chronic obstructive pulmonary disease) Diabetes Brother Heart valve replaced Family history of problems with anesthesia: No Surgical History Surgical History History of exploratory laparotomy (08/27/23) Hx of foot surgery History of esophagogastroduodenoscopy (EGD) H/O colonoscopy H/O right heart catheterization History of loop electrical excision procedure (LEEP) H/O knee surgery History of Problems with Anesthesia: No Social History Social History Household Members: Spouse Housing: House Are you a primary palliative care specialist to a significant other at home: No Do you presently have visiting nurse or other home services: No Alcohol intake: current Alcohol intake frequency: 0-2 drinks per day Alcohol type: wine Patient Tobacco Use Status: Former Tobacco user Quit Date: 1985 Tobacco use type: Cigarette Cigarette Packs Per Day: 1 Years Smoked: 7 e-Cigarette/Vaping Use: Never Used Second Hand Smoke Exposure: No Use of substances other than those prescribed or required for medical reasons: No Have you been hit, kicked, punched, or otherwise hurt by someone within the past year? If so, by whom?: No Are you DNR?: No Advance Directives: Yes ( & daughter) Advance Directives Information Provided: Yes Advance Directives on File: Yes Advance Directives Date on File: 08/22/23 Recently lost weight without trying: No Eating poorly because of decreased appetite: No Nutrition Risks: No Nutritional Risk Poor oral hygiene: No (upper full & lower partial dentures) service: No Current occupational status: employed Current occupational exposures/hazards: No Sexual orientation: Straight/Heterosexual Gender identity: Female Cognitive needs: No Hearing needs: No Vision needs: Yes (glasses) Meds Allergies Allergy/AdvReac Type Severity Reaction Status Date / Time ciprofloxacin [Cipro] Allergy Intermediate hives Verified 12/02/23 06:34 dog dander [dogs] Allergy Intermediate Itching Verified 12/02/23 06:34 environmental allergies Allergy Intermediate Itching Verified 12/02/23 06:34 Home Medications ?Medication ?Instructions ?Recorded ?Confirmed ?Last Taken ?Type carvedilol 25 mg tablet 25 mg PO BID 08/01/20 12/02/23 12/02/23 History multivitamin 1 tab PO QAM 09/28/20 12/02/23 11/30/23 History losartan 25 mg tablet 25 mg PO QAM 11/25/23 12/02/23 11/30/23 History Exam Exam Date and Time: December 02, 2023 0710 Height,Weight and Vital Signs: Height 5 ft 1 in Weight 88.451 kg Last Vital Signs Pulse 78 11/25/23 12:22 Resp 20 11/25/23 12:22 BP 111/62 11/25/23 12:22 Pulse Ox 97 11/25/23 12:22 O2 Del Method Room Air 11/25/23 12:22 Height 5 ft 1 in Weight 83.915 kg Vital Signs Pulse Rate 78 11/25/23 12:22 Respiratory Rate 20 11/25/23 12:22 Blood Pressure 111/62 11/25/23 12:22 Pulse Oximetry 97 11/25/23 12:22 Oxygen Delivery Method Room Air 11/25/23 12:22 Temperature 97.4 F 12/02/23 06:16 Pulse Rate 77 12/02/23 06:16 Respiratory Rate 16 12/02/23 06:16 Blood Pressure 98/65 12/02/23 06:16 Pulse Oximetry 94 12/02/23 06:16 Oxygen Delivery Method Room Air 12/02/23 06:16 Airway Mallampati Class: III TM Dist: >3cm Neck ROM: Full Denture: Upper and Lower Heart: S1S2 Assessment and Plan Assessment Anesthesia Assessment: Anesthesia Plan Discussed and Chart Reviewed Final Anesthetic Review Family History of Problems with Anesthesia: No History of Problems with Anesthesia: No NPO: Yes ASA Class: III Final Preanesthetic Review: No Changes in Pt Med Stat, Meds/Allgs Chart Reviewed, Consent Obtained/Reviewed and Anes Risks/Benef Reviewed Patient Risk: Intermediate Procedure Risk: Intermediate Anesthetic Plan Anesthetic Plan: GA, Regional Block (possible bilateral transversus abdominis plane block) and Agree w/ Assess. and Plan Disposition: Standard PACU
--- NOTE | 2023-12-02 07:24 | MHC.SHP ---
Pre-Procedural Eval Section A - 24 Hr Update-Section A only Date of Service: 12/02/23 The patient is an INPATIENT: No Changes since office visit: Yes Patient answered all questions; No Cold of Flu in the past 2 weeks, No New Medical Problems and No Changes in Medication The patient has been examined within 24 hours of the surgical procedure. The History & Physical has been completed within 30 days and I have reviewed it.: Yes Section B - Complete if H&P > 30 days Chief Complaint: closure of colostomy Details of Present Illness: No change in symptoms since last visit. Feels well. Reports nausea and vomiting this morning after meds Relevant Family History (Specify if Yes): No Relevant Social History: None Present Medications: see Short Stay Collaborative assessment Medical History: Significant History (NICM, Asthma, PVC. hmochromatosis) History of Previous Operations: Relevant previous surgery/procedure and date(s) (Wade's procedure) Allergies: Allergies Allergy/AdvReac Type Severity Reaction Status Date / Time ciprofloxacin [Cipro] Allergy Intermediate hives Verified 12/02/23 06:34 dog dander [dogs] Allergy Intermediate Itching Verified 12/02/23 06:34 environmental allergies Allergy Intermediate Itching Verified 12/02/23 06:34 Review of Systems Sugical H&P ROS: Negative: Constitution, Cardiovascular, Respiratory, Neurological, Psychiatric, Hem-Onc, Allergic/Immunologic, Gastrointestinal, Genitourinary, Musculoskeletal, Integumentary, Endocrine and Eyes/Ears/Nose/Throat Exam Surgical H&P Exam: Normal: HEENT, Normal: Heart, Normal: Lungs, Normal: Extremities, Normal: Abdomen, Normal: Skin and Normal: Neurological Plan Diagnosis/Plan: Unchanged I have reviewed the history and physical and performed a pertinent physical examination on my patient. No changes have occurred unless specified. Time Spent With Patient Time: Total time managing care of this patient today ____ minutes.
--- NOTE | 2023-12-02 10:24 | W.PM.OPN ---
Operative Note Operative Note Date of Service: 12/02/23 Narrative: Preoperative diagnosis: Perforated diverticulitis, status post Timoteo procedure Postoperative diagnosis: Same Procedure: Closure of colostomy Surgeon: Clayton Avery MD Tool Planner: Gauri Cisse PA-C Anesthesia: General endotracheal, renay block Indications for procedure: 63-year-old female patient presenting with a previous history of perforated sigmoid diverticulitis status post Timoteo procedure in August 2023. She feels well and presents now for closure of colostomy. Colostomy is located in the left lower quadrant is functioning properly. Operative findings: Moderate adhesions to anterior abdominal wall and pelvis from prior perforated diverticulitis, peritonitis. Specimen: Rectal stump Estimated blood loss: 20 mL Complications: None Procedure details: Patient was brought to the OR and placed in a supine position. After administering general anesthesia the patient was placed in a lithotomy position. Masters catheter was inserted and connected to the urometer. Surgical time-out was called the consent confirmed. She received preoperative antibiotics and Venodyne boots were in place. The colostomy was previously closed using a nylon suture to approximate the skin in the left lower quadrant. An elliptical incision was then created around the ostomy site oriented transversely. This was carried out through subcutaneous tissue down to the fascial defect. This was then further mobilized into the abdomen. At this point the lower midline incision was reopened using a 15 blade. Previous scar was excised. Incision was carried down past linea alba into the peritoneum. Adhesions were taken down and an extensive lysis of adhesions performed. The colostomy was then brought up through the midline incision. The patient was then placed in a Trendelenburg position. Rectal stump was identified and dissected circumferentially down along the pelvic hollows. Approximally 2 cm of the rectal stump was further mobilized the mesentery divided. A TA 60 stapler was then used to divide the rectal stump. The resected stump was sent to pathology for further examination. Attention was then directed to the colostomy which was divided using a EEA pursestring. The bowel was then opened and dilated using EEA sizers. It was dilated to a 28 mm size. At this point a 29 mm EEA stapler was obtained. The dilators were used to dilate the rectum. The stapler was then advanced through the rectum and out the rectal stump. The anvil was secured in the descending colon and the pursestring tied. This was then connected to the EEA stapler and fired. The anastomosis was then reinforced using 3-0 Surgilon sutures in a Lembert fashion. Stapler was then removed and the anastomosis checked for leak by instilling air into the rectum. The abdomen was filled with saline and no leak could be identified. The bowel anastomosis was found to be relax with good blood flow. Abdomen was then thoroughly irrigated with saline solution and suctioned dry. Wounds were checked for hemostasis. Peritoneum and posterior sheath was closed in the colostomy incision using a running 0 Polysorb suture. Anterior rectus sheath was then closed using a running 0 Polysorb suture. Attention was then directed to the midline incision which was closed using a running 0 PDS looped suture. Dermis and subcutaneous tissue was closed in both incisions using interrupted 3-0 Polysorb sutures. Skin was then closed using skin joaquin. The patient tolerated the procedure well. Sponge, instrument, and needle counts reported as correct. The patient was transferred to PACU in stable condition.
--- NOTE | 2023-12-02 11:28 | PHA.MEDREC ---
Pharmacy Consult ? Medication Reconciliation Pharmacy has completed the medication reconciliation. Review med rec done by nurse.
[2023-12-02 13:38] LABS: Creatinine Clr Calc Pharmacy 58.1; Estimated Glomerular Filt Rate 59
[2023-12-02] MEDS: Acetaminophen 1,000 MG/100 ML PIGGYBACK 400 MG IV ×2 (14:19→19:53)
[2023-12-02] MEDS: HYDROmorphone HCl 0.5 MG/0.5 ML SYRINGE IVPUSH ×3 (14:20→23:06)
[2023-12-02] MEDS: Dextrose 5 % and Lactated Ring 1,000 ML 125 ML IVCONT ×2 (14:21→21:32)
--- NOTE | 2023-12-02 18:15 | PC.NURSE ---
Pt doing well, no resp distress, able to make needs known. Dressing CDI
[2023-12-02] MEDS: carvediloL 25 MG TABLET PO (19:53)
[2023-12-03] MEDS: Acetaminophen 1,000 MG/100 ML PIGGYBACK 400 MG IV ×3 (02:34→19:48)
[2023-12-03 03:36] VITALS: BP 100/58; PULSE 54; RESP 16; TEMP 36.6; O2SAT 95
[2023-12-03] MEDS: HYDROmorphone HCl 0.5 MG/0.5 ML SYRINGE IVPUSH ×6 (03:47→23:15)
[2023-12-03] MEDS: Dextrose 5 % and Lactated Ring 1,000 ML 125 ML IVCONT ×3 (05:14→21:06)
[2023-12-03 06:22] LABS: MANUAL DIFF FLAG NO
[2023-12-03 06:26] LABS: Basophils Percent Auto 0.2 % (0-2); Hematocrit 35.4 % (37.0-47.0); Hemoglobin 11.7 g/dl (12.0-16.0); Imm Gran Abs Auto 0.04 X10*3/uL (0.00-0.03); Imm Gran Pct Auto 0.4 % (0.0-0.4); Lymphocytes Absolute Auto 1.2 X10*3/uL (1.2-4.9); Lymphocytes Percent Auto 12.6 % (20-40); Mean Corpuscular HGB Conc 33.1 g/dl (31.0-35.0); Mean Corpuscular Hemoglobin 29.9 pg (27.0-33.0); Mean Corpuscular Volume 90.5 fL (80.0-98.0); Mean Platelet Volume 10.6 fL (9.4-12.3); Monocytes Absolute Auto 1.1 X10*3/uL (0.1-1.2); Monocytes Percent Auto 11.5 % (2-11); Neutrophils Absolute Auto 7.1 x10*3/uL (2.0-8.3); Neutrophils Percent Auto 75.3 % (45-73); Platelet Count 200 X10*3/uL (160-400); Red Blood Count 3.91 X10*6/uL (4.20-5.50); Red Cell Distribution Width 16.3 % (11.0-16.0); White Blood Count 9.4 X10*3/uL (4.8-10.8)
[2023-12-03 06:54] LABS: Alanine Aminotransferase 27 U/L (0-31); Albumin Level 3.5 g/dL (3.5-5.0); Alkaline Phosphatase 65 U/L (39-117); Anion Gap 15 (12-20); Aspartate Amino Transferase 28 U/L (5-31); Bilirubin Total 0.7 mg/dL (0.0-1.0); Blood Urea Nitrogen 8 mg/dL (9-16); Calcium 9.1 mg/dL (8.4-10.2); Carbon Dioxide 23 mmol/L (22-29); Chloride 106 mmol/L (96-108); Creatinine Clr Calc Pharmacy 77.5; Estimated Glomerular Filt Rate > 60; Glucose Random 125 mg/dL (60-115); Potassium 3.6 mmol/L (3.3-5.1); Sodium 140 mmol/L (135-145); Total Protein 6.3 g/dL (6.5-8.0)
[2023-12-03 07:25] VITALS: BP 98/54; PULSE 60; RESP 16; TEMP 36.7; O2SAT 94
--- NOTE | 2023-12-03 07:55 | P.PNGS_ITS ---
Subjective Subjective Date of Service: 12/03/23 <Gauri Cisse PA-C - Last Filed: 12/03/23 07:58> 12/03/23 <Clayton Avery MD - Last Filed: 12/03/23 08:06> Interval history: Having difficulty of pain with movement. Otherwise had a good night. Tolerating clears and passing flatus. Feels hungry. Has not been OOB yet. < Gauri Cisse PA-C - Last Filed: 12/03/23 07:58> Physical Exam 2 Vital Signs: Vital Signs: Last Vital Signs Temp 98.0 F 12/03/23 07:25 Pulse 60 12/03/23 07:25 Resp 16 12/03/23 07:25 BP 98/54 L 12/03/23 07:25 Pulse Ox 94 12/03/23 07:25 O2 Del Method Room Air 12/03/23 07:25 O2 Flow Rate 1 12/02/23 16:00 BMI result Body Mass Index 35.0 <Gauri Cisse PA-C - Last Filed: 12/03/23 07:58> Const: General: comfortable, no acute distress and alert <Gauri Cisse PA-C - Last Filed: 12/03/23 07:58> Orientation/consciousness: patient oriented x3 <Gauri Cisse PA-C - Last Filed: 12/03/23 07:58> Resp: Effort & Inspection: normal respiratory effort <Gauri Cisse PA-C - Last Filed: 12/03/23 07:58> GI: Other: Dressings changed, wounds clean, dry, and intact without redness or discharge. <Clayton Avery MD - Last Filed: 12/03/23 08:06> Inspection: No distended and Yes incision (dressings intact) <Gauri Cisse PA-C - Last Filed: 12/03/23 07:58> Palpation (GI): Soft to palpation, Tenderness to palpation present (GI) (incisional) and no guarding <Gauri Cisse PA-C - Last Filed: 12/03/23 07:58> Abdomen image: 1. Midline incision 2. Colostomy closure site <Gauri Cisse PA-C - Last Filed: 12/03/23 07:58> Abdomen image: 1. Midline incision 2. Colostomy closure site <Clayton Avery MD - Last Filed: 12/03/23 08:06> Skin: General skin exam: no rashes or lesions noted <Gauri Cisse PA-C - Last Filed: 12/03/23 07:58> Neuro: General: patient oriented x3 and moves all extremities <Gauri Cisse PA-C - Last Filed: 12/03/23 07:58> Objective Data Active Medications Albuterol Sulfate (Albuterol Sulfate 90 Mcg 8 Gm Inhaler) 1 puff INHALE QID PRN PRN Reason: shortness of breath or wheezing Carvedilol (Carvedilol 25 Mg Tablet) 25 mg PO BID [facility]; Protocol Last Admin: 12/02/23 19:53 Dose: 25 mg Documented By: JULIANNE Enoxaparin Sodium (Enoxaparin Sodium 40 Mg/0.4 Ml Syringe) 40 mg SUBCUT Q24H [facility] Haloperidol Lactate (Haloperidol Lactate 5 Mg/Ml Vial) 1 mg IVPUSH ONCE PRN PRN Reason: Nausea and Vomiting Hydrochlorothiazide (Hydrochlorothiazide 25 Mg Tablet) 25 mg PO DAILY [facility]; Protocol Last Admin: 12/02/23 13:23 Dose: Not Given Documented By: JOHNSON Non-Admin Reason: Patient Refused Hydromorphone HCl (Hydromorphone Hcl 0.5 Mg/0.5 Ml Syringe) 0.5 mg IVPUSH Q3H PRN; Protocol PRN Reason: Pain, Severe (Pain Scale 7-10) Last Admin: 12/03/23 03:47 Dose: 0.5 mg Documented By: ARJUN Acetaminophen (Ofirmev) 1,000 mg in 100 mls @ 400 mls/hr IV Q6H [facility] Last Infusion: 12/03/23 03:08 Dose: Infused Documented By: JULIANNE Dextrose/Lactated Ringer's (D5lr) 1,000 mls @ 125 mls/hr IVCONT .Q8H [facility] Last Admin: 12/03/23 05:14 Dose: 125 mls/hr Documented By: JULIANNE Losartan Potassium (Losartan Potassium 25 Mg Tablet) 25 mg PO DAILY [facility]; Protocol Last Admin: 12/02/23 13:23 Dose: Not Given Documented By: JOHNSON Non-Admin Reason: Patient Refused Ondansetron HCl (Ondansetron Hcl 4 Mg/2 Ml Vial) 4 mg IVPUSH QID PRN PRN Reason: Nausea Oxycodone HCl (Oxycodone Hcl Immed Release 5 Mg Tablet) 5 mg PO Q6H PRN PRN Reason: Pain, Moderate(Pain Scale 4-6) Sodium Chloride (0.9 % Sodium Chloride Flush 3 Ml Syringe) 3 ml IVFLUSH QSHIFT [facility] Last Admin: 12/03/23 00:26 Dose: Not Given Documented By: JULIANNE Non-Admin Reason: IV Running Zolpidem Tartrate (Zolpidem Tartrate 5 Mg Tablet) 5 mg PO BEDTIME PRN PRN Reason: Insomnia <Gauri Cisse PA-C - Last Filed: 12/03/23 07:58> Labs CBC & Chem 7: 12/03/23 05:39 12/03/23 05:39 <Gauri Cisse PA-C - Last Filed: 12/03/23 07:58> Labs: Laboratory Results - last 24 hr 12/02/23 12/03/23 13:19 05:39 MCV 90.5 MCH 29.9 MCHC 33.1 RDW 16.3 H Plt Count 200 D MPV 10.6 Immature Gran % (Auto) 0.4 Neut % (Auto) 75.3 H Lymph % (Auto) 12.6 L [place] % (Auto) 11.5 H Eos % (Auto) 0.0 Baso % (Auto) 0.2 Lymph # (Auto) 1.2 [place] # (Auto) 1.1 Eos # (Auto) 0.0 Baso # (Auto) 0.0 Abs Immat Gran (auto) 0.04 H Absolute Neuts (auto) 7.1 Absolute Nucleated RBC 0.000 Nucleated RBC % (auto) 0.0 Anion Gap 15 Estim Creat Clear Calc 58.1 77.5 Estimated GFR 59 > 60 Random Glucose 125 H Calcium 9.1 D Total Bilirubin 0.7 AST 28 ALT 27 Alkaline Phosphatase 65 Total Protein 6.3 L Albumin 3.5 <Gauri Cisse PA-C - Last Filed: 12/03/23 07:58> Procedures Date of Service Date of Service: 12/03/23 <Gauri Cisse PA-C - Last Filed: 12/03/23 07:58> 12/03/23 <Clayton Avery MD - Last Filed: 12/03/23 08:06> Progress Note: A&P Assessment and plan (1) S/P colostomy takedown: Status: Acute <Gauri Cisse PA-C - Last Filed: 12/03/23 07:58> Assessment and Plan: POD #1 s/p colostomy closure for perforated diverticulitis, status post Timoteo procedure. Doing fairly well post op, passing some flatus. Abd benign with appropriate post op tenderness. VSS. Will advance to full liquids, encouraged OOB/ambulation and IS use. Pain control. Await BM. Patient comfortable with plan. <Gauri Cisse PA-C - Last Filed: 12/03/23 07:58> POD #1 s/p colostomy closure for perforated diverticulitis, status post Timoteo procedure. Doing fairly well post op, passing some flatus. Abd benign with appropriate post op tenderness. VSS. Will advance to full liquids, encouraged OOB/ambulation and IS use. Pain control. Await BM. Patient comfortable with plan. Agree with the above assessment and plan. Encouraged out of bed and ambulation and incentive spirometry. <Clayton Avery MD - Last Filed: 12/03/23 08:06> Time Spent With Patient Time: Total time managing care of this patient today ____ minutes. <Gauri Cisse PA-C - Last Filed: 12/03/23 07:58> Quality Stroke Does the patient have a stroke diagnosis?: No <Gauri Cisse PA-C - Last Filed: 12/03/23 07:58> VTE Prior VTE?: No <Gauri Cisse PA-C - Last Filed: 12/03/23 07:58> VTE Risk Level:: Surgical - high <ALBINO Ribera Last Filed: 12/03/23 07:58> VTE Device Contraindication: N/A - Device Ordered <Gauri Cisse PA-C - Last Filed: 12/03/23 07:58> VTE Drug Contraindication: N/A - Med Ordered <Gauri Cisse PA-C - Last Filed: 12/03/23 07:58>
--- NOTE | 2023-12-03 09:55 | MHC.CM.PN ---
Patient from home w/ . Functionally independent. Previously active w/ [facility] for SN after colostomy, but now reversed. PCP Danuta Santiago MD HCP on file and verified DP: goal is home self care, family to transport. CM will continue to follow.
--- NOTE | 2023-12-03 14:56 | HO.POSTANES ---
Post Anesthesia Evaluation Post Anesthesia Evaluation Date of Service: 12/02/23 Vital Signs: Vital Signs Temp Pulse Resp BP Pulse Ox O2 Del Method 12/03/23 07:25 98.0 F 60 16 98/54 L 94 Room Air 12/03/23 03:36 97.9 F 54 16 100/58 L 95 Room Air Anesthesia: General Mental Status: Awake Pain Control: Satisfactory Nausea/Vomiting: None Hydration: Adequate Anesthesia-Related Issues: No Anes. Related Issues
[2023-12-03] MEDS: 0.9 % Sodium Chloride Flush 3 ML SYRINGE IVFLUSH ×2 (15:06→19:44)
[2023-12-03 15:07] VITALS: BP 103/55; PULSE 64; RESP 18; TEMP 37.1; O2SAT 96
[2023-12-03 19:14] VITALS: BP 119/58; PULSE 71; RESP 18; TEMP 36.7; O2SAT 96
[2023-12-03 19:43] VITALS: BP 119/58; PULSE 71
[2023-12-03] MEDS: carvediloL 25 MG TABLET PO (19:43)
[2023-12-04] MEDS: Acetaminophen 1,000 MG/100 ML PIGGYBACK 400 MG IV ×4 (01:31→19:44)
[2023-12-04 03:25] VITALS: BP 106/61; PULSE 63; RESP 16; TEMP 36.3; O2SAT 93
[2023-12-04] MEDS: HYDROmorphone HCl 0.5 MG/0.5 ML SYRINGE IVPUSH ×5 (03:37→23:00)
[2023-12-04] MEDS: Dextrose 5 % and Lactated Ring 1,000 ML 125 ML IVCONT ×2 (05:21→13:10)
[2023-12-04 07:19] VITALS: BP 119/61; PULSE 64; RESP 16; TEMP 36.8; O2SAT 97
[2023-12-04] MEDS: hydroCHLOROthiazide 25 MG TABLET PO (07:36)
[2023-12-04] MEDS: carvediloL 25 MG TABLET PO ×2 (07:36→19:42)
[2023-12-04] MEDS: Losartan Potassium 25 MG TABLET PO (07:36)
--- NOTE | 2023-12-04 09:18 | PM.PNGS ---
Subjective Subjective Date of Service: 12/04/23 <Gauri Cisse PA-C - Last Filed: 12/04/23 09:23> 12/04/23 <Clayton Avery MD - Last Filed: 12/04/23 13:39> Interval history: Patient reports passing flatus but no BM yet. Was OOB and in chair this morning. Tolerating full liquid diet. <Clayton Avery MD - Last Filed: 12/04/23 13:39> Physical Exam Vital Signs: Vital Signs: Last Vital Signs Temp 98.3 F 12/04/23 07:19 Pulse 64 12/04/23 07:19 Resp 16 12/04/23 07:19 BP 119/61 12/04/23 07:19 Pulse Ox 97 12/04/23 07:19 O2 Del Method Room Air 12/04/23 07:19 O2 Flow Rate 1 12/02/23 16:00 BMI result Body Mass Index 35.0 <Gauri Cisse PA-C - Last Filed: 12/04/23 09:23> Const: General: comfortable, no acute distress and alert <Gauri Cisse PA-C - Last Filed: 12/04/23 09:23> Orientation/consciousness: patient oriented x3 <Gauri Cisse PA-C - Last Filed: 12/04/23 09:23> Resp: Effort & Inspection: normal respiratory effort <Gauri Cisse PA-C - Last Filed: 12/04/23 09:23> GI: Inspection: Yes distended (mildly ) and Yes incision (midline and old ostomy site clean ) <Gauri Cisse PA-C - Last Filed: 12/04/23 09:23> Palpation (GI): Soft to palpation, Tenderness to palpation present (GI) (incisional) and no guarding <ALBINO Ribera Last Filed: 12/04/23 09:23> Percussion: Yes tympanic to percussion <ALBINO Ribera Last Filed: 12/04/23 09:23> Skin: General skin exam: no rashes or lesions noted <ALBINO Ribera Last Filed: 12/04/23 09:23> Neuro: General: patient oriented x3 <Gauri Cisse PA-C - Last Filed: 12/04/23 09:23> Objective Data Active Medications Albuterol Sulfate (Albuterol Sulfate 90 Mcg 8 Gm Inhaler) 1 puff INHALE QID PRN PRN Reason: shortness of breath or wheezing Carvedilol (Carvedilol 25 Mg Tablet) 25 mg PO BID [facility]; Protocol Last Admin: 12/04/23 07:36 Dose: 25 mg Documented By: RICHIE Enoxaparin Sodium (Enoxaparin Sodium 40 Mg/0.4 Ml Syringe) 40 mg SUBCUT Q24H [facility] Haloperidol Lactate (Haloperidol Lactate 5 Mg/Ml Vial) 1 mg IVPUSH ONCE PRN PRN Reason: Nausea and Vomiting Hydrochlorothiazide (Hydrochlorothiazide 25 Mg Tablet) 25 mg PO DAILY [facility]; Protocol Last Admin: 12/04/23 07:36 Dose: 25 mg Documented By: RICHIE Hydromorphone HCl (Hydromorphone Hcl 0.5 Mg/0.5 Ml Syringe) 0.5 mg IVPUSH Q3H PRN; Protocol PRN Reason: Pain, Severe (Pain Scale 7-10) Last Admin: 12/04/23 07:35 Dose: 0.5 mg Documented By: RICHIE Acetaminophen (Ofirmev) 1,000 mg in 100 mls @ 400 mls/hr IV Q6H [facility] Last Infusion: 12/04/23 08:29 Dose: Infused Documented By: RICHIE Dextrose/Lactated Ringer's (D5lr) 1,000 mls @ 125 mls/hr IVCONT .Q8H [facility] Last Admin: 12/04/23 05:21 Dose: 125 mls/hr Documented By: YUMIKO Losartan Potassium (Losartan Potassium 25 Mg Tablet) 25 mg PO DAILY [facility]; Protocol Last Admin: 12/04/23 07:36 Dose: 25 mg Documented By: RICHIE Ondansetron HCl (Ondansetron Hcl 4 Mg/2 Ml Vial) 4 mg IVPUSH QID PRN PRN Reason: Nausea Oxycodone HCl (Oxycodone Hcl Immed Release 5 Mg Tablet) 5 mg PO Q6H PRN PRN Reason: Pain, Moderate(Pain Scale 4-6) Sodium Chloride (0.9 % Sodium Chloride Flush 3 Ml Syringe) 3 ml IVFLUSH QSHIFT [facility] Last Admin: 12/04/23 07:33 Dose: Not Given Documented By: RICHIE Non-Admin Reason: IV Running Zolpidem Tartrate (Zolpidem Tartrate 5 Mg Tablet) 5 mg PO BEDTIME PRN PRN Reason: Insomnia <Gauri Cisse PA-C - Last Filed: 12/04/23 09:23> Labs CBC & Chem 7: 12/03/23 05:39 12/03/23 05:39 <Gauri Cisse PA-C - Last Filed: 12/04/23 09:23> Procedures Date of Service Date of Service: 12/04/23 <Gauri Cisse PA-C - Last Filed: 12/04/23 09:23> 12/04/23 <Clayton Avery MD - Last Filed: 12/04/23 13:39> Progress Note: A&P Assessment and plan (1) S/P colostomy takedown: Status: Acute <Gauri Cisse PA-C - Last Filed: 12/04/23 09:23> (2) Diverticulitis of colon with perforation: Status: Acute <ALBINO Ribera Last Filed: 12/04/23 09:23> Assessment and Plan: POD #2 s/p colostomy closure for perforated diverticulitis, status post Timoteo procedure. Continues to do fairly well post op, passing some flatus. Abd benign with appropriate post op tenderness. VSS. Continue full liquids for now. Encouraged OOB/ambulation and IS use. Pain control. Await BM. Patient comfortable with plan. <ALBINO Ribera Last Filed: 12/04/23 09:23> Time Spent With Patient Time: Total time managing care of this patient today ____ minutes. <Gauri Cisse PA-C - Last Filed: 12/04/23 09:23> Quality Stroke Does the patient have a stroke diagnosis?: No <ALBINO Ribera Last Filed: 12/04/23 09:23> VTE Prior VTE?: No <Gauri Cisse PA-C - Last Filed: 12/04/23 09:23> VTE Risk Level:: Surgical - high <ALBINO Rbiera Last Filed: 12/04/23 09:23> VTE Device Contraindication: N/A - Device Ordered <ALBINO Ribera Last Filed: 12/04/23 09:23> VTE Drug Contraindication: N/A - Med Ordered <ALBINO Ribera Last Filed: 12/04/23 09:23>
--- NOTE | 2023-12-04 11:59 | MHC.CM.PN ---
EMR REVIEWED. PATIENT IS NOT MEDICALLY CLEARED FOR DC AT THIS TIME. CM WILL CONTINUE TO FOLLOW.
[2023-12-04] MEDS: Enoxaparin Sodium 40 MG/0.4 ML SYRINGE SUBCUT (13:10)
[2023-12-04 15:21] VITALS: BP 93/50; PULSE 63; RESP 18; TEMP 36.4; O2SAT 94
[2023-12-04 19:20] VITALS: BP 118/59; PULSE 69; RESP 18; TEMP 36.5; O2SAT 94
[2023-12-04 19:42] VITALS: BP 118/59; PULSE 69
[2023-12-04] MEDS: 0.9 % Sodium Chloride Flush 3 ML SYRINGE IVFLUSH (19:44)
[2023-12-05] VITALS (10 sets, daily range): BP systolic 95–118; BP diastolic 55–66; PULSE 61–92; RESP 16–19; TEMP 36.1–36.3; O2SAT 92–98
[2023-12-05] MEDS: Dextrose 5 % and Lactated Ring 1,000 ML 80 ML IVCONT (00:47)
[2023-12-05] MEDS: Acetaminophen 1,000 MG/100 ML PIGGYBACK 400 MG IV (02:13)
[2023-12-05] MEDS: HYDROmorphone HCl 0.5 MG/0.5 ML SYRINGE IVPUSH ×6 (02:13→21:34)
[2023-12-05 06:33] LABS: MANUAL DIFF FLAG NO
[2023-12-05 06:53] LABS: Basophils Percent Auto 0.5 % (0-2); Eosinophils Absolute Auto 0.2 X10*3/uL (0.0-0.4); Eosinophils Percent Auto 3.8 % (0-4); Hematocrit 32.5 % (37.0-47.0); Hemoglobin 10.6 g/dl (12.0-16.0); Imm Gran Abs Auto 0.02 X10*3/uL (0.00-0.03); Imm Gran Pct Auto 0.4 % (0.0-0.4); Lymphocytes Absolute Auto 1.6 X10*3/uL (1.2-4.9); Lymphocytes Percent Auto 28.1 % (20-40); Mean Corpuscular HGB Conc 32.6 g/dl (31.0-35.0); Mean Corpuscular Hemoglobin 30.2 pg (27.0-33.0); Mean Corpuscular Volume 92.6 fL (80.0-98.0); Mean Platelet Volume 10.8 fL (9.4-12.3); Monocytes Absolute Auto 0.6 X10*3/uL (0.1-1.2); Monocytes Percent Auto 11.3 % (2-11); Neutrophils Absolute Auto 3.1 x10*3/uL (2.0-8.3); Neutrophils Percent Auto 55.9 % (45-73); Platelet Count 194 X10*3/uL (160-400); Red Blood Count 3.51 X10*6/uL (4.20-5.50); Red Cell Distribution Width 16.1 % (11.0-16.0); White Blood Count 5.5 X10*3/uL (4.8-10.8)
--- NOTE | 2023-12-05 07:42 | PM.PNGS ---
Subjective Subjective Date of Service: 12/05/23 <Gauri Cisse PA-C - Last Filed: 12/05/23 07:44> 12/05/23 <Clayton Avery MD - Last Filed: 12/05/23 08:03> Interval history: Tolerating solid diet. Continues to pass flatus but no BM. Had a smear of blood per rectum yesterday, no further blood. No BM yet. Requiring IV analgesics for pain. <Gauri Cisse PA-C - Last Filed: 12/05/23 07:44> Physical Exam Vital Signs: Vital Signs: Last Vital Signs Temp 97 F 12/05/23 07:11 Pulse 63 12/05/23 07:11 Resp 16 12/05/23 07:11 BP 117/66 12/05/23 07:11 Pulse Ox 98 12/05/23 07:11 O2 Del Method Room Air 12/05/23 07:11 O2 Flow Rate 1 12/02/23 16:00 BMI result Body Mass Index 35.0 <Gauri Cisse PA-C - Last Filed: 12/05/23 07:44> Const: General: comfortable, no acute distress and alert <ALBINO Ribera Last Filed: 12/05/23 07:44> Orientation/consciousness: patient oriented x3 <Gauri Cisse PA-C - Last Filed: 12/05/23 07:44> Resp: Effort & Inspection: normal respiratory effort <Gauri Cisse PA-C - Last Filed: 12/05/23 07:44> GI: Inspection: No distended and Yes incision (clean) <Gauri Cisse PA-C - Last Filed: 12/05/23 07:44> Palpation (GI): Soft to palpation, Tenderness to palpation present (GI) (incisional) and no guarding <ALBINO Ribera Last Filed: 12/05/23 07:44> Skin: General skin exam: no rashes or lesions noted <ALBINO Ribera Last Filed: 12/05/23 07:44> Neuro: General: patient oriented x3 and moves all extremities <Gauri Cisse PA-C - Last Filed: 12/05/23 07:44> Objective Data Active Medications Albuterol Sulfate (Albuterol Sulfate 90 Mcg 8 Gm Inhaler) 1 puff INHALE QID PRN PRN Reason: shortness of breath or wheezing Carvedilol (Carvedilol 25 Mg Tablet) 25 mg PO BID [facility]; Protocol Last Admin: 12/04/23 19:42 Dose: 25 mg Documented By: YUMIKO Enoxaparin Sodium (Enoxaparin Sodium 40 Mg/0.4 Ml Syringe) 40 mg SUBCUT Q24H [facility] Last Admin: 12/04/23 13:10 Dose: 40 mg Documented By: RICHIE Haloperidol Lactate (Haloperidol Lactate 5 Mg/Ml Vial) 1 mg IVPUSH ONCE PRN PRN Reason: Nausea and Vomiting Hydrochlorothiazide (Hydrochlorothiazide 25 Mg Tablet) 25 mg PO DAILY [facility]; Protocol Last Admin: 12/04/23 07:36 Dose: 25 mg Documented By: RICHIE Hydromorphone HCl (Hydromorphone Hcl 0.5 Mg/0.5 Ml Syringe) 0.5 mg IVPUSH Q3H PRN; Protocol PRN Reason: Pain, Severe (Pain Scale 7-10) Last Admin: 12/05/23 02:13 Dose: 0.5 mg Documented By: YUMIKO Acetaminophen (Ofirmev) 1,000 mg in 100 mls @ 400 mls/hr IV Q6H [facility] Last Infusion: 12/05/23 02:29 Dose: Infused Documented By: YUMIKO Dextrose/Lactated Ringer's (D5lr) 1,000 mls @ 80 mls/hr IVCONT .[id number] [facility] Last Infusion: 12/05/23 02:29 Dose: 80 mls/hr Documented By: YUMIKO Losartan Potassium (Losartan Potassium 25 Mg Tablet) 25 mg PO DAILY [facility]; Protocol Last Admin: 12/04/23 07:36 Dose: 25 mg Documented By: RICHIE Ondansetron HCl (Ondansetron Hcl 4 Mg/2 Ml Vial) 4 mg IVPUSH QID PRN PRN Reason: Nausea Oxycodone HCl (Oxycodone Hcl Immed Release 5 Mg Tablet) 5 mg PO Q6H PRN PRN Reason: Pain, Moderate(Pain Scale 4-6) Sodium Chloride (0.9 % Sodium Chloride Flush 3 Ml Syringe) 3 ml IVFLUSH QSHIFT [facility] Last Admin: 12/04/23 19:44 Dose: 3 ml Documented By: YUMIKO Zolpidem Tartrate (Zolpidem Tartrate 5 Mg Tablet) 5 mg PO BEDTIME PRN PRN Reason: Insomnia <Gauri Cisse PA-C - Last Filed: 12/05/23 07:44> Labs CBC & Chem 7: 12/05/23 05:41 12/03/23 05:39 <ALBINO Ribera Last Filed: 12/05/23 07:44> Labs: Laboratory Results - last 24 hr 12/05/23 05:41 MCV 92.6 MCH 30.2 MCHC 32.6 RDW 16.1 H Plt Count 194 MPV 10.8 Immature Gran % (Auto) 0.4 Neut % (Auto) 55.9 Lymph % (Auto) 28.1 [place] % (Auto) 11.3 H Eos % (Auto) 3.8 Baso % (Auto) 0.5 Lymph # (Auto) 1.6 [place] # (Auto) 0.6 Eos # (Auto) 0.2 Baso # (Auto) 0.0 Abs Immat Gran (auto) 0.02 Absolute Neuts (auto) 3.1 Absolute Nucleated RBC 0.000 Nucleated RBC % (auto) 0.0 <Gauri Cisse PA-C - Last Filed: 12/05/23 07:44> Procedures Date of Service Date of Service: 12/05/23 <ALBNIO Ribera Last Filed: 12/05/23 07:44> 12/05/23 <Clayton Avery MD - Last Filed: 12/05/23 08:03> Progress Note: A&P Assessment and plan (1) S/P colostomy takedown: Status: Acute <ALBINO Ribera Last Filed: 12/05/23 07:44> (2) Diverticulitis of colon with perforation: Status: Acute <ALBINO Ribera Last Filed: 12/05/23 07:44> Assessment and Plan: POD #3 s/p colostomy closure for perforated diverticulitis, status post Timoteo procedure. Continues to do well post op, passing flatus and tolerating solid idet. Abd benign with appropriate post op tenderness, clean incisions. Encouraged PO analgesics in preparation for discharge. Will begin bowel regimen. <Gauri Cisse PA-C - Last Filed: 12/05/23 07:44> POD #3 s/p colostomy closure for perforated diverticulitis, status post Timoteo procedure. Continues to do well post op, passing flatus and tolerating solid diet. Abd benign with appropriate post op tenderness, clean incisions. Encouraged PO analgesics in preparation for discharge. Will begin bowel regimen. Patient seen and examined. Agree with the above assessment. Continues to pass flatus with a small smear of stool. Agree with the above plan as well. Encouraged ambulation today. <Clayton Avery MD - Last Filed: 12/05/23 08:03> Time Spent With Patient Time: Total time managing care of this patient today ____ minutes. <Gauri Cisse PA-C - Last Filed: 12/05/23 07:44> Quality Stroke Does the patient have a stroke diagnosis?: No <Gauri Cisse PA-C - Last Filed: 12/05/23 07:44> VTE Prior VTE?: No <Gauri Cisse PA-C - Last Filed: 12/05/23 07:44> VTE Risk Level:: Surgical - high <Gauri Cisse PA-C - Last Filed: 12/05/23 07:44> VTE Device Contraindication: N/A - Device Ordered <Gauri Cisse PA-C - Last Filed: 12/05/23 07:44> VTE Drug Contraindication: N/A - Med Ordered <Gauri Cisse PA-C - Last Filed: 12/05/23 07:44>
[2023-12-05] MEDS: hydroCHLOROthiazide 25 MG TABLET PO (08:16)
[2023-12-05] MEDS: carvediloL 25 MG TABLET PO ×2 (08:16→20:39)
[2023-12-05] MEDS: Losartan Potassium 25 MG TABLET PO (08:17)
[2023-12-05] MEDS: 0.9 % Sodium Chloride Flush 3 ML SYRINGE IVFLUSH ×3 (08:17→21:34)
[2023-12-05] MEDS: Enoxaparin Sodium 40 MG/0.4 ML SYRINGE SUBCUT (14:47)
[2023-12-06] MEDS: HYDROmorphone HCl 0.5 MG/0.5 ML SYRINGE IVPUSH ×2 (00:41→04:36)
[2023-12-06 03:03] VITALS: BP 94/55; PULSE 70; RESP 16; TEMP 37.3; O2SAT 92
[2023-12-06 07:44] VITALS: BP 111/56; PULSE 72; RESP 14; TEMP 36.4; O2SAT 96
--- NOTE | 2023-12-06 08:12 | P.PNGS_ITS ---
Subjective Subjective Date of Service: 12/06/23 Interval history: Patient reports having a bowel movement this morning. Feels much more comfortable with no bloating. Has pain with changing in position mainly in the incisions but is fine when up and walking. Physical Exam 2 Vital Signs: Vital Signs: Last Vital Signs Temp 97.6 F 12/06/23 07:44 Pulse 72 12/06/23 07:44 Resp 14 12/06/23 07:44 BP 111/56 L 12/06/23 07:44 Pulse Ox 96 12/06/23 07:44 O2 Del Method Room Air 12/06/23 07:44 O2 Flow Rate 1 12/02/23 16:00 BMI result Body Mass Index 35.0 Const: General: no acute distress Nutritional Appearance: well nourished Orientation/consciousness: patient oriented x3 Limitations: no limitations Resp: Effort & Inspection: normal respiratory effort, no audible wheezes, no cough and no respiratory distress GI: Other: Abdominal incisions are clean and intact without erythema or discharge. Skin: Other: Warm, dry, no rash Neuro: General: patient oriented x3 Extrem: Other: No edema Objective Data Active Medications Acetaminophen (Acetaminophen 325 Mg Tablet) 975 mg PO Q6H [facility] Last Admin: 12/06/23 07:26 Dose: Not Given Documented By: SCOTTIE Non-Admin Reason: Patient Refused Albuterol Sulfate (Albuterol Sulfate 90 Mcg 8 Gm Inhaler) 1 puff INHALE QID PRN PRN Reason: shortness of breath or wheezing Carvedilol (Carvedilol 25 Mg Tablet) 25 mg PO BID [facility]; Protocol Last Admin: 12/05/23 20:39 Dose: 25 mg Documented By: YUMIKO Enoxaparin Sodium (Enoxaparin Sodium 40 Mg/0.4 Ml Syringe) 40 mg SUBCUT Q24H [facility] Last Admin: 12/05/23 14:47 Dose: 40 mg Documented By: COTLOBO Haloperidol Lactate (Haloperidol Lactate 5 Mg/Ml Vial) 1 mg IVPUSH ONCE PRN PRN Reason: Nausea and Vomiting Hydrochlorothiazide (Hydrochlorothiazide 25 Mg Tablet) 25 mg PO DAILY [facility]; Protocol Last Admin: 12/05/23 08:16 Dose: 25 mg Documented By: COTEMA Hydromorphone HCl (Hydromorphone Hcl 0.5 Mg/0.5 Ml Syringe) 0.5 mg IVPUSH Q3H PRN; Protocol PRN Reason: Pain, Severe (Pain Scale 7-10) Last Admin: 12/06/23 04:36 Dose: 0.5 mg Documented By: YUMIKO Losartan Potassium (Losartan Potassium 25 Mg Tablet) 25 mg PO DAILY [facility]; Protocol Last Admin: 12/05/23 08:17 Dose: 25 mg Documented By: COTLOBO Ondansetron HCl (Ondansetron Hcl 4 Mg/2 Ml Vial) 4 mg IVPUSH QID PRN PRN Reason: Nausea Oxycodone HCl (Oxycodone Hcl Immed Release 5 Mg Tablet) 5 mg PO Q6H PRN PRN Reason: Pain, Moderate(Pain Scale 4-6) Sodium Chloride (0.9 % Sodium Chloride Flush 3 Ml Syringe) [facility] Last Admin: 12/05/23 21:34 Dose: 3 ml Documented By: YUMIKO Zolpidem Tartrate (Zolpidem Tartrate 5 Mg Tablet) 5 mg PO BEDTIME PRN PRN Reason: Insomnia Labs 12/05/23 05:41 12/03/23 05:39 Procedures Date of Service Date of Service: 12/06/23 Progress Note: A&P Assessment and plan (1) S/P colostomy takedown: Status: Acute (2) Diverticulitis of colon with perforation: Status: Acute Plan Pod 4 following closure of colostomy after Timoteo procedure for diverticulitis. She is tolerating regular diet and reports several bowel movements. Abdominal exam is much improved with no distention. Incisions are clean and intact. Patient feels ready for discharge to home later today. She should remain on a low residue diet. She should avoid lifting greater than 10 lb for the next month. She has an appointment to return to the office in 1 week for wound check and staple removal. She is welcome to call sooner for any new concerns. Time Spent With Patient Time: Total time managing care of this patient today ____ minutes. Quality Stroke Does the patient have a stroke diagnosis?: No VTE Prior VTE?: No VTE Risk Level:: Surgical - high VTE Device Contraindication: N/A - Device Ordered VTE Drug Contraindication: N/A - Med Ordered
[2023-12-06 08:25] VITALS: BP 111/56; PULSE 72
[2023-12-06] MEDS: carvediloL 25 MG TABLET PO (08:25)
[2023-12-06] MEDS: hydroCHLOROthiazide 25 MG TABLET PO (08:25)
[2023-12-06] MEDS: 0.9 % Sodium Chloride Flush 3 ML SYRINGE IVFLUSH (08:25)
[2023-12-06 08:26] VITALS: BP 111/56
[2023-12-06] MEDS: Losartan Potassium 25 MG TABLET PO (08:26)
[2023-12-06] MEDS: oxyCODONE HCl Immed Release 5 MG TABLET PO (08:27)
--- NOTE | 2023-12-06 09:17 | MHC.CM.PN ---
Patient medically cleared for dc home self care. Patient's can provide transport home around 3pm. This CM offered shuttle ride. Patient would liza to wait for her . CM reviewed w/ [employer]. Patient can go to dc lounge if needed.
--- NOTE | 2023-12-06 11:21 | PM.DS ---
DS: Providers Provider Date of Service: 12/06/23 Date of admission: 12/02/23 05:48 Primary care physician: Danuta Santiago MD Attending physician on admission: Clayton Avery Attending physician on discharge: Clayton Avery DS: Diagnosis Discharge Diagnosis (1) S/P colostomy takedown: Status: Acute (2) Diverticulitis of colon with perforation: Status: Acute DS: Summary Hospital Course Hospital Course: HPI AT ADMISSION: 63-year-old female patient presenting with a previous history of perforated sigmoid diverticulitis status post Naomy procedure in August 2023. She feels well and presents now for closure of colostomy. Colostomy is located in the left lower quadrant is functioning properly. HOSPITAL COURSE: On 12/02/23, closure of colostomy was performed by Dr. Avery without complication. The patient tolerated the procedure well and was admitted post operatively for observation. She had an uncomplicated recovery course. On POD #1, she was tolerating clear liquids. Her pain was well controlled on IV analgesics. Her oswald was removed. She was ambulated. Over the next few days, her diet was slowly advanced to full liquids and then solids as tolerated. Her pain control improved and she was weaned off IV analgesics. She began passing flatus and then started having solid BMs. On the day of discharge, she was tolerating a solid diet with good pain control and ambulating without difficulty with good GI function. Her abdomen was benign with appropriate post op tenderness and clean incisions. She felt ready for discharge. She was discharged to home on 12/06/23 in stable condition. Status at Discharge Functional status at discharge: independent ambulation Overall status at discharge: patient is progressing back to baseline Time Attestation Discharge Coordination Time (in mins): 40 Quality: Safe Use of Opioids Does Pt have an Active Cancer Diagnosis on the Problem List?: No Quality: Stroke Does the patient have a stroke diagnosis?: No Physical Exam Vital Signs: Vital Signs: Last Vital Signs Temp 97.6 F 12/06/23 07:44 Pulse 72 12/06/23 08:25 Resp 14 12/06/23 07:44 BP 111/56 L 12/06/23 08:26 Pulse Ox 96 12/06/23 07:44 O2 Del Method Room Air 12/06/23 07:44 O2 Flow Rate 1 12/02/23 16:00 BMI result Body Mass Index 35.0 Const: General: comfortable, no acute distress and alert Orientation/consciousness: patient oriented x3 Resp: Effort & Inspection: normal respiratory effort GI: Inspection: No distended and Yes incision (midline and old colostomy site clean) Palpation (GI): Soft to palpation, Tenderness to palpation present (GI) (mild incisional), no guarding and not rigid Skin: General skin exam: no rashes or lesions noted Neuro: General: patient oriented x3 and moves all extremities DS: Data Data Completed and Pending Completed studies during hospitalization [Text1]: 12/02/23 09:40 Surgical [PTH] Routine A. Rectum, ?stump?, excision: Focally active proctitis; otherwise rectal tissue within normal limits; one reactive lymph node. B. Colostomy, excision: Enterocutaneous tissue with patchy active inflammation and reactive changes; otherwise within normal limits. C. Colon, anastomotic ring, excision: Colonic tissue with mild mucosal congestion; otherwise within normal limits. Procedures Bypass Descending Colon to Cutaneous, Open Approach (08/22/23) Drainage of Pelvic Cavity, Open Approach (08/22/23) Excision of Sigmoid Colon, Open Approach (08/22/23) Introduction of Anesthetic Agent into Peripheral Nerves and Plexi, Percutaneous Approach (08/22/23) Repair Right Fallopian Tube, Open Approach (08/22/23) Discharge Plan Discharge Anticipated Discharge Date/Time: 12/06/23 08:12 Patient Disposition: Home, Self-Care Discharge Diagnosis: s/p colostomy closure Referrals: Clayton Avery MD [Physician] - 1 Week Danuta Barboza MD [Primary Care Provider] - 1 Week Discharge Medications: New oxycodone 5 mg tablet 5 mg PO Q4H PRN (Reason: pain (scale score 7-10)) Qty: 24 0RF Rx Instructions: Partial Fill upon patient request. Continued albuterol sulfate [Ventolin HFA] 90 mcg/actuation HFA aerosol inhaler 1 inh inhalation QID PRN (Reason: shortness of breath or wheezing) 30 Days Qty: 8.5 11RF hydrochlorothiazide 25 mg tablet 25 mg PO QAM Qty: 90 3RF multivitamin Tablet 1 tab PO QAM (DME) Ultra-Light Rollator Misc See Rx Instructions .Route Qty: 1 0RF Rx Instructions: As directed (DME) colostomy bags 3 misc See Rx Instructions .ROUTE .MEDSUPPLY Qty: 30 1RF Rx Instructions: As directed losartan 25 mg tablet 25 mg PO QAM carvedilol 25 mg tablet 25 mg PO BID Discharge Orders: Discharge Order (Routine); Ordered 12/06/23 Ordered By: Clayton Avery Diet: Advance to usual diet Activity on Discharge: No heavy lifting Stand Alone Forms: Patient Portal Discharge page Print Language: Portuguese Activity Restrictions/Additional Instructions: If the incision area is tender, you may apply an ice pack for short intervals (No more than 20 minutes on, followed by at least 20 minutes off). Do not apply heat. Do not use creams, lotions, or topical antibiotics. These can cause infection or allergic reaction. Ok to shower. You have joaquin closing your incision and these will be removed approximately 10-14 days after surgery. NO HEAVY LIFTING (>10lbs) or strenuous activity. Follow up in office. ([phone]) Call Your Doctor If: -Your temperature exceeds 101.5? F -You experience excessive pain or swelling -You have an unexpected reaction to medication -You have excessive bleeding -You experience continued vomiting/nausea -Your incision begins to separate -Your incision shows signs of infection such as increased redness, swelling, excessive pain, drainage (light blood or clear fluid is normal) or heat Care Plan Goals: Return to baseline health and resume normal activities following recovery period. Health Concerns: hx of perforated diverticulitis, s/p naomy procedure Plan of Treatment: s/p colostomy closure F/u in office in 1 week Assessment: Doing well post op
== END 2023-12-06 13:55 | disposition home or self-care (01) | DRG 223 ==
LOC: HO.SSSA 05:53 → HO.S3 12:39
PROVIDERS: Physician Assistant Surgical; Admitting Provider Surgery; PCP Internal Medicine; Visit Provider Surgery
PROC: 0DSM0ZZ Reposition Descending Colon, Open Approach (ICD-10-PCS; CPT 44620; principal; 2023-12-02 07:30)
DX: Z43.3 Encounter for attention to colostomy (principal); E83.119 Hemochromatosis, unspecified; G89.18 Other acute postprocedural pain; Z87.891 Personal history of nicotine dependence; Z79.899 Other long term (current) drug therapy
CPT/HCPCS: 36415; 80053; 82565; 85025; 88304; 88305; 88307; C1758; J0131; J1100; J1170; J1650; J2250; J2405; J2704; J2795; J3010

== ENCOUNTER → 2023-12-02 05:48 | Outpatient (BNV) | payer OTHER, SELFPAY | PROVIDERS: Admitting Provider Surgery; PCP Internal Medicine; Visit Provider Surgery | DX: Z98.890 Other specified postprocedural states (principal); K57.20 Diverticulitis of large intestine with perforation and abscess without bleeding | CPT/HCPCS: 44626; 99024 ==

== ENCOUNTER 2023-12-12 11:29 | Outpatient (AMB) | payer OTHER, SELFPAY ==
--- NOTE | 2023-12-12 11:34 | MHC.OFFVIS ---
Vital Signs 12/12/23 11:39 Height 5 ft 1 in Weight 183 lb BMI 34.6 BP 123/69 Blood Pressure Location Lt brachial Position Sitting Pulse 88 Intake Visit Reasons: S/P closure of colostomy Intake Note: Patient is seen in office for post op assessment post colostomy closure. Pt c/o: denies any concerns regarding the surgery Op: 12/02/23 Allergies ciprofloxacin [Cipro] Allergy (Intermediate, Verified 12/02/23 06:34) hives dog dander [dogs] Allergy (Intermediate, Verified 12/02/23 06:34) Itching environmental allergies Allergy (Intermediate, Verified 12/02/23 06:34) Itching HPI Comments Details: 63-year-old female patient returning following closure of colostomy proximally 10 days ago. Her appetite is still low but she is moving her bowels daily. Her bowels are loose but not watery. She denies any fever or chills. Does have some mild discomfort in the incision. She returns today for wound check. [facility] Medical History PVC (premature ventricular contraction) NICM (nonischemic cardiomyopathy) Upper respiratory tract infection Transaminitis Sciatica Morbid obesity with BMI of 40.0-44.9, adult Hypovitaminosis D Ventricular bigeminy IBS (irritable bowel syndrome) Essential hypertension Obesity (BMI 35.0-39.9 without comorbidity) Mild persistent asthma Diverticulitis Hemochromatosis Family history of liver disease Arthritis Carpal tunnel syndrome, right Pain in right arm Surgical History History of colostomy reversal (12/02/23) History of exploratory laparotomy (08/27/23) Hx of foot surgery History of esophagogastroduodenoscopy (EGD) H/O colonoscopy H/O right heart catheterization History of loop electrical excision procedure (LEEP) H/O knee surgery Family History Father Diabetes Heart disease Stroke COPD (chronic obstructive pulmonary disease) High cholesterol Mother Diabetes Alzheimer disease HTN (hypertension) Brother Brain aneurysm Leukemia Sister COPD (chronic obstructive pulmonary disease) Diabetes Brother Heart valve replaced Social History Household Members: None Housing: House Are you a primary human services care specialist to a significant other at home: No Do you presently have visiting nurse or other home services: No Alcohol intake: current Alcohol intake frequency: 0-2 drinks per day Alcohol type: wine Patient Tobacco Use Status: Former Tobacco user Tobacco use type: Cigarette Cigarette Packs Per Day: 1 Years Smoked: 7 e-Cigarette/Vaping Use: Never Used Second Hand Smoke Exposure: No Advance Directives Date on File: 08/22/23 service: No Current occupational status: employed Current occupational exposures/hazards: No Sexual orientation: Straight/Heterosexual Gender identity: Female Cognitive needs: No Hearing needs: No Vision needs: Yes (glasses) Physical Exam Vital Signs: Last Vital Signs Pulse 88 12/12/23 11:39 BP 123/69 12/12/23 11:39 BMI result Body Mass Index 34.6 Const General: no acute distress Nutritional Appearance: well nourished Orientation/consciousness: patient oriented x3 Limitations: no limitations Resp Effort & Inspection: normal respiratory effort GI Other: Abdominal incisions are clean, dry, and intact without redness or discharge. Victoria removed and incisions found to be well healed. Skin General skin exam: no rashes or lesions noted Neuro General: patient oriented x3 Assessment & Plan Assessment & Plan (1) S/P colostomy takedown: Code(s): Z98.890 - Other specified postprocedural states Category: Surgical (2) Diverticulitis of colon with perforation: Code(s): K57.20 - Diverticulitis of large intestine with perforation and abscess without bleeding Category: Medical Plan 63-year-old female patient status post closure of colostomy returning for 1st postoperative check. Her wounds are clean, dry, and intact. Russell removed and wounds found to be well healed. She should continue to avoid lifting greater than 10 lb and return in 1 month for follow-up examination. Coding Level of Care Code Global (19371) Diagnoses S/P colostomy takedown Z98.890 Diverticulitis of colon with perforation K57.20
[2023-12-12 11:39] VITALS: BP 123/69; PULSE 88; BMI 34.6
== END 2023-12-12 11:50 | disposition home or self-care (01) ==
PROVIDERS: PCP Internal Medicine; Visit Provider Surgery
DX: Z98.890 Other specified postprocedural states (principal); K57.20 Diverticulitis of large intestine with perforation and abscess without bleeding
CPT/HCPCS: 99024

== ENCOUNTER → 2023-12-12 11:29 | Outpatient (BNVA) | payer OTHER, SELFPAY | PROVIDERS: PCP Internal Medicine; Visit Provider Surgery | DX: K57.20 Diverticulitis of large intestine with perforation and abscess without bleeding (principal); Z98.890 Other specified postprocedural states | CPT/HCPCS: 99212 ==

== ENCOUNTER → 2023-12-23 10:31 | Outpatient (REF) | payer OTHER, SELFPAY ==
--- NOTE | 2023-12-23 10:34 | HM_ITS ---
* Total monitoring time 3 days. * Underlying rhythm is sinus with an average rate of 71/Min. * Rare supraventricular ectopy with very brief runs. * Rare ventricular ectopy. * No sustained arrhythmias * No significant pauses or AV blocks. * Patient marker used once in association with sinus rhythm. No diary events. MTDD
== END ==
LOC: HO.CARD 10:31
PROVIDERS: PCP Internal Medicine; Visit Provider Internal Medicine
DX: I49.3 Ventricular premature depolarization (principal)
CPT/HCPCS: 93242

== ENCOUNTER → 2023-12-23 10:34 | Outpatient (BNV) | payer OTHER, SELFPAY | PROVIDERS: PCP Internal Medicine; Visit Provider Internal Medicine | DX: I47.10 Supraventricular tachycardia, unspecified (principal) | CPT/HCPCS: 93244 ==

== ENCOUNTER 2024-01-09 13:28 | Outpatient (AMB) | payer OTHER, SELFPAY ==
--- NOTE | 2024-01-09 13:30 | A.OFFVIS_ITS ---
Vital Signs 01/09/24 13:40 Height 5 ft 1 in Weight 190 lb BMI 35.9 BP 134/80 Blood Pressure Location Lt brachial Position Sitting Pulse 88 Intake Visit Reasons: 1 mth follow up closure of colostomy Intake Note: Patient is seen in office for one month follow up closure of colostomy. 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 She generally feels well but does occasionally get constipated. She is eating more fiber. She denies nausea or vomiting. [facility] Medical History PVC (premature ventricular contraction) NICM (nonischemic cardiomyopathy) Upper respiratory tract infection Transaminitis Sciatica Morbid obesity with BMI of 40.0-44.9, adult Hypovitaminosis D Ventricular bigeminy IBS (irritable bowel syndrome) Essential hypertension Obesity (BMI 35.0-39.9 without comorbidity) Mild persistent asthma Diverticulitis Hemochromatosis Family history of liver disease Arthritis Carpal tunnel syndrome, right Pain in right arm Surgical History History of colostomy reversal (12/02/23) History of exploratory laparotomy (08/27/23) Hx of foot surgery History of esophagogastroduodenoscopy (EGD) H/O colonoscopy H/O right heart catheterization History of loop electrical excision procedure (LEEP) H/O knee surgery Family History Father Diabetes Heart disease Stroke COPD (chronic obstructive pulmonary disease) High cholesterol Mother Diabetes Alzheimer disease HTN (hypertension) Brother Brain aneurysm Leukemia Sister COPD (chronic obstructive pulmonary disease) Diabetes Brother Heart valve replaced Social History Household Members: None Housing: House Are you a primary career resource specialist to a significant other at home: No Do you presently have visiting nurse or other home services: No Alcohol intake: current Alcohol intake frequency: 0-2 drinks per day Alcohol type: wine Patient Tobacco Use Status: Former Tobacco user Tobacco use type: Cigarette Cigarette Packs Per Day: 1 Years Smoked: 7 e-Cigarette/Vaping Use: Never Used Second Hand Smoke Exposure: No Advance Directives Date on File: 08/22/23 service: No Current occupational status: employed Current occupational exposures/hazards: No Sexual orientation: Straight/Heterosexual Gender identity: Female Cognitive needs: No Hearing needs: No Vision needs: Yes (glasses) Physical Exam Const General: no acute distress Nutritional Appearance: well nourished and obese Orientation/consciousness: patient oriented x3 Limitations: no limitations Resp Effort & Inspection: normal respiratory effort GI Other: Midline incision and ostomy incision are clean, dry, and intact. No hernia noted with Valsalva maneuvers. Inspection: Yes normal to inspection Palpation (GI): Soft to palpation, nontender, no guarding and not rigid Skin Other: Warm, dry, no rash Neuro General: patient oriented x3 Assessment & Plan Assessment & Plan (1) S/P colostomy takedown: Code(s): Z98.890 - Other specified postprocedural states Category: Surgical (2) Diverticulitis of colon with perforation: Code(s): K57.20 - Diverticulitis of large intestine with perforation and abscess without bleeding Category: Medical Plan Patient is doing well and her wounds are well healed. There is no evidence of infection or hernia. She may resume normal activity without restrictions. We discussed adding Colace as needed for constipation. She should follow up as needed. Coding Level of Care Code Global (96896) Diagnoses S/P colostomy takedown Z98.890 Diverticulitis of colon with perforation K57.20
[2024-01-09 13:40] VITALS: BP 134/80; PULSE 88; BMI 35.9
== END 2024-01-09 13:44 | disposition home or self-care (01) ==
PROVIDERS: PCP Internal Medicine; Visit Provider Surgery
DX: Z98.890 Other specified postprocedural states (principal); K57.20 Diverticulitis of large intestine with perforation and abscess without bleeding
CPT/HCPCS: 99024

== ENCOUNTER → 2024-01-09 13:28 | Outpatient (BNVA) | payer OTHER, SELFPAY | PROVIDERS: PCP Internal Medicine; Visit Provider Surgery | DX: K57.20 Diverticulitis of large intestine with perforation and abscess without bleeding (principal); Z43.3 Encounter for attention to colostomy | CPT/HCPCS: 99212 ==

== ENCOUNTER 2024-01-22 14:50 | Outpatient (REF) | payer OTHER, SELFPAY | END 2024-01-22 14:51 | disposition home or self-care (01) | LOC: HO.MAMMO 14:50 | PROVIDERS: PCP Internal Medicine; Visit Provider Internal Medicine | DX: Z12.31 Encounter for screening mammogram for malignant neoplasm of breast (principal) | CPT/HCPCS: 77063; 77067 ==

== ENCOUNTER → 2024-01-22 15:00 | Outpatient (BNV) | payer OTHER, SELFPAY | PROVIDERS: PCP Internal Medicine; Visit Provider Radiology Diagnostic Radiology | DX: Z12.31 Encounter for screening mammogram for malignant neoplasm of breast (principal) | CPT/HCPCS: 77063; 77067 ==

== ENCOUNTER 2024-02-04 17:19 | Outpatient (AMB) | payer OTHER, SELFPAY ==
--- NOTE | 2024-02-04 17:23 | A.OFFPC_ITS ---
Vital Signs 02/04/24 17:24 Height 5 ft 1 in Weight 193 lb BMI 36.5 BP 120/80 Blood Pressure Location Lt brachial Position Sitting Intake Visit Reasons: Annual PE Intake Note: Patient here for a physical exam Associate Store Director Required: No Accompanied by: Self / Same As Patient Allergies ciprofloxacin [Cipro] Allergy (Intermediate, Verified 02/04/24 17:36) hives dog dander [dogs] Allergy (Intermediate, Verified 02/04/24 17:36) Itching environmental allergies Allergy (Intermediate, Verified 02/04/24 17:36) Itching guaifenesin [From Mucinex] Allergy (Verified 02/04/24 17:36) Difficulty Breathing Medication List - Last Reconciled 02/04/24 by Danuta Santiago MD albuterol sulfate 90 mcg/actuation (Ventolin HFA) 1 puff PO QID PRN 30 days carvedilol 25 mg PO BID colostomy bags As directed hydrochlorothiazide 25 mg PO QAM losartan 25 mg PO QAM multivitamin 1 tab PO QAM walker (Ultra-Light Rollator misc) As directed Tobacco use date assessed: 02/04/24 Fall risk assessment: No Falls in past year Last assessed Fall Risk: 02/04/24 Dental Screening Dental Screen Date: 02/04/24 Did you have a dental visit in the last 12 months?: Yes Did you have a dental problem in the last 6 months where you did not have access to dental care?: No Was dental information given to patient?: Patient has dentist HPI HPI Comments History of Present Illness Details This is a 63-year-old female with nonischemic cardiomyopathy that comes for her physical exam. Mammogram done 2023. Colonoscopy done 2020. Pap smear done 2020. Has not had a DEXA scan and this will be ordered. Nonischemic cardiomyopathy is follow by cardiology and last ejection fraction is 40-45% in 2023. Denies any chest pain, leg swelling or shortness on breath. Complains of her left clavicle been more prominent and occasionally tender. [facility] Medical History (Updated 02/04/24 @ 19:40 by Danuta Santiago MD) Hereditary hemochromatosis Diverticulitis of colon with perforation PVC (premature ventricular contraction) NICM (nonischemic cardiomyopathy) Upper respiratory tract infection Transaminitis Sciatica Morbid obesity with BMI of 40.0-44.9, adult Hypovitaminosis D Ventricular bigeminy IBS (irritable bowel syndrome) Essential hypertension Obesity (BMI 35.0-39.9 without comorbidity) Mild persistent asthma Diverticulitis Hemochromatosis Family history of liver disease Arthritis Carpal tunnel syndrome, right Pain in right arm Surgical History S/P colostomy takedown History of colostomy reversal (12/02/23) History of exploratory laparotomy (08/27/23) Hx of foot surgery History of esophagogastroduodenoscopy (EGD) H/O colonoscopy H/O right heart catheterization History of loop electrical excision procedure (LEEP) H/O knee surgery Family History Father Diabetes Heart disease Stroke COPD (chronic obstructive pulmonary disease) High cholesterol Mother Diabetes Alzheimer disease HTN (hypertension) Brother Brain aneurysm Leukemia Sister COPD (chronic obstructive pulmonary disease) Diabetes Brother Heart valve replaced Social History Household Members: None Housing: House Are you a primary home care attendant to a significant other at home: No Do you presently have visiting nurse or other home services: No Alcohol intake: current Alcohol intake frequency: 0-2 drinks per day Alcohol type: wine Patient Tobacco Use Status: Former Tobacco user Tobacco use type: Cigarette Cigarette Packs Per Day: 1 Years Smoked: 7 e-Cigarette/Vaping Use: Never Used Second Hand Smoke Exposure: No Advance Directives Date on File: 08/22/23 service: No Current occupational status: employed Current occupational exposures/hazards: No Sexual orientation: Straight/Heterosexual Gender identity: Female Cognitive needs: No Hearing needs: No Vision needs: Yes (glasses) Questionnaire PHQ-9 Over the last 2 weeks, how often have you been bothered by any of the following problems? 1. Little interest or pleasure in doing things: not at all 2. Feeling down, depressed, or hopeless: not at all 3. Trouble falling or staying asleep, or sleeping too much: not at all 4. Feeling tired or having little energy: not at all 5. Poor appetite or overeating: not at all 6. Feeling bad about yourself - or that you are a failure or have let yourself or your family down: not at all 7. Trouble concentrating on things, such as reading the newspaper or watching television: not at all 8. Moving or speaking so slowly that other people could have noticed. Or the opposite - being so fidgety or restless that you have been moving around a lot more than usual: not at all 9. Thoughts that you would be better off or of hurting yourself in some way: not at all Total score: 0 Depression Screening Interpretation: Negative Depression Screening Done: Yes 86471 - PHQ-9 Billing: Yes Source: Developed by Drs. Peter Anderson, Ester Hazel, Stefan Lyman and colleagues, with an educational adrienne from [employer]. Thrive Questionnaire Date Thrive assessed: 02/04/24 I am a: Patient What is your living situation today?: I have a steady place to live Within the past 12 months, did the food you bought not last and you didn't have the money to get more?: Never true Within the past 12 months, did you worry whether your food would run out before you got money to buy more?: Never true Do you have trouble paying for medicines?: No Do you have trouble getting transportation to medical appointments?: No Do you have trouble paying your heating and electricity bill?: No Do you have trouble taking care of your child, family member or friend?: No Do you have trouble with day-to-day activities such as bathing, preparing meals, shopping, managing finances, etc.?: No Are you currently unemployed and looking for a job?: No Are you interested in more education?: No Please select the resources that you would like help with: None Currently or been in a relationship where the following occur: No concerns reported THRIVE Score: 0 AUDIT C Alcohol Use Questionnaire (AUDIT-C) 1. How often do you have a drink containing alcohol?: 4 or more times a week 2. How many drinks containing alcohol do you have on a typical day when you are drinking?: 1 or 2 3. How often do you have six or more drinks on one occasion?: Never Total Score: 4 Score Reviewed/Action Taken: Yes BRITTNEY-7 AMB Questionnaire BRITTNEY-7 Date BRITTNEY - 7 assessed: 02/04/24 Feeling nervous, anxious, or on edge: 0 = Not at all Not being able to stop or control worryin = Not at all Worrying too much about different things: 0 = Not at all Trouble relaxin = Not at all Being so restless that it is hard to sit still: 0 = Not at all Becoming easily annoyed or irritable: 0 = Not at all Feeling afraid as if something awful might happen: 0 = Not at all Total BRITTNEY-7 score (0-4 normal; 5-9 mild; 10-14 moderate; 15-21 severe): 0 Source: Developed by Drs. Peter nAderson, Ester Hazel, Stefan Lyman and colleagues, with an educational adrienne from [employer]. BRITTNEY-7 Assessment Billing BRITTNEY-7 Assessment Tool: BRITTNEY-7 Assessment 08273 Review of Systems Const All systems reviewed & are unremarkable except as noted in HPI and below Card Denies chest pain at rest, Denies chest pain with activity, Denies edema, Denies irregular heart rhythm, Denies claudication, Denies dyspnea, Denies dyspnea on exertion, Denies orthopnea, Denies paroxysmal nocturnal dyspnea and Denies slow heart rate Resp Denies cough, Denies dyspnea and Denies dyspnea on exertion GI Denies abdominal pain, Denies change in bowel habits, Denies excessive flatus, Denies nausea and Denies vomiting Physical exam (Primary Care) Vital Signs: Last Vital Signs BP 120/80 02/04/24 17:24 BMI result Body Mass Index 36.5 Tobacco/Smoking Status: Tobacco use Status Tobacco use date assessed 02/04/24 02/04/24 17:30 Patient Tobacco Use Status Former Tobacco user 02/04/24 17:30 Tobacco use type Cigarette 02/04/24 17:30 e-Cigarette/Vaping Use Never Used 02/04/24 17:30 PHQ-9: PHQ-9 Score PHQ-9: Total score 0 02/04/24 17:41 Depression Screening Interpretation: Negative Thrive Assessment: Date of Thrive Assessment Date Thrive assessed 02/04/24 02/04/24 17:30 Currently or been in a relationship where the following occur: No concerns reported HENMT Head: Yes normal to inspection, Yes normocephalic and Yes atraumatic Ears: external ears normal Eyes General: appearance normal, both eyes and all related structures Eyelids: Yes eyelids normal Conjunctivae: conjunctivae normal Neck Neck: Yes normal visual inspection and Yes supple Resp Effort & Inspection: normal respiratory effort Auscultation: clear to auscultation bilaterally Cardio Jugular venous distension: no JVD Rate: regular rate Rhythm: regular rhythm Heart sounds: S1 normal heart sound present and S2 normal heart sound present GI Inspection: Yes normal to inspection Palpation (GI): Soft to palpation and nontender Auscultation: normal bowel sounds Skin General skin exam: no rashes or lesions noted Neuro General: no focal motor deficits Extrem General: Yes full ROM Psych Appearance: grossly normal Assessment and Plan Assessment & Plan (1) Physical exam: Code(s): Z00.00 - Encounter for general adult medical examination without abnormal findings Plan: Repeat in a year. (2) NICM (nonischemic cardiomyopathy): Comment: new patient of [facility]-10/01/23 Code(s): I42.8 - Other cardiomyopathies Plan: Follow-up with Cardiology. The goal is to not gain 5 lb in a week. (3) Pain of left clavicle: Code(s): M89.8X1 - Other specified disorders of bone, shoulder Plan: X-ray ordered. Orders: Orders Vitamin D 25-OH Total Today E55.9 - Vitamin D deficiency, unspecified Lipid Panel Today I10 - Essential (primary) hypertension XR DEXA axial skeleton Today N95.9 - Unspecified menopausal and perimenopausal disorder XR clavicle LT Today M89.8X1 - Other specified disorders of bone, shoulder Comprehensive [place]. Panel Fast Today I10 - Essential (primary) hypertension Coding Level of Care Code Est Pt Level 3 (86748) Est Pt Prev Care 40-64y(59607) Diagnoses Physical exam Z00.00 NICM (nonischemic cardiomyopathy) I42.8 Pain of left clavicle M89.8X1 Additional Codes BRITTNEY-7 Assessment Billing - BRITTNEY-7 Assessment Tool: BRITTNEY-7 Assessment 11610 ([id number]) Time Spent (min) 33
[2024-02-04 17:24] VITALS: BP 120/80; BMI 36.5
== END 2024-02-04 17:52 | disposition home or self-care (01) ==
PROVIDERS: PCP Internal Medicine; Visit Provider Internal Medicine
DX: Z00.00 Encounter for general adult medical examination without abnormal findings (principal); I42.8 Other cardiomyopathies; M89.8X1 Other specified disorders of bone, shoulder
CPT/HCPCS: 99213; 99396

== ENCOUNTER 2024-02-19 14:10 | Outpatient (REF) | payer OTHER, SELFPAY | END 2024-02-19 14:11 | disposition home or self-care (01) | LOC: HO.BBR 14:10 | PROVIDERS: PCP Internal Medicine; Visit Provider Internal Medicine | DX: Z13.89 Encounter for screening for other disorder (principal) ==

== ENCOUNTER 2024-03-10 14:43 | Outpatient (AMB) | payer OTHER, SELFPAY ==
[2024-03-10 14:46] VITALS: BP 106/60; PULSE 86; BMI 37.0
--- NOTE | 2024-03-10 14:46 | MHC.OFFVIS ---
Vital Signs 03/10/24 14:46 Height 5 ft 1 in Weight 195 lb 12.328 oz BMI 37.0 BP 106/60 Blood Pressure Location Lt brachial Position Sitting Pulse 86 Pulse Source Pulse Oximeter Intake Visit Reasons: 3 mth f/up s/p echo/ holter Doggy Daycare Activities Director Required: No Accompanied by: Self / Same As Patient Allergies ciprofloxacin [Cipro] Allergy (Intermediate, Verified 02/04/24 17:36) hives dog dander [dogs] Allergy (Intermediate, Verified 02/04/24 17:36) Itching environmental allergies Allergy (Intermediate, Verified 02/04/24 17:36) Itching guaifenesin [From Mucinex] Allergy (Verified 02/04/24 17:36) Difficulty Breathing Medication List - Last Reconciled 03/10/24 by Berny Macdonald MD albuterol sulfate 90 mcg/actuation (Ventolin HFA) 1 puff PO QID PRN 30 days carvedilol 25 mg PO BID colostomy bags As directed elderberry fruit mg PO hydrochlorothiazide 25 mg PO QAM losartan 25 mg PO QAM multivitamin 1 tab PO QAM red beet root-sour carballo ext 250-0.5 mg tabs PO walker (Ultra-Light Rollator misc) As directed HPI Comments Details: Vielka returns for follow-up regarding cardiomyopathy. In the past, has seen [facility] as well as [facility] but she would like to switch over to our care. She has had cardiomyopathy, LV dysfunction for almost 20 years. Initially diagnosed in 2000. She has been described to have EF in the 25-30% range as well as 35-40% range at different times. There is also mention of apical RV hypokinesis. It seems that she has been offered ICD implantation for primary prevention the past but then declined. Otherwise, for the most part she is doing fine. No clear-cut anginal-type symptoms. With activity, she is again mostly feeling okay but may feel short of breath upon climbing stairs. No heart failure hospitalizations at all. Uncertain etiology for the cardiomyopathy. Otherwise, she also has a history of PVCs with intolerance to amiodarone. It seems that she has had attempted PVC ablation as well many years ago. Etiology for the cardiomyopathy is not clear. There is no malignancy history. She has hemochromatosis. However, a prior cardiac MRI did not show infiltrative disease. Since last seen, she states she is doing well. No complaints like angina or shortness of breath or any other new issues. [facility] Medical History (Updated 02/04/24 @ 19:40 by Danuta Santiago MD) Hereditary hemochromatosis Diverticulitis of colon with perforation PVC (premature ventricular contraction) NICM (nonischemic cardiomyopathy) Upper respiratory tract infection Transaminitis Sciatica Morbid obesity with BMI of 40.0-44.9, adult Hypovitaminosis D Ventricular bigeminy IBS (irritable bowel syndrome) Essential hypertension Obesity (BMI 35.0-39.9 without comorbidity) Mild persistent asthma Diverticulitis Hemochromatosis Family history of liver disease Arthritis Carpal tunnel syndrome, right Pain in right arm Surgical History S/P colostomy takedown History of colostomy reversal (12/02/23) History of exploratory laparotomy (08/27/23) Hx of foot surgery History of esophagogastroduodenoscopy (EGD) H/O colonoscopy H/O right heart catheterization History of loop electrical excision procedure (LEEP) H/O knee surgery Family History Father Diabetes Heart disease Stroke COPD (chronic obstructive pulmonary disease) High cholesterol Mother Diabetes Alzheimer disease HTN (hypertension) Brother Brain aneurysm Leukemia Sister COPD (chronic obstructive pulmonary disease) Diabetes Brother Heart valve replaced Social History Household Members: None Housing: House Are you a primary emergency care attendant to a significant other at home: No Do you presently have visiting nurse or other home services: No Alcohol intake: current Alcohol intake frequency: 0-2 drinks per day Alcohol type: wine Patient Tobacco Use Status: Former Tobacco user Tobacco use type: Cigarette Cigarette Packs Per Day: 1 Years Smoked: 7 e-Cigarette/Vaping Use: Never Used Second Hand Smoke Exposure: No Advance Directives Date on File: 08/22/23 service: No Current occupational status: employed Current occupational exposures/hazards: No Sexual orientation: Straight/Heterosexual Gender identity: Female Cognitive needs: No Hearing needs: No Vision needs: Yes (glasses) Review of Systems Const Denies chills, Denies fatigue, Denies fever(s), Denies weight gain and Denies weight loss ENT Denies dizziness Card Denies chest pain, Denies leg edema, Denies lightheadedness, Denies palpitations, Denies dyspnea on exertion, Denies orthopnea and Denies other Resp Denies cough and Denies dyspnea on exertion GI Denies hematochezia and Denies change in stool character Musc Denies abnormal gait, Denies muscle weakness, Denies numbness, Denies radiating pain into limb and Denies tingling Neuro Denies abnormal gait, Denies dizziness, Denies numbness and Denies tingling Endo Denies fatigue and Denies palpitations Physical Exam Vital Signs: Last Vital Signs Pulse 86 03/10/24 14:46 BP 106/60 03/10/24 14:46 BMI result Body Mass Index 37.0 Const General: comfortable and no acute distress Orientation/consciousness: patient oriented x3 HEENT Other: Unremarkable Head: Yes normal to inspection Neck Neck: Yes normal visual inspection Chest Chest palpation & inspection: normal inspection of the chest Resp Auscultation: clear to auscultation bilaterally Cardio Palpation: normal PMI Heart sounds: S1 normal heart sound present, S2 normal heart sound present, no gallops, no murmurs and no rubs GI Palpation (GI): Soft to palpation Back/Spine/Pelvis Other: unremarkable Skin General skin exam: no rashes or lesions noted Neuro General: patient oriented x3 Extrem General: Yes normal to inspection Psych Mental Status: mental status grossly normal Assessment & Plan Assessment & Plan (1) NICM (nonischemic cardiomyopathy): Comment: new patient of [facility]-10/01/23 Code(s): I42.8 - Other cardiomyopathies Category: Medical Plan: LVEF at various times have been 25-30%, 30-40%, 35-40% extra at different times. There is also mention of apical RV hypokinesis. In the most recent echocardiogram from November 2023, LVEF 40-45%. It seems that she has had a stress test, again many years ago but unknown results. Not known to have coronary disease. At some point, can consider coronary CTA or repeat stress testing as necessary. Clinically, no heart failure symptoms or signs. Continue current dose of carvedilol/losartan. Entresto was apparently very expensive. We can check cardiac BNP. If there is any elevation, consider spironolactone but blood pressure is borderline low. No need for Farxiga as she has got no symptoms whatsoever. (2) PVC (premature ventricular contraction): Code(s): I49.3 - Ventricular premature depolarization Category: Medical Plan: History of attempted PVC ablation many years ago. This is a question of epicardial origin. We can recheck PVC burden. In the past, there is also amiodarone intolerance. Plan Total time spent including review of data, counseling, documentation, coordination care-31 minutes. Orders: Orders B Type Natriuretic Peptide Today I42.8 - Other cardiomyopathies CA echo transthoracic complete 1 Year I42.8 - Other cardiomyopathies Coding Level of Care Code Est Pt Level 4 (52771) Diagnoses NICM (nonischemic cardiomyopathy) I42.8 PVC (premature ventricular contraction) I49.3
== END 2024-03-10 15:05 | disposition home or self-care (01) ==
PROVIDERS: PCP Internal Medicine; Visit Provider Internal Medicine
DX: I42.8 Other cardiomyopathies (principal); I49.3 Ventricular premature depolarization
CPT/HCPCS: 99214

== ENCOUNTER → 2024-03-10 14:43 | Outpatient (BNVA) | payer OTHER, SELFPAY | PROVIDERS: PCP Internal Medicine; Visit Provider Internal Medicine | DX: I42.8 Other cardiomyopathies (principal); I49.3 Ventricular premature depolarization | CPT/HCPCS: 99212 ==

== ENCOUNTER 2024-03-13 09:06 | Outpatient (REF) | payer OTHER, SELFPAY ==
--- NOTE | ~2024-03-13 | XR_ITS ---
EXAMINATION: XR CLAVICLE, LEFT CLINICAL INFORMATION: Left clavicle pain COMPARISON: Radiographs 03/18/2020 TECHNIQUE: Two views of the left clavicle. FINDINGS: No fracture or malalignment. Moderate acromioclavicular osteoarthritis, unchanged. XR/XR clavicle LT IMPRESSION: No fracture. Moderate acromioclavicular osteoarthritis. Electronically signed by: Mike Griffith MD 03/19/2024 01:12 PM EDT
== END 2024-03-13 09:07 | disposition home or self-care (01) ==
LOC: HO.XRAY 09:06
PROVIDERS: PCP Internal Medicine; Visit Provider Internal Medicine
DX: M89.8X1 Other specified disorders of bone, shoulder (principal)
CPT/HCPCS: 73000

== ENCOUNTER 2024-03-31 12:32 | Outpatient (REF) | payer OTHER, SELFPAY ==
[2024-03-31 14:29] LABS: B Type Natriuretic Peptide 32 pg/mL (<100)
[2024-03-31 14:42] LABS: Alanine Aminotransferase 47 U/L (0-31); Albumin Level 4.2 g/dL (3.5-5.0); Alkaline Phosphatase 88 U/L (39-117); Anion Gap 14 (12-20); Aspartate Amino Transferase 38 U/L (5-31); Bilirubin Total 0.8 mg/dL (0.0-1.0); Blood Urea Nitrogen 14 mg/dL (9-16); Calcium 9.5 mg/dL (8.4-10.2); Carbon Dioxide 26 mmol/L (22-29); Chloride 105 mmol/L (96-108); Cholesterol 187 mg/dL (<200); Estimated Glomerular Filt Rate > 60; Glucose Fasting 109 mg/dL (60-99); HDL Cholesterol 46 mg/dL (>40); LDL Cholesterol Calculated 90 mg/dL (<100); Potassium 3.6 mmol/L (3.3-5.1); Sodium 141 mmol/L (135-145); Total Protein 7.4 g/dL (6.5-8.0); Triglycerides 256 mg/dL (<150)
== END 2024-03-31 12:33 | disposition home or self-care (01) ==
LOC: HO.LAB 12:32
PROVIDERS: Absent Provider Internal Medicine; PCP Internal Medicine; Visit Provider Internal Medicine
DX: I10 Essential (primary) hypertension (principal); I42.8 Other cardiomyopathies; E55.9 Vitamin D deficiency, unspecified
CPT/HCPCS: 36415; 80053; 80061; 82306; 83880

== ENCOUNTER 2024-04-20 11:27 | Outpatient (REF) | payer OTHER, SELFPAY ==
--- NOTE | ~2024-04-20 | XR_ITS ---
EXAMINATION: XR SKULL CLINICAL INFORMATION: Injury of head, initial injury COMPARISON: None available. TECHNIQUE: 5 views of the skull FINDINGS: No gross air-fluid levels appreciated in the maxillary sinuses on views provided. Frontal sinuses are aerated. XR/XR skull <4V IMPRESSION: No gross air-fluid levels appreciated in the maxillary sinuses. Additional imaging with CT scan or MRI recommended if there is clinical concern for head injury as the studies are much more sensitive for detection of cranial pathology. Electronically signed by: Kari Clark MD 05/06/2024 11:55 AM EDT RP
--- NOTE | ~2024-04-20 | XR_ITS ---
EXAMINATION: XR LUMBOSACRAL SPINE CLINICAL INFORMATION: Low back pain COMPARISON: None available. TECHNIQUE: Three views of the lumbosacral spine. FINDINGS: Mild levoscoliosis of the lumbar spine. Degenerative changes in the bilateral sacroiliac joints. Facet arthritis in the mid to lower lumbar spine. Advanced degenerative changes with multilevel lumbar spondylosis and moderate multilevel loss of disc space height. Grade 1 anterolisthesis of L4 and L5. XR/XR lumbar spine 2-3V IMPRESSION: Advanced multilevel degenerative disc disease. Electronically signed by: Kari Clark MD 05/06/2024 01:34 PM EDT
== END 2024-04-20 11:28 | disposition home or self-care (01) ==
LOC: HO.XRAY 11:27
PROVIDERS: PCP Internal Medicine; Visit Provider Internal Medicine
DX: S09.90XA Unspecified injury of head, initial encounter (principal); M54.50 Low back pain, unspecified; E78.00 Pure hypercholesterolemia, unspecified; I42.8 Other cardiomyopathies; I10 Essential (primary) hypertension; E83.118 Other hemochromatosis; S06.0XAA Concussion with loss of consciousness status unknown, initial encounter; R73.01 Impaired fasting glucose; K76.0 Fatty (change of) liver, not elsewhere classified; W19.XXXA Unspecified fall, initial encounter
CPT/HCPCS: 70250; 72100; 99212

== ENCOUNTER 2024-04-20 11:27 | Outpatient (AMB) | payer OTHER, SELFPAY ==
--- NOTE | 2024-04-20 11:40 | MHC.PC.OV ---
Vital Signs 04/20/24 11:41 Height 5 ft 1 in Weight 198 lb 4 oz BMI 37.5 BP 130/60 Blood Pressure Location Lt brachial Position Sitting Pulse 70 Pulse Source Pulse Oximeter Pulse Oximetry (%) 96 Oxygen Delivery Method Room Air Intake Visit Reasons: Fall, hit RT head side Intake Note: Patient is here to follow up on Fall and hit R side of head. Draughtsman Required: No Site Director: Not Required per policy Accompanied by: Self / Same As Patient Allergies ciprofloxacin [Cipro] Allergy (Intermediate, Verified 04/20/24 11:41) hives dog dander [dogs] Allergy (Intermediate, Verified 04/20/24 11:41) Itching environmental allergies Allergy (Intermediate, Verified 04/20/24 11:41) Itching guaifenesin [From Mucinex] Allergy (Verified 04/20/24 11:41) Difficulty Breathing Tobacco use date assessed: 04/20/24 Fall risk assessment: 1 Fall in past year (04/17/24) Last assessed Fall Risk: 04/20/24 Dental Screening Dental Screen Date: 02/04/24 HPI Fall, hit RT head side HPI Details 63-year-old 1st time being seen obese female with a history of hemochromatosis asthma hypertension nonischemic cardiomyopathy hypercholesterolemia coming in for follow-up. Review of the notes in February had an x-ray of the left clavicle showing arthritis. Follows up with Cardiology has cardiomyopathy which was 20 years ago (2000) EF of 25-30% apical RV hypokinesis was offered ICD implantation but was declined has intolerance to amiodarone. Attempted PVC ablation most recent echocardiogram EF of 40-45% on carvedilol and losartan. Entresto not given due to financial problem. Review of the notes has had diverticular disease and has had segmental colitis with segmental resection of the colon in 09/03/2023. MGSascha richo 4 days ago , was standing and chair slid and fell and hit head on the floor. passed , head still hurt, R eye is watery [facility] Medical History (Updated 04/20/24 @ 12:[address] June MD) Hereditary hemochromatosis Diverticulitis of colon with perforation PVC (premature ventricular contraction) NICM (nonischemic cardiomyopathy) Upper respiratory tract infection Transaminitis Sciatica Morbid obesity with BMI of 40.0-44.9, adult Hypovitaminosis D Ventricular bigeminy IBS (irritable bowel syndrome) Essential hypertension Obesity (BMI 35.0-39.9 without comorbidity) Mild persistent asthma Diverticulitis Hemochromatosis Family history of liver disease Arthritis Carpal tunnel syndrome, right Pain in right arm Surgical History S/P colostomy takedown History of colostomy reversal (12/02/23) History of exploratory laparotomy (08/27/23) Hx of foot surgery History of esophagogastroduodenoscopy (EGD) H/O colonoscopy H/O right heart catheterization History of loop electrical excision procedure (LEEP) H/O knee surgery Family History Father Diabetes Heart disease Stroke COPD (chronic obstructive pulmonary disease) High cholesterol Mother Diabetes Alzheimer disease HTN (hypertension) Brother Brain aneurysm Leukemia Sister COPD (chronic obstructive pulmonary disease) Diabetes Brother Heart valve replaced Social History Household Members: None Housing: House Are you a primary patient care specialist to a significant other at home: No Do you presently have visiting nurse or other home services: No Alcohol intake: current Alcohol intake frequency: 0-2 drinks per day Alcohol type: wine Patient Tobacco Use Status: Former Tobacco user Tobacco use type: Cigarette Cigarette Packs Per Day: 1 Years Smoked: 7 Packs Per Year: 7 e-Cigarette/Vaping Use: Never Used Second Hand Smoke Exposure: No Advance Directives Date on File: 08/22/23 service: No Current occupational status: employed Current occupational exposures/hazards: No Sexual orientation: Straight/Heterosexual Gender identity: Female Cognitive needs: No Hearing needs: No Vision needs: Yes (glasses) Questionnaire Thrive Questionnaire Date Thrive assessed: 02/04/24 Are you currently unemployed and looking for a job?: No BRITTNEY-7 AMB Questionnaire BRITTNEY-7 Date BRITTNEY - 7 assessed: 02/04/24 Source: Developed by Drs. Peter Anderson, Ester Hazel, Stefan Lyman and colleagues, with an educational adrienne from [employer]. Fall Risk Assessment Fall Risk Assessment Fall risk assessment: 1 Fall in past year (04/17/24) Physical exam (Primary Care) Vital Signs: Last Vital Signs Pulse 70 10/07/24 11:41 BP 130/60 04/20/24 11:41 Pulse Ox 96 04/20/24 11:41 Oxygen Delivery Method Room Air 04/20/24 11:41 Care Plan Goal for BP management: Full neurological exam negative pupils equally reactive to light EOM full and equal, TM intact can move the chin to the chest can move the neck [id number], DTRs +2 on all extremities MMT 5/5 on all extremities can do leg raising with no problem lungs are clear, regular rate and rhythm for cardiac exam. BMI result Body Mass Index 37.5 Tobacco/Smoking Status: Tobacco use Status Tobacco use date assessed 04/20/24 04/20/24 11:42 Patient Tobacco Use Status Former Tobacco user 04/20/24 11:40 Tobacco use type Cigarette 04/20/24 11:40 e-Cigarette/Vaping Use Never Used 04/20/24 11:40 Thrive Assessment: Date of Thrive Assessment Date Thrive assessed 02/04/24 04/20/24 11:40 Const General: alert; No acute distress Eyes Conjunctivae: conjunctivae normal Resp Auscultation: clear to auscultation bilaterally Cardio Rate: regular rate Rhythm: regular rhythm GI Inspection: Yes normal to inspection Extrem General: Yes normal to inspection and No edema Coding Level of Care Code Est Pt Level 4 (11852) Diagnoses Pure hypercholesterolemia E78.00 NICM (nonischemic cardiomyopathy) I42.8 Essential hypertension I10 Other hemochromatosis E83.118 Hemochromatosis type: other hemochromatosis Concussion S06.0XAA Fall W19.XXXA Head trauma S09.90XA Low back pain M54.50 Impaired fasting blood sugar R73.01 Hepatic steatosis K76.0 Assessment & Plan Assessment & Plan (1) Pure hypercholesterolemia: Code(s): E78.00 - Pure hypercholesterolemia, unspecified Category: Medical Plan: Avoid fried foods, chicken skin, eggs, butter margarine, pastries and meat. Be it pork or beef they have a lot of cholesterol LDL goal of less than 100 and triglyceride of less than 150 (2) NICM (nonischemic cardiomyopathy): Comment: new patient of [facility]-10/01/23 Code(s): I42.8 - Other cardiomyopathies Category: Medical Plan: Patient follows up with Cardiology on carvedilol 25 mg twice a day losartan 25 mg once a day hydrochlorothiazide 25 mg once a day (3) Essential hypertension: Code(s): I10 - Essential (primary) hypertension Category: Medical Plan: Continue with blood pressure medication. Decrease salt intake and exercise on carvedilol 25 mg twice a day hydrochlorothiazide 25 mg once a day losartan 25 mg once a day (4) Hemochromatosis: Comment: w/therapeutic phlebotomies-most recent 07/2023-has f/u 01/2024 w/Dr. Dooley Code(s): E83.119 - Hemochromatosis, unspecified Category: Medical Qualifiers: Hemochromatosis type: other hemochromatosis Qualified Code(s): E83.118 - Other hemochromatosis Plan: Continue to follow-up with Hematology-Oncology (5) Concussion: Code(s): S06.0XAA - Concussion with loss of consciousness status unknown, initial encounter Category: Medical Plan: Examination burgos neurologically intact. Continuing to monitor (6) Fall: Code(s): W19.XXXA - Unspecified fall, initial encounter Category: Medical Plan: Discussion about avoiding accidents of falls. (7) Head trauma: Code(s): S09.90XA - Unspecified injury of head, initial encounter Category: Medical Plan: Patient declined MRIs and CT scans she is claustrophobic. Will do skull x-ray (8) Low back pain: Code(s): M54.50 - Low back pain, unspecified Category: Medical Plan: Patient has right paralumbar tenderness but has ask for an x-ray of the lumbar spine. (9) Impaired fasting blood sugar: Code(s): R73.01 - Impaired fasting glucose Category: Medical Plan: Decrease the amount of carbohydrate intake, pasta, bread, rice and potatoes are all sugar and that is aside from all the sweet stuff, remember that fruits are good but they are Sweet also. (10) Hepatic steatosis: Code(s): K76.0 - Fatty (change of) liver, not elsewhere classified Category: Medical Plan: Low-fat diet and exercise follows with Gastroenterology Orders: Orders XR skull <4V Today S09.90XA - Unspecified injury of head, initial encounter XR lumbar spine 2-3V Today M54.50 - Low back pain, unspecified
[2024-04-20 11:41] VITALS: BP 130/60; PULSE 70; O2SAT 96; BMI 37.5
== END 2024-04-20 12:41 | disposition home or self-care (01) ==
PROVIDERS: PCP Internal Medicine; Visit Provider Internal Medicine
DX: E78.00 Pure hypercholesterolemia, unspecified (principal); I42.8 Other cardiomyopathies; I10 Essential (primary) hypertension; E83.118 Other hemochromatosis; S06.0XAA Concussion with loss of consciousness status unknown, initial encounter; W19.XXXA Unspecified fall, initial encounter; S09.90XA Unspecified injury of head, initial encounter; M54.50 Low back pain, unspecified; R73.01 Impaired fasting glucose; K76.0 Fatty (change of) liver, not elsewhere classified

== ENCOUNTER 2024-04-22 15:10 | Outpatient (REF) | payer OTHER, SELFPAY ==
[2024-04-22 16:34] LABS: Ferritin 231 ng/mL (10-250)
== END 2024-04-22 15:11 | disposition home or self-care (01) ==
LOC: HO.BBR 15:10
PROVIDERS: PCP Internal Medicine; Visit Provider Internal Medicine
DX: E83.110 Hereditary hemochromatosis (principal)
CPT/HCPCS: 36415; 82728

== ENCOUNTER 2024-05-06 13:48 | Outpatient (AMB) | payer OTHER, SELFPAY ==
--- NOTE | 2024-05-06 13:51 | MHC.OFFVIS ---
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 She is doing well with no concerns: non tender bump externally on upper left labia. Attempting to eat a healthy diet with calcium and vitamin D and stays active with exercise. Currently not sexually active w/. Denies any vaginal dryness or irritation. Last pap smear; 2020, negative. Last mammogram; 2023. Colonoscopy is UTD. Denies any family history of breast, ovarian or colon cancer. [facility] Medical History Hereditary hemochromatosis Diverticulitis of colon with perforation PVC (premature ventricular contraction) NICM (nonischemic cardiomyopathy) Upper respiratory tract infection Transaminitis Sciatica Morbid obesity with BMI of 40.0-44.9, adult Hypovitaminosis D Ventricular bigeminy IBS (irritable bowel syndrome) Essential hypertension Obesity (BMI 35.0-39.9 without comorbidity) Mild persistent asthma Diverticulitis Hemochromatosis Family history of liver disease Arthritis Carpal tunnel syndrome, right Pain in right arm Surgical History S/P colostomy takedown History of colostomy reversal (12/02/23) History of exploratory laparotomy (08/27/23) Hx of foot surgery History of esophagogastroduodenoscopy (EGD) H/O colonoscopy H/O right heart catheterization History of loop electrical excision procedure (LEEP) H/O knee surgery Family History Father Diabetes Heart disease Stroke COPD (chronic obstructive pulmonary disease) High cholesterol Mother Diabetes Alzheimer disease HTN (hypertension) Brother Brain aneurysm Leukemia Sister COPD (chronic obstructive pulmonary disease) Diabetes Brother Heart valve replaced Social History Household Members: None Housing: House Are you a primary personal care worker to a significant other at home: No Do you presently have visiting nurse or other home services: No Alcohol intake: current Alcohol intake frequency: 0-2 drinks per day Alcohol type: wine Patient Tobacco Use Status: Former Tobacco user Tobacco use type: Cigarette Cigarette Packs Per Day: 1 Years Smoked: 7 e-Cigarette/Vaping Use: Never Used Second Hand Smoke Exposure: No Advance Directives Date on File: 08/22/23 service: No Current occupational status: employed Current occupational exposures/hazards: No Sexual orientation: Straight/Heterosexual Gender identity: Female Cognitive needs: No Hearing needs: No Vision needs: Yes (glasses) Female Reproductive History Menstrual Total pregnancies: 3 Full term: 3 Number of Living Children: 3 Date of last pap smear: 08/15/20 (neg pap and hpv) History of abnormal pap smear: Yes (hx leep) Date of Mammogram: 01/22/24 (Birad 1) Review of Systems Const All systems reviewed & are unremarkable except as noted in HPI and below Reports as per HPI Eyes Reports no additional complaints ENT Reports no additional complaints Card Reports no additional complaints Resp Reports no additional complaints GI Reports as per HPI and Reports no additional complaints Reports as per HPI Musc Reports no additional complaints Skin/Breast Reports as per HPI Neuro Reports no additional complaints Psych Reports no additional complaints Endo Reports no additional complaints Silviano/Lymph Reports no additional complaints Aller/Immun Reports no additional complaints Physical Exam Vital Signs: Last Vital Signs BP 100/60 05/06/24 13:52 BMI result Body Mass Index 37.8 Const General: cooperative, healthy appearing, no acute distress, well developed and alert Orientation/consciousness: patient oriented x3 HEENT Head: Yes normal to inspection Eyes General: appearance normal, both eyes and all related structures Neck Neck: Yes normal visual inspection Thyroid: Thyroid normal Chest Chest palpation & inspection: normal inspection of the chest and other (no puckering, dimpling, peau de orange, retraction, discharge, masses) Breast/axilla inspection: normal inspection of the breasts Breast/axilla palpation: normal palpation of the breasts Resp Effort & Inspection: normal respiratory effort GI Inspection: Yes normal to inspection and Yes scar Palpation (GI): Soft to palpation Rectal Exam - Female: deferred General: Yes bladder normal to palpation External Female Exam: normal external appearance and normal appearance of the urethra Speculum Exam - Vagina: normal appearance of the vagina, normal palpation, normal vaginal discharge and vagina atrophic Speculum Exam - Cervix: normal appearance of the cervix and normal palpation Bimanual exam- vagina & uterus: normal bimanual exam, normal palpation, uterine size normal, bladder normal to palpation, normal palpation and non-tender Bimanual Exam- Adnexa, other: no masses Skin General skin exam: no rashes or lesions noted Rashes: no rashes Neuro General: patient oriented x3 Cognition (Neuro): normal cognition Extrem General: Yes normal to inspection Psych Attitude: cooperative Thought process: Normal thought process present Assessment & Plan Assessment & Plan (1) Encounter for well woman exam with routine gynecological exam: Code(s): Z01.419 - Encounter for gynecological examination (general) (routine) without abnormal findings Category: Medical Plan Discussed: Current recommendations for pap smears per ASCCP guidelines. Breast awareness, periodic self breast exams and yearly mammogram. Maintain a healthy lifestyle, well balanced diet including Calcium 1,200 mg and Vitamin D 600 IU daily, and routine exercise. Normal exam today external vulva inspection did not reveal any lump or concerns on the right labia, patient was not able to feel the lump today either, if symptoms returned reports the office for evaluation. Contact the office with any postmenopausal bleeding. Patient verbalizes understanding and agrees to the plan of care. She was given opportunity to ask questions and all questions were answered to the best of my ability. 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 This note is constructed using voice recognition software. While every effort has been made to ensure accuracy, finance lecturer errors may have been included. Coding Level of Care Code Est Pt Prev Care 40-64y(45967) Diagnoses Encounter for well woman exam with routine gynecological exam Z01.419
[2024-05-06 13:52] VITALS: BP 100/60; BMI 37.8
== END 2024-05-06 14:31 | disposition home or self-care (01) ==
PROVIDERS: PCP Internal Medicine; Visit Provider Advanced Practice Midwife
DX: Z01.419 Encounter for gynecological examination (general) (routine) without abnormal findings (principal)
CPT/HCPCS: 99396

== ENCOUNTER → 2024-05-06 13:48 | Outpatient (BNVA) | payer OTHER, SELFPAY | PROVIDERS: PCP Internal Medicine; Visit Provider Advanced Practice Midwife | DX: Z01.419 Encounter for gynecological examination (general) (routine) without abnormal findings (principal) | CPT/HCPCS: 99396 ==

== ENCOUNTER 2024-06-23 16:26 | Outpatient (AMB) | payer OTHER, SELFPAY ==
--- NOTE | 2024-06-23 16:37 | A.OFFPC_ITS ---
Vital Signs 06/23/24 16:38 Height 5 ft 1 in Weight 204 lb BMI 38.5 BP 120/70 Blood Pressure Location Lt brachial Position Right Lateral Intake Visit Reasons: bp Intake Note: Patient here for a follow up BP Sanitation Laborer Required: No Accompanied by: Self / Same As Patient Allergies ciprofloxacin [Cipro] Allergy (Intermediate, Verified 06/23/24 16:51) hives dog dander [dogs] Allergy (Intermediate, Verified 06/23/24 16:51) Itching environmental allergies Allergy (Intermediate, Verified 06/23/24 16:51) Itching guaifenesin [From Mucinex] Allergy (Verified 06/23/24 16:51) Difficulty Breathing Medication List - Last Reconciled 06/23/24 by Danuta Santiago MD albuterol sulfate 90 mcg/actuation (Ventolin HFA) 1 puff PO QID PRN 30 days carvedilol 25 mg PO BID 90 days colostomy bags As directed elderberry fruit mg PO hydrochlorothiazide 25 mg PO QAM losartan 25 mg PO QAM multivitamin 1 tab PO QAM red beet-sour carballo extract 250-0.5 mg tabs PO turmeric root-sean root ext 150-25 mg tabs PO walker (Ultra-Light Rollator misc) As directed Tobacco use date assessed: 04/20/24 Fall risk assessment: No Falls in past year Last assessed Fall Risk: 06/23/24 Dental Screening Dental Screen Date: 06/23/24 Did you have a dental visit in the last 12 months?: Yes Did you have a dental problem in the last 6 months where you did not have access to dental care?: No Was dental information given to patient?: Patient has dentist HPI HPI Comments History of Present Illness Details The patient is a 63-year-old female presenting with a follow-up for her chronic conditions including essential hypertension, pure hypercholesterolemia, non-ischemic cardiomyopathy, and obesity. She has a history of non-ischemic cardiomyopathy with an ejection fraction recorded at 40 to 45% from an echo cardiogram in November of this year. Her blood pressure is within normal range, with a recent measurement of 120/70 mmHg. Previous laboratory results indicated elevated triglycerides level, which will be reassessed. The patient has obesity with a BMI of 38.5 and has expressed an interest in initiating Wegovy for weight management. She denies experiencing any chest pain, shortness of breath, weight loss, or weight gain, as well as polyuria or polydipsia. [facility] Medical History Hereditary hemochromatosis Diverticulitis of colon with perforation PVC (premature ventricular contraction) NICM (nonischemic cardiomyopathy) Upper respiratory tract infection Transaminitis Sciatica Morbid obesity with BMI of 40.0-44.9, adult Hypovitaminosis D Ventricular bigeminy IBS (irritable bowel syndrome) Essential hypertension Obesity (BMI 35.0-39.9 without comorbidity) Mild persistent asthma Diverticulitis Hemochromatosis Family history of liver disease Arthritis Carpal tunnel syndrome, right Pain in right arm Surgical History S/P colostomy takedown History of colostomy reversal (12/02/23) History of exploratory laparotomy (08/27/23) Hx of foot surgery History of esophagogastroduodenoscopy (EGD) H/O colonoscopy H/O right heart catheterization History of loop electrical excision procedure (LEEP) H/O knee surgery Family History Father Diabetes Heart disease Stroke COPD (chronic obstructive pulmonary disease) High cholesterol Mother Diabetes Alzheimer disease HTN (hypertension) Brother Brain aneurysm Leukemia Sister COPD (chronic obstructive pulmonary disease) Diabetes Brother Heart valve replaced Social History Household Members: None Housing: House Are you a primary nurse behavioral health care to a significant other at home: No Do you presently have visiting nurse or other home services: No Alcohol intake: current Alcohol intake frequency: 0-2 drinks per day Alcohol type: wine Patient Tobacco Use Status: Former Tobacco user Tobacco use type: Cigarette Cigarette Packs Per Day: 1 Years Smoked: 7 e-Cigarette/Vaping Use: Never Used Second Hand Smoke Exposure: No Advance Directives Date on File: 08/22/23 service: No Current occupational status: employed Current occupational exposures/hazards: No Sexual orientation: Straight/Heterosexual Gender identity: Female Cognitive needs: No Hearing needs: No Vision needs: Yes (glasses) Questionnaire Thrive Questionnaire Date Thrive assessed: 02/04/24 Are you currently unemployed and looking for a job?: No BRITTNEY-7 AMB Questionnaire BRITTNEY-7 Date BRITTNEY - 7 assessed: 02/04/24 Source: Developed by Drs. Peter Anderson, Ester Hazel, Stefan Lyman and colleagues, with an educational adrienne from [employer]. Review of Systems Const Details: - Cardiovascular: Denies chest pain and shortness of breath. - General: Denies weight loss or weight gain. - Endocrine: Denies polyuria and polydipsia. Physical exam (Primary Care) Vital Signs: Last Vital Signs BP 120/70 06/23/24 16:38 BMI result Body Mass Index 38.5 BMI Assessment/Plan discussion: High BMI High, discussed plan: lifestyle, weight reduction, dietary and physical activity Tobacco/Smoking Status: Tobacco use Status Tobacco use date assessed 04/20/24 06/23/24 16:43 Patient Tobacco Use Status Former Tobacco user 06/23/24 16:43 Tobacco use type Cigarette 06/23/24 16:43 e-Cigarette/Vaping Use Never Used 06/23/24 16:43 Thrive Assessment: Date of Thrive Assessment Date Thrive assessed 02/04/24 06/23/24 16:43 Const Other: General: No confusion Orientation/Consciousness: Patient oriented x3 and No confusion Head: Normal to inspection, Yes normocephalic and Yes atraumatic Neck: Normal visual inspection and Yes supple Respiratory: Normal respiratory effort, clear to auscultation bilaterally Cardiovascular: No jugular venous distension, regular rate, regular rhythm, S1 normal heart sound present and S2 normal heart sound present Extremities: Full ROM Psychology: Grossly normal Coding Level of Care Code Est Pt Level 4 (73060) Complex EM visit Add On G2211 Diagnoses Impaired fasting blood sugar R73.01 Pure hypercholesterolemia E78.00 NICM (nonischemic cardiomyopathy) I42.8 Essential hypertension I10 Mild persistent asthma without complication J45.30 Asthma complication type: uncomplicated Time Spent (min) 23 Assessment & Plan Assessment & Plan (1) Impaired fasting blood sugar: Code(s): R73.01 - Impaired fasting glucose Category: Medical (2) Pure hypercholesterolemia: Code(s): E78.00 - Pure hypercholesterolemia, unspecified Category: Medical (3) NICM (nonischemic cardiomyopathy): Comment: new patient of [facility]-10/01/23 Code(s): I42.8 - Other cardiomyopathies Category: Medical (4) Essential hypertension: Code(s): I10 - Essential (primary) hypertension Category: Medical (5) Mild persistent asthma: Comment: has prn inhaler Code(s): J45.30 - Mild persistent asthma, uncomplicated Category: Medical Qualifiers: Asthma complication type: uncomplicated Qualified Code(s): J45.30 - Mild persistent asthma, uncomplicated Plan For essential hypertension, continue monitoring blood pressure as it remains within normal limits. For pure hypercholesterolemia, repeat the triglycerides test to reassess current levels. For non-ischemic cardiomyopathy, continue with cardiology follow-ups as previously scheduled. Regarding obesity, explore the initiation of Wegovy for weight management. Patient was informed and verbally consented to the use of an ambient scribe for clinic note documentation during this visit. During the consultation, I discussed with the patient the management of her chronic conditions, including hypertension, hypercholesterolemia, cardiomyopathy, and obesity. We reviewed the current status of her blood pressur e, which is well-controlled. I explained the need to repeat her triglycerides test to evaluate her lipid profile further. We also discussed the continuation of her current cardiology care. For her obesity management, we considered Rugobi as an option for weight loss, and I provided information about its potential benefits and risks. The patient expressed understanding and agreement with the ongoing management plan. Orders: Orders Lipid Panel Today E78.5 - Hyperlipidemia, unspecified Complete Blood Count Auto Diff Today D64.9 - Anemia, unspecified IRON PROFILE Today D64.9 - Anemia, unspecified Comprehensive [place]. Panel Fast Today K76.0 - Fatty (change of) liver, not elsewhere classified Patient Instructions: - Continue regular monitoring of blood pressure. - Follow up with cardiology as scheduled. - Prepare for repeat triglyceride testing. - Consider starting Wegovy for weight management as discussed.
[2024-06-23 16:38] VITALS: BP 120/70; BMI 38.5
--- OUTSIDE RECORDS SUMMARY | 2024-06-24 22:28 | XMS_ITS ---
Author Organization [facility] Address [address] [place] [id number] Care Team Providers Care Rfid Engineer Name Role Phone Danuta Barboza Primary Care Provider Peter Munoz Unavailable [phone] ALLERGIES Allergen (clinical drug ingredient) Drug/Non Drug Allergy documented on EMR Reaction Allergy Type Onset Date Status dust,grass,trees,cat s and dogs (uncoded) Unknown Allergy Active REASON FOR VISIT Patient presents today for elevated lft's MEDICATIONS Medication SIG (Take, Route, Frequency, Duration) Notes Start Date End Date Status Vitamin D Active Calcium Active Ventolin HFA 108 (90 Base) MCG/ACT 2 puffs as needed Inhalation every 6 hrs Active hydroCHLOROthiazide 25 MG 1 tablet in th e morning Orally Once a day for 30 day(s) Active Tylenol PRN Active Losartan Potassium 25 MG 1 tablet Orally Once a day for 30 day(s) Active Carvedilol 25 MG as directed Orally BID Active SOCIAL HISTORY Tobacco Use: Social History Observation Description Date Details (start date - stop date) Former Smoker NA - NA Sex Assigned At : Social History Observation Description Sex Assigned At Unknown Tobacco Use/Smoking Question Answer Notes Patient is a former smoker How long has it been since you last smoked? > 10 years Alcohol Screen Question Answer Notes Did you have a drink contain ing alcohol in the past year? Yes How often did you have a dri nk containing alcohol in the past year? 2 to 3 times a week (3 points) How many drinks did you have on a typical day when you were drinking in the past year? 1 or 2 drinks (0 point) How often did you have 6 or more drinks on one occasion in the past year? Never (0 point) Points 3 Interpretation Positive VITAL SIGNS BMI 37.79 kg/m2 05/12/2024 Blood pressure systolic 00 mm Hg 05/12/20 24 Blood pressure diastolic 00 mm Hg 024 Height 61 in 05/12/2024 Weight 200 lbs 05/12/2024 Encounters Encounter Location Date Provider Diagnosis [facility] [address] [place] [address] 05/12/2024 Peter Rojas Serrated polyp of co jemal K63.5 ; Fatty liver K76.0 ; Encounter for screening for malignant neoplasm of colon Z12.11 and Hereditary hemochromatosis E83.110 ASSESSMENTS Encounter Date Diagnosis Assessment Notes Treatment Notes Treatment Clinical Notes 05/12/2024 Serrated polyp of colon (ICD-10 - K63.5) Do not take the Hydrochlorothiazide the day before nor on the day of the colonoscopy 05/12/2024 Fatty liver (ICD-10 - K76.0) 05/12/2024 Encounter for screening for malignant neoplasm of colon (ICD-10 - Z12.11) 05/12/2024 Hereditary hemochromatosis (ICD-10 - E83.110) PLAN OF TREATMENT Treatment Notes Assessment Notes Serrated polyp of colon Do not take the Hydrochlorothiazide the day before nor on the day of the colonoscopy Future Test Test Name Order Date COLONOSCOPY 05/12/2024 Next Appt Details Follow Up: prn, Reason: Provider Name:Peter Rojas , 08/26/2024 10:50:00 AM, [address] [place] [address], [phone], Progress Notes * Examination Category Sub-Category Detail Notes General Examination GENERAL APPEARANCE: pleasant , well nourished, well developed, in no acute distress HEAD: EYES: sclera non-icteric EARS: NOSE: THROAT: NECK/THYROID: no cervical lymphade nopathy, neck supple HEART: S1, S2 normal CHEST: LUNGS: clear to auscultatio n bilaterally ABDOMEN: normal bowel sounds, no guarding or rigidity, no guarding or rigidity, no masses palpable, soft, nontender, nondistended NEUROLOGIC: alert and oriented SKIN: nonjaundiced, no spi heather angiomata EXTREMITIES: no edema PERIPHERAL PULSES: BACK: BREASTS: MUSCULOSKELETAL: MALE GENITOURINARY: LYMPH NODES: RECTAL EXAM: FEMALE GENITOURINARY: ORAL CAVITY: mucosa moist
--- OUTSIDE RECORDS SUMMARY | 2024-06-24 22:28 | XMS_ITS ---
Author Organization [facility] Address [address] [place] [phone] Care Team Providers Care Rickshaw Driver Name Role Phone Danuta Barboza Primary Care Provider Unavailab Peter Garcia Unavailable [phone] REASON FOR VISIT surgery for diverticulitis Encounters Encounter Location Date Provider Diagnosis [facility] [address] [place] [phone] 10/10/2023 Peter Rojas PLAN OF TREATMENT Next Appt Details Provider Name:Peter Rojas , 08/26/2024 10:50:00 AM, [address] [place] [address] , [place], [place], [phone],
--- OUTSIDE RECORDS SUMMARY | 2024-06-24 22:28 | XMS_ITS ---
Author Organization [facility] Address [address] [place] [phone] Care Team Providers Care Behavioral Scientist Name Role Phone Danuta Barboza Primary Care Provider Peter Munoz Unavailable [phone] ALLERGIES Allergen (clinical drug ingredient) Drug/Non Drug Allergy documented on EMR Reaction Allergy Type Onset Date Status dust,grass,trees,cat s and dogs (uncoded) Unknown Allergy Active REASON FOR VISIT Patient presents today for elevtaed lft's MEDICATIONS Medication SIG (Take, Route, Frequency, Duration) Notes Start Date End Date Status Ventolin HFA 108 (90 Base) MCG/ACT 2 puffs as needed Inhalation every 6 hrs Active hydroCHLOROthiazide 25 MG 1 tablet in th e morning Orally Once a day for 30 day(s) Active Vitamin D Active Calcium Active Losartan Potassium 25 MG 1 tablet Orally Once a day for 30 day(s) Active Carvedilol 25 MG as directed Orally BID Active Tylenol PRN Active SOCIAL HISTORY Tobacco Use: Social History [...] Never (0 point) Points 3 Interpretation Positive PROBLEMS Problem Type ICD Code Onset Dates Problem Status W/U Status Risk SNOMED Code Notes Problem Fatty liver (K76.0) Active confirmed Fatty liver ([id number]) VITAL SIGNS BMI 35.71 kg/m2 11/12/2023 Blood pressure systolic 00 mm Hg 11/12/19 24 Blood pressure diastolic 00 mm Hg 024 Height 61 in 11/12/2023 Weight 189 lbs 11/12/2023 Encounters Encounter Location Date Provider Diagnosis [facility] [address] [place] [address] 11/12/2023 Peter Rojas Elevated liver funct ion tests R79.89 ; Hereditary hemochromatosis E83.110 ; Serrated polyp of colon K63.5 and Fatty liver K76.0 ASSESSMENTS Encounter Date Diagnosis Assessment Notes Treatment Notes Treatment Clinical Notes 11/12/2023 Elevated liver function tests (ICD-10 - R79.89) 11/12/2023 Hereditary hemochromatosis (ICD-10 - E83.110) 11/12/2023 Serrated polyp of colon (ICD-10 - K63.5) 11/12/2023 Fatty liver (ICD-10 - K76.0) PLAN OF TREATMENT Pending Test Test Name Order Date LIVER PROFILE 11/12/2023 Next Appt Details Follow Up: 2023, Reaso n: Provider Name:Peter Rojas , 08/26/2024 10:50:00 AM, [address] [place] [address], [phone], Progress Notes * Examination Category Sub-Category Detail [...]
--- OUTSIDE RECORDS SUMMARY | 2024-06-24 22:28 | XMS_ITS | Patient Health Record ---
Author Organization [facility] Address [address] [place] [address] Care Team Providers Care Finance Executive Name Role Phone Eduard Barboza Primary Care Provider Peter Munoz [phone] ALLERGIES Allergen (clinical drug ingredient) Drug/Non Drug Allergy documented on EMR Reaction Allergy Type Onset Date Status dust,grass,trees,cat s and dogs (uncoded) Unknown Allergy Active RESULTS Component Value Reference Range Notes Complete Blood Count Auto Di ff Reviewed date:08/06/2023 06:41:39 PM Interpretation: Performing Lab:[facility], [address] [place] [phone] Notes/Report: White Blood Count 4.3 4.8-10.8 X10*3/uL Red Blood Count 3.89 4.20-5.50 X10*6/uL Hemoglobin 12.3 12.0-16.0 g/dl Hematocrit 36.8 37.0-47.0 % Mean Corpuscular Volume 94.6 80.0-98.0 fL Mean Corpuscular Hemoglobin 31.6 27.0-33.0 pg Mean Corpuscular HGB Conc 33.4 31.0-35.0 g/dl Red Cell Distribution Width 12.8 11.0-16.0 % Platelet Count 247 160-400 X10*3/uL Mean Platelet Volume 10.5 9.4-12.3 fL Neutrophils Percent Auto 50.1 45-73 % Imm Gran Pct Auto 0.2 0.0-0.4 % Lymphocytes Percent Auto 36.9 20-40 % Monocytes Percent Auto 10.5 2-11 % Eosinophils Percent Auto 2.1 0-4 % Basophils Percent Auto 0.2 0-2 % NRBC Pct Auto 0.0 0.0-0.2 /100WBC Neutrophils Absolute Auto 2.1 2.0-8.3 x10*3/u L Imm Gran Abs Auto 0.01 0.00-0.03 X10*3/uL Lymphocytes Absolute Auto 1.6 1.2-4.9 X10*3/u L Monocytes Absolute Auto 0.5 0.1-1.2 X10*3/uL Eosinophils Absolute Auto 0.1 0.0-0.4 X10*3/u L Basophils Absolute Auto 0.0 0.0-0.2 X10*3/uL NRBC Abs Auto 0.000 0.0-0.012 X10*3/uL DNA Analysis Hemochromatosis Reviewed date:08/17/2023 04:55:29 PM Interpretation: Performing Lab:[facility], [address] [place] [phone] Notes/Report: DNA Analysis Hemochromatosis See Below RESULT: POSITIVE FOR TWO COPIES OF THE HFE GENE PATHOGENIC VARIANT: C282Y/C282Y (HOMOZYGOTE) Interpretation: Two copies of the C282Y pathogenic variant in the HFE gene were detected. This patient is negative for the H63D pathogenic variant. Approximately 60% to 90% of individuals with a biochemical diagnosis of hereditary hemochromatosis (HH) have this genotype. Therefore, this result is consistent with a diagnosis of HH in an individual with clinical evidence of HH. However, this genotype does not predict a diagnosis of HH in an asymptomatic individual, as not all individuals with this genotype will develop symptoms or clinical evidence of this disorder. Disease diagnosis can only be made by demonstration of elevated iron stores. Consider genetic counseling and DNA testing for at-risk family members. Laboratory testing supervised and results monitored by Mary Alfaro, Ph.D., [facility], [facility]. DETAILED ASSAY INFORMATION: Hereditary hemochromatosis (HH) is an autosomal recessive disorder of iron metabolism that can result in iron overload and potential organ failure. It is one of the most common genetic disorders in individuals of - ancestry, with an estimated carrier frequency of 10%. HH is caused by pathogenic variants in the HFE gene. Most individuals with HH (60-90%) are homozygous for the C282Y pathogenic variant. A smaller percentage of affected individuals are either compound heterozygous for the C282Y and H63D pathogenic variants (3%-8%), or homozygous for the H63D pathogenic variant (approximately 1%). METHODOLOGY: This assay detects two pathogenic variants in the HFE gene, C282Y (NM 592269.2: c.845G>A, p.Ydl039Jiu) and H63D (NM 449132.2: c.187C>G, p.Pkc45Tcn), that are commonly associated with HH. These variants are detected by multiplex-polymerase chain reaction (PCR) amplification, followed by restriction enzyme digestion and capillary electrophoresis. LIMITATIONS: This assay does not detect other pathogenic variants in the HFE gene that may be associated with HH. Although rare, false positive or false negative results may occur. All results should be interpreted in the context of clinical findings, relevant history, and other laboratory data. Health care providers, please contact your local [facility] genetic counselor or call [phone] ( ) for assistance with the interpretation of these results. This test was developed and its analytical performance characteristics have been determined by [facility]. It has not been cleared or approved by FDA. This assay has been validated pursuant to the CLIA regulations and is used for clinical purposes. For more information, please refer to http://education.Appsee.com/faq/hemochromatosi s. (This link is being provided for informational/educational purposes only.) A portion of [place] [facility] [place]. Reviewed and signed by Laboratory testing supervised and results monitored by Mary Alfaro, Ph.D., [facility], [facility], Signed on 08/14/2023 at 19:33 THIS TEST WAS PERFORMED AT: [facility] [address] [place] [address] ARACELI KAY MD,PHD,ESTELLE Prothrombin Time INR Reviewed date:08/06/2023 05:47:43 PM Interpretation: Performing Lab:[facility], [address] [place] [phone] Notes/Report: Prothrombin Time 11.6 11.1-13.3 SEC INTERNATIONAL NORM RATIO 1.0 0.9-1.1 INTERNATIONAL NORMALIZED RATIO (INR) REFERENCE RANGES Reference Range For patients not on anticoagulant therapy: 0.9 - 1.1 INR ranges for oral anticoagulant therapy: For prevention and treatment of venous thrombosis and pulmonary embolism: 2.0 - 3.0 For acute myocardial infarction with aspirin therapy: 2.0 - 3.0 For acute myocardial infarction without aspirin therapy: 3.0 - 4.0 For patients with mechanical prosthetic heart valves: 2.5 - 3.5 Liver Panel Reviewed date:08/17/2023 04:55:50 PM Interpretation: Performing Lab:[facility], [address] [place] [phone] Notes/Report: Bilirubin Total 0.6 0.0-1.0 mg/dL Bilirubin Direct 0.2 0.0-0.5 mg/dL Aspartate Amino Transferase 35 5-31 U/L Alanine Aminotransferase 41 0-31 U/L Total Protein 7.3 6.5-8.0 g/dL Albumin Level 4.1 3.5-5.0 g/dL Alkaline Phosphatase 99 39-117 U/L IRON PROFILE Reviewed date:08/06/2023 05:52:51 PM Interpretation: Performing Lab:[facility], [address] [place] [phone] Notes/Report: Iron 46 30-160 mcg/dL Total Iron Binding Capacity 271 228-428 mcg/dL Percent Iron Saturation 17 15-50 % Unsaturated Iron Binding 225 Ferritin Reviewed date:08/06/2023 05:52:58 PM Interpretation: Performing Lab:[address] [phone] Notes/Report: Ferritin 38 10-250 ng/mL Alpha Fetoprotein Reviewed date:08/13/2023 12:20:37 AM Interpretation: Performing Lab:[address] [phone] Notes/Report: Alpha Fetoprotein 6.0 Reference Range: <6.1 The use of AFP as a tumor marker in females is not recommended. This test was performed using the Rajesh [place] chemiluminescent method. Values obtained from different assay methods cannot be used interchangeably. AFP levels, regardless of value, should not be interpreted as absolute evidence of the presence or absence of disease. THIS TEST WAS PERFORMED AT: [facility] [address] [place] [phone] YESSICA DOBSON MD Alpha 1 Anti-trypsin Reviewed date:08/13/2023 12:20:45 AM Interpretation: Performing Lab:[facility], [address] [place] [phone] Notes/Report: Alpha 1 Anti-trypsin 153 83-199 mg/dL THIS TEST WAS PERFORMED AT: [facility] [address] [place] [phone] YESSICA DOBSON MD Liver Fibrosis Pnl Reviewed date:08/13/2023 12:20:53 AM Interpretation: Performing Lab:[facility], [address] [place] [phone] Notes/Report: Liver Fibrosis Score 0.24 Liver Fibrosis Stage F0-F1 Liver Fibrosis Interpretation SEE NOTE no fibrosis Fibro Test Score (f) Metavir Score f>=0 and f<=0.21 : F0 (no fibrosis) f>0.21 and f<=0.27 : F0-F1 (no fibrosis) f>0.27 and f<=0.31 : F1 (minimal fibrosis) f>0.31 and f<=0.48 : F1-F2 (minimal fibrosis) f>0.48 and f<=0.58 : F2 (moderate fibrosis) f>0.58 and f<=0.72 : F3 (advanced fibrosis) f>0.72 and f<=0.74 : F3-F4 (advanced fibrosis) f>0.74 and f<=1.00 : F4 (severe fibrosis) Nec Inflam Act Score 0.15 Nec Inflam Act Grade A0 Nec Inflam Act Interpretation SEE NOTE no activity ActiTest Score (a) Metavir Score a>=0 and a<=0.17 : A0 (no activity) a>0.17 and a<=0.29 : A0-A1 (no activity) a>0.29 and a<=0.36 : A1 (minimal activity) a>0.36 and a<=0.52 : A1-A2 (minimal activity) a>0.52 and a<=0.60 : A2 (significant activity) a>0.60 and a<=0.62 : A2-A3 (significant activity) a>0.62 and a<=1.00 : A3 (severe activity) WEZ-Figop-9-Macroglobulin 227 106-279 mg/dL FIB-Haptoglobin 188 43-212 mg/dL FIB-Apolipoprotein A1 180 101-198 mg/dL FIB-Total Bilirubin 0.6 0.2-1.2 mg/dL FIB-GGT 52 3-65 U/L FIB-ALT 32 6-29 U/L Reference ID [id number] Footnote SEE NOTE The reliability of results is dependent on compliance with the preanalytical and analytical conditions recommended by [employer]. The tests have to be deferred for: acute hemolysis, acute hepatitis, acute inflammation, extra hepatic cholestasis. The advice of a specialist should be sought for interpretation in chronic hemolysis and Gilbert's syndrome. The test interpretation is not validated in liver transplant patients. Isolated extreme values of one of the components should lead to caution in interpreting the results. In case of discordance between a biopsy result and a test, it is recommended to seek the advice of a specialist. The causes of these discordances could be due to a flaw of the test or to a flaw in the biopsy: i.e. a liver biopsy has a 33% variability rate for one fibrosis stage. FibroTest is interpretable for chronic hepatitis B and C, alcoholic and non alcoholic steatosis. ActiTest is interpretable for chronic hepatitis B and C. The performance characteristics have been determined by [facility]. It has not been cleared or approved by the U.S. Food and Drug Administration. Performance characteristics refer to the analytical performance of the test. [employer], the associated logo, [employer] and all associated [employer] angelo are the registered trademarks of [employer]. All third democrat angelo - (R) and (TM) - are the property of their respective owners. (C) [id number] [employer]. All rights reserved. THIS TEST WAS PERFORMED AT: [facility] [employer] [place] [address] [place] [address] ARACELI KAY MD,PHD,ESTELLE EDUARD Reflex Titer and Pattern Reviewed date:08/14/2023 06:11:51 PM Interpretation: Performing Lab:[facility], [address] [place] [phone] Notes/Report: Anti Nuclear Antibody Screen NEGATIVE NEGATIVE EDUARD IFA is a first line screen for detecting the presence of up to approximately 150 autoantibodies in various autoimmune diseases. A negative EDUARD IFA result suggests an EDUARD-associated autoimmune disease is not present at this time, but is not definitive. If there is high clinical suspicion for Sjogren's syndrome, testing for anti-SS-A/Ro antibody should be considered. Anti-Pascale-1 antibody should be considered for clinically suspected inflammatory myopathies. AC-0: Negative International Consensus on EDUARD Patterns (https://doi.org/10.1515/ccl m-5748-2445) For additional information, please refer to http://education.StemPar Sciences.BloomThat/faq/EYT995 (This link is being provided for informational/ educational purposes only.) THIS TEST WAS PERFORMED AT: [facility] [facility] [employer] [facility] [address] [place] [phone] YESSICA DOBSON MD Anti Nuclear Antibody Titer TNP Anti Nuclear Antibody Pattern TNP EDUARD Titer 2 TNP EDUARD Pattern 2 TNP EDUARD Titer 3 TNP EDUARD Pattern 3 TNP Mitochondrial Antibody Reviewed date:08/14/2023 06:11:34 PM Interpretation: Performing Lab:[facility], [address] [place] [phone] Notes/Report: Mitochondrial Antibodies NEGATIVE NEGATIVE The immunofluorescence assay (IFA) procedure reveals the possible presence of another autoantibody. Consider requesting order code 262, Parietal Cell Antibody with Reflex to Titer, if clinically indicated. THIS TEST WAS PERFORMED AT: [facility] [employer] [facility] [employer] [facility] [address] [place] [phone] YESSICA DOBSON MD Mitochondrial Ab Titer TNP Smooth Muscle Antibody Reviewed date:08/14/2023 06:11:40 PM Interpretation: Performing Lab:[facility], [address] [place] [phone] Notes/Report: Smooth Muscle Antibody <20 <20 U Reference Range: <20 U: Negative >or=20 U: Positive Antibodies recognizing actin are the main component of smooth muscle antibodies associated with auto- immune liver disease. Actin antibodies are found in approximately 75% of patients with autoimmune hepatitis (AIH) type 1, approximately 65% of patients with autoimmune cholangitis, approximately 30% of patients with primary biliary cirrhosis and approximately 2% of healthy controls. High values are closely correlated with AIH type 1. THIS TEST WAS PERFORMED AT: [facility] [address] [place] [address] CECI FREEMAN MD,PHD Hepatitis A,B,C Profile Reviewed date:08/06/2023 05:52:38 PM Interpretation: Performing Lab:[facility], [address] [place] [phone] Notes/Report: Hepatitis A Antibody IgM Nonreactive Nonreactive IgM antibodies to HAV not detected; does not exclude early acute or recovered HAV infection. Hepatitis B Surface Antibody NONREACTIVE Nonreactive Nonreactive: < 8.00 mIU/mL Hepatitis B Core Antibody Nonreactive Nonreactive Hepatitis C Antibody Nonreactive Nonreactive Antibodies to HCV not detected; does not exclude early acute HCV infection. Hepatitis B Surface Antigen Negative Negative US abdomen comp w elastograp hy Reviewed date:08/17/2023 04:58:10 PM Interpretation: Performing Lab: Notes/Report: [address] [address] Ultrasound Report Signed Patient: Phill Escobedo MR#: [id number] : 1960 Acct:[id number] Age/Sex: 63 / F ADM Date: 08/06/23 Loc: HO.US Attending Dr: Peter Rojas MD Ordering Physician: Peter Rojas Date of Service: 08/06/23 Procedure(s): US abdomen comp w elastography Accession Number(s): [id number] cc: Eduard Barboza MD; Peter Rojas EXAMINATION: US COMPLETE ABDOMEN WITH LIVER ELASTOGRAPHY CLINICAL INFORMATION: Elevated liver function tests. COMPARISON: None available. TECHNIQUE: Real-time imaging of the abdominal viscera. Noninvasive ultrasound liver fibrosis assessment is performed using Leonora ElastPQ point quantification shear wave elastography (2D-SWE) with a C5-2 MHz transducer. Multiple elastography samples are obtained. FINDINGS: PANCREAS: Limited. The visualized pancreatic head and body are normal in appearance. The remainder of the pancreas is obscured from visualization by the overlying bowel gas. ABDOMINAL AORTA: The proximal, middle, and distal aortic segments are normal in caliber. INFERIOR VENA CAVA: Visualized portions are normal. LIVER: The liver demonstrates normal contour and increased echogenicity. No focal lesion or intrahepatic biliary duct dilatation. The right lobe measures 18.1 cm in length. The left lobe measures 12.8 cm in length. Portal flow is towards the liver (hepatopetal). Shear wave liver elastography median stiffness is 1.66 m/s (reference: normal median stiffness is 1.3 m/s or less). IQR/median stiffness to assess sampling precision is 0.15 (reference: good quality data set is IQR/median stiffness of 0.15 or less). GALLBLADDER: Normal. The gallbladder is physiologically distended without evidence of stones, sludge, polyps, wall thickening or pericholecystic fluid. COMMON BILE DUCT: Normal in caliber measuring 0.3 cm in diameter. RIGHT KIDNEY: Normal. No hydronephrosis. No renal calculi or focal parenchymal lesions. The kidney measures 10.7 cm in maximum dimension. LEFT KIDNEY: Normal. No hydronephrosis. No renal calculi or focal parenchymal lesions. The kidney measures 11.1 cm in maximum dimension. SPLEEN: Normal. The spleen measures 10.0 cm in maximum dimension. FREE FLUID: None. US/US abdomen comp w elastography IMPRESSION: 1. There is mild hepatomegaly. 2. There is generalized increase in hepatic echotexture, consistent with fatty infiltration or hepatocellular disease. Please correlate clinically. No focal hepatic mass or intrahepatic biliary dilatation is seen. 3. Liver elastography: In the absence of other known clinical signs, measurements rule out compensated advanced chronic liver disease. If there are known clinical signs, further testing may be needed for confirmation. 4. Technically limited ultrasound examination of the pancreas. REFERENCE: Society of Radiologists in Ultrasound Liver Stiffness Thresholds (2020): LIVER STIFFNESS THRESHOLDS: *Liver Stiffness equal or less than 1.3 m/s: High probability of being normal. *Liver Stiffness less than 1.7 m/s: In the absence of other known clinical signs, rules out compensated advanced chronic liver disease. *Liver Stiffness 1.7-2.1 m/s: Suggestive of compensated advanced chronic liver disease but need further test for confirmation. *Liver Stiffness over 2.1 m/s: Rules in compensated advanced chronic liver disease. *Liver Stiffness over 2.4 m/s: Suggestive of clinically significant portal hypertension. QUALITY OF DATA SET: *IQR/Median value equal or less than 0.15 implies a quality data set. *IQR/Median value over 0.15 implies a poor quality data set. SIGNIFICANT CHANGE FROM PRIOR EXAM: Significant change if liver stiffness measurement is 10% or greater from prior exam. OTHER CONSIDERATIONS: The stage of liver fibrosis may be overestimated in the setting of acute hepatitis, liver inflammation, elevated liver function tests, hepatic vascular congestion, obstructive cholestasis, non-fasting state, and infiltrative diseases such as amyloidosis and lymphoma. In some patients with NAFLD, the liver stiffness thresholds for compensated advanced chronic liver disease may be lower. In causes other than viral hepatitis and NAFLD, liver stiffness thresholds are not well established. Dictated By: Clayton Ley MD Signed By: <Electronically signed by Clayton Ley MD in OV> 08/08/23 1803 DD/ 0946 TD/TT: Casework Manager: HOSEA Liver Panel Reviewed date:12/01/2023 09:15:18 PM Interpretation: Performing Lab:[facility], [address] [place] [phone] Notes/Report: Bilirubin Total 1.0 0.0-1.0 mg/dL Bilirubin Direct 0.3 0.0-0.5 mg/dL Aspartate Amino Transferase 26 5-31 U/L Alanine Aminotransferase 21 0-31 U/L Total Protein 7.2 6.5-8.0 g/dL Albumin Level 4.1 3.5-5.0 g/dL Alkaline Phosphatase 90 39-117 U/L REASON FOR REFERRAL No Information MEDICATIONS Medication SIG (Take, Route, Frequency, Duration) Notes Start Date End Date Status Vitamin D Active Calcium Active Ventolin HFA 108 (90 Base) MCG/ACT 2 puffs as needed Inhalation every 6 hrs Active hydroCHLOROthiazide 25 MG 1 tablet in morning Orally Once a day for 30 day(s) Active Losartan Potassium 25 MG 1 tablet Orally Once a day for 30 day(s) Active Carvedilol 25 MG as directed Orally BID Active Tylenol PRN Active IMMUNIZATIONS Vaccine Route Administration Date Status Comme nts Influenza Unknown 05/27/2018 Administered Influenza Unknown 04/27/2020 Administered Influenza Unknown 04/25/2021 Administered Influenza Unknown 06/14/2023 Administered SOCIAL HISTORY Tobacco Use: Social History Observation [...] W/U Status Risk SNOMED Code Notes Problem Encounter for screening for malignant neoplasm of colon (Z12.11) Active confirmed 031629583 Problem Abdominal bloating (R14.0) Active confirmed 896104513 Problem Hereditary hemochromatosis (E83.110) Active confirmed 66954419 Problem Diverticulosis of large intestine without perforation or abscess without bleeding (K57.30) Active confirmed Diverticul ar disease of colon (761467586) Problem Diverticulitis (K57.92) Active confirmed 719273142 Problem Elevated liver function tests (R79.89) Active confirmed 465419746 Problem Fatty liver (K76.0) Active confirmed Fa tty liver (931325830) Problem Irritable bowel syndrome, unspecified type (K58.9) Active confirmed 85087111 Problem Other irritable bowel syndrome (K58.8) Active confirmed 45460015 Problem Retained food in stomach (K31.89) Active confirmed 527722772 Problem Serrated polyp of colon (K63.5) Active confirmed 397572728 VITAL SIGNS Temperature 97.1 degrees Fahrenheit 07/03/2023 Blood pressure diastolic 00 mm Hg 05/12/2024 Height 61 in 05/12/2024 Blood pressure systolic 00 mm Hg 05/12/2024 Weight 200 lbs 05/12/2024 BMI 37.79 kg/m2 05/12/2024 Encounters Encounter Location Date Provider Diagnosis [facility] [address] [place] [phone] 07/03/2023 Peter Rojas Elevated liver funct ion tests R79.89 ; Hereditary hemochromatosis E83.110 ; Serrated polyp of colon K63.5 and Encounter for screening for malignant neoplasm of colon Z12.11 [facility] [address] [place] [phone] 11/12/2023 Peter Bob Elevated liver funct ion tests R79.89 ; Hereditary hemochromatosis E83.110 ; Serrated polyp of colon K63.5 and Fatty liver K76.0 [facility] [address] [place] [phone] 05/12/2024 Peter Rojas Serrated polyp of co jemal K63.5 ; Fatty liver K76.0 ; Encounter for screening for malignant neoplasm of colon Z12.11 and Hereditary hemochromatosis E83.110 [facility] [address] [place] [phone] 07/03/2023 Peter Rojas [facility] [address] [place] [phone] 08/13/2023 [facility] [address] [phone] 10/10/2023 Peter Rojas ASSESSMENTS Encounter Date Diagnosis Assessment Notes Treatment Notes Treatment Clinical Notes 07/03/2023 Hereditary hemochromatosis (ICD-10 - E83.110) 07/03/2023 Elevated liver function tests (ICD-10 - R79.89) 11/12/2023 Hereditary hemochromatosis (ICD-10 - E83.110) 11/12/2023 Elevated liver function tests (ICD-10 - R79.89) 05/12/2024 Fatty liver (ICD-10 - K76.0) 05/12/2024 Serrated polyp of colon (ICD-10 - K63.5) Do not take the Hydrochlorothiazide the day before nor on the day of the colonoscopy 07/03/2023 Serrated polyp of colon (ICD-10 - K63.5) 11/12/2023 Serrated polyp of colon (ICD-10 - K63.5) 05/12/2024 Encounter for screening for malignant neoplasm of colon (ICD-10 - Z12.11) 07/03/2023 Encounter for screening for malignant neoplasm of colon (ICD-10 - Z12.11) 11/12/2023 Fatty liver (ICD-10 - K76.0) 05/12/2024 Hereditary hemochromatosis (ICD-10 - E83.110) PLAN OF TREATMENT Pending Test Test Name Order Date LIVER PROFILE 11/12/2023 LIVER PROFILE 07/03/2023 IRON + IBC (FE) 07/03/2023 CBC w DIFF 07/03/2023 ALPHA-FETOPROTEIN,TUMOR MARKER 3 HEMOCHROMATOSIS (C282Y) 07/03/2023 FLUOR. ANTINUCLEAR AB SCREEN (BRAXTON) 06/15 Prothrombin Time INR 07/03/2023 Ferritin 07/03/2023 Alpha 1 Anti-trypsin 07/03/2023 Liver Fibrosis Pnl 07/03/2023 Mitochondrial Antibody 07/03/2023 Smooth Muscle Antibody 07/03/2023 Hepatitis A,B,C Profile 07/03/2023 Pathology 06/12/2021 US abdomen comp w elastography Future Test Test Name Order Date UPPER GI ENDOSCOPY 07/30/2018 COLONOSCOPY 05/02/2021 COLONOSCOPY 05/12/2024 Next Appt Details Provider Name:Peter Rojas , 08/26/2024 10:50:00 AM, [address] [place] [address] , [place], [place], [phone], Insurance Providers Payer Name Payer Address Payer Phone Subscriber Number Group Number Insured Name Patient Relationship to Insured Coverage Start Date Coverage End Date [facility] [address] [address] [place], [place] [id number] PHILL ESCOBEDO Self - patient is the insured MEDICAL (GENERAL) HISTORY Medical History History ICD Code Denies [place],DM,CVA,renal disease Irregular heartbeat --ventr icular bigeminy by her report--had a cardiac ablation--unsuccessful HTN Negative colonoscopy in 03/[address] Thomas EGD in [address] Thomas- -gastric retention, ? of celiac disease as below, neg H.pylori Asthma/Bronchitis ? of celiac disease on 1 out of 5 duodenal biopsies in 2013--neg. celiac disease labs in 2014--see below Sleep apnea---not using CPAP--she report s a F/U sleep study was negative Hemochromatosis diagnosed by Dr. Little > 5 yrs ago. She goes for periodic phlebotomies now, but describes going every couple of weeks originally with iron > 1,000 by her report. In December 2018 ferritin was 55 and the liver profile in September of 2017 was normal except for an ALT of 53. She is currently being followed by the Hematology Clinic at [facility] [place] [place] EGD in 10/2018 with a small H H and mild gastric retention, duodenal biopsies were normal, no Ramírez's esophagus Normal nuclear med. gastric emptying jevon dy in 11/2018 Negative abdominal ultrasoun d in March 2018 other than evidence of probable fatty liver and some hepatomegaly. There was no evidence of any ascites or splenomegaly. Negative CAT scan of the abdomen in 2017 other than fatty liver Three negative Hemoccult cards in 2017 Diverticulitis involving the cecal diverticulae in October of 2020--CT scan was negative for diverticulitis in March of 2021 IBS Screening Colonoscopy in 2020 with removal of a 5mm sessile serrated polyp Fatty liver and elevated LFT s felt to be in relation to primarily fatty liver, as well as perhaps some contributing factor from the hemachromatosis. The remainder of her liver workup was completely negative in 2023. Surgical History Surgery Date(Month/Year) LEEP procedure--cervical dysplasia Knee surgery Toe surgery Perforated sigmoid diverticu litis with abscess requiring a Timoteo procedure with sigmoid resection and colostomy in 08/2023. Colostomy reversed on 12/02/[address] Avery Hospitalization History Reason Date(Month/Year)
== END 2024-06-23 17:06 | disposition home or self-care (01) ==
PROVIDERS: PCP Internal Medicine; Visit Provider Internal Medicine
DX: R73.01 Impaired fasting glucose (principal); E78.00 Pure hypercholesterolemia, unspecified; I42.8 Other cardiomyopathies; I10 Essential (primary) hypertension; J45.30 Mild persistent asthma, uncomplicated

== ENCOUNTER → 2024-06-23 16:26 | Outpatient (BNVA) | payer OTHER, SELFPAY | PROVIDERS: PCP Internal Medicine; Visit Provider Internal Medicine | DX: R73.01 Impaired fasting glucose (principal); E78.00 Pure hypercholesterolemia, unspecified; I42.8 Other cardiomyopathies; I10 Essential (primary) hypertension; J45.30 Mild persistent asthma, uncomplicated | CPT/HCPCS: 99212 ==

== ENCOUNTER 2024-06-24 15:00 | Outpatient (REF) | payer OTHER, SELFPAY ==
--- OUTSIDE RECORDS SUMMARY | 2024-06-25 02:57 | XMS_ITS ---
Author Organization [facility] Address [address] [place] [address] Care Team Providers Care Cotton Expert Name Role Phone Danuta Barboza Primary Care Provider Peter Munoz Unavailable [phone] ALLERGIES Allergen (clinical drug ingredient) Drug/Non Drug [...] 05/12/2024 Encounters Encounter Location Date Provider Diagnosis [facility] [address] [place] [address] 05/12/2024 Peter Rojas Serrated polyp of co [...] Name:Peter Rojas , 08/26/2024 10:50:00 AM, [address] [place] [address], [phone], Progress Notes * Examination Category Sub-Category Detail [...]
--- OUTSIDE RECORDS SUMMARY | 2024-06-25 02:57 | XMS_ITS ---
Author Organization [facility] Address [address] [place] [address] Care Team Providers Care Marketing Researcher Name Role Phone Danuta Barboza Primary Care Provider Peter Munoz Unavailable [phone] ALLERGIES Allergen (clinical drug ingredient) Drug/Non Drug [...] Fatty liver (K76.0) Active confirmed Fatty liver (885894134) VITAL SIGNS BMI 35.71 kg/m2 11/12/2023 Blood pressure systolic 00 mm Hg 11/12/19 24 Blood pressure diastolic 00 mm Hg 024 Height 61 in 11/12/2023 Weight 189 lbs 11/12/2023 Encounters Encounter Location Date Provider Diagnosis [facility] [address] [place] [address] 11/12/2023 Peter Rojas Elevated liver funct ion [...] Provider Name:Peter Rojas , 08/26/2024 10:50:00 AM, [address] [place] [address], [phone], Progress Notes * Examination Category Sub-Category Detail [...]
--- OUTSIDE RECORDS SUMMARY | 2024-06-25 02:57 | XMS_ITS | Patient Health Record ---
Author Organization [facility] Address [address] [place] [address] Care Team Providers Care Tricot Knitter Name Role Phone Eduard Barboza Primary Care Provider Peter Munoz [phone] ALLERGIES Allergen (clinical drug ingredient) Drug/Non Drug Allergy documented on EMR Reaction Allergy Type Onset Date Status dust,grass,trees,cat s and dogs (uncoded) Unknown Allergy Active RESULTS Component Value Reference Range Notes Complete Blood Count Auto Di ff Reviewed date:08/06/2023 06:41:39 PM Interpretation: Performing Lab:[facility], [address] [place] [address] Notes/Report: White Blood Count 4.3 4.8-10.8 X10*3/uL [...] Hemochromatosis Reviewed date:08/17/2023 04:55:29 PM Interpretation: Performing Lab:[facility], [address] [place] [address] Notes/Report: DNA Analysis Hemochromatosis See Below RESULT: [...] and results monitored by Mary Alfaro, Ph.D., [facility], [facility]. DETAILED ASSAY INFORMATION: Hereditary hemochromatosis (HH) [...] variants in the HFE gene, C282Y (NM 254264.2: c.845G>A, p.Igc316Gfb) and H63D (NM 148375.2: c.187C>G, p.Xxc68Gay), that are commonly associated with HH. These [...] Health care providers, please contact your local [employer] genetic counselor or call [phone] ( ) for assistance with the interpretation of these results. This test was developed and its analytical performance characteristics have been determined by [facility]. It has not been cleared or approved by FDA. This assay has been validated pursuant to the CLIA regulations and is used for clinical purposes. For more information, please refer to http://education.Scytl.com/faq/hemochromatosi s. (This link is being provided for informational/educational purposes only.) A portion of the testing was performed at [facility]. Reviewed and signed by Laboratory testing supervised and results monitored by Mary Alfaro, Ph.D., [facility], [facility], Signed on 08/14/2023 at 19:33 THIS TEST WAS PERFORMED AT: [employer]/[facility] [address] [place] [address] ARACELI KAY MD,PHD,ESTELLE Prothrombin Time INR Reviewed date:08/06/2023 05:47:43 PM Interpretation: Performing Lab:[facility], [address] [place] [address] Notes/Report: Prothrombin Time 11.6 11.1-13.3 SEC INTERNATIONAL [...] Panel Reviewed date:08/17/2023 04:55:50 PM Interpretation: Performing Lab:[facility], [address] [place] [address] Notes/Report: Bilirubin Total 0.6 0.0-1.0 mg/dL Bilirubin Direct 0.2 0.0-0.5 mg/dL Aspartate Amino Transferase 35 5-31 U/L Alanine Aminotransferase 41 0-31 U/L Total Protein 7.3 6.5-8.0 g/dL Albumin Level 4.1 3.5-5.0 g/dL Alkaline Phosphatase 99 39-117 U/L IRON PROFILE Reviewed date:08/06/2023 05:52:51 PM Interpretation: Performing Lab:[facility], [address] [place] [phone] Notes/Report: Iron 46 30-160 mcg/dL Total Iron Binding Capacity 271 228-428 mcg/dL Percent Iron Saturation 17 15-50 % Unsaturated Iron Binding 225 Ferritin Reviewed date:08/06/2023 05:52:58 PM Interpretation: Performing Lab:[address] [address] Notes/Report: Ferritin 38 10-250 ng/mL Alpha Fetoprotein Reviewed date:08/13/2023 12:20:37 AM Interpretation: Performing Lab:[address] [address] Notes/Report: Alpha Fetoprotein 6.0 Reference Range: <6.1 The use of AFP as a tumor marker in females is not recommended. This test was performed using the [employer] chemiluminescent method. Values obtained from different assay methods cannot be used interchangeably. AFP levels, regardless of value, should not be interpreted as absolute evidence of the presence or absence of disease. THIS TEST WAS PERFORMED AT: [facility] [address] [place] [address] YESSICA DOBSON MD Alpha 1 Anti-trypsin Reviewed date:08/13/2023 12:20:45 AM Interpretation: Performing Lab:[facility], [address] [place] [address] Notes/Report: Alpha 1 Anti-trypsin 153 83-199 mg/dL THIS TEST WAS PERFORMED AT: [facility] [address] [place] [address] YESSICA DOBSON MD Liver Fibrosis Pnl Reviewed date:08/13/2023 12:20:53 AM Interpretation: Performing Lab:[facility], [address] [place] [address] Notes/Report: Liver Fibrosis Score 0.24 Liver Fibrosis [...] a>0.62 and a<=1.00 : A3 (severe activity) LXZ-Kfdll-7-Macroglobulin 227 106-279 mg/dL FIB-Haptoglobin 188 43-212 mg/dL FIB-Apolipoprotein A1 180 101-198 mg/dL FIB-Total Bilirubin 0.6 0.2-1.2 mg/dL FIB-GGT 52 3-65 U/L FIB-ALT 32 6-29 U/L Reference ID [id number] Footnote SEE NOTE The reliability of results is dependent on compliance with the preanalytical and analytical conditions recommended by [employer]. The tests have to be deferred for: [...] The performance characteristics have been determined by [facility]. It has not been cleared or approved by the U.S. Food and Drug Administration. Performance characteristics refer to the analytical performance of the test. [employer], the associated logo, [employer] and all associated [employer] angelo are the registered trademarks of [employer]. All third libertarian angelo - (R) and (TM) - are the property of their respective owners. (C) 2640-9306 [employer]. All rights reserved. THIS TEST WAS PERFORMED AT: [employer] [facility] [address] [place] [address] ARACELI KAY MD,PHD,ESTELLE EDUARD Reflex Titer and Pattern Reviewed date:08/14/2023 06:11:51 PM Interpretation: Performing Lab:[facility], [address] [place] [phone] Notes/Report: Anti Nuclear Antibody Screen NEGATIVE NEGATIVE [...] Negative International Consensus on EDUARD Patterns (https://doi.org/10.1515/ccl m-8276-0957) For additional information, please refer to http://education.Plethora.Linebacker/faq/RAA740 (This link is being provided for informational/ educational purposes only.) THIS TEST WAS PERFORMED AT: [facility] [address] [place] [address] YESSICA DOBSON MD Anti Nuclear Antibody Titer TNP Anti Nuclear Antibody Pattern TNP EDUARD Titer 2 TNP EDUARD Pattern 2 TNP EDUARD Titer 3 TNP EDUARD Pattern 3 TNP Mitochondrial Antibody Reviewed date:08/14/2023 06:11:34 PM Interpretation: Performing Lab:[facility], [address] [place] [address] Notes/Report: Mitochondrial Antibodies NEGATIVE NEGATIVE The immunofluorescence assay (IFA) procedure reveals the possible presence of another autoantibody. Consider requesting order code 262, Parietal Cell Antibody with Reflex to Titer, if clinically indicated. THIS TEST WAS PERFORMED AT: [facility] [address] [place] [address] YESSICA DOBSON MD Mitochondrial Ab Titer TNP Smooth Muscle Antibody Reviewed date:08/14/2023 06:11:40 PM Interpretation: Performing Lab:[facility], [address] [place] [phone] Notes/Report: Smooth Muscle Antibody <20 <20 U [...] type 1. THIS TEST WAS PERFORMED AT: [employer]/[facility] [address] [place] [address] CECI FREEMAN MD,PHD Hepatitis A,B,C Profile Reviewed date:08/06/2023 05:52:38 PM Interpretation: Performing Lab:[facility], [address] [place] [phone] Notes/Report: Hepatitis A Antibody IgM Nonreactive Nonreactive [...] date:08/17/2023 04:58:10 PM Interpretation: Performing Lab: Notes/Report: [address] [address] Ultrasound Report Signed Patient: Phill Escobedo MR#: [id number] : 1960 Acct:[id number] Age/Sex: 63 / F ADM Date: 08/06/23 Loc: HO.US Attending Dr: Peter Rojas MD Ordering Physician: Peter Rojas Date of Service: 08/06/23 Procedure(s): US abdomen comp w elastography Accession Number(s): [id number] cc: Eduard Barboza MD; Peter Rojas EXAMINATION: [...] in OV> 08/08/23 1803 DD/ 0946 TD/TT: Intervention Nurse: HOSEA Liver Panel Reviewed date:12/01/2023 09:15:18 PM Interpretation: Performing Lab:[facility], [address] [place] [address] Notes/Report: Bilirubin Total 1.0 0.0-1.0 mg/dL Bilirubin [...] malignant neoplasm of colon (Z12.11) Active confirmed 817178120 Problem Abdominal bloating (R14.0) Active confirmed 733354971 Problem Hereditary hemochromatosis (E83.110) Active confirmed 34806415 Problem Diverticulosis of large intestine without perforation or abscess without bleeding (K57.30) Active confirmed Diverticul ar disease of colon (144277026) Problem Diverticulitis (K57.92) Active confirmed 737353498 Problem Elevated liver function tests (R79.89) Active confirmed 532809591 Problem Fatty liver (K76.0) Active confirmed Fa tty liver (080038084) Problem Irritable bowel syndrome, unspecified type (K58.9) Active confirmed 54481901 Problem Other irritable bowel syndrome (K58.8) Active confirmed 24268409 Problem Retained food in stomach (K31.89) Active confirmed 637024829 Problem Serrated polyp of colon (K63.5) Active confirmed 312681323 VITAL SIGNS Temperature 97.1 degrees Fahrenheit 07/03/2023 Blood pressure diastolic 00 mm Hg 05/12/2024 Height 61 in 05/12/2024 Blood pressure systolic 00 mm Hg 05/12/2024 Weight 200 lbs 05/12/2024 BMI 37.79 kg/m2 05/12/2024 Encounters Encounter Location Date Provider Diagnosis [facility] [address] [place] [address] 07/03/2023 Peter Rojas Elevated liver funct ion tests R79.89 ; Hereditary hemochromatosis E83.110 ; Serrated polyp of colon K63.5 and Encounter for screening for malignant neoplasm of colon Z12.11 [facility] [address] [place] [address] 11/12/2023 Peter Bob Elevated liver funct ion tests R79.89 ; Hereditary hemochromatosis E83.110 ; Serrated polyp of colon K63.5 and Fatty liver K76.0 [facility] [address] [place] [address] 05/12/2024 Peter Rojas Serrated polyp of co jemal K63.5 ; Fatty liver K76.0 ; Encounter for screening for malignant neoplasm of colon Z12.11 and Hereditary hemochromatosis E83.110 [facility] [address] [place] [address] 07/03/2023 Peter Rojas [facility] [address] [place] [address] 08/13/[address] [facility] [address] [address] 10/10/2023 Peter Rojas ASSESSMENTS Encounter Date Diagnosis [...] Provider Name:Peter Rojas , 08/26/2024 10:50:00 AM, [address] [place] [address] , [place], [place], [phone], Insurance Providers Payer Name Payer Address Payer Phone Subscriber Number Group Number Insured Name Patient Relationship to Insured Coverage Start Date Coverage End Date [facility] [address] [address] [place], [place] [id number] PHILL ESCOBEDO Self - patient is the insured MEDICAL (GENERAL) HISTORY Medical History History ICD Code Denies [place],DM,CVA,renal disease Irregular heartbeat --ventr icular bigeminy by [...] being followed [place] the [place] [facility] [place] 10/2018 with a small H [...]
--- OUTSIDE RECORDS SUMMARY | 2024-06-25 02:57 | XMS_ITS ---
Author Organization [facility] Address [address] [place] [address] Care Team Providers Care Log Roper Name Role Phone Danuta Barboza Primary Care Provider Unavailab Peter Garcia Unavailable [phone] REASON FOR VISIT surgery for diverticulitis Encounters Encounter Location Date Provider Diagnosis [facility] [address] [place] [address] 10/10/2023 Peter Rojas PLAN OF TREATMENT Next Appt Details Provider Name:Peter Rojas , 08/26/2024 10:50:00 AM, [address] [place] [address] , [place], [place], [phone],
== END 2024-06-24 15:01 | disposition home or self-care (01) ==
LOC: HO.BBR 15:00
PROVIDERS: PCP Internal Medicine; Visit Provider Internal Medicine
DX: Z13.89 Encounter for screening for other disorder (principal)

== ENCOUNTER 2024-06-25 14:00 | Outpatient (REF) | payer OTHER, SELFPAY ==
--- NOTE | ~2024-06-25 | MM_ITS ---
EXAMINATION: BONE DENSITOMETRY CLINICAL INDICATION: Unspecified menopausal and perimenopausal disorder. COMPARISON: This is the patient's baseline examination. TECHNIQUE: Using a [employer] DXA System (software version: 13.1) manufactured by [employer], dual-energy x-ray absorptiometry was performed of the lumbar spine and left hip. The images are of good technical quality. Summary results are attached. FINDINGS: LEFT FEMUR, NECK: BMD 0.909 g/cm2, Z-score 0.0, T-score -0.9, normal. LEFT FEMUR, TOTAL: BMD 1.119 g/cm2, Z-score 1.4, T-score 0.9, normal. AP SPINE L1-L4: BMD 1.162 g/cm2, Z-score 0.6, T-score -0.1, normal. IDENTIFIED RISK FACTORS: History of fracture (adult), menopause, rheumatoid arthritis. HISTORY OF FRACTURE: Wrist. MEDICATIONS: Multivitamin, vitamin D. MM/XR DEXA axial skeleton IMPRESSION: 1. DIAGNOSIS: Normal bone density based on the lowest T-score value of -0.9 in the femoral neck applying World Health Organization criteria. 2. 10-YEAR FRACTURE RISK PREDICTION, FRAX: According to the guidelines, FRAX calculation should only be performed on patients in the osteopenia bone density category. Therefore, FRAX was not performed on this patient. 3. Treatment Recommendations: NOF guidelines recommend consideration for treatment in postmenopausal women and men age 50 and older presenting with the following: -A hip or vertebral (clinical or morphometric) fracture. -T-score less than or equal to -2.5 at the femoral neck or spine after appropriate evaluation to exclude secondary causes. -Low bone mass at the hip or spine and a 10-year fracture probability by FRAX of greater than or equal to 3% for hip fracture or greater than or equal to 20% for major osteoporotic fracture based on the [place] adapted WHO algorithm. 4. Other Recommendations: All treatment decisions require clinical judgment and consideration of individual patient factors, including patient preferences, comorbidities, previous drug use, risk factors not captured in the FRAX model (e.g. frailty, falls, vitamin D deficiency, increased bone turnover, interval significant decline in bone density) and possible under or overestimation of fracture risk by FRAX. FUTURE SCAN RECOMMENDATION: People with diagnosed cases of osteoporosis or at high risk for fracture should have regular bone mineral density tests. For patients eligible for Medicare, routine testing is allowed once every 2 years. The testing frequency can be increased to one year for patients who have rapidly progressing disease, those who are receiving or discontinuing medical therapy to restore bone mass, or have additional risk factors. Electronically signed by: Bonny Gotti MD 06/26/2024 01:52 PM MICHELLE
== END 2024-06-25 14:01 | disposition home or self-care (01) ==
LOC: HO.MAMMO 14:00
PROVIDERS: Visit Provider Internal Medicine
DX: Z13.820 Encounter for screening for osteoporosis (principal); Z78.0 Asymptomatic menopausal state
CPT/HCPCS: 77080

== ENCOUNTER 2024-06-26 12:09 | Outpatient (REF) | payer OTHER, SELFPAY ==
--- OUTSIDE RECORDS SUMMARY | 2024-06-26 12:12 | XMS_ITS ---
Author Organization [facility] Address [address] [place] [address] Care Team Providers Care Termite Exterminator Name Role Phone Danuta Barboza Primary Care Provider Peter Munoz Unavailable [phone] ALLERGIES Allergen (clinical drug ingredient) Drug/Non Drug [...] 05/12/2024 Encounters Encounter Location Date Provider Diagnosis [facility] [address] [place] [address] 05/12/2024 Peter Rojas Serrated polyp of co [...] Provider Name:Peter Rojas , 08/26/2024 10:50:00 AM, [address] [place] [address], [phone], Progress Notes * Examination Category Sub-Category Detail [...]
--- OUTSIDE RECORDS SUMMARY | 2024-06-26 12:12 | XMS_ITS ---
Author Organization [facility] Address [address] [place] [address] Care Team Providers Care Blow Machine Tender Starch Spraying Name Role Phone Danuta Barboza Primary Care Provider Peter Munoz Unavailable [phone] ALLERGIES Allergen (clinical drug ingredient) Drug/Non Drug [...] Fatty liver (K76.0) Active confirmed Fatty liver (904291239) VITAL SIGNS BMI 35.71 kg/m2 11/12/2023 Blood pressure systolic 00 mm Hg 11/12/19 24 Blood pressure diastolic 00 mm Hg 024 Height 61 in 11/12/2023 Weight 189 lbs 11/12/2023 Encounters Encounter Location Date Provider Diagnosis [facility] [address] [place] [address] 11/12/2023 Peter Rojas Elevated liver funct ion [...] Provider Name:Peter Rojas , 08/26/2024 10:50:00 AM, [address] [place] [address], [phone], Progress Notes * Examination Category Sub-Category Detail [...]
--- OUTSIDE RECORDS SUMMARY | 2024-06-26 12:12 | XMS_ITS ---
Author Organization [facility] Address [address] [place] [address] Care Team Providers Care Operations Support Manager Name Role Phone Danuta Barboza Primary Care Provider Unavailab Peter Garcia Unavailable [phone] REASON FOR VISIT surgery for diverticulitis Encounters Encounter Location Date Provider Diagnosis [facility] [address] [place] [phone] 10/10/2023 Peter Rojas PLAN OF TREATMENT Next Appt Details Provider Name:Peter Rojas , 08/26/2024 10:50:00 AM, [address] [place] [address] , [place], [place], [phone],
--- OUTSIDE RECORDS SUMMARY | 2024-06-26 12:13 | XMS_ITS | Patient Health Record ---
Author Organization [facility] Address [address] [place] [address] Care Team Providers Care Electronic System Engineer Name Role Phone Eduard Barboza Primary Care Provider Peter Munoz [phone] ALLERGIES Allergen (clinical drug ingredient) Drug/Non Drug Allergy documented on EMR Reaction Allergy Type Onset Date Status dust,grass,trees,cat s and dogs (uncoded) Unknown Allergy Active RESULTS Component Value Reference Range Notes Complete Blood Count Auto Di ff Reviewed date:08/06/2023 06:41:39 PM Interpretation: Performing Lab:[facility], [address] [place] [phone] Notes/Report: White Blood Count 4.3 4.8-10.8 X10*3/uL [...] Hemochromatosis Reviewed date:08/17/2023 04:55:29 PM Interpretation: Performing Lab:[facility], [address] [place] [phone] Notes/Report: DNA Analysis Hemochromatosis See Below RESULT: [...] and results monitored by Mary Alfaro, Ph.D., [facility], [facility]. DETAILED ASSAY INFORMATION: Hereditary hemochromatosis (HH) [...] variants in the HFE gene, C282Y (NM 132013.2: c.845G>A, p.Rsh833Tsr) and H63D (NM 209873.2: c.187C>G, p.Ifs98Nwj), that are commonly associated with HH. These [...] Health care providers, please contact your local [employer]' genetic counselor or call [phone] ( ) for assistance with the interpretation of these results. This test was developed and its analytical performance characteristics have been determined by [employer] [facility]. It has not been cleared or approved by FDA. This assay has been validated pursuant to the CLIA regulations and is used for clinical purposes. For more information, please refer to http://education.[employer].com/faq/hemochromatosi s. (This link is being provided for informational/educational purposes only.) A portion of the testing was performed at [facility]. Reviewed and signed by Laboratory testing supervised and results monitored by Mary Alfaro, Ph.D., [facility], [facility], Signed on 08/14/2023 at 19:33 THIS TEST WAS PERFORMED AT: [facility] [address] [place] [address] ARACELI KAY MD,PHD,ESTELLE Prothrombin Time INR Reviewed date:08/06/2023 05:47:43 PM Interpretation: Performing Lab:[facility], [address] [place] [phone] Notes/Report: Prothrombin Time 11.6 11.1-13.3 SEC INTERNATIONAL [...] Panel Reviewed date:08/17/2023 04:55:50 PM Interpretation: Performing Lab:[facility], [address] [place] [phone] Notes/Report: Bilirubin Total 0.6 0.0-1.0 mg/dL Bilirubin Direct 0.2 0.0-0.5 mg/dL Aspartate Amino Transferase 35 5-31 U/L Alanine Aminotransferase 41 0-31 U/L Total Protein 7.3 6.5-8.0 g/dL Albumin Level 4.1 3.5-5.0 g/dL Alkaline Phosphatase 99 39-117 U/L IRON PROFILE Reviewed date:08/06/2023 05:52:51 PM Interpretation: Performing Lab:[facility], [address] [place] [phone] Notes/Report: Iron 46 30-160 mcg/dL Total Iron Binding Capacity 271 228-428 mcg/dL Percent Iron Saturation 17 15-50 % Unsaturated Iron Binding 225 Ferritin Reviewed date:08/06/2023 05:52:58 PM Interpretation: Performing Lab:[address] [phone] Notes/Report: Ferritin 38 10-250 ng/mL Alpha Fetoprotein Reviewed date:08/13/2023 12:20:37 AM Interpretation: Performing Lab:[address] [address] Notes/Report: Alpha Fetoprotein 6.0 Reference Range: <6.1 The use of AFP as a tumor marker in females is not recommended. This test was performed using the Rajesh Paris chemiluminescent method. Values obtained from different assay methods cannot be used interchangeably. AFP levels, regardless of value, should not be interpreted as absolute evidence of the presence or absence of disease. THIS TEST WAS PERFORMED AT: [facility] [address] [place] [phone] YESSICA DOBSON MD Alpha 1 Anti-trypsin Reviewed date:08/13/2023 12:20:45 AM Interpretation: Performing Lab:[facility], [address] [place] [phone] Notes/Report: Alpha 1 Anti-trypsin 153 83-199 mg/dL THIS TEST WAS PERFORMED AT: [facility] [address] [place] [phone] YESSICA DOBSON MD Liver Fibrosis Pnl Reviewed date:08/13/2023 12:20:53 AM Interpretation: Performing Lab:[facility], [address] [place] [phone] Notes/Report: Liver Fibrosis Score 0.24 Liver Fibrosis [...] a>0.62 and a<=1.00 : A3 (severe activity) YGL-Yaaby-4-Macroglobulin 227 106-279 mg/dL FIB-Haptoglobin 188 43-212 mg/dL FIB-Apolipoprotein A1 180 101-198 mg/dL FIB-Total Bilirubin 0.6 0.2-1.2 mg/dL FIB-GGT 52 3-65 U/L FIB-ALT 32 6-29 U/L Reference ID [id number] Footnote SEE NOTE The reliability of results is dependent on compliance with the preanalytical and analytical conditions recommended by [employer]. The tests have to be deferred for: [...] The performance characteristics have been determined by [facility]. It has not been cleared or approved by the U.S. Food and Drug Administration. Performance characteristics refer to the analytical performance of the test. [employer] the associated logo, [employer] and all associated [employer] angelo are the registered trademarks of [employer]. All third green party angelo - (R) and (TM) - are the property of their respective owners. (C) 2259-3754 [employer]. All rights reserved. THIS TEST WAS PERFORMED AT: [facility] [address] [place] [address] ARACELI KAY MD,PHD,ESTELLE EDUARD Reflex Titer and Pattern Reviewed date:08/14/2023 06:11:51 PM Interpretation: Performing Lab:[facility], [address] [place] [phone] Notes/Report: Anti Nuclear Antibody Screen NEGATIVE NEGATIVE [...] Negative International Consensus on EDUARD Patterns (https://doi.org/10.1515/ccl m-6610-9729) For additional information, please refer to http://education.[employer]raxio/faq/LWB510 (This link is being provided for informational/ educational purposes only.) THIS TEST WAS PERFORMED AT: [facility] [address] [place] [phone] YESSICA DOBSON MD Anti Nuclear Antibody Titer TNP Anti Nuclear Antibody Pattern TNP EDUARD Titer 2 TNP EDUARD Pattern 2 TNP EDUARD Titer 3 TNP EDUARD Pattern 3 TNP Mitochondrial Antibody Reviewed date:08/14/2023 06:11:34 PM Interpretation: Performing Lab:[facility], [address] [place] [phone] Notes/Report: Mitochondrial Antibodies NEGATIVE NEGATIVE The immunofluorescence assay (IFA) procedure reveals the possible presence of another autoantibody. Consider requesting order code 262, Parietal Cell Antibody with Reflex to Titer, if clinically indicated. THIS TEST WAS PERFORMED AT: [facility] [address] [place] [phone] YESSICA DOBSON MD Mitochondrial Ab Titer TNP Smooth Muscle Antibody Reviewed date:08/14/2023 06:11:40 PM Interpretation: Performing Lab:[facility], [address] [place] [phone] Notes/Report: Smooth Muscle Antibody <20 <20 U [...] type 1. THIS TEST WAS PERFORMED AT: [facility] [address] [place] [address] CECI FREEMAN MD,PHD Hepatitis A,B,C Profile Reviewed date:08/06/2023 05:52:38 PM Interpretation: Performing Lab:[facility], [address] [place] [phone] Notes/Report: Hepatitis A Antibody IgM Nonreactive Nonreactive [...] date:08/17/2023 04:58:10 PM Interpretation: Performing Lab: Notes/Report: [address] [address] Ultrasound Report Signed Patient: Phill Escobedo MR#: [id number] : 1960 Acct:[id number] Age/Sex: 63 / F ADM Date: 08/06/23 Loc: HO.US Attending Dr: Peter Rojas MD Ordering Physician: Peter Rojas Date of Service: 08/06/23 Procedure(s): US abdomen comp w elastography Accession Number(s): [id number] cc: Eduard Barboza MD; Peter Rojas EXAMINATION: [...] in OV> 08/08/23 1803 DD/ 0946 TD/TT: Sports Physiotherapist: HOSEA Liver Panel Reviewed date:12/01/2023 09:15:18 PM Interpretation: Performing Lab:[facility], [address] [place] [phone] Notes/Report: Bilirubin Total 1.0 0.0-1.0 mg/dL Bilirubin [...] malignant neoplasm of colon (Z12.11) Active confirmed 372296112 Problem Abdominal bloating (R14.0) Active confirmed 210390122 Problem Hereditary hemochromatosis (E83.110) Active confirmed 46952480 Problem Diverticulosis of large intestine without perforation or abscess without bleeding (K57.30) Active confirmed Diverticul ar disease of colon (294266943) Problem Diverticulitis (K57.92) Active confirmed 106321335 Problem Elevated liver function tests (R79.89) Active confirmed 067570967 Problem Fatty liver (K76.0) Active confirmed Fa tty liver (237044884) Problem Irritable bowel syndrome, unspecified type (K58.9) Active confirmed 43044786 Problem Other irritable bowel syndrome (K58.8) Active confirmed 43324302 Problem Retained food in stomach (K31.89) Active confirmed 964959341 Problem Serrated polyp of colon (K63.5) Active confirmed 079519258 VITAL SIGNS Temperature 97.1 degrees Fahrenheit 07/03/2023 Blood pressure diastolic 00 mm Hg 05/12/2024 Height 61 in 05/12/2024 Blood pressure systolic 00 mm Hg 05/12/2024 Weight 200 lbs 05/12/2024 BMI 37.79 kg/m2 05/12/2024 Encounters Encounter Location Date Provider Diagnosis [facility] [address] [place] [address] 07/03/2023 Peter Rojas Elevated liver funct ion tests R79.89 ; Hereditary hemochromatosis E83.110 ; Serrated polyp of colon K63.5 and Encounter for screening for malignant neoplasm of colon Z12.11 [facility] [address] [place] [address] 11/12/2023 Peter Bob Elevated liver funct ion tests R79.89 ; Hereditary hemochromatosis E83.110 ; Serrated polyp of colon K63.5 [address] Fat[address] liver K76.0 [facility] [address] [place] [address] 05/12/2024 Peter Rojas Serrated polyp of co jemal K63.5 ; Fatty liver K76.0 ; Encounter for screening for malignant neoplasm of colon Z12.11 and Hereditary hemochromatosis E83.110 [facility] [address] [place] [phone] 07/03/[address] [facility] [address] [place] [phone] 08/13/2023 Peter Rojas [facility] [address] [address] 10/10/2023 Peter Rojas ASSESSMENTS Encounter Date Diagnosis [...] Provider Name:Peter Rojas , 08/26/2024 10:50:00 AM, [address] [place] [address] , [place], [place], [phone], Insurance Providers Payer Name Payer Address Payer Phone Subscriber Number Group Number Insured Name Patient Relationship to Insured Coverage Start Date Coverage End Date [employer] [address] [address] [place], [place] [id number] PHILL ESCOBEDO Self - patient is the insured MEDICAL (GENERAL) HISTORY Medical History History ICD Code Denies VT,DM,CVA,renal disease Irregular heartbeat --ventr icular bigeminy by [...] being followed by the Hematology Clinic at [facility] EGD in 10/2018 with a small H [...]
[2024-06-26 13:58] LABS: Ferritin 158 ng/mL (10-250)
== END 2024-06-26 12:10 | disposition home or self-care (01) ==
LOC: HO.BBR 12:09
PROVIDERS: PCP Internal Medicine; Visit Provider Internal Medicine
DX: E83.110 Hereditary hemochromatosis (principal)
CPT/HCPCS: 36415; 82728

== ENCOUNTER 2024-08-26 07:57 | Outpatient (REF) | payer MEDICARE, SELFPAY ==
--- OUTSIDE RECORDS SUMMARY | 2024-08-26 07:59 | XMS_ITS | Patient Health Record ---
Author Organization [facility] Address [address] [place] [address] Care Team Providers Care Inspector Poising Name Role Phone Danuta Barboza Primary Care Provider Peter Munoz Unavailable [phone] ALLERGIES Allergen (clinical drug ingredient) Drug/Non Drug Allergy documented on EMR Reaction Allergy Type Onset Date Status dust,grass,trees,cat s and dogs (uncoded) Unknown Allergy Active RESULTS Component Value Reference Range Notes Liver Panel Reviewed date:12/01/2023 09:15:18 PM Interpretation: Performing Lab:[facility], [address] [place] [phone] Notes/Report: Bilirubin Total 1.0 0.0-1.0 mg/dL Bilirubin [...] malignant neoplasm of colon (Z12.11) Active confirmed 138565732 Problem Abdominal bloating (R14.0) Active confirmed 773891052 Problem Hereditary hemochromatosis (E83.110) Active confirmed 30777374 Problem Diverticulosis of large intestine without perforation or abscess without bleeding (K57.30) Active confirmed Diverticul ar disease of colon (365031741) Problem Diverticulitis (K57.92) Active confirmed 498120071 Problem Elevated liver function tests (R79.89) Active confirmed 083269373 Problem Fatty liver (K76.0) Active confirmed Fa tty liver (893700202) Problem Irritable bowel syndrome, unspecified type (K58.9) Active confirmed 60942465 Problem Other irritable bowel syndrome (K58.8) Active confirmed 01484638 Problem Retained food in stomach (K31.89) Active confirmed 710807316 Problem Serrated polyp of colon (K63.5) Active confirmed 464647589 VITAL SIGNS Blood pressure diastolic 00 mm Hg 05/12/2024 Height 61 in 05/12/2024 Blood pressure systolic 00 mm Hg 05/12/2024 Weight 200 lbs 05/12/2024 BMI 37.79 kg/m2 05/12/2024 Encounters Encounter Location Date Provider Diagnosis [facility] Out[place] [address] [place] [id number] 08/26/2024 Peter Rojas [facility] [address] [place] [address] 11/12/2023 Peter Rojas Elevated liver funct ion tests R79.89 ; Hereditary hemochromatosis E83.110 ; Serrated polyp of colon K63.5 and Fatty liver K76.0 [facility] [address] [place] [address] 05/12/2024 Peter Rojas Serrated polyp of co jemal K63.5 ; Fatty liver K76.0 ; Encounter for screening for malignant neoplasm of colon Z12.11 and Hereditary hemochromatosis E83.110 [facility] [address] [place] [address] 10/10/2023 Peter Rojas ASSESSMENTS Encounter Date Diagnosis [...] 07/03/2023 CBC w DIFF 07/03/2023 ALPHA-FETOPROTEIN,TUMOR MARKER HEMOCHROMATOSIS (C282Y) 07/03/2023 FLUOR. ANTINUCLEAR AB SCREEN (BRAXTON) 06/15 Prothrombin Time INR 07/03/2023 Ferritin 07/03/2023 Alpha 1 Anti-trypsin 07/03/2023 Liver Fibrosis Pnl 07/03/2023 Mitochondrial Antibody 07/03/2023 Smooth Muscle Antibody 07/03/2023 Hepatitis A,B,C Profile 07/03/2023 Pathology 06/12/2021 US abdomen comp w elastography 3 Future Test Test Name Order Date UPPER GI ENDOSCOPY 07/30/2018 COLONOSCOPY 05/02/2021 COLONOSCOPY 05/12/2024 Next Appt Details Provider Name:Peter Rojas , 08/26/2024 09:40:00 AM, [address] [place] [address] , [place], [place], [phone], Insurance Providers Payer Name Payer Address Payer Phone Subscriber Number Group Number Insured Name Patient Relationship to Insured Coverage Start Date Coverage End Date [facility] [address] [place], [place] [id number] PHILL ESCOBEDO Self - patient is the insured MEDICAL (GENERAL) HISTORY Medical History History ICD Code Denies CO,DM,CVA,renal disease Irregular heartbeat --ventr icular rita by her report--had a cardiac ablation--unsuccessful HTN [...] being followed by the Hematology Clinic at [facility] EGD in 10/2018 with a small H [...]
--- OUTSIDE RECORDS SUMMARY | 2024-08-26 07:59 | XMS_ITS ---
Author Organization [facility] Address [address] [place] [address] Care Team Providers Care Mainspring Torque Tester Name Role Phone Danuta Barboza Primary Care Provider Unavailab Peter Garcia Unavailable [phone] REASON FOR VISIT screening, serrated polyp Encounters Encounter Location Date Provider Diagnosis [facility] Out[place] [address] [place] [phone] 08/26/2024 Peter Rojas PLAN OF TREATMENT Next Appt Details Provider Name:Peter Rojas , 08/26/2024 09:40:00 AM, [address] [place] [address], [phone],
--- OUTSIDE RECORDS SUMMARY | 2024-08-26 07:59 | XMS_ITS ---
Author Organization [facility] Address [address] [place] [address] Care Team Providers Care Pipe Foreman Name Role Phone Danuta Barboza Primary Care Provider Peter Munoz Unavailable [phone] ALLERGIES Allergen (clinical drug ingredient) Drug/Non Drug [...] 05/12/2024 Encounters Encounter Location Date Provider Diagnosis [facility] [address] [place] [address] 05/12/2024 Peter Rojas Serrated polyp of co [...] prn, Reason: Provider Name:Peter Rojas , 08/26/2024 09:40:00 AM, [address] [place] [address], [phone], Progress Notes * Examination Category Sub-Category Detail [...]
--- OUTSIDE RECORDS SUMMARY | 2024-08-26 07:59 | XMS_ITS ---
Author Organization [facility] Address [address] [place] [address] Care Team Providers Care House Piping Inspector Name Role Phone Danuta Barboza Primary Care Provider Peter Munoz Unavailable [phone] ALLERGIES Allergen (clinical drug ingredient) Drug/Non Drug [...] Fatty liver (K76.0) Active confirmed Fatty liver (656532944) VITAL SIGNS BMI 35.71 kg/m2 11/12/2023 Blood pressure systolic 00 mm Hg 11/12/19 24 Blood pressure diastolic 00 mm Hg 024 Height 61 in 11/12/2023 Weight 189 lbs 11/12/2023 Encounters Encounter Location Date Provider Diagnosis [facility] [address] [place] [address] 11/12/2023 Peter Rojas Elevated liver funct ion [...] Reaso n: Provider Name:Peter Rojas , 08/26/2024 09:40:00 AM, [address] [place] [address], [phone], Progress Notes * Examination Category Sub-Category Detail [...]
[2024-08-26 08:06] LABS: MANUAL DIFF FLAG NO
[2024-08-26 08:27] LABS: Basophils Percent Auto 0.4 % (0-2); Eosinophils Absolute Auto 0.1 X10*3/uL (0.0-0.4); Eosinophils Percent Auto 2.8 % (0-4); Hematocrit 40.8 % (37.0-47.0); Hemoglobin 14.4 g/dl (12.0-16.0); Imm Gran Abs Auto 0.02 X10*3/uL (0.00-0.03); Imm Gran Pct Auto 0.4 % (0.0-0.4); Lymphocytes Absolute Auto 1.5 X10*3/uL (1.2-4.9); Lymphocytes Percent Auto 32.1 % (20-40); Mean Corpuscular HGB Conc 35.3 g/dl (31.0-35.0); Mean Corpuscular Hemoglobin 33.5 pg (27.0-33.0); Mean Corpuscular Volume 94.9 fL (80.0-98.0); Mean Platelet Volume 10.1 fL (9.4-12.3); Monocytes Absolute Auto 0.5 X10*3/uL (0.1-1.2); Monocytes Percent Auto 11.2 % (2-11); Neutrophils Absolute Auto 2.5 x10*3/uL (2.0-8.3); Neutrophils Percent Auto 53.1 % (45-73); Platelet Count 200 X10*3/uL (160-400); Red Cell Distribution Width 12.2 % (11.0-16.0); White Blood Count 4.6 X10*3/uL (4.8-10.8)
[2024-08-26 09:04] LABS: Chloride 105 mmol/L (96-108); Potassium 3.4 mmol/L (3.3-5.1); Sodium 141 mmol/L (135-145)
[2024-08-26 09:05] LABS: Albumin Level 4.3 g/dL (3.5-5.0); Alkaline Phosphatase 77 U/L (39-117); Anion Gap 14 (12-20); Aspartate Amino Transferase 61 U/L (5-31); Bilirubin Total 1.2 mg/dL (0.0-1.0); Blood Urea Nitrogen 12 mg/dL (9-16); Calcium 9.3 mg/dL (8.4-10.2); Carbon Dioxide 25 mmol/L (22-29); Cholesterol 172 mg/dL (<200); Estimated Glomerular Filt Rate > 60; Glucose Fasting 118 mg/dL (60-99); HDL Cholesterol 51 mg/dL (>40); Iron 249 mcg/dL (30-160); LDL Cholesterol Calculated 85 mg/dL (<100); Percent Iron Saturation 91 % (15-50); Total Iron Binding Capacity 274 mcg/dL (228-428); Total Protein 7.8 g/dL (6.5-8.0); Triglycerides 183 mg/dL (<150); Unsaturated Iron Binding < 25 ug/dL
[2024-08-26 09:16] LABS: Alanine Aminotransferase 69 U/L (0-31)
== END 2024-08-26 07:58 | disposition home or self-care (01) ==
LOC: HO.LAB 07:57
PROVIDERS: PCP Internal Medicine; Visit Provider Internal Medicine
DX: Z13.89 Encounter for screening for other disorder (principal)
CPT/HCPCS: 36415; 80053; 80061; 83540; 85025

== ENCOUNTER 2024-08-26 08:09 | Day surgery (SDC) | payer MEDICARE, SELFPAY ==
--- OUTSIDE RECORDS SUMMARY | 2024-07-07 09:41 | XMS_ITS ---
Author Organization [facility] Address [address] [place] [phone] Care Team Providers Care Road Design Draftsperson Name Role Phone Danuta Barboza Primary Care Provider Unavailab Peter Garcia Unavailable [phone] REASON FOR VISIT surgery for diverticulitis Encounters Encounter Location Date Provider Diagnosis [facility] [address] [place] [phone] 10/10/2023 Peter Rojas PLAN OF TREATMENT Next Appt Details Provider Name:Peter Rojas , 08/26/2024 10:50:00 AM, [address] [place] [address] , [place], [place], [phone],
--- OUTSIDE RECORDS SUMMARY | 2024-07-07 09:41 | XMS_ITS ---
Author Organization [facility] Address [address] [place] [address] Care Team Providers Care Chief Lifestyle Officer Name Role Phone Danuta Barboza Primary Care Provider Peter Munoz Unavailable [phone] ALLERGIES Allergen (clinical drug ingredient) Drug/Non Drug [...] Fatty liver (K76.0) Active confirmed Fatty liver (217763339) VITAL SIGNS BMI 35.71 kg/m2 11/12/2023 Blood pressure systolic 00 mm Hg 11/12/19 24 Blood pressure diastolic 00 mm Hg 024 Height 61 in 11/12/2023 Weight 189 lbs 11/12/2023 Encounters Encounter Location Date Provider Diagnosis [facility] [address] [place] [address] 11/12/2023 Peter Rojas Elevated liver funct ion [...] Name:Peter Rojas , 08/26/2024 10:50:00 AM, [address] [place] [address], [phone], Progress Notes * Examination Category Sub-Category Detail [...]
--- OUTSIDE RECORDS SUMMARY | 2024-07-07 09:41 | XMS_ITS | Patient Health Record ---
Author Organization [facility] Address [address] [place] [address] Care Team Providers Care Solderer Name Role Phone Eduard Barboza Primary Care Provider Peter Munoz [phone] ALLERGIES Allergen (clinical drug ingredient) Drug/Non Drug Allergy documented on EMR Reaction Allergy Type Onset Date Status dust,grass,trees,cat s and dogs (uncoded) Unknown Allergy Active RESULTS Component Value Reference Range Notes Complete Blood Count Auto Di ff Reviewed date:08/06/2023 06:41:39 PM Interpretation: Performing Lab:[facility] [place], [address] [place] [phone] Notes/Report: White Blood Count 4.3 4.8-10.8 X10*3/uL [...] Hemochromatosis Reviewed date:08/17/2023 04:55:29 PM Interpretation: Performing Lab:[facility] [place], [address] [place] [phone] Notes/Report: DNA Analysis Hemochromatosis See Below RESULT: [...] and results monitored by Mary Alfaro, Ph.D., [facility], [facility]. DETAILED ASSAY INFORMATION: Hereditary hemochromatosis (HH) [...] variants in the HFE gene, C282Y (NM 463148.2: c.845G>A, p.Zeq410Nqj) and H63D (NM 382008.2: c.187C>G, p.Rqj44Hpf), that are commonly associated with HH. These [...] Health care providers, please contact your local [facility] genetic counselor or call [phone] ( ) for assistance with the interpretation of these results. This test was developed and its analytical performance characteristics have been determined by [facility]. It has not been cleared or approved by FDA. This assay has been validated pursuant to the CLIA regulations and is used for clinical purposes. For more information, please refer to http://education.Priztag.com/faq/hemochromatosi s. (This link is being provided for informational/educational purposes only.) A portion of the testing was performed at [facility]. Reviewed and signed by Laboratory testing supervised and results monitored by Mary Alfaro, Ph.D., [facility], [facility], Signed on 08/14/2023 at 19:33 THIS TEST WAS PERFORMED AT: [facility] [address] [place] [address] ARACELI KAY MD,PHD,ESTELLE Prothrombin Time INR Reviewed date:08/06/2023 05:47:43 PM Interpretation: Performing Lab:[facility] [place], [address] [place] [phone] Notes/Report: Prothrombin Time 11.6 11.1-13.3 SEC INTERNATIONAL [...] Panel Reviewed date:08/17/2023 04:55:50 PM Interpretation: Performing Lab:[facility] [place], [address] [place] [phone] Notes/Report: Bilirubin Total 0.6 0.0-1.0 mg/dL Bilirubin Direct 0.2 0.0-0.5 mg/dL Aspartate Amino Transferase 35 5-31 U/L Alanine Aminotransferase 41 0-31 U/L Total Protein 7.3 6.5-8.0 g/dL Albumin Level 4.1 3.5-5.0 g/dL Alkaline Phosphatase 99 39-117 U/L IRON PROFILE Reviewed date:08/06/2023 05:52:51 PM Interpretation: Performing Lab:[facility] [place], [address] [place] [phone] Notes/Report: Iron 46 30-160 mcg/dL Total Iron Binding Capacity 271 228-428 mcg/dL Percent Iron Saturation 17 15-50 % Unsaturated Iron Binding 225 Ferritin Reviewed date:08/06/2023 05:52:58 PM Interpretation: Performing Lab:[address] [address] Notes/Report: Ferritin 38 10-250 ng/mL Alpha Fetoprotein Reviewed date:08/13/2023 12:20:37 AM Interpretation: Performing Lab:[address] [address] Notes/Report: Alpha Fetoprotein 6.0 Reference Range: <6.1 The use of AFP as a tumor marker in females is not recommended. This test was performed using the Rajesh Sumner chemiluminescent method. Values obtained from different assay methods cannot be used interchangeably. AFP levels, regardless of value, should not be interpreted as absolute evidence of the presence or absence of disease. THIS TEST WAS PERFORMED AT: [employer] [address] [place] [phone] YESSICA DOBSON MD Alpha 1 Anti-trypsin Reviewed date:08/13/2023 12:20:45 AM Interpretation: Performing Lab:[facility] [place], [address] [place] [phone] Notes/Report: Alpha 1 Anti-trypsin 153 83-199 mg/dL THIS TEST WAS PERFORMED AT: [facility] [address] [place] [phone] YESSICA DOBSON MD Liver Fibrosis Pnl Reviewed date:08/13/2023 12:20:53 AM Interpretation: Performing Lab:[facility] [place], [address] [place] [phone] Notes/Report: Liver Fibrosis Score 0.24 Liver Fibrosis [...] a>0.62 and a<=1.00 : A3 (severe activity) ZUY-Znhcm-0-Macroglobulin 227 106-279 mg/dL FIB-Haptoglobin 188 43-212 mg/dL FIB-Apolipoprotein A1 180 101-198 mg/dL FIB-Total Bilirubin 0.6 0.2-1.2 mg/dL FIB-GGT 52 3-65 U/L FIB-ALT 32 6-29 U/L Reference ID [id number] Footnote SEE NOTE The reliability of results is dependent on compliance with the preanalytical and analytical conditions recommended by QUIQ. The tests have to be deferred for: [...] The performance characteristics have been determined by [facility]. It has not been cleared or approved by the U.S. Food and Drug Administration. Performance characteristics refer to the analytical performance of the test. [employer], the associated logo, [employer] and all associated [employer] angelo are the registered trademarks of [employer]. All third green party angelo - (R) and (TM) - are the property of their respective owners. (C) 9838-3122 [employer]. All rights reserved. THIS TEST WAS PERFORMED AT: [employer] [facility] [address] [place] [address] ARACELI KAY MD,PHD,ESTELLE EDUARD Reflex Titer and Pattern Reviewed date:08/14/2023 06:11:51 PM Interpretation: Performing Lab:[facility] [place], [address] [place] [phone] Notes/Report: Anti Nuclear Antibody Screen NEGATIVE NEGATIVE [...] Negative International Consensus on EDUARD Patterns (https://doi.org/10.1515/ccl m-0937-3098) For additional information, please refer to http://education.Knozen.LocalMed/faq/DZQ918 (This link is being provided for informational/ educational purposes only.) THIS TEST WAS PERFORMED AT: [employer] [address] [place] [phone] YESSICA DOBSON MD Anti Nuclear Antibody Titer TNP Anti Nuclear Antibody Pattern TNP EDUARD Titer 2 TNP EDUARD Pattern 2 TNP EDUARD Titer 3 TNP EDUARD Pattern 3 TNP Mitochondrial Antibody Reviewed date:08/14/2023 06:11:34 PM Interpretation: Performing Lab:[facility] [place], [address] [place] [phone] Notes/Report: Mitochondrial Antibodies NEGATIVE NEGATIVE The immunofluorescence assay (IFA) procedure reveals the possible presence of another autoantibody. Consider requesting order code 262, Parietal Cell Antibody with Reflex to Titer, if clinically indicated. THIS TEST WAS PERFORMED AT: [employer] [address] [place] [phone] YESSICA DOBSON MD Mitochondrial Ab Titer TNP Smooth Muscle Antibody Reviewed date:08/14/2023 06:11:40 PM Interpretation: Performing Lab:[facility] [place], [address] [place] [phone] Notes/Report: Smooth Muscle Antibody <20 <20 U [...] type 1. THIS TEST WAS PERFORMED AT: [facility] [address] [place] [address] CECI FREEMAN MD,PHD Hepatitis A,B,C Profile Reviewed date:08/06/2023 05:52:38 PM Interpretation: Performing Lab:[facility] [place], [address] [place] [phone] Notes/Report: Hepatitis A Antibody IgM Nonreactive Nonreactive [...] date:08/17/2023 04:58:10 PM Interpretation: Performing Lab: Notes/Report: [address] [address] Ultrasound Report Signed Patient: Phill Escobedo MR#: [id number] : 1960 Acct:[id number] Age/Sex: 63 / F ADM Date: 08/06/23 Loc: HO.US Attending Dr: Peter Rojas MD Ordering Physician: Peter Rojas Date of Service: 08/06/23 Procedure(s): US abdomen comp w elastography Accession Number(s): [id number] cc: Eduard Barboza MD; Peter Rojas EXAMINATION: [...] in OV> 08/08/23 1803 DD/ 0946 TD/TT: Care Coordinator: HOSEA Liver Panel Reviewed date:12/01/2023 09:15:18 PM Interpretation: Performing Lab:[facility] [place], [address] [place] [phone] Notes/Report: Bilirubin Total 1.0 0.0-1.0 mg/dL Bilirubin [...] malignant neoplasm of colon (Z12.11) Active confirmed 648377649 Problem Abdominal bloating (R14.0) Active confirmed 831974887 Problem Hereditary hemochromatosis (E83.110) Active confirmed 15128930 Problem Diverticulosis of large intestine without perforation or abscess without bleeding (K57.30) Active confirmed Diverticul ar disease of colon (106000212) Problem Diverticulitis (K57.92) Active confirmed 899044877 Problem Elevated liver function tests (R79.89) Active confirmed 309241825 Problem Fatty liver (K76.0) Active confirmed Fa tty liver (698093499) Problem Irritable bowel syndrome, unspecified type (K58.9) Active confirmed 16520416 Problem Other irritable bowel syndrome (K58.8) Active confirmed 75628482 Problem Retained food in stomach (K31.89) Active confirmed 299139301 Problem Serrated polyp of colon (K63.5) Active confirmed 250158686 VITAL SIGNS Blood pressure diastolic 00 mm Hg 05/12/2024 Height 61 in 05/12/2024 Blood pressure systolic 00 mm Hg 05/12/2024 Weight 200 lbs 05/12/2024 BMI 37.79 kg/m2 05/12/2024 Encounters Encounter Location Date Provider Diagnosis [facility] [address] [place] [address] 11/12/2023 Peter Rojas Elevated liver funct ion tests R79.89 ; Hereditary hemochromatosis E83.110 ; Serrated polyp of colon K63.5 and Fatty liver K76.0 [facility] [address] [place] [address] 05/12/2024 Peter Rojas Serrated polyp of co jemal K63.5 ; Fatty liver K76.0 ; Encounter for screening for malignant neoplasm of colon Z12.11 and Hereditary hemochromatosis E83.110 [facility] [address] [place] [address] 08/13/2023 Peter Rojas [facility] [address] [place] [address] 10/10/2023 Peter Bob ASSESSMENTS Encounter Date Diagnosis Assessment Notes Treatment Notes Treatment Clinical Notes 11/12/2023 Hereditary hemochromatosis (ICD-10 - E83.110) 11/12/2023 Elevated liver function tests (ICD-10 - R79.89) 05/12/2024 Fatty liver (ICD-10 - K76.0) 05/12/2024 Serrated polyp of colon (ICD-10 - K63.5) Do not take the Hydrochlorothiazide the day before nor on the day of the colonoscopy 11/12/2023 Serrated polyp of colon (ICD-10 - [...] Provider Name:Peter Rojas , 08/26/2024 10:50:00 AM, [facility] , [place], [place], [phone], Insurance Providers Payer Name Payer Address Payer Phone Subscriber Number Group Number Insured Name Patient Relationship to Insured Coverage Start Date Coverage End Date [facility] [address] [address] [place], [place] [id number] GREGG PHILL Self - patient is the insured MEDICAL (GENERAL) HISTORY Medical History History ICD Code Denies ME,DM,CVA,renal disease Irregular heartbeat --ventr iculanadja [place] by her report--had a cardiac ablation--unsuccessful HTN [...] being followed by the Hematology Clinic at [facility] [place] in 10/2018 with a small H [...] fatty liver Three negative Hemoccult cards in 2018 Diverticulitis involving the cecal diverticulae in October [...]
--- OUTSIDE RECORDS SUMMARY | 2024-07-07 09:41 | XMS_ITS ---
Author Organization [facility] Address [address] [place] [address] Care Team Providers Care Nightman Name Role Phone Danuta Barboza Primary Care Provider Peter Munoz Unavailable [phone] ALLERGIES Allergen (clinical drug ingredient) Drug/Non Drug [...] 05/12/2024 Encounters Encounter Location Date Provider Diagnosis [facility] [address] [place] [address] 05/12/2024 Peter Rojas Serrated polyp of co [...] Name:Peter Rojas , 08/26/2024 10:50:00 AM, [address] [place] [address], [phone], Progress Notes * Examination Category Sub-Category Detail [...]
--- NOTE | 2024-08-25 08:23 | HO.ANESPROP2 ---
Documented by User: Lupe Osborne NP 08/25/24 08:26 HPI - Anesthesia Eval Consult details Narrative: 64yo F for Colonoscopy s/p Colostomy Closure, 12/02/23 Cardiac cleared prior and stable at 02/2024 [facility] Cardiology office visit NICM - EF 40-45% Asthma. Controlled. Rare albuterol PMFSH Active Problems Active Problems: All Active Problems Encounter for well woman exam with routine gynecological exam (Acute) Hepatic steatosis (Acute) Impaired fasting blood sugar (Acute) Low back pain (Acute) Head trauma (Acute) Fall (Acute) Concussion (Acute) Physical exam (Acute) Pain of left clavicle (Acute) Vertigo (Acute) Pure hypercholesterolemia (Acute) Iron overload (Chronic) PVC (premature ventricular contraction) (Acute) NICM (nonischemic cardiomyopathy) (Acute) Sciatica (Acute) Ventricular bigeminy (Acute) Hypovitaminosis D (Acute) Essential hypertension (Acute) Mild persistent asthma (Acute) Diverticulitis (Acute) Hemochromatosis (Acute) Family history of liver disease (Acute) Arthritis (Acute) Carpal tunnel syndrome, right (Acute) Pain in right arm (Acute) Past Medical History Medical History PVC (premature ventricular contraction) NICM (nonischemic cardiomyopathy) Diverticulitis of colon with perforation Upper respiratory tract infection Transaminitis Sciatica Morbid obesity with BMI of 40.0-44.9, adult Hereditary hemochromatosis Hypovitaminosis D Ventricular bigeminy IBS (irritable bowel syndrome) Essential hypertension Obesity (BMI 35.0-39.9 without comorbidity) Mild persistent asthma Diverticulitis Hemochromatosis Family history of liver disease Arthritis Carpal tunnel syndrome, right Pain in right arm Family History Family History Father Diabetes Heart disease Stroke COPD (chronic obstructive pulmonary disease) High cholesterol Mother Diabetes Alzheimer disease HTN (hypertension) Brother Brain aneurysm Leukemia Sister COPD (chronic obstructive pulmonary disease) Diabetes Brother Heart valve replaced Family history of problems with anesthesia: No Surgical History Surgical History History of colostomy reversal (12/02/23) History of exploratory laparotomy (08/27/23) Hx of foot surgery History of esophagogastroduodenoscopy (EGD) H/O colonoscopy H/O right heart catheterization History of loop electrical excision procedure (LEEP) H/O knee surgery History of Problems with Anesthesia: No Social History Social History Household Members: None Housing: House Are you a primary administrator health care facility to a significant other at home: No Do you presently have visiting nurse or other home services: No Alcohol intake: current Alcohol intake frequency: a few times a week Alcohol type: wine Patient Tobacco Use Status: Former Tobacco user Tobacco use type: Cigarette Cigarette Packs Per Day: 1 Years Smoked: 7 Smoked in Last 30 Days: No e-Cigarette/Vaping Use: Never Used Second Hand Smoke Exposure: No Use of substances other than those prescribed or required for medical reasons: No Have you been hit, kicked, punched, or otherwise hurt by someone within the past year? If so, by whom?: No Are you DNR?: No Advance Directives: Yes Advance Directives Information Provided: Yes Advance Directives on File: Yes Advance Directives Date on File: 08/22/23 Recently lost weight without trying: No How much weight loss: Not applicable Eating poorly because of decreased appetite: No Nutrition screen score: 0 Nutrition Risks: No Nutritional Risk Patient : No : No Poor oral hygiene: Yes (upper full, lower partial.) service: No Current occupational status: employed Current occupational exposures/hazards: No Sexual orientation: Straight/Heterosexual Gender identity: Female Cognitive needs: No Hearing needs: No Vision needs: Yes (glasses) Meds Allergies Allergy/AdvReac Type Severity Reaction Status Date / Time guaifenesin [From Mucinex] Allergy Severe Difficulty Verified 08/26/24 09:32 Breathing ciprofloxacin [Cipro] Allergy Intermediate hives Verified 08/26/24 09:32 dog dander [dogs] Allergy Intermediate Itching Verified 08/26/24 09:32 environmental allergies Allergy Intermediate Itching Verified 08/26/24 09:32 Home Medications ?Medication ?Instructions ?Recorded ?Confirmed ?Last Taken ?Type multivitamin 1 tab PO QAM 09/28/20 08/26/24 11/30/23 History elderberry fruit 200 mg capsule 200 mg PO DAILY 03/10/24 08/26/24 Unknown History turmeric root extract 150 1 tab PO DAILY 05/06/24 08/26/24 08/24/24 History mg-sean root extract 25 mg chewable tablet Assessment and Plan Assessment Anesthesia Assessment: Chart Reviewed Final Anesthetic Review Family History of Problems with Anesthesia: No History of Problems with Anesthesia: No Documented by User: Aurelia Julien MD 08/26/24 10:45 PMFSH Past Medical History Medical History PVC (premature ventricular contraction) NICM (nonischemic cardiomyopathy) Diverticulitis of colon with perforation Upper respiratory tract infection Transaminitis Sciatica Morbid obesity with BMI of 40.0-44.9, adult Hereditary hemochromatosis Hypovitaminosis D Ventricular bigeminy IBS (irritable bowel syndrome) Essential hypertension Obesity (BMI 35.0-39.9 without comorbidity) Mild persistent asthma Diverticulitis Hemochromatosis Family history of liver disease Arthritis Carpal tunnel syndrome, right Pain in right arm Family History Family History Father Diabetes Heart disease Stroke COPD (chronic obstructive pulmonary disease) High cholesterol Mother Diabetes Alzheimer disease HTN (hypertension) Brother Brain aneurysm Leukemia Sister COPD (chronic obstructive pulmonary disease) Diabetes Brother Heart valve replaced Family history of problems with anesthesia: No Surgical History Surgical History History of colostomy reversal (12/02/23) History of exploratory laparotomy (08/27/23) Hx of foot surgery History of esophagogastroduodenoscopy (EGD) H/O colonoscopy H/O right heart catheterization History of loop electrical excision procedure (LEEP) H/O knee surgery History of Problems with Anesthesia: No Social History Social History Household Members: None Housing: House Are you a primary administrator health care facility to a significant other at home: No Do you presently have visiting nurse or other home services: No Alcohol intake: current Alcohol intake frequency: a few times a week Alcohol type: wine Patient Tobacco Use Status: Former Tobacco user Tobacco use type: Cigarette Cigarette Packs Per Day: 1 Years Smoked: 7 Smoked in Last 30 Days: No e-Cigarette/Vaping Use: Never Used Second Hand Smoke Exposure: No Use of substances other than those prescribed or required for medical reasons: No Have you been hit, kicked, punched, or otherwise hurt by someone within the past year? If so, by whom?: No Are you DNR?: No Advance Directives: Yes Advance Directives Information Provided: Yes Advance Directives on File: Yes Advance Directives Date on File: 08/22/23 Recently lost weight without trying: No How much weight loss: Not applicable Eating poorly because of decreased appetite: No Nutrition screen score: 0 Nutrition Risks: No Nutritional Risk Patient : No : No Poor oral hygiene: Yes (upper full, lower partial.) service: No Current occupational status: employed Current occupational exposures/hazards: No Sexual orientation: Straight/Heterosexual Gender identity: Female Cognitive needs: No Hearing needs: No Vision needs: Yes (glasses) Meds Allergies Allergy/AdvReac Type Severity Reaction Status Date / Time guaifenesin [From Mucinex] Allergy Severe Difficulty Verified 08/26/24 09:32 Breathing ciprofloxacin [Cipro] Allergy Intermediate hives Verified 08/26/24 09:32 dog dander [dogs] Allergy Intermediate Itching Verified 08/26/24 09:32 environmental allergies Allergy Intermediate Itching Verified 08/26/24 09:32 Home Medications ?Medication ?Instructions ?Recorded ?Confirmed ?Last Taken ?Type multivitamin 1 tab PO QAM 09/28/20 08/26/24 11/30/23 History elderberry fruit 200 mg capsule 200 mg PO DAILY 03/10/24 08/26/24 Unknown History turmeric root extract 150 1 tab PO DAILY 05/06/24 08/26/24 08/24/24 History mg-sean root extract 25 mg chewable tablet Exam Height,Weight and Vital Signs: Height 5 ft 1 in Weight 93.7 kg Vital Signs Temp Pulse Resp BP Pulse Ox O2 Del Method 08/26/24 09:44 97.5 F 67 16 140/73 H 97 Room Air Airway Mallampati Class: III TM Dist: >3cm Neck ROM: Full Denture: Upper and Lower Heart: RRR Lungs: CTAB Assessment and Plan Assessment Anesthesia Assessment: Anesthesia Plan Discussed and Chart Reviewed Final Anesthetic Review Family History of Problems with Anesthesia: No History of Problems with Anesthesia: No NPO: Yes ASA Class: III Final Preanesthetic Review: No Changes in Pt Med Stat, Meds/Allgs Chart Reviewed, Consent Obtained/Reviewed and Anes Risks/Benef Reviewed Patient Risk: Intermediate Procedure Risk: Low Assessment/Block/Sedation in SS: Assess/Block/Sedation-SS Anesthetic Plan Anesthetic Plan: TIVA Disposition: Standard PACU
[2024-08-26 09:44] VITALS: BP 140/73; PULSE 67; RESP 16; TEMP 36.4; O2SAT 97; BMI 39.0
[2024-08-26] MEDS: Lactated Ringers 1,000 ML 100 ML IVCONT (09:57)
[2024-08-26 11:19] VITALS: BP 97/62; PULSE 69; RESP 22; TEMP 36.7; O2SAT 94
--- NOTE | 2024-08-26 11:22 | P.BOP_ITS ---
Brief Operative Note Date of Service: 08/26/24 Pre-op diagnosis: Screening Post-op diagnosis: other (Colon polyp) Procedure: Colonoscopy to the cecum with hot snare polypectomy x 1 Surgeon: Peter Rojas MD Anesthesia: MAC Was an Pesticide Control Inspector used for this Procedure?: No Estimated blood loss (mL): 0 Pathology: other (A. Ascending colon polyp) Condition: stable Disposition: PACU
[2024-08-26 11:34] VITALS: BP 110/55; PULSE 59; RESP 16; TEMP 36.6; O2SAT 96
--- NOTE | 2024-08-26 11:36 | OP_ITS ---
DATE OF SERVICE: 08/26/2024 SURGEON: Peter Rojas MD INDICATIONS: The patient presents for evaluation of colorectal cancer screening and personal history of colon polyps. Full consent was obtained from her for this, including risks of bleeding and perforation. PREOPERATIVE DIAGNOSIS: Colorectal cancer screening. POSTOPERATIVE DIAGNOSIS: PROCEDURE PERFORMED: Colonoscopy to the cecum with hot snare polypectomy. ESTIMATED BLOOD LOSS: COMPLICATIONS: ANESTHESIA: Monitored anesthesia care. ASSISTANTS: SPECIMENS: POSTOPERATIVE DIAGNOSES: Colorectal cancer screening, colon polyp, diverticulosis, normal anastomosis, and internal hemorrhoids. DESCRIPTION OF PROCEDURE: The patient was placed in the left lateral decubitus position. The digital rectal exam revealed no abnormalities. The Olympus video pediatric colonoscope was entered into the rectum and advanced easily to the cecum. Once in the cecum, I did identify normal-appearing cecal pouch with appendiceal orifice and a normal-appearing ileocecal valve. The entire cecum and ileocecal valve appeared normal. The scope was slowly withdrawn assessing all mucosal surfaces carefully. Preparation was excellent. In the proximal ascending colon, in an area of diverticula, was an approximately 12 mm flat, but raised polyp, which was removed by hot snare polypectomy and recovered by suction. The polypectomy site appeared clean, without any sign of residual polyp nor bleeding. I did not visualize any other polyps, colitis, nor angiodysplasia. There was a scattered amount of diverticula in the colon, proximal to the anastomosis. The anastomosis appeared normal at 15 cm. I did not visualize any other polyps, colitis, nor angiodysplasia. In the rectum, scope was retroflexed visualizing some internal hemorrhoids, but no other pathology. The rectal mucosa appeared normal. The scope was straightened and withdrawn from the patient. She tolerated the procedure well and was returned to the recovery area in stable condition. IMPRESSION: 1. Colon polyp. 2. Diverticulosis. 3. Internal hemorrhoids. 4. Normal anastomosis. PLAN: The results of the pathology will be checked. I would recommend a repeat colonoscopy in 3 years for further surveillance. She was advised not to use any aspirin or NSAIDs for 1 week. She will otherwise see me on a p.r.n. basis. MD LAZARO Briones/LONI / [id number]
== END 2024-08-26 12:15 | disposition home or self-care (01) ==
PROVIDERS: Visit Provider Internal Medicine
PROC: 0DJD8ZZ Inspection of Lower Intestinal Tract, Via Natural or Artificial Opening Endoscopic (ICD-10-PCS; CPT 45378; principal; 2024-08-26 09:40)
DX: Z12.11 Encounter for screening for malignant neoplasm of colon (principal); Z86.0101 Personal history of adenomatous and serrated colon polyps; D12.2 Benign neoplasm of ascending colon; K57.30 Diverticulosis of large intestine without perforation or abscess without bleeding; K64.8 Other hemorrhoids; E83.110 Hereditary hemochromatosis; K76.0 Fatty (change of) liver, not elsewhere classified; K58.9 Irritable bowel syndrome, unspecified; Z87.19 Personal history of other diseases of the digestive system; Z98.0 Intestinal bypass and anastomosis status; I49.3 Ventricular premature depolarization; I10 Essential (primary) hypertension; G47.33 Obstructive sleep apnea (adult) (pediatric); Z79.899 Other long term (current) drug therapy; Z98.890 Other specified postprocedural states; Z87.891 Personal history of nicotine dependence
CPT/HCPCS: 45385; 36415; 80053; 80061; 83540; 85025; 88305; J2003; J2704

== ENCOUNTER 2024-09-02 14:02 | Outpatient (REF) | payer MEDICARE, SELFPAY ==
--- OUTSIDE RECORDS SUMMARY | 2024-09-02 14:17 | XMS_ITS | Patient Health Record ---
Author Organization [facility] Address [address] [place] [address] Care Team Providers Care Reactor Technician Name Role Phone Danuta Barboza Primary Care Provider Peter Munoz [phone] ALLERGIES Allergen (clinical drug ingredient) Drug/Non Drug Allergy documented on EMR Reaction Allergy Type Onset Date Status dust,grass,trees,cat s and dogs (uncoded) Unknown Allergy Active RESULTS Component Value Reference Range Notes Liver Panel Reviewed date:12/01/2023 09:15:18 PM Interpretation: Performing Lab:[facility], [address] [place] [phone] Notes/Report: Bilirubin Total 1.0 0.0-1.0 mg/dL Bilirubin Direct 0.3 0.0-0.5 mg/dL Aspartate Amino Transferase 26 5-31 U/L Alanine Aminotransferase 21 0-31 U/L Total Protein 7.2 6.5-8.0 g/dL Albumin Level 4.1 3.5-5.0 g/dL Alkaline Phosphatase 90 39-117 U/L Pathology (Not yet reviewed by provider) Interpretation: Performing Lab:[facility], [address] [place] [phone] Notes/Report: REASON FOR REFERRAL No Information MEDICATIONS Medication [...] malignant neoplasm of colon (Z12.11) Active confirmed 562734073 Problem Abdominal bloating (R14.0) Active confirmed 026330562 Problem Hereditary hemochromatosis (E83.110) Active confirmed 84493442 Problem Diverticulosis of large intestine without perforation or abscess without bleeding (K57.30) Active confirmed Diverticul ar disease of colon (056188756) Problem Diverticulitis (K57.92) Active confirmed 379814607 Problem Elevated liver function tests (R79.89) Active confirmed 943436314 Problem Fatty liver (K76.0) Active confirmed Fa tty liver (185089168) Problem Irritable bowel syndrome, unspecified type (K58.9) Active confirmed 80810282 Problem Other irritable bowel syndrome (K58.8) Active confirmed 02964467 Problem Retained food in stomach (K31.89) Active confirmed 885559338 Problem Serrated polyp of colon (K63.5) Active confirmed 365548089 VITAL SIGNS Blood pressure diastolic 00 mm Hg 05/12/2024 Height 61 in 05/12/2024 Blood pressure systolic 00 mm Hg 05/12/2024 Weight 200 lbs 05/12/2024 BMI 37.79 kg/m2 05/12/2024 Encounters Encounter Location Date Provider Diagnosis [facility] Outpatient [address] [place] [id number] 08/26/2024 Peter Rojas [facility] [address] [place] [address] 11/12/2023 Peter Rojas Elevated liver funct ion tests R79.89 ; Hereditary hemochromatosis E83.110 ; Serrated polyp of colon K63.5 and Fatty liver K76.0 [facility] [address] [address] 05/12/2024 Peter Rojas Serrated polyp of co jemal K63.5 ; Fatty liver K76.0 ; Encounter for screening for malignant neoplasm of colon Z12.11 and Hereditary hemochromatosis E83.[address] [address] 10/10/2023 Peter Rojas ASSESSMENTS Encounter Date Diagnosis [...] 07/03/2023 Hepatitis A,B,C Profile 07/03/2023 Pathology 06/12/2021 Pathology 08/26/2024 US abdomen comp w elastography 3 Future Test Test Name Order Date UPPER GI ENDOSCOPY 07/30/2018 COLONOSCOPY 05/02/2021 COLONOSCOPY 05/12/2024 Insurance Providers Payer Name Payer Address Payer Phone Subscriber Number Group Number Insured Name Patient Relationship to Insured Coverage Start Date Coverage End Date [facility] [address] [place] [id number] PHILL ESCOBEDO Self - patient is the insured MEDICAL (GENERAL) HISTORY Medical History History ICD Code Denies [place],DM,CVA,renal disease Irregular heartbeat --ventr icular kuniny by her report--had a cardiac ablation--unsuccessful HTN [...] being followed by the Hematology Clinic at [facility] EGD in 10/2018 with a small H [...]
--- OUTSIDE RECORDS SUMMARY | 2024-09-02 14:17 | XMS_ITS ---
Author Organization [facility] Address [address] [place] [address] Care Team Providers Care Quotation Clerk Name Role Phone Danuta Barboza Primary Care Provider Unavailab Peter Garcia Unavailable [phone] REASON FOR VISIT screening, serrated polyp Encounters Encounter Location Date Provider Diagnosis [facility] Outpatient [address] [place], [place] [phone] 08/26/2024 Peter Rojas PLAN OF TREATMENT No Information
--- OUTSIDE RECORDS SUMMARY | 2024-09-02 14:18 | XMS_ITS ---
Author Organization [facility] Address [address] [place] [address] Care Team Providers Care College Recruiter Name Role Phone Danuta Barboza Primary Care Provider Peter Munoz Unavailable [phone] ALLERGIES Allergen (clinical drug ingredient) Drug/Non Drug [...] 05/12/2024 Encounters Encounter Location Date Provider Diagnosis [facility] [address] [place] [address] 05/12/2024 Peter Rojas Serrated polyp of co [...] Next Appt Details Follow Up: prn, Reason: Progress Notes * Examination Category Sub-Category Detail [...]
--- OUTSIDE RECORDS SUMMARY | 2024-09-02 14:18 | XMS_ITS ---
Author Organization [facility] Address [address] [place] [address] Care Team Providers Care Quality Officer Name Role Phone Danuta Barboza Primary Care Provider Peter Munoz Unavailable [phone] ALLERGIES Allergen (clinical drug ingredient) Drug/Non Drug [...] Fatty liver (K76.0) Active confirmed Fatty liver (737447559) VITAL SIGNS BMI 35.71 kg/m2 11/12/2023 Blood pressure systolic 00 mm Hg 11/12/19 24 Blood pressure diastolic 00 mm Hg 024 Height 61 in 11/12/2023 Weight 189 lbs 11/12/2023 Encounters Encounter Location Date Provider Diagnosis [facility] [address] [place] [address] 11/12/2023 Peter Rojas Elevated liver funct ion [...] Appt Details Follow Up: 2023, Reaso n: Progress Notes * Examination Category Sub-Category Detail [...]
[2024-09-02 15:33] LABS: Ferritin 188 ng/mL (10-250)
== END 2024-09-02 14:03 | disposition home or self-care (01) ==
LOC: HO.BBR 14:02
PROVIDERS: Visit Provider Internal Medicine
DX: E83.110 Hereditary hemochromatosis (principal)
CPT/HCPCS: 36415; 82728

== ENCOUNTER 2024-09-15 10:54 | Outpatient (AMB) | payer MEDICARE, SELFPAY ==
--- NOTE | 2024-09-15 11:14 | MHC.OFFVIS ---
Vital Signs 09/15/24 11:18 Weight 209 lb 3.499 oz BP 90/60 Blood Pressure Location Lt brachial Position Sitting Pulse 73 Pulse Source Pulse Oximeter Pulse Oximetry (%) 93 Oxygen Delivery Method Room Air Intake Visit Reasons: LBP Intake Note: Pt presents today for low back pain and left shoulder pain Allergies guaifenesin [From Mucinex] Allergy (Severe, Verified 09/15/24 11:19) Difficulty Breathing ciprofloxacin [Cipro] Allergy (Intermediate, Verified 09/15/24 11:34) Dizziness dog dander [dogs] Allergy (Intermediate, Verified 09/15/24 11:19) Itching environmental allergies Allergy (Intermediate, Verified 09/15/24 11:19) Itching musinex Allergy (Uncoded 09/15/24 11:34) dyspnea HPI HPI LBP: Details: New patient visit. She is having pain in lower back, left shoulder and has noticed increase prominence of sternoclavicular joint. She says the area of SC joint is sensitive. She denies pain with movement of her shoulder. Lower back pain progressing for 6 months. She has pain in lower back with prolonged sitting and going up stairs. Denies radiculopathy. She uses tylenol few times a week. She has not been to PT. She has chronic left shoulder pain for many years when she wakes up. She sleeps on left side. Pain continues during the day with activity. She tried OTC roll on treatment but developed a rash. She has seen a chiropractor few years ago. She uses treadmill 30min few times a week. It is hard for her to use a treadmill due to joint pain. She has recently communicated with PCP about medications used for weight loss. She was told to avoid NSAIDs per recommendations of cardiology. PMx and PSx: Hx of hypotension, cardiomyopathy, irregular heart beats, Hx of diverticulitis s/p surgery 2023 (reversal of ilostomy), left first toe x5 surgeries for ingrown toes, left lateral meniscus surgery, LEEP procedure, heart ablation. Ex-smoker 39 years ago. Drinks a glass of wine every other day. 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 Mother had OA. [facility] Medical History (Updated 09/15/24 @ 12:20 by Rojelio Delarosa MD) Transaminitis PVC (premature ventricular contraction) NICM (nonischemic cardiomyopathy) Diverticulitis of colon with perforation Upper respiratory tract infection Sciatica Morbid obesity with BMI of 40.0-44.9, adult Hereditary hemochromatosis Hypovitaminosis D Ventricular bigeminy IBS (irritable bowel syndrome) Essential hypertension Obesity (BMI 35.0-39.9 without comorbidity) Mild persistent asthma Diverticulitis Hemochromatosis Family history of liver disease Arthritis Carpal tunnel syndrome, right Pain in right arm Surgical History History of colostomy reversal (12/02/23) History of exploratory laparotomy (08/27/23) Hx of foot surgery History of esophagogastroduodenoscopy (EGD) H/O colonoscopy H/O right heart catheterization History of loop electrical excision procedure (LEEP) H/O knee surgery Family History Father Diabetes Heart disease Stroke COPD (chronic obstructive pulmonary disease) High cholesterol Mother Diabetes Alzheimer disease HTN (hypertension) Brother Brain aneurysm Leukemia Sister COPD (chronic obstructive pulmonary disease) Diabetes Brother Heart valve replaced Social History Household Members: None Housing: House Are you a primary healthcare risk control consultant to a significant other at home: No Do you presently have visiting nurse or other home services: No Alcohol intake: current Alcohol intake frequency: a few times a week Alcohol type: wine Patient Tobacco Use Status: Former Tobacco user Tobacco use type: Cigarette Cigarette Packs Per Day: 1 Years Smoked: 7 e-Cigarette/Vaping Use: Never Used Second Hand Smoke Exposure: No Advance Directives Date on File: 08/22/23 service: No Current occupational status: employed Current occupational exposures/hazards: No Sexual orientation: Straight/Heterosexual Gender identity: Female Cognitive needs: No Hearing needs: No Vision needs: Yes (glasses) Review of Systems Const All systems reviewed & are unremarkable except as noted in HPI and below Physical Exam Vital Signs: Last Vital Signs Pulse 73 09/15/24 11:18 BP 90/60 09/15/24 11:18 Pulse Ox 93 09/15/24 11:18 Oxygen Delivery Method Room Air 09/15/24 11:18 Const Other: General: Comfortable CVS: RRR Respiratory: clear to auscultation bilaterally. Good respiratory effort Skin: No lesions seen MSK: Tender to palpate mid lumbar spinous process and laterally involving paraspinal muscles and lateral to paraspinal muscles. She is able to flex her lumbar spine but not fully. Heberden nodes present. Weak videotape editor. Tender left shoulder on palpation with normal range of motion of both shoulders. She has soft tissue swelling with tenderness along left sternoclavicular joint. Knee flexion is limited to 90 degrees right side and 80 degrees left side. Assessment & Plan Assessment & Plan (1) Lumbar spondylosis: Comment: Chronic back pain is due to combination of osteoarthritis (spondylosis and Grade 1 anterolisthesis of L4 and L5) and myofascial strain. I personally reviewed x-ray from April 2024 with patient. We discussed diagnosis and management. Code(s): M47.816 - Spondylosis without myelopathy or radiculopathy, lumbar region Category: Medical Plan: Physical therapy has been ordered for back strengthening, myofascial release and TENs unit Take Tylenol 500 mg or 650 mg daily instead of PRN Close monitoring of LFTs. She will have liver panel in 6 weeks Avoid oral NSAIDs per recommendations of cardiology due to history of cardiomyopathy, hypertension and intermittent arrhythmia Encouraged weight loss. We discussed the importance of weight loss in helping with pain from osteoarthritis and preventing progression, especially in weight bearing joints. She recently had a visit with PCP and discuss medical management of weight loss. I encouraged her to follow-up with PCP for weight loss management with consideration of medications used for weight loss and marine electrician apprentice referral. Return to clinic in 3 months (2) Enlargement of left sternoclavicular joint: Comment: Chronic, unclear etiology. She had an x-ray of the clavicle performed February 2024, which revealed arthritis moderate AC joint arthritis but it is not at the location of her current soft tissue swelling. Code(s): M25.812 - Other specified joint disorders, left shoulder Category: Medical Plan: I will evaluate further with dedicated sternoclavicular joint x-ray Return to clinic in 3 (3) Osteoarthritis, hand: Comment: Contributing to weak videotape editor. Code(s): M19.049 - Primary osteoarthritis, unspecified hand Category: Medical Qualifiers: Laterality: bilateral Osteoarthritis type: primary Qualified Code(s): M19.041 - Primary osteoarthritis, right hand; M19.042 - Primary osteoarthritis, left hand Plan: Occupational therapy ordered (4) Hand weakness: Code(s): R29.898 - Other symptoms and signs involving the musculoskeletal system Category: Medical Plan: Occupational therapy ordered (5) Transaminitis: Comment: She has known hemochromatosis, which can contribute to transaminitis. CT abdomen/pelvis 08/2023 revealed enlarged liver. Code(s): R74.01 - Elevation of levels of liver transaminase levels Category: Medical Plan: I have asked her to increase Tylenol to daily frequency instead of PRN I will monitor liver enzymes closely with liver panel in 6 weeks Return to clinic in 3 months Orders: Orders XR sternoclavicular joint BI Today M25.812 - Other specified joint disorders, left shoulder PT Evaluation and Treatment Today M47.816 - Spondylosis without myelopathy or radiculopathy, lumbar region XR knee LT 2V Today M17.0 - Bilateral primary osteoarthritis of knee XR knee RT 2V Today M17.0 - Bilateral primary osteoarthritis of knee OT Evaluation and Treatment Today M19.049 - Primary osteoarthritis, unspecified hand, R29.898 - Other symptoms and signs involving the musculoskeletal system Liver Panel 6 Weeks R74.01 - Elevation of levels of liver transaminase levels Coding Level of Care Code New Pt Level 4 (40381) Diagnoses Lumbar spondylosis M47.816 Enlargement of left sternoclavicular joint M25.812 Primary osteoarthritis of both hands M19.041; M19.042 Laterality: bilateral Osteoarthritis type: primary Hand weakness R29.898 Transaminitis R74.01
[2024-09-15 11:18] VITALS: BP 90/60; PULSE 73; O2SAT 93
--- OUTSIDE RECORDS SUMMARY | 2024-09-15 13:28 | XMS_ITS ---
Author Organization [facility] Address [address] [place] [address] Care Team Providers Care Manager Cancer Name Role Phone Danuta Barboza Primary Care Provider Peter Munoz Unavailable [phone] ALLERGIES Allergen (clinical drug ingredient) Drug/Non Drug [...] Fatty liver (K76.0) Active confirmed Fatty liver (105245641) VITAL SIGNS Blood pressure systolic 00 mm Hg 11/12/19 24 Blood pressure diastolic 00 mm Hg 024 Height 61 in 11/12/2023 Weight 189 lbs 11/12/2023 BMI 35.71 kg/m2 11/12/2023 Encounters Encounter Location Date Provider Diagnosis [facility] [address] [place] [address] 11/12/2023 Peter Rojas Elevated liver funct ion [...]
--- OUTSIDE RECORDS SUMMARY | 2024-09-15 13:28 | XMS_ITS ---
Author Organization [facility] Address [address] [place] [address] Care Team Providers Care Section Leader Screen Printing Name Role Phone Danuta Barboza Primary Care Provider Unavailab Peter Garcia [phone] REASON FOR VISIT screening, serrated polyp Encounters Encounter Location Date Provider Diagnosis [facility] Outpatient [address] [place], [place] [phone] 08/26/2024 Peter Rojas Colon cancer scree candice Z12.11 ; Colon polyps K63.5 ; Diverticulosis of large intestine without perforation or abscess without bleeding K57.30 and Other hemorrhoids K64.8 ASSESSMENTS Encounter Date Diagnosis Assessment Notes Treatment Notes Treatment Clinical Notes 08/26/2024 Colon cancer screening (ICD-10 - Z12.11) 08/26/2024 Colon polyps (ICD-10 - K63.5) 08/26/2024 Diverticulosis of large intestine without perforation or abscess without bleeding (ICD-10 - K57.30) 08/26/2024 Other hemorrhoids (ICD-10 - K64.8) PLAN OF TREATMENT No Information
--- OUTSIDE RECORDS SUMMARY | 2024-09-15 13:28 | XMS_ITS | Patient Health Record ---
Author Organization [facility] Address [address] [place] [address] Care Team Providers Care Bike Designer Name Role Phone Danuta Barboza Primary Care Provider Peter Munoz [phone] ALLERGIES Allergen (clinical drug ingredient) Drug/Non Drug Allergy documented on EMR Reaction Allergy Type Onset Date Status dust,grass,trees,cat s and dogs (uncoded) Unknown Allergy Active RESULTS Component Value Reference Range Notes Liver Panel Reviewed date:12/01/2023 09:15:18 PM Interpretation: Performing Lab:[facility], [address] [place] [phone] Notes/Report: Bilirubin Total 1.0 0.0-1.0 mg/dL Bilirubin Direct 0.3 0.0-0.5 mg/dL Aspartate Amino Transferase 26 5-31 U/L Alanine Aminotransferase 21 0-31 U/L Total Protein 7.2 6.5-8.0 g/dL Albumin Level 4.1 3.5-5.0 g/dL Alkaline Phosphatase 90 39-117 U/L Pathology (Not yet reviewed by provider) Interpretation: Performing Lab:[facility], [address] [place] [phone] Notes/Report: REASON FOR REFERRAL No Information MEDICATIONS [...] malignant neoplasm of colon (Z12.11) Active confirmed 844160837 Problem Abdominal bloating (R14.0) Active confirmed 648235774 Problem Hereditary hemochromatosis (E83.110) Active confirmed 96280477 Problem Diverticulosis of large intestine without perforation or abscess without bleeding (K57.30) Active confirmed Diverticul ar disease of colon (893108219) Problem Diverticulitis (K57.92) Active confirmed 419069494 Problem Elevated liver function tests (R79.89) Active confirmed 011445277 Problem Fatty liver (K76.0) Active confirmed Fa tty liver (235008661) Problem Irritable bowel syndrome, unspecified type (K58.9) Active confirmed 36699008 Problem Other irritable bowel syndrome (K58.8) Active confirmed 91249511 Problem Retained food in stomach (K31.89) Active confirmed 242926751 Problem Serrated polyp of colon (K63.5) Active confirmed 916579842 VITAL SIGNS Blood pressure diastolic 00 mm Hg 05/12/2024 Height 61 in 05/12/2024 Blood pressure systolic 00 mm Hg 05/12/2024 Weight 200 lbs 05/12/2024 BMI 37.79 kg/m2 05/12/2024 Encounters Encounter Location Date Provider Diagnosis [facility] Outpatient [address] [place], [place] [phone] 08/26/2024 Peter Rojas Colon cancer screeni ng Z12.11 ; Colon polyps K63.5 ; Diverticulosis of large intestine without perforation or abscess without bleeding K57.30 and Other hemorrhoids K64.8 [facility] [address] [place] [address] 11/12/2023 Peter Rojas Elevated liver funct ion tests R79.89 ; Hereditary hemochromatosis E83.110 ; Serrated polyp of colon K63.5 and Fatty liver K76.0 [facility] [address] [address] 05/12/2024 Peter Rojas Serrated polyp of co jemal K63.5 ; Fatty liver K76.0 ; Encounter for screening for malignant neoplasm of colon Z12.11 and Hereditary hemochromatosis E83.110 [facility] [address] [address] 10/10/2023 Peter Rojas ASSESSMENTS Encounter Date Diagnosis Assessment Notes Treatment Notes Treatment Clinical Notes 08/26/2024 Colon cancer screening (ICD-10 - Z12.11) 08/26/2024 Colon polyps (ICD-10 - K63.5) 11/12/2023 Hereditary hemochromatosis (ICD-10 - E83.110) 11/12/2023 Elevated liver function tests (ICD-10 - R79.89) 05/12/2024 Fatty liver (ICD-10 - K76.0) 05/12/2024 Serrated polyp of colon (ICD-10 - K63.5) Do not take the Hydrochlorothiazide the day before nor on the day of the colonoscopy 08/26/2024 Diverticulosis of large intestine without perforation or abscess without bleeding (ICD-10 - K57.30) 11/12/2023 Serrated polyp of colon (ICD-10 - K63.5) 05/12/2024 Encounter for screening for malignant neoplasm of colon (ICD-10 - Z12.11) 08/26/2024 Other hemorrhoids (ICD-10 - K64.8) 11/12/2023 Fatty liver (ICD-10 - K76.0) 05/12/2024 Hereditary hemochromatosis (ICD-10 - E83.110) PLAN OF TREATMENT Pending Test Test Name Order Date LIVER PROFILE 07/03/2023 LIVER PROFILE 11/12/2023 IRON + IBC (FE) 07/03/2023 CBC w DIFF 07/03/2023 ALPHA-FETOPROTEIN,TUMOR MARKER HEMOCHROMATOSIS (C282Y) 07/03/2023 FLUOR. ANTINUCLEAR AB SCREEN (BRAXTON) 06/15 Prothrombin Time INR 07/03/2023 Ferritin 07/03/2023 Alpha 1 Anti-trypsin 07/03/2023 Liver Fibrosis Pnl 07/03/2023 Mitochondrial Antibody 07/03/2023 Smooth Muscle Antibody 07/03/2023 Hepatitis A,B,C Profile 07/03/2023 Pathology 06/12/2021 Pathology 08/26/2024 US abdomen comp w elastography Future Test Test Name Order Date UPPER GI ENDOSCOPY 07/30/2018 COLONOSCOPY 05/02/2021 COLONOSCOPY 05/12/2024 Insurance Providers Payer Name Payer Address Payer Phone Subscriber Number Group Number Insured Name Patient Relationship to Insured Coverage Start Date Coverage End Date [facility] [address] [place], [place] [id number] PHILL ESCOBEDO Self - patient is the insured MEDICAL (GENERAL) HISTORY Medical History History ICD Code Denies [place],DM,CVA,renal disease Irregular heartbeat --ventr icular bigeminy by [...] being followed by the Hematology Clinic at [facility] EGD in 10/2018 with a small H [...] sigmoid diverticu litis with abscess requiring a Itmoteo procedure with sigmoid resection and colostomy in 08/2023. Colostomy reversed on 12/02/[address] Avery Hospitalization History Reason Date(Month/Year)
--- OUTSIDE RECORDS SUMMARY | 2024-09-15 13:29 | XMS_ITS ---
Author Organization [facility] Address [address] [place] [address] Care Team Providers Care Sales And Service Advisor Name Role Phone Danuta Barboza Primary Care Provider Peter Munoz Unavailable [phone] ALLERGIES Allergen (clinical drug ingredient) Drug/Non Drug [...] point) Points 3 Interpretation Positive VITAL SIGNS Blood pressure systolic 00 mm Hg 05/12/20 24 Blood pressure diastolic 00 mm Hg 024 Height 61 in 05/12/2024 Weight 200 lbs 05/12/2024 BMI 37.79 kg/m2 05/12/2024 Encounters Encounter Location Date Provider Diagnosis [facility] [address] [place] [address] 05/12/2024 Peter Rojas Serrated polyp of co [...]
== END 2024-09-15 12:08 | disposition home or self-care (01) ==
PROVIDERS: PCP Internal Medicine; Visit Provider Internal Medicine Rheumatology
DX: M47.816 Spondylosis without myelopathy or radiculopathy, lumbar region (principal); M25.812 Other specified joint disorders, left shoulder; M19.041 Primary osteoarthritis, right hand; M19.042 Primary osteoarthritis, left hand; R29.898 Other symptoms and signs involving the musculoskeletal system; R74.01 Elevation of levels of liver transaminase levels
CPT/HCPCS: 99204

== ENCOUNTER → 2024-09-15 10:54 | Outpatient (BNVA) | payer MEDICARE, SELFPAY | PROVIDERS: PCP Internal Medicine; Visit Provider Internal Medicine Rheumatology | DX: M47.816 Spondylosis without myelopathy or radiculopathy, lumbar region (principal); M25.812 Other specified joint disorders, left shoulder | CPT/HCPCS: 99202 ==

== ENCOUNTER 2024-11-04 14:21 | Outpatient (REF) | payer MEDICARE, SELFPAY ==
[2024-11-04 15:50] LABS: Ferritin 151 ng/mL (10-250)
--- OUTSIDE RECORDS SUMMARY | 2024-11-04 17:16 | XMS_ITS ---
Author Organization [facility] Address [address] [place] [id number] Care Team Providers Care Healthcare Account Manager Name Role Phone Danuta Barboza Primary Care Provider Peter Munoz Unavailable [phone] Allergies Allergen (clinical drug ingredient) Drug/Non Drug Allergy documented on EMR Reaction Allergy Type Onset Date Status dust,grass,trees,cat s and dogs (uncoded) Unknown Allergy Active REASON FOR VISIT Patient presents today for elevtaed lft's Medications Medication SIG (Take, Route, Frequency, Duration) Notes [...] directed Orally BID Active Tylenol PRN Active Social History Tobacco Use: Social History Observation Description Date Details (start date - stop date) Former Smoker NA - NA Tobacco Use/Smoking Question Answer Notes Patient is [...] Never (0 point) Points 3 Interpretation Positive Section Notes: Nonsmoker; 2 glasses of wine QOD Problems Problem Type SNOMED Code ICD Code Onset Dates Problem Status W/U Status Risk Notes Problem Fatty liver (479610383) Fatty liver (K76.0) Active confirmed Vital Signs Blood pressure systolic 00 mm Hg 11/12/19 24 Blood pressure diastolic 00 mm Hg 024 Height 61 in 11/12/2023 Weight 189 lbs 11/12/2023 BMI 35.71 kg/m2 11/12/2023 Encounters Encounter Location Date Provider Diagnosis [facility] [address] [place] [address] 11/12/2023 Peter Rojas Elevated liver funct ion tests R79.89 ; Hereditary hemochromatosis E83.110 ; Serrated polyp of colon K63.5 and Fatty liver K76.0 Assessments Encounter Date Diagnosis (ICD Code) Assessment Notes Treatment Notes Treatment Clinical Notes Section Notes 11/12/2023 Elevated liver function tests (ICD-10 - R79.89) Overall, Vielka appears well. We did review that her underlying history of fatty liver and elevated LFT seems to be quite stable the present time. She does not show any stigmata of significant liver disease on her imaging studies, on her laboratories, and Nor by her exam. We did review the otherwise negative liver workup earlier in the year. At this point I will recommend that she simply try to watch her diet carefully and lose weight, as well as to continue with her periodic phlebotomies for the hemochromatosis. I have given her a lab so to check a repeat liver profile. I don't think a liver biopsy is required at this point unless her liver enzymes were to rise significantly to over 2-1/2-3 times normal. I will plan to see her again in the fall for a followup visit. We did review that I will want to schedule her for a followup colonoscopy for the very end of this year or for the beginning of 2024 given the history of a serrated polyp removed in 2020. Vielka was comfortable with this plan. Thank you again for allowing me to proceed in Vielka's care. I shall continue to keep you advised of her progress. 11/12/2023 Hereditary hemochromatosis (ICD-10 - E83.110) Overall, Vielka appears well. We did review that her underlying history of fatty liver and elevated LFT seems to be quite stable the present time. She does not show any stigmata of significant liver disease on her imaging studies, on her laboratories, and Nor by her exam. We did review the otherwise negative liver workup earlier in the year. At this point I will recommend that she simply try to watch her diet carefully and lose weight, as well as to continue with her periodic phlebotomies for the hemochromatosis. I have given her a lab so to check a repeat liver profile. I don't think a liver biopsy is required at this point unless her liver enzymes were to rise significantly to over 2-1/2-3 times normal. I will plan to see her again in the fall for a followup visit. We did review that I will want to schedule her for a followup colonoscopy for the very end of this year or for the beginning of 2024 given the history of a serrated polyp removed in 2020. Vielka was comfortable with this plan. Thank you again for allowing me to proceed in Vielka's care. I shall continue to keep you advised of her progress. 11/12/2023 Serrated polyp of colon (ICD-10 - K63.5) Overall, Vielka appears well. We did review that her underlying history of fatty liver and elevated LFT seems to be quite stable the present time. She does not show any stigmata of significant liver disease on her imaging studies, on her laboratories, and Nor by her exam. We did review the otherwise negative liver workup earlier in the year. At this point I will recommend that she simply try to watch her diet carefully and lose weight, as well as to continue with her periodic phlebotomies for the hemochromatosis. I have given her a lab so to check a repeat liver profile. I don't think a liver biopsy is required at this point unless her liver enzymes were to rise significantly to over 2-1/2-3 times normal. I will plan to see her again in the fall for a followup visit. We did review that I will want to schedule her for a followup colonoscopy for the very end of this year or for the beginning of 2024 given the history of a serrated polyp removed in 2020. Vielka was comfortable with this plan. Thank you again for allowing me to proceed in Vielka's care. I shall continue to keep you advised of her progress. 11/12/2023 Fatty liver (ICD-10 - K76.0) Overall, Vielka appears well. We did review that her underlying history of fatty liver and elevated LFT seems to be quite stable the present time. She does not show any stigmata of significant liver disease on her imaging studies, on her laboratories, and Nor by her exam. We did review the otherwise negative liver workup earlier in the year. At this point I will recommend that she simply try to watch her diet carefully and lose weight, as well as to continue with her periodic phlebotomies for the hemochromatosis. I have given her a lab so to check a repeat liver profile. I don't think a liver biopsy is required at this point unless her liver enzymes were to rise significantly to over 2-1/2-3 times normal. I will plan to see her again in the fall for a followup visit. We did review that I will want to schedule her for a followup colonoscopy for the very end of this year or for the beginning of 2024 given the history of a serrated polyp removed in 2020. Vielka was comfortable with this plan. Thank you again for allowing me to proceed in Vielka's care. I shall continue to keep you advised of her progress. Plan Of Treatment Pending Test Test Name Order Date LIVER PROFILE 11/12/2023 Next Appt Details Follow Up: 2023, Joanne n: Progress Notes * NOBLE ESCOBEDOOB:[birth year] (63 yo F)Acc No.[id number]:11/12/2023 Progress Notes Patient:?VIELKA ESCOBEDO Provider:?Peter Rojas MD :1960???Age:63 Y???Sex:Female D ate:11/12/2023 Address:[address] [place], [place] [id number] Pcp:Danuta Santiago Subjective: * Chief Complaints: * ???Patient presents today fo r elevtaed lft's * HPI: ???incontinence:? I saw Vielka in followup today in regard to her history of fatty liver and hemachromatosis, her history of colon polyps including a serrated polyp removed in 2020, and Her recent episode of diverticulitis. ?I last saw Vielka in June of 2023, at which time we had reviewed her elevated LFTs that were felt to be in relation to fatty liver. Her liver workup subsequent to that was completely negative for any other etiologies of liver disease. She does have the underlying hemachromatosis as well which has been followed by Dr. Dooley with periodic phlebotomies. ?As you know, she did have an acute episode of diverticulitis in August of 2023 with an associated perforation and abscess that required a subsequent sigmoid resection and colostomy. She has been recovering from that and is scheduled for colostomy reversal on December [address] Avery. ?She did have some normal liver profiles while she was in the hospital. She otherwise denies any signs of jaundice, pruritus, increasing abdominal girth, nausea, nor vomiting. * ROS:?General/Constitutional:?Change in appetite?denies.?Chills?denies.?Fatigue?denies.?Ophthalmologic:?Comments?all negative.?ENT:?Comments?all negative.?Respiratory:?hemoptysis?denies.?Cough?denies.?Cardiovascular:?Chest pain?denies.?Orthopnea?denies.?Gastrointestinal:?Comments?See HPI for details.?Genitourinary:?Hematuria?denies.?Dysuria?denies.?Musculoskeletal:?Painful joints?denies.?Weakness?denies.?Skin:?Itching?denies.?Rash?denies.?Neurologic:?Headache?denies.?Seizures?denies.?Psychiatric:?Comments?all negative.? * Medical History:? * Surgical History:?GL[facility]--cervical dysplasia Knee surgery Toe surgery Perforated sigmoid diverticulitis with abscess requiring a Timoteo procedure with sigmoid resection and colostomy. She is scheduled to have the colostomy reversed on 12/02/[address] Avery 08/2023 * Hospitalization/Major Diagno stic Procedure:?No Hospitalization History. * Family History:?Father: dece ased, diagnosed with Heart disease, Diabetes.?Mother: , diagnosed with Diabetes, HTN (hypertension).? No colon cancer, no celiac disease, no IBD Son with diverticulitis/ surgery 2019 x 2. NO liver cancer. * Social History:?Tobacco Use:?Tobacco Use/Smoking?Patient is a?former smoker,?How long has it been since you last smoked??> 10 years.?Drugs/Alcohol:?Alcohol Screen?Did you have a drink containing alcohol in the past year??Yes,?How often did you have a drink containing alcohol in the past year??2 to 3 times a week (3 points),?How many drinks did you have on a typical day when you were drinking in the past year??1 or 2 drinks (0 point),?How often did you have 6 or more drinks on one occasion in the past year??Never (0 point),?Points?3,?Interpretation?Positive.?Miscellaneous:?Marital status: . Occupation: [employer].. ???Nonsmoker; 2 glasses of wine QOD. * Medications:?TakingCarvedilo l 25 MG Tablet as directed Orally BIDLosartan Potassium 25 MG Tablet 1 tablet Orally Once a dayhydroCHLOROthiazide 25 MG Tablet 1 tablet in the morning Orally Once a dayVentolin HFA 108 (90 Base) MCG/ACT Aerosol Solution 2 puffs as needed Inhalation every 6 hrsCalcium Vitamin D Tylenol , Notes: PRNTaking Carvedilol 25 MG Tablet as directed Orally BIDTaking Losartan Potassium 25 MG Tablet 1 tablet Orally Once a dayTaking hydroCHLOROthiazide 25 MG Tablet 1 tablet in the morning Orally Once a dayTaking Ventolin HFA 108 (90 Base) MCG/ACT Aerosol Solution 2 puffs as needed Inhalation every 6 hrsTaking Calcium Taking Vitamin D Taking Tylenol , Notes: PRNDiscontinuedVitamin B 12 Dicyclomine HCl 10 MG Capsule 1-2 Orally Q 6 hours prn abdominal bloating/cramps/discomfortMedication List reviewed and reconciled with the patientDiscontinued Vitamin B 12 Discontinued Dicyclomine HCl 10 MG Capsule 1-2 Orally Q 6 hours prn abdominal bloating/cramps/discomfortMedication List reviewed and reconciled with the patient * Allergies:?dust,grass,trees, cats and dogsyes[Allergies Verified] Objective: * Vitals:?Wt: 189 lbs, Ht: 61 in, BMI:35.71 Index, BP: 00/00 mm Hg. * Examination: ???General Examination: ?GENERAL APPEARANCE:?pleasant, well nourished, well developed, in no acute distress.?EYES:?sclera non-icteric.?ORAL CAVITY:?mucosa moist.?NECK/THYROID:?no cervical lymphadenopathy, neck supple.?SKIN:?nonjaundiced, no spider angiomata.?HEART:?S1, S2 normal.?LUNGS:?clear to auscultation bilaterally.?ABDOMEN:?normal bowel sounds, no guarding or rigidity, no guarding or rigidity, no masses palpable, soft, nontender, nondistended.?EXTREMITIES:?no edema.?NEUROLOGIC:?alert and oriented.? Assessment: * Assessment: 1.?Elevated liver function t ests - R79.89 (Primary)?2.?Hereditary hemochromatosis - E83.110?3.?Serrated polyp of colon - K63.5?4.?Fatty liver - K76.0? Overall, Vielka appears well . We did review that her underlying history of fatty liver and elevated LFT seems to be quite stable the present time. She does not show any stigmata of significant liver disease on her imaging studies, on her laboratories, and Nor by her exam. We did review the otherwise negative liver workup earlier in the year. At this point I will recommend that she simply try to watch her diet carefully and lose weight, as well as to continue with her periodic phlebotomies for the hemochromatosis. I have given her a lab so to check a repeat liver profile. I don't think a liver biopsy is required at this point unless her liver enzymes were to rise significantly to over 2-1/2-3 times normal. I will plan to see her again in the fall for a followup visit. We did review that I will want to schedule her for a followup colonoscopy for the very end of this year or for the beginning of 2024 given the history of a serrated polyp removed in 2020. Vielka was comfortable with this plan. Thank you again for allowing me to proceed in Vielka's care. I shall continue to keep you advised of her progress. Plan: * Treatment: 2.?Fatty liver?LAB: LIVER PROFILE * Procedure Codes:?3017F COLOR ECTAL CA SCREEN DOC [id number] TOBACCO [id number] BP SCR NOT PRFRM REC REASON NOS * Preventive Medicine:? ??Counseling:?Care goal follow-up plan:?Above Normal BMI Follow-up?Giving encouragement to exercise,?BMI management provided?Yes.? ??Urinary Incontinence:?Urinary Incontinence?Assessment:?Absent,?Plan of care documented:?No, reason not specified.? * Follow Up:?2023 * * Sign off status: Completed true * Provider:?Peter Rojas MD Date:? 024 Generated for Kwesi alfred/Annika/Arielitting on:?11/04/2024 05:16 PM EDT History and Physical Notes * HPI (History of Present Illness) Category Sub-Category Detail Notes Category Not es incontinence I saw Vielka in followup today in regard to her history of fatty liver and hemachromatosis, her history of colon polyps including a serrated polyp removed in 2020, and Her recent episode of diverticulitis. I last saw Vielka in June of 2023, at which time we had reviewed her elevated LFTs that were felt to be in relation to fatty liver. Her liver workup subsequent to that was completely negative for any other etiologies of liver disease. She does have the underlying hemachromatosis as well which has been followed by Dr. Dooley with periodic phlebotomies. As you know, she did have an acute episode of diverticulitis in August of 2023 with an associated perforation and abscess that required a subsequent sigmoid resection and colostomy. She has been recovering from that and is scheduled for colostomy reversal on December [address] Avery. She did have some normal liver profiles while she was in the hospital. She otherwise denies any signs of jaundice, pruritus, increasing abdominal girth, nausea, nor vomiting. Examination Category Sub-Category Detail Notes Category Not es General Examination GENERAL APPEARANCE: pleasant , well [...]
--- OUTSIDE RECORDS SUMMARY | 2024-11-04 17:16 | XMS_ITS | Patient Health Record ---
Author Organization [facility] Address [address] [place] [address] Care Team Providers Care Divisional Merchandising Manager Name Role Phone Danuta Barboza Primary Care Provider Peter Munoz [phone] Allergies Allergen (clinical drug ingredient) Drug/Non Drug Allergy documented on EMR Reaction Allergy Type Onset Date Status dust,grass,trees,cat s and dogs (uncoded) Unknown Allergy Active Results Component Value Reference Range Notes Liver Panel Reviewed date:12/01/2023 09:15:18 PM Interpretation: Performing Lab:[facility], [address] [place] [address] Notes/Report: Bilirubin Total 1.0 0.0-1.0 mg/dL Bilirubin Direct 0.3 0.0-0.5 mg/dL Aspartate Amino Transferase 26 5-31 U/L Alanine Aminotransferase 21 0-31 U/L Total Protein 7.2 6.5-8.0 g/dL Albumin Level 4.1 3.5-5.0 g/dL Alkaline Phosphatase 90 39-117 U/L Pathology (Not yet reviewed by provider) Interpretation: Performing Lab:[facility], [address] [place] [address] Notes/Report: --------- ----- Name: CandelarioLeo palmadhav Whitlock Age/Sex: 64/F : 1960 Unit#: [id number] Attend Dr: Peter Rojas MD Re08/26/24 Status : [facility] Location: [facility] Disch: --------- ----- SPEC : [id number] RECD: 08/26/24 STATUS: RACHEL TORRESOscar NUM: [id number] MARK: 08/26/24-[address] [facility] [address]: Peter Rojas MD ENTERED: 08/26/24-13 11 SP TYPE: Surgical OTHR DR: ORDERED: HE Stain/3, Gross Micro L4 Diagnosis Colon, ascending, polypectomy: Fragments of sessile serrated lesion/polyp; negative for cytologic dysplasia. Clinical History Pre-Op Dx: Screening Post-Op Dx: Polyps, diverticulosis, hemorrhoids Microscopic Description Microscopic sections reviewed. Material Received Ascending colon polyp Gross Description Received in formalin labeled ?ascending colon polyp? are 2 fragments of corona-white soft tissue measuring 0.2 and 0.4 cm in greatest dimension which are wrapped in lens paper and entirely submitted f or microscopic examination, 2 pieces in cassette [facility] --------- ----- Signed (si gnature on file) Yomi Titus MD 08/28/24 0959 --------- ----- END OF REPORT Reason For Referral No Information Medications Medication SIG (Take, Route, Frequency, Duration) [...] directed Orally BID Active Tylenol PRN Active Immunizations Vaccine Route Administration Date Status Comme nts Influenza Unknown 05/27/2018 Administered Influenza Unknown 04/27/2020 Administered Influenza Unknown 04/25/2021 Administered Influenza Unknown 06/14/2023 Administered Social History Tobacco Use: Social History Observation [...] Notes: Nonsmoker; 2 glasses of wine QOD Nonsmoker; 2 glasses of wine QOD Nonsmoker; 2 glasses of wine QOD Nonsmoker; 2 glasses of wine QOD Nonsmoker; 2 glasses of wine QOD Nonsmoker; 2 glasses of wine QOD Nonsmoker; 2 glasses of wine QOD Problems Problem Type SNOMED Code ICD Code Onset Dates Problem Status W/U Status Risk Notes Problem 579515805 Encounter for screening for malignant neoplasm of colon (Z12.11) Active confirmed Problem 724529747 Abdominal bloati ng (R14.0) Active confirmed Problem 29093909 Hereditary hemochromatosis (E83.110) Active confirmed Problem Diverticular disease of colon (712518399) Diverticulosis of large intestine without perforation or abscess without bleeding (K57.30) Active confirmed Problem 766761261 Diverticulitis (K57.92) Active confirmed Problem 160997211 Elevated liver function tests (R79.89) Active confirmed Problem Fatty liver (666796734) Fatty liver (K76.0) Active confirmed Problem 83993439 Irritable bowel syndrome, unspecified type (K58.9) Active confirmed Problem 79804672 Other irritable bowel syndrome (K58.8) Active confirmed Problem 548987313 Retained food in stomach (K31.89) Active confirmed Problem 507658646 Serrated polyp o f colon (K63.5) Active confirmed Vital Signs Blood pressure diastolic 00 mm Hg 05/12/2024 Height 61 in 05/12/2024 Blood pressure systolic 00 mm Hg 05/12/2024 Weight 200 lbs 05/12/2024 BMI 37.79 kg/m2 05/12/2024 Encounters Encounter Location Date Provider Diagnosis [facility] Outpatient [address] [place] [phone] 08/26/2024 Peter Rojas Colon cancer screeni ng Z12.11 ; Colon polyps K63.5 ; Diverticulosis of large intestine without perforation or abscess without bleeding K57.30 and Other hemorrhoids K64.8 [facility] [address] [place] [phone] 11/12/2023 Peter Rojas Elevated liver funct ion tests R79.89 ; Hereditary hemochromatosis E83.110 ; Serrated polyp of colon K63.5 and Fatty liver K76.0 [facility] [address] [place] [address] 05/12/2024 Peter Rojas Serrated polyp of co jemal K63.5 ; Fatty liver K76.0 ; Encounter for screening for malignant neoplasm of colon Z12.11 and Hereditary hemochromatosis E83.110 Assessments Encounter Date Diagnosis (ICD Code) Assessment Notes Treatment Notes Treatment Clinical Notes Section Notes 08/26/2024 Colon cancer screening (ICD-10 - Z12.11) 08/26/2024 Colon polyps (ICD-10 - K63.5) 11/12/2023 Hereditary hemochromatosis (ICD-10 - E83.110) Overall, Phill appears well. We did review that her [...] of a serrated polyp removed in 2020. Phill was comfortable with this plan. Thank you again for allowing me to proceed in Phill's care. I shall continue to keep you advised of her progress. 11/12/2023 Elevated liver function tests (ICD-10 - R79.89) Overall, Phill appears well. We did review that her [...] of a serrated polyp removed in 2020. Phill was comfortable with this plan. Thank you again for allowing me to proceed in Phill's care. I shall continue to keep you advised of her progress. 05/12/2024 Fatty liver (ICD-10 - K76.0) Overall, Phill appears quite well. In regard to the previous history of a serrated polyp removed over 3 years ago, I did recommend a followup colonoscopy for 2024 for further screening and surveillance. We did review the rationale for that regard to colorectal cancer prevention. Full consent is obtained for this, including risks of bleeding and perforation. The procedure will be done with monitored anesthesia care. She was given the below instruction regarding adjustment of her medication for the procedure. Her history of fatty liver seems to be quite stable at this time with just minimal elevations on the most recent liver profile last month. I did advise her to try to watch her diet and be sure not to gain any weight. I don't think she requires a liver biopsy nor any specific treatment otherwise at this time. Her hemochromatosis also seems to be quite stable on current phlebotomy regimen and I advised her to continue that along with followup in the Hematology Clinic. She did have several imaging studies of her liver earlier this year and I don't think she needs any kind of imaging of her liver at this time. Phill was comfortable with this plan. Thank you again for allowing me to participate in Cuongs care. I shall continue to keep you advised of her progress as needed. 05/12/2024 Serrated polyp of colon (ICD-10 - K63.5) Do not take the Hydrochlorothiazide the day before nor on the day of the colonoscopy Overall, Phill appears quite well. In regard to the previous history of a serrated polyp removed over 3 years ago, I did recommend a followup colonoscopy for 2024 for further screening and surveillance. We did review the rationale for that regard to colorectal cancer prevention. Full consent is obtained for this, including risks of bleeding and perforation. The procedure will be done with monitored anesthesia care. She was given the below instruction regarding adjustment of her medication for the procedure. Her history of fatty liver seems to be quite stable at this time with just minimal elevations on the most recent liver profile last month. I did advise her to try to watch her diet and be sure not to gain any weight. I don't think she requires a liver biopsy nor any specific treatment otherwise at this time. Her hemochromatosis also seems to be quite stable on current phlebotomy regimen and I advised her to continue that along with followup in the Hematology Clinic. She did have several imaging studies of her liver earlier this year and I don't think she needs any kind of imaging of her liver at this time. Phill was comfortable with this plan. Thank you again for allowing me to participate in Phill's care. I shall continue to keep you advised of her progress as needed. 08/26/2024 Diverticulosis of large intestine without perforation or abscess without bleeding (ICD-10 - K57.30) 11/12/2023 Serrated polyp of colon (ICD-10 - K63.5) Overall, Phill appears well. We did review that her [...] of a serrated polyp removed in 2020. Phill was comfortable with this plan. Thank you again for allowing me to proceed in Phill's care. I shall continue to keep you advised of her progress. 05/12/2024 Encounter for screening for malignant neoplasm of colon (ICD-10 - Z12.11) Overall, Phill appears quite well. In regard to the previous history of a serrated polyp removed over 3 years ago, I did recommend a followup colonoscopy for 2024 for further screening and surveillance. We did review the rationale for that regard to colorectal cancer prevention. Full consent is obtained for this, including risks of bleeding and perforation. The procedure will be done with monitored anesthesia care. She was given the below instruction regarding adjustment of her medication for the procedure. Her history of fatty liver seems to be quite stable at this time with just minimal elevations on the most recent liver profile last month. I did advise her to try to watch her diet and be sure not to gain any weight. I don't think she requires a liver biopsy nor any specific treatment otherwise at this time. Her hemochromatosis also seems to be quite stable on current phlebotomy regimen and I advised her to continue that along with followup in the Hematology Clinic. She did have several imaging studies of her liver earlier this year and I don't think she needs any kind of imaging of her liver at this time. Phill was comfortable with this plan. Thank you again for allowing me to participate in Phill's care. I shall continue to keep you advised of her progress as needed. 08/26/2024 Other hemorrhoids (ICD-10 - K64.8) 11/12/2023 Fatty liver (ICD-10 - K76.0) Overall, Phill appears well. We did review that her [...] of a serrated polyp removed in 2020. Phill was comfortable with this plan. Thank you again for allowing me to proceed in Phill's care. I shall continue to keep you advised of her progress. 05/12/2024 Hereditary hemochromatosis (ICD-10 - E83.110) Overall, Phill appears quite well. In regard to the previous history of a serrated polyp removed over 3 years ago, I did recommend a followup colonoscopy for 2024 for further screening and surveillance. We did review the rationale for that regard to colorectal cancer prevention. Full consent is obtained for this, including risks of bleeding and perforation. The procedure will be done with monitored anesthesia care. She was given the below instruction regarding adjustment of her medication for the procedure. Her history of fatty liver seems to be quite stable at this time with just minimal elevations on the most recent liver profile last month. I did advise her to try to watch her diet and be sure not to gain any weight. I don't think she requires a liver biopsy nor any specific treatment otherwise at this time. Her hemochromatosis also seems to be quite stable on current phlebotomy regimen and I advised her to continue that along with followup in the Hematology Clinic. She did have several imaging studies of her liver earlier this year and I don't think she needs any kind of imaging of her liver at this time. Phill was comfortable with this plan. Thank you again for allowing me to participate in Phill's care. I shall continue to keep you advised of her progress as needed. Plan Of Treatment Pending Test Test Name [...] Insured Coverage Start Date Coverage End Date [facility] [id number] [place] [id number] PHILL ESCOBEDO Self - patient is the insured Medical (General) History Medical History History ICD Code Denies [place],DM,CVA,renal disease Irregular heartbeat --ventr [place]kh [place] by her report--had a cardiac ablation--unsuccessful [...] being followed by the Hematology Clinic at [facility] EGD in 10/2018 with a small H [...]
--- OUTSIDE RECORDS SUMMARY | 2024-11-04 17:16 | XMS_ITS ---
Author Organization [facility] Address [address] [place] [phone] Care Team Providers Care Hearing Screen Coordinator Name Role Phone Danuta Barboza Primary Care Provider Peter Munoz Unavailable [phone] Allergies Allergen (clinical drug ingredient) Drug/Non Drug Allergy documented on EMR Reaction Allergy Type Onset Date Status dust,grass,trees,cat s and dogs (uncoded) Unknown Allergy Active REASON FOR VISIT Patient presents today for elevated lft's Medications Medication SIG (Take, Route, Frequency, [...] 25 MG as directed Orally BID Active Social History Tobacco Use: Social History [...] Notes: Nonsmoker; 2 glasses of wine QOD Vital Signs Blood pressure systolic 00 mm Hg 05/12/20 24 Blood pressure diastolic 00 mm Hg 024 Height 61 in 05/12/2024 Weight 200 lbs 05/12/2024 BMI 37.79 kg/m2 05/12/2024 Encounters Encounter Location Date Provider Diagnosis [facility] [address] [place] [address] 05/12/2024 Peter Rojas Serrated polyp of co jemal K63.5 ; Fatty liver K76.0 ; Encounter for screening for malignant neoplasm of colon Z12.11 and Hereditary hemochromatosis E83.110 Assessments Encounter Date Diagnosis (ICD Code) Assessment Notes Treatment Notes Treatment Clinical Notes Section Notes 05/12/2024 Serrated polyp of colon (ICD-10 - K63.5) Do not take the Hydrochlorothiazide the day before nor on the day of the colonoscopy Overall, Vielka appears quite well. In regard to the [...] imaging of her liver at this time. Vielka was comfortable with this plan. Thank you again for allowing me to participate in Vielka's care. I shall continue to keep you advised of her progress as needed. 05/12/2024 Fatty liver (ICD-10 - K76.0) Overall, Vielka appears quite well. In regard to the [...] imaging of her liver at this time. Vielka was comfortable with this plan. Thank you again for allowing me to participate in Vielka's care. I shall continue to keep you advised of her progress as needed. 05/12/2024 Encounter for screening for malignant neoplasm of colon (ICD-10 - Z12.11) Overall, Vielka appears quite well. In regard to the [...] imaging of her liver at this time. Vielka was comfortable with this plan. Thank you again for allowing me to participate in Vielka's care. I shall continue to keep you advised of her progress as needed. 05/12/2024 Hereditary hemochromatosis (ICD-10 - E83.110) Overall, Vielka appears quite well. In regard to the [...] imaging of her liver at this time. Vielka was comfortable with this plan. Thank you again for allowing me to participate in Vielka's care. I shall continue to keep you advised of her progress as needed. Plan Of Treatment Treatment Notes Assessment Notes Serrated polyp of colon Do not take the Hydrochlorothiazide the day before nor on the day of the colonoscopy Future Test Test Name Order Date COLONOSCOPY 05/12/2024 Next Appt Details Follow Up: prn, Reason: Progress Notes * CHU ESCOBEDOEDOB:[birth year] (63 yo F)Acc No.[id number]:05/12/2024 Progress Notes Patient:?VIELKA ESCOBEDO Provider:?Peter Rojas MD :1960???Age:63 Y???Sex:Female D ate:05/12/2024 Address:[address] [place] [address] [id number] Pcp:Danuta Santiago Subjective: * Chief Complaints: * ???Patient presents today fo r elevated lft's * HPI: ???incontinence:? I saw Vielka in the office today for followup of her history of a serrated colon polyp and discussion of colorectal cancer screening, as well as her history of fatty liver with elevated LFTs and underlying hereditary hemachromatosis. ?Since I last saw Vielka in October she did undergo reversal of her colostomy in November with Dr. Avery. She did well with that and reports that her bowel movements have been fairly regular since that time other than occasionally needing a stool softener. She's had no significant problems with diarrhea, constipation, signs of bleeding, or abdominal pain. She enjoys a good appetite, without any significant heartburn or dysphagia. She denies any jaundice nor any unintentional weight loss. ?Her most recent labs from March revealed normal chemistries and renal function, normal LFTs except for minimal elevations with an AST of 38 and ALT of 47, and an albumin of 4.2. Labs in January revealed an iron of 108, iron saturation 41%, and ferritin of 55. She undergoes a therapeutic phlebotomy every 2 months for the hereditary hemochromatosis. A CBC with platelet count was normal at that time as well. * ROS:?General/Constitutional:?Change in appetite?denies.?Chills?denies.?Fatigue?denies.?Ophthalmologic:?Comments?all negative.?ENT:?Comments?all negative.?Respiratory:?hemoptysis?denies.?Cough?denies.?Cardiovascular:?Chest pain?denies.?Orthopnea?denies.?Gastrointestinal:?Comments?See HPI for details.?Genitourinary:?Hematuria?denies.?Dysuria?denies.?Musculoskeletal:?Painful joints?denies.?Weakness?denies.?Skin:?Itching?denies.?Rash?denies.?Neurologic:?Headache?denies.?Seizures?denies.?Psychiatric:?Comments?all negative.? * Medical History:? * Surgical History:?GLENN banks--cervical dysplasia Knee surgery Toe surgery Perforated sigmoid diverticulitis with abscess requiring a Timoteo procedure with sigmoid resection and colostomy in 08/2023. Colostomy reversed on 12/02/[address] Avery * Hospitalization/Major Diagno stic Procedure:?No Hospitalization History. [...] past year??Never (0 point),?Points?3,?Interpretation?Positive.?Miscellaneous:?Marital status: . Occupation: [employer] for [employer]. ???Nonsmoker; 2 glasses of wine QOD. * Medications:?TakingCarvedilo l 25 MG Tablet as directed Orally BIDLosartan Potassium 25 MG Tablet 1 tablet Orally Once a dayhydroCHLOROthiazide 25 MG Tablet 1 tablet in the morning Orally Once a dayVentolin HFA 108 (90 Base) MCG/ACT Aerosol Solution 2 puffs as needed Inhalation every 6 hrsCalcium Vitamin D Tylenol , Notes: PRNMedication List reviewed and reconciled with the patientTaking Carvedilol 25 MG Tablet as directed Orally BIDTaking Losartan Potassium 25 MG Tablet 1 tablet Orally Once a dayTaking hydroCHLOROthiazide 25 MG Tablet 1 tablet in the morning Orally Once a dayTaking Ventolin HFA 108 (90 Base) MCG/ACT Aerosol Solution 2 puffs as needed Inhalation every 6 hrsTaking Calcium Taking Vitamin D Taking Tylenol , Notes: PRNMedication List reviewed and reconciled with the patient * Allergies:?dust,grass,trees, cats and dogsyes[Allergies Verified] Objective: * Vitals:?Wt: 200 lbs, Ht: 61 in, BMI:37.79 Index, BP: 00/00 mm Hg. * Examination: ???General Examination: ?GENERAL APPEARANCE:?pleasant, well nourished, well developed, in no acute distress.?EYES:?sclera non-icteric.?ORAL CAVITY:?mucosa moist.?NECK/THYROID:?no cervical lymphadenopathy, neck supple.?SKIN:?nonjaundiced, no spider angiomata.?HEART:?S1, S2 normal.?LUNGS:?clear to auscultation bilaterally.?ABDOMEN:?normal bowel sounds, no guarding or rigidity, no guarding or rigidity, no masses palpable, soft, nontender, nondistended.?EXTREMITIES:?no edema.?NEUROLOGIC:?alert and oriented.? Assessment: * Assessment: 1.?Fatty liver - K76.0 (Prim tiffanie)?2.?Serrated polyp of colon - K63.5?3.?Encounter for screening for malignant neoplasm of colon - Z12.11?4.?Hereditary hemochromatosis - E83.110? Overall, Vielka appears quit e well. In regard to the previous history [...] imaging of her liver at this time. Vielka was comfortable with this plan. Thank you again for allowing me to participate in Vielka's care. I shall continue to keep you advised of her progress as needed. Plan: * Treatment: Notes: Do not take the Hydrochlorothiazide the day before nor on the day of the colonoscopy? 2.?Encounter for screening for malignant neoplasm of colon?Procedure: COLONOSCOPY (Ordered for 05/12/2024)* with MACsched for 08/26/24 at 10:50 ammiralax * Procedure Codes:?3017F COLOR ECTAL CA SCREEN DOC ZOA6674S TOBACCO NON-OEGRL7475 BP SCR NOT PRFRM REC REASON NOS * Preventive Medicine:? ??Counseling:?Care goal follow-up plan:?Above Normal BMI Follow-up?Giving encouragement to exercise,?BMI management provided?Yes.? * Follow Up:?prn * * Sign off status: Completed true * Provider:?Peter Rojas MD Date:? 024 Generated for Kwesi alfred/Annika/Arielitting on:?11/04/2024 05:16 PM EDT History and Physical Notes * HPI (History of Present Illness) Category Sub-Category Detail Notes Category Not es incontinence I saw Vielka in the office today for followup of her history of a serrated colon polyp and discussion of colorectal cancer screening, as well as her history of fatty liver with elevated LFTs and underlying hereditary hemachromatosis. Since I last saw Vielka in October she did undergo reversal of her colostomy in November with Dr. Avery. She did well with that and reports that her bowel movements have been fairly regular since that time other than occasionally needing a stool softener. She's had no significant problems with diarrhea, constipation, signs of bleeding, or abdominal pain. She enjoys a good appetite, without any significant heartburn or dysphagia. She denies any jaundice nor any unintentional weight loss. Her most recent labs from March revealed normal chemistries and renal function, normal LFTs except for minimal elevations with an AST of 38 and ALT of 47, and an albumin of 4.2. Labs in January revealed an iron of 108, iron saturation 41%, and ferritin of 55. She undergoes a therapeutic phlebotomy every 2 months for the hereditary hemochromatosis. A CBC with platelet count was normal at that time as well. Examination Category Sub-Category Detail Notes Category Not [...]
--- OUTSIDE RECORDS SUMMARY | 2024-11-04 17:16 | XMS_ITS ---
Author Organization [facility] Address [address] [place] [phone] Care Team Providers Care Harbor Pilot Name Role Phone Danuta Barboza Primary Care Provider UnavailPeter Samayoa [phone] REASON FOR VISIT screening, serrated polyp Encounters Encounter Location Date Provider Diagnosis [facility] Outpatient [address] [place], [place] [phone] 08/26/2024 Peter Rojas Colon cancer scree candice [...] Of Treatment No Information Progress Notes * CHU ESCOBEDOEDOB:[birth year] (64 yo F)Acc No.[id number]:08/26/2024 COLON WITH MAC Patient:?PHILL ESCOBEDO Provider:?Peter Rojas MD :1960???Age:64 Y???Sex:Female D ate:08/26/2024 Address:[address] [place], [place] [id number] Pcp:Danuta Santiago Subjective: * Chief Complaints: * ???1. Screening, serrated po lyp. * Medical History:? Objective: * Vitals:? Assessment: * Assessment: 1.?Colon cancer screening - Z12.11 (Primary)???2.?Colon polyps - K63.5???3.?Diverticulosis of large intestine without perforation or abscess without bleeding - K57.30???4.?Other hemorrhoids - K64.8??? Plan: * Treatment: * Procedure Codes:?59916 LESIO N REMOVAL COLONOSCOPY, Modifiers: 33 * * The named appointment provid er may or may not be the originator of this progress note, and it is not deemed complete until electronically signed by the appointment provider. Sign off status: Pending * Provider:?Peter Rojas MD Date:? 025 Generated for Kwesi alfred/Annika/eTgermainsmitting on:?11/04/2024 05:16 PM EDT
== END 2024-11-04 14:22 | disposition home or self-care (01) ==
LOC: HO.BBR 14:21
PROVIDERS: PCP Internal Medicine; Visit Provider Internal Medicine
DX: E83.110 Hereditary hemochromatosis (principal)
CPT/HCPCS: 36415; 82728

== ENCOUNTER 2024-11-05 14:40 | Outpatient (REF) | payer MEDICARE, SELFPAY ==
--- NOTE | ~2024-11-05 | XR_ITS ---
CLINICAL HISTORY: M25.812 - Other specified joint disorders, left shoulder --- Additional Notes or Sp ecial Instructions: Soft tissue swelling left sternoclavicular joint Bilateral sternoclavicular joints three views Comparison: None Findings: Evaluation is felt to be mildly limited secondary to overlapping structures. No fracture or dislocation. Limited evaluation for arthritic change. Probable arthritic change of the left sternoclavicular joint. 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 Impression: 1. No acute abnormality. Mildly limited evaluation. This document has been electronically signed by: Harper Douglas MD on 11/10/2024 15:00:02
--- NOTE | ~2024-11-05 | XR_ITS ---
CLINICAL HISTORY: M17.0 - Bilateral primary osteoarthritis of knee AP standing view bilateral knees Lateral view right knee Lateral view left knee Comparison: None Findings: Bones intact. No dislocations. Moderate narrowing of the left medial knee compartment. Mild narrowing of the right medial knee compartment. Mild varus angulation of the left knee. No joint effusion. No radiopaque foreign body. IMPRESSION: There is cartilage loss within the bilateral medial knee compartments. This document has been electronically signed by: Harper Douglas MD on 11/10/2024 15:01:34
[2024-11-05 16:36] LABS: Alanine Aminotransferase 60 U/L (0-31); Albumin Level 4.2 g/dL (3.5-5.0); Aspartate Amino Transferase 51 U/L (5-31); Bilirubin Direct 0.2 mg/dL (0.0-0.5); Bilirubin Total 0.6 mg/dL (0.0-1.0)
[2024-11-05 16:44] LABS: Alkaline Phosphatase 92 U/L (39-117)
[2024-11-06 21:48] LABS: Immunoglobulin A 309 mg/dL (70-320); Transglutaminase IgA <1.0 U/mL
== END 2024-11-05 14:41 | disposition home or self-care (01) ==
LOC: HO.XRAY 14:40
PROVIDERS: Absent Provider Internal Medicine; PCP Internal Medicine; Visit Provider Internal Medicine Rheumatology
DX: M17.0 Bilateral primary osteoarthritis of knee (principal); R10.9 Unspecified abdominal pain; R74.01 Elevation of levels of liver transaminase levels; M25.812 Other specified joint disorders, left shoulder
CPT/HCPCS: 36415; 71130; 73560; 80076; 82784; 86364

== ENCOUNTER → 2024-11-05 14:54 | Outpatient (BNV) | payer MEDICARE, SELFPAY | PROVIDERS: Absent Provider Internal Medicine; PCP Internal Medicine; Visit Provider Radiology Diagnostic Radiology | DX: M25.812 Other specified joint disorders, left shoulder (principal); M17.0 Bilateral primary osteoarthritis of knee | CPT/HCPCS: 71130; 73560 ==

== ENCOUNTER 2024-11-10 08:09 | Outpatient (AMB) | payer MEDICARE, SELFPAY ==
--- NOTE | 2024-11-10 12:54 | A.OFFVIS_ITS ---
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 *SEE COMMENTS* Allergies guaifenesin [From Mucinex] Allergy (Severe, Verified 11/10/24 12:55) Difficulty Breathing ciprofloxacin [Cipro] Allergy (Intermediate, Verified 11/10/24 12:55) Dizziness dog dander [dogs] Allergy (Intermediate, Verified 11/10/24 12:55) Itching environmental allergies Allergy (Intermediate, Verified 11/10/24 12:55) Itching musinex Allergy (Uncoded 11/10/24 12:55) dyspnea Medication List - Last Reconciled 11/10/24 by Hieu Prater MD albuterol sulfate 90 mcg/actuation (Ventolin HFA) 1 puff PO QID PRN 30 days ascorbic acid (vitamin C) 500 mg PO DAILY carvedilol 25 mg PO BID 90 days cholecalciferol (vitamin D3) 50 mcg PO DAILY colostomy bags As directed elderberry fruit 200 mg PO DAILY hydrochlorothiazide 25 mg PO QAM losartan 25 mg PO QAM multivitamin 1 tab PO QAM turmeric root-sean root ext 150-25 mg 1 tab PO DAILY walker (Ultra-Light Rollator misc) As directed HPI HPI 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 *SEE COMMENTS*: Details: Start time: 12.43pm, End time: 1.28pm I spent 40 minutes speaking with the patient on the phone plus an additional 5 minutes reviewing and updating records for a total of 45 minutes HPI Comments Details: Previous weight loss efforts: OTC diet pills Wakes up: 6.30am, Sleeps: 10pm Breakfast: skips Lunch: 11am (yogurt or fruit, sandwich) Dinner: 5pm (meat with vegetables) Snacks: 3-4pm (fruit bars), 7pm (chips) Exercise: has a home treadmill Beverages: Coffee (2 cups/d with creamer), tea: rarely, soda: none, juice: none, ETOH: wine x5d/w (2 glasses each time) PFSH Medical History (Updated 11/10/24 @ 12:59 by Hieu Prater MD) Asthma Morbid obesity with BMI of 40.0-44.9, adult Transaminitis PVC (premature ventricular contraction) NICM (nonischemic cardiomyopathy) Diverticulitis of colon with perforation Upper respiratory tract infection Sciatica Hereditary hemochromatosis Hypovitaminosis D Ventricular bigeminy IBS (irritable bowel syndrome) Essential hypertension Obesity (BMI 35.0-39.9 without comorbidity) Mild persistent asthma Diverticulitis Hemochromatosis Family history of liver disease Arthritis Carpal tunnel syndrome, right Pain in right arm Surgical History History of colostomy reversal (12/02/23) History of exploratory laparotomy (08/27/23) Hx of foot surgery History of esophagogastroduodenoscopy (EGD) H/O colonoscopy H/O right heart catheterization History of loop electrical excision procedure (LEEP) H/O knee surgery Family History Father Diabetes Heart disease Stroke COPD (chronic obstructive pulmonary disease) High cholesterol Mother Diabetes Alzheimer disease HTN (hypertension) Brother Brain aneurysm Leukemia Sister COPD (chronic obstructive pulmonary disease) Diabetes Brother Heart valve replaced Social History Household Members: None Housing: House Are you a primary care support representative to a significant other at home: No Do you presently have visiting nurse or other home services: No Alcohol intake: current Alcohol intake frequency: a few times a week Alcohol type: wine Patient Tobacco Use Status: Former Tobacco user Tobacco use type: Cigarette Cigarette Packs Per Day: 1 Years Smoked: 7 e-Cigarette/Vaping Use: Never Used Second Hand Smoke Exposure: No Advance Directives Date on File: 08/22/23 service: No Current occupational status: employed Current occupational exposures/hazards: No Sexual orientation: Straight/Heterosexual Gender identity: Female Cognitive needs: No Hearing needs: No Vision needs: Yes (glasses) Telehealth Telehealth Telehealth Platform: Telephone Location of provider rendering services: practice address Location of patient: address on file Patient Identification confirmed using: Name, : Yes Telehealth method: voice only Patient verbally consented to treatment: Yes Patient verbally consented to billing insurance company: Yes Patient informed of any privacy concerns related to visit: Yes Minutes spent on Phone/Video with Pt.: 45 Assessment & Plan Assessment & Plan (1) Morbid obesity with BMI of 40.0-44.9, adult: Code(s): E66.01 - Morbid (severe) obesity due to excess calories; Z68.41 - Body mass index [BMI] 40.0-44.9, adult Category: Medical Plan: 1. We discussed in detail the available therapeutic options: 1) her insurance requires participation in our lifestyle intervention program for 6 months before use of anti-obesity medications is considered. 2) We discussed also about our lifestyle intervention program for a meal and exercise plan. She could lose on average 10% of her weight in 3 months, 3) We also discussed about the lap sleeve gastrectomy. I emphasized the importance of close follow-up, adherence to instructions and good communication. The surgery does not replace the need to change your lifestlyle which is the cause of the obesity problem. The surgery provides the motivation to try again to change your lifestyle, it reduces the appetite and make the transition to a better lifestyle easier and doubles the amount of weight you would lose compared to doing the lifestyle change without the surgery. You will need to be on a liquid diet with protein shakes for 2 weeks before surgery to maximize weight loss and boost your nutritional status to recover better from surgery and also for the first two weeks after surgery to let the stomach heal before we introduce other foods. After the first 2 weeks we will introduce protein bars and soft foods like scrambled eggs, cottage cheese and yogurt and after the 6th week will introduce meat, fish and cooked vegetables in small amounts. Over time you should be able to eat everything in small amounts. Side effects like nausea, vomiting, heartburn or abdominal pain are not common in the practice unless you are not following in the practice. This operation requires lifetime commitment to following in our practice and communication with me. You will much less weight and experience side effects if you don?t communicate or not following in the practice. Complications are rare and in our practice is about 1/10 of the national average. The patient will consider these options and she will get back to me with her decision how she would like to proceed.
[2024-11-10 13:23] VITALS: BMI 39.8
== END 2024-11-10 13:29 | disposition home or self-care (01) ==
LOC: HO.HBS 08:09
PROVIDERS: PCP Internal Medicine; Visit Provider Surgery
DX: E66.01 Morbid (severe) obesity due to excess calories (principal); Z68.41 Body mass index [BMI] 40.0-44.9, adult
CPT/HCPCS: 99204

== ENCOUNTER 2024-11-17 08:58 | Outpatient (REF) | payer MEDICARE, SELFPAY ==
--- NOTE | ~2024-11-17 | XR_ITS ---
EXAMINATION: XR CHEST CLINICAL INFORMATION: E66.01 - Morbid (severe) obesity due to excess calories COMPARISON: August 18, 2023. TECHNIQUE: 2 views of the chest were obtained. FINDINGS: No consolidation, pleural effusion or pneumothorax. Cardiomediastinal silhouette size is normal. Multilevel thoracic and upper lumbar spondylosis. Degenerative changes in the acromioclavicular joints, left greater than the right side. XR/XR chest 2V IMPRESSION: No acute airspace disease. Multilevel thoracolumbar spondylosis. Degenerative changes left greater than the right acromioclavicular joints. Electronically signed by: Stefano Cabrera MD 11/17/2024 09:38 AM EDT
[2024-11-17 09:13] LABS: MANUAL DIFF FLAG NO
[2024-11-17 09:23] LABS: Basophils Percent Auto 0.7 % (0-2); Eosinophils Absolute Auto 0.1 X10*3/uL (0.0-0.4); Eosinophils Percent Auto 2.5 % (0-4); Hematocrit 38.9 % (37.0-47.0); Hemoglobin 13.5 g/dl (12.0-16.0); Imm Gran Abs Auto 0.02 X10*3/uL (0.00-0.03); Imm Gran Pct Auto 0.4 % (0.0-0.4); Lymphocytes Absolute Auto 1.5 X10*3/uL (1.2-4.9); Lymphocytes Percent Auto 34.2 % (20-40); Mean Corpuscular HGB Conc 34.7 g/dl (31.0-35.0); Mean Corpuscular Hemoglobin 33.9 pg (27.0-33.0); Mean Corpuscular Volume 97.7 fL (80.0-98.0); Mean Platelet Volume 9.9 fL (9.4-12.3); Monocytes Absolute Auto 0.4 X10*3/uL (0.1-1.2); Monocytes Percent Auto 9.6 % (2-11); Neutrophils Absolute Auto 2.4 x10*3/uL (2.0-8.3); Neutrophils Percent Auto 52.6 % (45-73); Platelet Count 213 X10*3/uL (160-400); Red Blood Count 3.98 X10*6/uL (4.20-5.50); Red Cell Distribution Width 13.4 % (11.0-16.0); White Blood Count 4.5 X10*3/uL (4.8-10.8)
--- OUTSIDE RECORDS SUMMARY | 2024-11-17 09:37 | XMS_ITS ---
Author Organization [facility] Address [address] [place] [address] Care Team Providers Care Vc++ Developer Name Role Phone Danuta Barboza Primary Care Provider UnavailPeter Samayoa [phone] REASON FOR VISIT screening, serrated polyp Encounters Encounter Location Date Provider Diagnosis [facility] [address], [place] [id number] 08/26/2024 Peter Rojas Colon cancer scree candice [...] * CHU ESCOBEDOEDOB:[birth year] (64 yo F)Acc No.[id number]:08/26/2024 COLON WITH MAC Patient:?PHILL ESCOBEDO Provider:?Peter Rojas MD :1960???Age:64 Y???Sex:Female D ate:08/26/2024 Address:[address] [place], [place] [id number] Pcp:Danuta Santiago Subjective: * Chief Complaints: * ???1. Screening, serrated po lyp. * Medical History:? Objective: * Vitals:? Assessment: * Assessment: 1.?Colon cancer screening - Z12.11 (Primary)???2.?Colon polyps - K63.5???3.?Diverticulosis of large intestine without perforation or abscess without bleeding - K57.30???4.?Other hemorrhoids - K64.8??? Plan: * Treatment: * Procedure Codes:?43441 LESIO N REMOVAL COLONOSCOPY, Modifiers: 33 * * The named appointment provid er may or may not be the originator of this progress note, and it is not deemed complete until electronically signed by the appointment provider. Sign off status: Pending * Provider:?Peter Rojas MD Date:? 025 Generated for Kwesi alfred/Annika/eTransmitting on:?11/17/2024 09:37 AM EDT
--- OUTSIDE RECORDS SUMMARY | 2024-11-17 09:37 | XMS_ITS | Patient Health Record ---
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 Name Role Phone Danuta Barboza Primary Care Provider Peter Munoz [phone] Allergies Allergen (clinical drug ingredient) Drug/Non Drug Allergy documented on EMR Reaction Allergy Type Onset Date Status dust,grass,trees,cat s and dogs (uncoded) Unknown Allergy Active Results Component Value Reference Range Notes Liver Panel Reviewed date:12/01/2023 09:15:18 PM Interpretation: Performing Lab:[facility], [address] [place] [address] Notes/Report: Bilirubin Total 1.0 0.0-1.0 mg/dL Bilirubin Direct 0.3 0.0-0.5 mg/dL Aspartate Amino Transferase 26 5-31 U/L Alanine Aminotransferase 21 0-31 U/L Total Protein 7.2 6.5-8.0 g/dL Albumin Level 4.1 3.5-5.0 g/dL Alkaline Phosphatase 90 39-117 U/L Pathology (Not yet reviewed by provider) Interpretation: Performing Lab:[facility], [address] [place] [address] Notes/Report: --------- ----- Name: CandelarioLeo aplmadhav Whitlock Age/Sex: 64/F : 1960 Unit#: [id number] Attend Dr: Peter Rojas MD Re08/26/24 Status : [facility] Location: [facility] Disch: --------- ----- SPEC : [id number] RECD: 08/26/24 STATUS: RACHEL TORRESOscar NUM: [id number] MARK: 08/26/24-[address] [facility] [address]: Peter Rojas MD ENTERED: 08/26/24-13 11 [...] microscopic examination, 2 pieces in cassette [facility] --------- ----- Signed (si gnature on file) [...] Problem Status W/U Status Risk Notes Problem 155235878 Encounter for screening for malignant neoplasm of colon (Z12.11) Active confirmed Problem 323405440 Abdominal bloati ng (R14.0) Active confirmed Problem 95624952 Hereditary hemochromatosis (E83.110) Active confirmed Problem Diverticular disease of colon (116706760) Diverticulosis of large intestine without perforation or abscess without bleeding (K57.30) Active confirmed Problem 022630062 Diverticulitis (K57.92) Active confirmed Problem 466222295 Elevated liver function tests (R79.89) Active confirmed Problem Fatty liver (285543860) Fatty liver (K76.0) Active confirmed Problem 75486015 Irritable bowel syndrome, unspecified type (K58.9) Active confirmed Problem 12390511 Other irritable bowel syndrome (K58.8) Active confirmed Problem 555848151 Retained food in stomach (K31.89) Active confirmed Problem 789834783 Serrated polyp o f colon (K63.5) Active confirmed Vital Signs Blood pressure diastolic 00 mm Hg 05/12/2024 Height 61 in 05/12/2024 Blood pressure systolic 00 mm Hg 05/12/2024 Weight 200 lbs 05/12/2024 BMI 37.79 kg/m2 05/12/2024 Encounters Encounter Location Date Provider Diagnosis [facility] [place] Out[place] [address] [place] [phone] 08/26/2024 Peter Rojas Colon cancer screeni ng Z12.11 ; Colon polyps K63.5 ; Diverticulosis of large intestine without perforation or abscess without bleeding K57.30 and Other hemorrhoids K64.8 [facility] [address] [place] [address] 05/12/2024 Peter Rojas Serrated polyp of co jemal K63.5 ; Fatty liver K76.0 ; Encounter for screening for malignant neoplasm of colon Z12.11 and Hereditary hemochromatosis E83.110 Assessments Encounter Date Diagnosis (ICD Code) Assessment Notes Treatment Notes Treatment Clinical Notes Section Notes 08/26/2024 Colon cancer screening (ICD-10 - Z12.11) 08/26/2024 Colon polyps (ICD-10 - K63.5) 05/12/2024 Fatty liver (ICD-10 - K76.0) Overall, [...] or abscess without bleeding (ICD-10 - K57.30) 05/12/2024 Encounter for screening for malignant neoplasm [...] needed. 08/26/2024 Other hemorrhoids (ICD-10 - K64.8) 05/12/2024 Hereditary hemochromatosis (ICD-10 - E83.110) Overall, [...] Insured Coverage Start Date Coverage End Date [facility] [address] [place], [place] [id number] VIELKA ESCOBEDO Self - patient is the insured Medical (General) History Medical History History ICD Code Denies [place],DM,CVA,renal disease Irregular heartbeat --ventr icular kuniny by [...] being followed by the Hematology Clinic at [facility] [place] EGD in 10/2018 with a small H [...]
--- OUTSIDE RECORDS SUMMARY | 2024-11-17 09:37 | XMS_ITS ---
Author Organization [facility] Address [address] [place] [address] Care Team Providers Care Supervisor Purification Name Role Phone Danuta Barboza Primary Care Provider Peter Munoz Unavailable [phone] Allergies Allergen (clinical drug ingredient) Drug/Non Drug [...] W/U Status Risk Notes Problem Fatty liver (229804691) Fatty liver (K76.0) Active confirmed Vital Signs Blood pressure systolic 00 mm Hg 11/12/19 24 Blood pressure diastolic 00 mm Hg 024 Height 61 in 11/12/2023 Weight 189 lbs 11/12/2023 BMI 35.71 kg/m2 11/12/2023 Encounters Encounter Location Date Provider Diagnosis [facility] [address] [place] [address] 11/12/2023 Peter Rojas Elevated liver funct ion [...] * NOBLE ESCOBEDOOB:[birth year] 59 (63 yo F)Acc No.[id number]:11/12/2023 Progress Notes Patient:?VIELKA ESCOBEDO Provider:?Peter Rojas MD :1960???Age:63 Y???Sex:Female D ate:11/12/2023 Address:[address] [place], [place] [id number] Pcp:Danuta Santiago Subjective: * Chief Complaints: * [...] past year??Never (0 point),?Points?3,?Interpretation?Positive.?Miscellaneous:?Marital status: . 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 ???Nonsmoker; 2 glasses of wine QOD. * [...] Procedure Codes:?3017F COLOR ECTAL CA SCREEN DOC [id number] TOBACCO [id number] BP SCR NOT PRFRM REC REASON NOS * Preventive Medicine:? ??Counseling:?Care goal follow-up plan:?Above Normal BMI Follow-up?Giving encouragement to exercise,?BMI management provided?Yes.? ??Urinary Incontinence:?Urinary Incontinence?Assessment:?Absent,?Plan of care documented:?No, reason not specified.? * Follow Up:?2023 * * Sign off status: Completed true * Provider:?Peter Rojas MD Date:? 024 Generated for Kewsi alfred/Annika/Arielitting on:?11/17/2024 09:37 AM EDT History and Physical Notes * HPI [...]
--- NOTE | 2024-11-17 09:38 | ECG_ITS ---
Test Reason : OBESITY Blood Pressure : */* mmHG Vent. Rate : 69 BPM Atrial Rate : 69 BPM P-R Int : 174 ms QRS Dur : 96 ms QT Int : 418 ms P-R-T Axes : 80 -32 -4 degrees QTcB Int : 447 ms Normal sinus rhythm Left axis deviation T wave abnormality, consider anterior ischemia Abnormal ECG When compared with ECG of 22-Aug-2023 22:45, No significant change was found Referred By: Hieu Prater Electronically Signed By: HAIR SOFIA
--- OUTSIDE RECORDS SUMMARY | 2024-11-17 09:38 | XMS_ITS ---
Author Organization [facility] Address [address] [place] [address] Care Team Providers Care Supervisor Policy Change Clerks Name Role Phone Danuta Barboza Primary Care Provider Peter Munoz Unavailable [phone] Allergies Allergen (clinical drug ingredient) Drug/Non Drug [...] [facility] [address] [place] [address] 05/12/2024 Peter Rojas Serrated polyp of co [...] * CHU ESCOBEDOEDOB:[birth year] (63 yo F)Acc No.[id number]:05/12/2024 Progress Notes Patient:?VIELKA ESCOBEDO Provider:?Peter oRjas MD :1960???Age:63 Y???Sex:Female D ate:05/12/2024 Address:[address] [place] [address] [id number] Pcp:Danuta Santigao Subjective: * Chief Complaints: * ???Patient presents [...] past year??Never (0 point),?Points?3,?Interpretation?Positive.?Miscellaneous:?Marital status: . 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 ???Nonsmoker; 2 glasses of wine QOD. * [...] Procedure Codes:?3017F COLOR ECTAL CA SCREEN DOC [id number] TOBACCO [id number] BP SCR NOT PRFRM REC REASON NOS * Preventive Medicine:? ??Counseling:?Care goal follow-up plan:?Above Normal BMI Follow-up?Giving encouragement to exercise,?BMI management provided?Yes.? * Follow Up:?prn * * Sign off status: Completed true * Provider:?Peter Rojas MD Date:? 024 Generated for Kwesi alfred/Annika/Arielitting on:?11/17/2024 09:37 AM EDT History and [...]
[2024-11-17 10:08] LABS: Albumin Level 4.2 g/dL (3.5-5.0); Alkaline Phosphatase 81 U/L (39-117); Anion Gap 14 (12-20); Aspartate Amino Transferase 61 U/L (5-31); Bilirubin Total 0.9 mg/dL (0.0-1.0); Blood Urea Nitrogen 13 mg/dL (9-16); C Reactive Protein 0.93 mg/dL (< or = 0.50); Calcium 9.5 mg/dL (8.4-10.2); Carbon Dioxide 26 mmol/L (22-29); Chloride 105 mmol/L (96-108); Cholesterol 193 mg/dL (<200); Estimated Glomerular Filt Rate > 60; Glucose Random 136 mg/dL (60-115); Iron 240 mcg/dL (30-160); Percent Iron Saturation 87 % (15-50); Potassium 4.2 mmol/L (3.3-5.1); Sodium 141 mmol/L (135-145); Total Iron Binding Capacity 276 mcg/dL (228-428); Total Protein 7.3 g/dL (6.5-8.0); Triglycerides 228 mg/dL (<150); Unsaturated Iron Binding 36 ug/dL
[2024-11-17 10:23] LABS: Ferritin 169 ng/mL (10-250); Insulin 15 uU/mL (2-29); Vitamin D 25-OH Total 56.2 ng/mL (>30)
[2024-11-17 10:30] LABS: Vitamin B12 781 pg/mL (200-900)
[2024-11-17 10:45] LABS: Alanine Aminotransferase 62 U/L (0-31); HDL Cholesterol 52 mg/dL (>40); LDL Cholesterol Calculated 96 mg/dL (<100)
[2024-11-17 10:50] LABS: Estimated Average Glucose 108 mg/dL; Hemoglobin A1C 125.7889 umol/L; Hemoglobin A1c % 5.4 % (<6.0); Total Hemoglobin (HGBA1C) 3518.4586 umol/L
[2024-11-17 11:31] LABS: Free T4 (Free Thyroxine) 0.83 ng/dL (0.71-1.85)
[2024-11-20 08:13] LABS: Zinc 78 mcg/dL (60-130)
[2024-11-21 13:18] LABS: Vitamin B1 <6 nmol/L (8-30)
[2024-11-21 16:18] LABS: Vitamin A 59 mcg/dL (38-98)
== END 2024-11-17 08:59 | disposition home or self-care (01) ==
LOC: HO.LAB 08:58
PROVIDERS: PCP Internal Medicine; Visit Provider Surgery
DX: E66.01 Morbid (severe) obesity due to excess calories (principal); Z68.41 Body mass index [BMI] 40.0-44.9, adult; E78.00 Pure hypercholesterolemia, unspecified; I10 Essential (primary) hypertension; Z13.1 Encounter for screening for diabetes mellitus
CPT/HCPCS: 36415; 71046; 80053; 80061; 82306; 82607; 82728; 82746; 83036; 83525; 83540; 84425; 84439; 84443; 84590; 84630; 85025; 86140; 93005

== ENCOUNTER → 2024-11-17 09:12 | Outpatient (BNV) | payer MEDICARE, SELFPAY | PROVIDERS: PCP Internal Medicine; Visit Provider Radiology Diagnostic Radiology | DX: M47.815 Spondylosis without myelopathy or radiculopathy, thoracolumbar region (principal); E66.9 Obesity, unspecified | CPT/HCPCS: 71046 ==

== ENCOUNTER → 2024-11-17 09:38 | Outpatient (BNV) | payer MEDICARE, SELFPAY | PROVIDERS: PCP Internal Medicine; Visit Provider Internal Medicine | DX: R94.31 Abnormal electrocardiogram [ECG] [EKG] (principal); E66.9 Obesity, unspecified | CPT/HCPCS: 93010 ==

== ENCOUNTER 2024-12-31 09:25 | Outpatient (AMB) | payer MEDICARE, SELFPAY ==
--- OUTSIDE RECORDS SUMMARY | 2024-08-26 05:40 | XMS_ITS ---
Author Organization [facility] Address [address] [place] [address] Care Team Providers Care Consumer Lender Name Role Phone Danuta Barboza Primary Care Provider UnavailPeter Samayoa [phone] REASON FOR VISIT screening, serrated polyp Encounters Encounter Location Date Provider Diagnosis [facility] Out[place] [address] [place] [id number] 08/26/2024 Peter Rojas Colon cancer scree candice [...] * GREGG DIDICRISTOBALEDOB:[birth year] 59 (64 yo F)Acc No.[id number]:08/26/2024 COLON WITH MAC Patient: Kamlesh PadillaSATHISHDIDI WESTBROOKLENE Provider: Lynsey Rojas MD :1960 A ge:64 Y S ex:Female Date:08/26/2024 Address:[address] [place], [place] [phone] Pcp:Danuta Santiago Subjective: * Chief Complaints: * [...] 08/26/2024 Generated for Kwesi alfred/Annika/Arielitting on: 0 12/31/2024 10:09 AM EDT
--- NOTE | 2024-12-31 09:27 | MHC.OFFVIS ---
Vital Signs 12/31/24 09:31 Height 5 ft 1 in Weight 199 lb 8 oz BMI 37.7 BP 124/70 Blood Pressure Location Lt brachial Position Sitting Pulse 73 Pulse Source Pulse Oximeter Pulse Oximetry (%) 97 Intake Visit Reasons: 3 Months Intake Note: Patient presents for 3 months follow up. Allergies guaifenesin (From Mucinex) Allergy (Severe, Verified 12/31/24 09:30) Difficulty Breathing ciprofloxacin (Cipro) Allergy (Intermediate, Verified 12/31/24 09:30) Dizziness dog dander (dogs) Allergy (Intermediate, Verified 12/31/24 09:30) Itching environmental allergies Allergy (Intermediate, Verified 12/31/24 09:30) Itching musinex Allergy (Uncoded 11/10/24 12:55) dyspnea HPI HPI 3 Months: Details: Back pain improved with exercises that she is doing at home. Denies radiculopathy. She did not schedule PT. She is experiencing weakness in her left knee. She is seeing weight management. She was placed on medication to control thyroid disease. She does not want surgery. She is willing to consider weight loss medications. [facility] Medical History (Updated 12/31/24 @ 12:08 by Rojelio Delarosa MD) Asthma Morbid obesity with BMI of 40.0-44.9, adult Transaminitis PVC (premature ventricular contraction) NICM (nonischemic cardiomyopathy) Diverticulitis of colon with perforation Upper respiratory tract infection Sciatica Hereditary hemochromatosis Hypovitaminosis D Ventricular bigeminy IBS (irritable bowel syndrome) Essential hypertension Obesity (BMI 35.0-39.9 without comorbidity) Mild persistent asthma Diverticulitis Hemochromatosis Family history of liver disease Arthritis Carpal tunnel syndrome, right Pain in right arm Surgical History History of colostomy reversal (12/02/23) History of exploratory laparotomy (08/27/23) Hx of foot surgery History of esophagogastroduodenoscopy (EGD) H/O colonoscopy H/O right heart catheterization History of loop electrical excision procedure (LEEP) H/O knee surgery Family History Father Diabetes Heart disease Stroke COPD (chronic obstructive pulmonary disease) High cholesterol Mother Diabetes Alzheimer disease HTN (hypertension) Brother Brain aneurysm Leukemia Sister COPD (chronic obstructive pulmonary disease) Diabetes Brother Heart valve replaced Social History Household Members: None Housing: House Are you a primary child care lead teacher to a significant other at home: No Do you presently have visiting nurse or other home services: No Alcohol intake: current Alcohol intake frequency: a few times a week Alcohol type: wine Patient Tobacco Use Status: Former Tobacco user Tobacco use type: Cigarette Cigarette Packs Per Day: 1 Years Smoked: 7 e-Cigarette/Vaping Use: Never Used Second Hand Smoke Exposure: No Advance Directives Date on File: 08/22/23 service: No Current occupational status: employed Current occupational exposures/hazards: No Sexual orientation: Straight/Heterosexual Gender identity: Female Cognitive needs: No Hearing needs: No Vision needs: Yes (glasses) Physical Exam Vital Signs: Last Vital Signs Pulse 73 12/31/24 09:31 BP 124/70 12/31/24 09:31 Pulse Ox 97 12/31/24 09:31 BMI result Body Mass Index 37.7 Const Other: General: Comfortable CVS: RRR Respiratory: clear to auscultation bilaterally. Good respiratory effort Skin: No lesions seen MSK: Heberden nodes present. 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 She has soft tissue swelling with tenderness along left sternoclavicular joint. Normal range of motion of upper extremities. Knee flexion is limited to 90 degrees right side and 80 degrees left side. Assessment & Plan Assessment & Plan (1) Lumbar spondylosis: Comment: Improved with home exercise routine. Chronic back pain is due to combination of osteoarthritis (spondylosis and Grade 1 anterolisthesis of L4 and L5) and myofascial strain. Code(s): M47.816 - Spondylosis without myelopathy or radiculopathy, lumbar region Category: Medical Plan: Physical therapy has been ordered for back strengthening, myofascial release and TENs unit Continue Tylenol 650 mg every other day Close monitoring of LFTs (transaminitis secondary to hemochromatosis) Avoid oral NSAIDs per recommendations of cardiology due to history of cardiomyopathy, hypertension and intermittent arrhythmia Encouraged weight loss. She is working with weight management at [facility]. I recommended that she contact PCP for ssis architect referral to help with eating healthy Return to clinic in 3 months (2) Enlargement of left sternoclavicular joint: Comment: Chronic. Probable arthritic change of the left sternoclavicular joint on recent x-ray 10/2024. CT ordered for further evaluation Code(s): M25.812 - Other specified joint disorders, left shoulder Category: Medical Plan: CT left sternoclavicular joint ordered Return to clinic in 3 months (3) Osteoarthritis, hand: Comment: Contributing to weak printing supplies sales representative. Code(s): M19.049 - Primary osteoarthritis, unspecified hand Category: Medical Qualifiers: Laterality: bilateral Osteoarthritis type: primary Qualified Code(s): M19.041 - Primary osteoarthritis, right hand; M19.042 - Primary osteoarthritis, left hand Plan: Occupational therapy ordered Return to clinic in 3 months (4) Hand weakness: Code(s): R29.898 - Other symptoms and signs involving the musculoskeletal system Category: Medical Plan: Occupational therapy ordered (5) Transaminitis: Comment: She has known hemochromatosis, which can contribute to transaminitis. CT abdomen/pelvis 08/2023 revealed enlarged liver. Code(s): R74.01 - Elevation of levels of liver transaminase levels Category: Medical Plan: I will recheck LFTs at follow-up visit as patient has increased her Tylenol intake to Tylenol 650 mg every other day from PRN to help control joint pain Return to clinic in 3 months Coding Level of Care Code Est Pt Level 4 (39133) Complex EM visit Add On G2211 Diagnoses Lumbar spondylosis M47.816 Enlargement of left sternoclavicular joint M25.812 Primary osteoarthritis of both hands M19.041; M19.042 Laterality: bilateral Osteoarthritis type: primary Hand weakness R29.898 Transaminitis R74.01
[2024-12-31 09:31] VITALS: BP 124/70; PULSE 73; O2SAT 97; BMI 37.7
== END 2024-12-31 10:03 | disposition home or self-care (01) ==
PROVIDERS: PCP Internal Medicine; Visit Provider Internal Medicine Rheumatology
DX: M47.816 Spondylosis without myelopathy or radiculopathy, lumbar region (principal); M25.812 Other specified joint disorders, left shoulder; M19.041 Primary osteoarthritis, right hand; M19.042 Primary osteoarthritis, left hand; R29.898 Other symptoms and signs involving the musculoskeletal system; R74.01 Elevation of levels of liver transaminase levels
CPT/HCPCS: 99214; G2211

== ENCOUNTER → 2024-12-31 09:25 | Outpatient (BNVA) | payer MEDICARE, SELFPAY | PROVIDERS: PCP Internal Medicine; Visit Provider Internal Medicine Rheumatology | DX: M47.816 Spondylosis without myelopathy or radiculopathy, lumbar region (principal); M25.812 Other specified joint disorders, left shoulder; M19.041 Primary osteoarthritis, right hand; M19.042 Primary osteoarthritis, left hand; R29.898 Other symptoms and signs involving the musculoskeletal system; R74.01 Elevation of levels of liver transaminase levels | CPT/HCPCS: 99212 ==

== ENCOUNTER 2025-01-07 13:19 | Outpatient (REF) | payer MEDICARE, SELFPAY ==
--- OUTSIDE RECORDS SUMMARY | 2024-08-26 05:40 | XMS_ITS ---
Author Organization [facility] Address [address] [place] [address] Care Team Providers Care Edge Trimmer Mechanic Name Role Phone Danuta Barboza Primary Care Provider UnavailPeter Samayoa [phone] REASON FOR VISIT screening, serrated polyp Encounters Encounter Location Date Provider Diagnosis [facility] Out[place] [address] [place] [id number] 08/26/2024 Peter Rojas Colon cancer scree candice [...] * GREGG DIDICRISTOBALEDOB:[birth year] 59 (64 yo F)Acc No.[id number]:08/26/2024 COLON WITH MAC Patient: Kamlesh PadillaSATHISHDIDI WESTBROOKLENE Provider: Lynsey Rojas MD :1960 A ge:64 Y S ex:Female Date:08/26/2024 Address:[address] [place], [place] [phone] Pcp:Danuta Santiago Subjective: * Chief Complaints: * [...] 08/26/2024 Generated for Kwesi alfred/Annika/Arielitting on: 0 01/07/2025 04:02 PM EDT
[2025-01-07 15:07] LABS: Ferritin 97 ng/mL (10-250)
== END 2025-01-07 13:20 | disposition home or self-care (01) ==
LOC: HO.BBR 13:19
PROVIDERS: PCP Internal Medicine; Visit Provider Internal Medicine
DX: E83.110 Hereditary hemochromatosis (principal)
CPT/HCPCS: 36415; 82728

== ENCOUNTER → 2025-01-18 10:56 | Outpatient (REF) | payer MEDICARE, SELFPAY ==
--- OUTSIDE RECORDS SUMMARY | 2024-08-26 05:40 | XMS_ITS ---
Author Organization [facility] Address [address] [place] [address] Care Team Providers Care Washing And Screening Plant Supervisor Name Role Phone Danuta Barboza Primary Care Provider UnavailPeter Samayoa [phone] REASON FOR VISIT screening, serrated polyp Encounters Encounter Location Date Provider Diagnosis [facility] Outpatient [address] [place] [phone] 08/26/2024 Peter Rojas Colon cancer scree candice [...] * GREGG DIDICRISTOBALEDOB:[birth year] 59 (64 yo F)Acc No.[id number]:08/26/2024 COLON WITH MAC Patient: Kamlesh PadillaSATHISHDIDI WESTBROOKLENE Provider: Lynsey Rojas MD :1960 A ge:64 Y S ex:Female Date:08/26/2024 Address:[address] [place], [place] [phone] Pcp:Danuta Santiago Subjective: * Chief Complaints: * [...] 08/26/2024 Generated for Kwesi alfred/Annika/Arielitting on: 0 01/18/2025 11:55 AM EDT
--- NOTE | 2025-01-18 11:13 | CA_ITS ---
Acquisition Time: 2025-01-18 11:39:32 Total Exercise Time: 00:07:34 Test Indications: Abnormal ECG,Pre-Op Evaluation Medications: SEE H&P Protocol: KALEB Max HR: 142 BPM 91% of Pred: 155 BPM Max BP: 136/72 mmHG Max Work Load: 8.1 METS Exercise stress test with exercise 7 mins 34 secs of Kaleb Protocol, reduced speed to 2.9 mph, achieving 785% MPHR, with reports of SOB, no chest pain, with isolated PVCs- one ventricular couplet, with normotensive response to exercise. Without EKG changes meeting criteria for ischemia. In recovery, breathing improved to baseline. Echo images obtained by tech at rest and post peak exercise. Definity contrast utilized. Test reviewed with Dr. Cohn. Referred By: Hieu Prater Electronically Signed By: Perez Londono
== END ==
LOC: HO.CARD 10:56
PROVIDERS: PCP Internal Medicine; Visit Provider Surgery
DX: I42.8 Other cardiomyopathies (principal); E83.119 Hemochromatosis, unspecified
CPT/HCPCS: 93350; Q9957

== ENCOUNTER → 2025-01-18 11:13 | Outpatient (BNV) | payer MEDICARE, SELFPAY | PROVIDERS: PCP Internal Medicine | DX: R94.31 Abnormal electrocardiogram [ECG] [EKG] (principal); R06.02 Shortness of breath; I49.3 Ventricular premature depolarization | CPT/HCPCS: 93016; 93018; 93350; 93352 ==

== ENCOUNTER 2025-01-25 09:28 | Outpatient (REF) | payer MEDICARE, SELFPAY ==
--- OUTSIDE RECORDS SUMMARY | 2024-08-26 05:40 | XMS_ITS ---
Author Organization [facility] Address [address] [place] [address] Care Team Providers Care Branch Operation Evaluation Manager Name Role Phone Danuta Barboza Primary Care Provider UnavailPeter Samayoa [phone] REASON FOR VISIT screening, serrated polyp Encounters Encounter Location Date Provider Diagnosis [facility] Out[place] [address] [place] [id number] 08/26/2024 Peter Rojas Colon cancer scree candice [...] * GREGG DIDICRISTOBALEDOB:[birth year] 59 (64 yo F)Acc No.[id number]:08/26/2024 COLON WITH MAC Patient: Kamlesh PadillaSATHISHDIDI WESTBROOKLENE Provider: Lynsey Rojas MD :1960 A ge:64 Y S ex:Female Date:08/26/2024 Address:[address] [place], [place] [phone] Pcp:Danuta Santiago Subjective: * Chief Complaints: * 1 . Screening, serrated polyp. * Medical History: Objective: * Vitals: Assessment: * Assessment: 1. C olon cancer screening - Z12.11 (Primary) 2 . C olon polyps - K63.5? 3. D iverticulosis of large intestine without perforation or abscess without bleeding - K57.30 4 . O ther hemorrhoids - K64.8 Plan: * Treatment: * Procedure Codes: 4 5385 LESION REMOVAL COLONOSCOPY, Modifiers: 33 * * The named appointment provid er may or may not be the originator of this progress note, and it is not deemed complete until electronically signed by the appointment provider. Sign off status: Pending * Provider: Lynsey Rojas MD Date: 0 08/26/2024 Generated for Kwesi alfred/Annika/Arielitting on: 0 01/25/2025 09:53 AM EDT
--- NOTE | ~2025-01-25 | CT_ITS ---
EXAMINATION: CT CHEST WITH CONTRAST CLINICAL INFORMATION: Chronic left sternoclavicular joint; swelling of unclear etiology. M25.812 - Other specified joint disorders, left shoulder DLP: 185 mGY*cm COMPARISON: None available. TECHNIQUE: Multidetector volumetric CT imaging of the chest was obtained after the administration of 65 mL of Omnipaque 350 intravenous contrast without immediate adverse reactions. Axial MIP volume rendering provided. Sagittal and coronal reformatted images were obtained. This CT examination was performed using dose optimization techniques as appropriate, variously including the following: *Automated exposure control *Adjustment of mA and/or kV according to patient size (this includes techniques or standardized protocols for targeted exams where dose is matched to indication/reason for exam; i.e. extremities or head) *Use of iterative reconstruction technique FINDINGS: LUNGS: The lungs are clear with no evidence of inflammation or nodules. MEDIASTINUM: The mediastinum is normal. PLEURA: There is no pleural effusion. No pleural mass or thickening. AXILLA: No lymphadenopathy. UPPER ABDOMEN: Mild diffuse fatty changes are present in the liver. OSSEOUS STRUCTURES: There is sclerosis of the proximal end of both clavicles, adjacent the sternoclavicular joints. There is minimal degenerative cystic type change in the left greater than right clavicle. There is thinning of the cortex in the central left proximal clavicle. There is questionable very subtle cortical thinning involving the right. There are bilateral joint effusions, left greater than right sternoclavicular joints with associated widening of the joint spaces. There is somewhat linear soft tissue calcification along the medial aspects of the left greater than right proximal clavicular heads No erosions or sclerosis are noted in the adjacent manubrium. CT/CT chest w IV con IMPRESSION: There are changes involving the proximal ends of the left greater than right clavicle, more advanced on the left. There appear to be chronic mechanical degenerative changes, but there also is evidence of erosive change on the left, and possibly also on the right as well as joint effusions. Given that this is chronic, this raises question of an inflammatory arthropathy. Septic arthritis is not ruled out but felt to be less likely given lack of changes in the manubrium and chronic coarse. Fatty liver Fleischner guidelines were followed. Electronically signed by: Carlos Butt MD 01/25/2025 12:32 PM EDT
[2025-01-25 11:54] LABS: Creatinine POC 0.7 mg/dL (0.5-1.4); GFR POC 60
== END 2025-01-25 09:29 | disposition home or self-care (01) ==
LOC: HO.CT 09:28
PROVIDERS: PCP Internal Medicine; Visit Provider Internal Medicine Rheumatology
DX: M25.812 Other specified joint disorders, left shoulder (principal)
CPT/HCPCS: 71260; 82565

== ENCOUNTER → 2025-01-25 09:29 | Outpatient (BNV) | payer MEDICARE, SELFPAY | PROVIDERS: PCP Internal Medicine; Visit Provider Radiology Diagnostic Radiology | DX: K76.0 Fatty (change of) liver, not elsewhere classified (principal) | CPT/HCPCS: 71260 ==

== ENCOUNTER 2025-01-27 14:12 | Outpatient (REF) | payer MEDICARE, SELFPAY ==
--- OUTSIDE RECORDS SUMMARY | 2024-08-26 05:40 | XMS_ITS ---
Author Organization [facility] Address [address] [place] [address] Care Team Providers Care Purchasing Associate Name Role Phone Danuta Barboza Primary Care Provider UnavailPeter Samayoa [phone] REASON FOR VISIT screening, serrated polyp Encounters Encounter Location Date Provider Diagnosis [facility] Out[place] [address] [place] [phone] 08/26/2024 Peter Rojas Colon cancer scree candice [...] * GREGG DIDICRISTOBALEDOB:[birth year] 59 (64 yo F)Acc No.[id number]:08/26/2024 COLON WITH MAC Patient: Kamlesh PadillaSATHISHDIDI WESTBROOKLENE Provider: Lynsey Rojas MD :1960 A ge:64 Y S ex:Female Date:08/26/2024 Address:[address] [place], [place] [phone] Pcp:Danuta Santiago Subjective: * Chief Complaints: * [...] 08/26/2024 Generated for Kwesi alfred/Annika/Arielitting on: 0 01/27/2025 02:55 PM EDT
== END 2025-01-27 14:13 | disposition home or self-care (01) ==
LOC: HO.MAMMO 14:12
PROVIDERS: PCP Internal Medicine; Visit Provider Internal Medicine
DX: Z12.31 Encounter for screening mammogram for malignant neoplasm of breast (principal)
CPT/HCPCS: 77063; 77067

== ENCOUNTER → 2025-01-27 14:15 | Outpatient (BNV) | payer MEDICARE, SELFPAY | PROVIDERS: PCP Internal Medicine; Visit Provider Radiology Body Imaging | DX: Z12.31 Encounter for screening mammogram for malignant neoplasm of breast (principal) | CPT/HCPCS: 77063; 77067 ==

== ENCOUNTER 2025-02-10 08:02 | Outpatient (AMB) | payer MEDICARE, SELFPAY ==
--- OUTSIDE RECORDS SUMMARY | 2024-08-26 05:40 | XMS_ITS ---
Author Organization [facility] Address [address] [place] [address] Care Team Providers Care Drill Bit Sharpener Name Role Phone Danuta Barboza Primary Care Provider UnavailPeter Samayoa [phone] REASON FOR VISIT screening, serrated polyp Encounters Encounter Location Date Provider Diagnosis [facility] Outpatient [address] [place] [phone] 08/26/2024 Peter Rojas Colon cancer scree candice [...] * GREGG DIDICRISTOBALEDOB:[birth year] 59 (64 yo F)Acc No.[id number]:08/26/2024 COLON WITH MAC Patient: Kamlesh PadillaSATHISHDIDI WESTBROOKLENE Provider: Lynsey Rojas MD :1960 A ge:64 Y S ex:Female Date:08/26/2024 Address:[address] [place], [place] [phone] Pcp:Danuta Santiago Subjective: * Chief Complaints: * [...] provider. Sign off status: Pending * Provider: Lynsye Rojas MD Date: 0 08/26/2024 Generated for Kwesi alfred/Annika/Arielitting on: 0 02/10/2025 08:06 AM EDT
--- NOTE | 2025-02-10 08:04 | A.OFFVIS_ITS ---
Vital Signs 02/10/25 08:07 Height 5 ft 1 in Weight 189 lb BMI 35.7 BP 100/70 Blood Pressure Location Rt brachial Position Sitting Pulse 88 Pulse Source Pulse Oximeter Pulse Oximetry (%) 99 Oxygen Delivery Method Room Air Intake Visit Reasons: discuss ct scan Intake Note: [facility]. Accompanied by: Self / Same As Patient Allergies guaifenesin (From Mucinex) Allergy (Severe, Verified 02/10/25 08:08) Difficulty Breathing ciprofloxacin (Cipro) Allergy (Intermediate, Verified 02/10/25 08:08) Dizziness dog dander (dogs) Allergy (Intermediate, Verified 02/10/25 08:08) Itching environmental allergies Allergy (Intermediate, Verified 02/10/25 08:08) Itching musinex Allergy (Uncoded 11/10/24 12:55) dyspnea HPI HPI discuss ct scan: Details: left clavicular area is painful. She noticed it a few months go. No new joint swelling. She was unable to go to PT due to babysitting her grandchildren. R hip is painful. She has a URI. Granddaughter Is the sick exposure. [facility] Medical History Asthma Morbid obesity with BMI of 40.0-44.9, adult Transaminitis PVC (premature ventricular contraction) NICM (nonischemic cardiomyopathy) Diverticulitis of colon with perforation Upper respiratory tract infection Sciatica Hereditary hemochromatosis Hypovitaminosis D Ventricular bigeminy IBS (irritable bowel syndrome) Essential hypertension Obesity (BMI 35.0-39.9 without comorbidity) Mild persistent asthma Diverticulitis Hemochromatosis Family history of liver disease Arthritis Carpal tunnel syndrome, right Pain in right arm Surgical History History of colostomy reversal (12/02/23) History of exploratory laparotomy (08/27/23) Hx of foot surgery History of esophagogastroduodenoscopy (EGD) H/O colonoscopy H/O right heart catheterization History of loop electrical excision procedure (LEEP) H/O knee surgery Family History Father Diabetes Heart disease Stroke COPD (chronic obstructive pulmonary disease) High cholesterol Mother Diabetes Alzheimer disease HTN (hypertension) Brother Brain aneurysm Leukemia Sister COPD (chronic obstructive pulmonary disease) Diabetes Brother Heart valve replaced Social History Household Members: None Housing: House Are you a primary career placement specialist to a significant other at home: No Do you presently have visiting nurse or other home services: No Alcohol intake: current Alcohol intake frequency: a few times a week Alcohol type: wine Patient Tobacco Use Status: Former Tobacco user Tobacco use type: Cigarette Cigarette Packs Per Day: 1 Years Smoked: 7 e-Cigarette/Vaping Use: Never Used Second Hand Smoke Exposure: No Advance Directives Date on File: 08/22/23 service: No Current occupational status: employed Current occupational exposures/hazards: No Sexual orientation: Straight/Heterosexual Gender identity: Female Cognitive needs: No Hearing needs: No Vision needs: Yes (glasses) Physical Exam Vital Signs: Last Vital Signs Pulse 88 02/10/25 08:07 BP 100/70 02/10/25 08:07 Pulse Ox 99 02/10/25 08:07 Oxygen Delivery Method Room Air 02/10/25 08:07 BMI result Body Mass Index 35.7 Const Other: General: Comfortable CVS: RRR Respiratory: clear to auscultation bilaterally. Good respiratory effort Skin: No lesions seen MSK: Heberden nodes present. Weak bilingual spanish inbound sales. She has soft tissue swelling with tenderness along left sternoclavicular joint. Normal range of motion of upper extremities. Knee flexion is limited to 90 degrees bilateral. Right trochanteric bursa tenderness found. No other joints are tender or have synov itis. No dactylitis present. Results Reviewed Results Reviewed: Date of Service: 01/25/25 Procedure(s): CT chest w IV con Accession Number(s): [id number] cc: Danuta Barboza MD; Rojelio Delarosa MD~ Report Number: [id number]: Total DLP = 185.00 mGy-cm EXAMINATION: CT CHEST WITH CONTRAST CLINICAL INFORMATION: Chronic left sternoclavicular joint; swelling of unclear etiology. M25.812 - Other specified joint disorders, left shoulder DLP: 185 mGY*cm COMPARISON: None available. TECHNIQUE: Multidetector volumetric CT imaging of the chest was obtained after the administration of 65 mL of Omnipaque 350 intravenous contrast without immediate adverse reactions. Axial MIP volume rendering provided. Sagittal and coronal reformatted images were obtained. This CT examination was performed using dose optimization techniques as appropriate, variously including the following: *Automated exposure control *Adjustment of mA and/or kV according to patient size (this includes techniques or standardized protocols for targeted exams where dose is matched to indication/reason for exam; i.e. extremities or head) *Use of iterative reconstruction technique FINDINGS: LUNGS: The lungs are clear with no evidence of inflammation or nodules. MEDIASTINUM: The mediastinum is normal. PLEURA: There is no pleural effusion. No pleural mass or thickening. AXILLA: No lymphadenopathy. UPPER ABDOMEN: Mild diffuse fatty changes are present in the liver. OSSEOUS STRUCTURES: There is sclerosis of the proximal end of both clavicles, adjacent the sternoclavicular joints. There is minimal degenerative cystic type change in the left greater than right clavicle. There is thinning of the cortex in the central left proximal clavicle. There is questionable very subtle cortical thinning involving the right. There are bilateral joint effusions, left greater than right sternoclavicular joints with associated widening of the joint spaces. There is somewhat linear soft tissue calcification along the medial aspects of the left greater than right proximal clavicular heads No erosions or sclerosis are noted in the adjacent manubrium. CT/CT chest w IV con IMPRESSION: There are changes involving the proximal ends of the left greater than right clavicle, more advanced on the left. There appear to be chronic mechanical degenerative changes, but there also is evidence of erosive change on the left, and possibly also on the right as well as joint effusions. Given that this is chronic, this raises question of an inflammatory arthropathy. Septic arthritis is not ruled out but felt to be less likely given lack of changes in the manubrium and chronic coarse. Fatty live Assessment & Plan Assessment & Plan (1) Pain of left clavicle: Comment: CT chest 01/25/2025 reveals arthritic changes of the proximal ends of the left greater than right clavicle, mechanical degenerative changes with evidence of erosions on the left and possibly the right side as well as joint effusions. I am concerned for inflammatory arthropathy. Radiologist is not highly concerned about septic arthritis due to lack of changes in the manubrium and chronic course. Code(s): M89.8X1 - Other specified disorders of bone, shoulder Category: Medical Plan: Labs ordered. Patient will have labs drawn after next week when URI resolves. Ultrasound or fluoroscopic guided aspiration of left sternoclavicular joint with fluid sent for studies: Cell count, culture, crystal analysis, AFB stain, and Lyme PCR Return to clinic in 3 months (2) Arthritis: Code(s): M19.90 - Unspecified osteoarthritis, unspecified site Category: Medical Plan: See above (3) Enlargement of left sternoclavicular joint: Comment: Chronic. Code(s): M25.812 - Other specified joint disorders, left shoulder Category: Medical Plan: See above (4) Transaminitis: Comment: She has known hemochromatosis, which can contribute to transaminitis. CT abdomen/pelvis 08/[address] chest 01/25/2025 reveals hepatic steatosis Code(s): R74.01 - Elevation of levels of liver transaminase levels Category: Medical Plan: LFTs ordered for monitoring while she takes Tylenol for pain (5) Trochanteric bursitis, right hip: Code(s): M70.61 - Trochanteric bursitis, right hip Category: Medical Plan: PT ordered (6) Lumbar spondylosis: Comment: Improved with home exercise routine. Chronic back pain is due to combination of osteoarthritis (spondylosis and Grade 1 anterolisthesis of L4 and L5) and myofascial strain. Code(s): M47.816 - Spondylosis without myelopathy or radiculopathy, lumbar region Category: Medical Plan: Physical therapy has been ordered for back strengthening, myofascial release and TENs unit last visit. I have asked her to schedule PT in March when her schedule is less busy Continue Tylenol 650 mg every other day Close monitoring of LFTs (transaminitis secondary to hemochromatosis) Avoid oral NSAIDs per recommendations of cardiology due to history of cardiomyopathy, hypertension and intermittent arrhythmia Encouraged weight loss. She is working with weight management at [facility]. I recommended that she contact PCP for investigative writer referral to help with eating healthy Return to clinic in 3 months (7) Osteoarthritis, hand: Comment: Contributing to weak bilingual spanish inbound sales. Code(s): M19.049 - Primary osteoarthritis, unspecified hand Category: Medical Qualifiers: Laterality: bilateral Osteoarthritis type: primary Qualified Code(s): M19.041 - Primary osteoarthritis, right hand; M19.042 - Primary osteoarthritis, left hand Plan: Occupational therapy ordered last visit Return to clinic in 3 months (8) Hand weakness: Code(s): R29.898 - Other symptoms and signs involving the musculoskeletal system Category: Medical Plan: OT ordered last visit Plan See above Orders: Orders Cyclic Citrullinated Peptide Today M19.90 - Unspecified osteoarthritis, unspecified site, M25.812 - Other specified joint disorders, left shoulder, M89.8X1 - Other specified disorders of bone, shoulder Erythrocyte Sedimentation Rate Today M19.90 - Unspecified osteoarthritis, unspecified site, M25.812 - Other specified joint disorders, left shoulder, M89.8X1 - Other specified disorders of bone, shoulder C Reactive Protein Today M19.90 - Unspecified osteoarthritis, unspecified site, M25.812 - Other specified joint disorders, left shoulder, M89.8X1 - Other specified disorders of bone, shoulder HLA B27 Today M19.90 - Unspecified osteoarthritis, unspecified site, M25.812 - Other specified joint disorders, left shoulder, M89.8X1 - Other specified disorders of bone, shoulder US guided fine needle asp add Today M25.812 - Other specified joint disorders, left shoulder, M79.89 - Other specified soft tissue disorders Synovial Fld Cult + Gram stain Today M25.812 - Other specified joint disorders, left shoulder Lyme Synovial Fld PCR Today M25.812 - Other specified joint disorders, left shoulder Rheumatoid Factor Today M19.90 - Unspecified osteoarthritis, unspecified site, M25.812 - Other specified joint disorders, left shoulder, M89.8X1 - Other specified disorders of bone, shoulder Alanine Aminotransferase Today R74.01 - Elevation of levels of liver transaminase levels Aspartate Amino Transferase Today R74.01 - Elevation of levels of liver transaminase levels Acid-fast Culture + Smear Today M25.812 - Other specified joint disorders, left shoulder Cell Ct wDiff Synovial Fl Today M25.812 - Other specified joint disorders, left shoulder Synov Fld Cult + Crystals Today M25.812 - Other specified joint disorders, left shoulder T Spot TB Today M25.812 - Other specified joint disorders, left shoulder Hepatitis B,C Profile Today M25.812 - Other specified joint disorders, left jami ulder Lyme IgG/IgM w/reflex to WB Today M25.812 - Other specified joint disorders, left shoulder Coding Level of Care Code Est Pt Level 4 (35761) Complex EM visit Add On G2211 Diagnoses Pain of left clavicle M89.8X1 Arthritis M19.90 Enlargement of left sternoclavicular joint M25.812 Transaminitis R74.01 Trochanteric bursitis, right hip M70.61 Lumbar spondylosis M47.816 Primary osteoarthritis of both hands M19.041; M19.042 Laterality: bilateral Osteoarthritis type: primary Hand weakness R29.898
[2025-02-10 08:07] VITALS: BP 100/70; PULSE 88; O2SAT 99; BMI 35.7
== END 2025-02-10 08:34 | disposition home or self-care (01) ==
LOC: HO.RHES 08:03
PROVIDERS: PCP Internal Medicine; Visit Provider Internal Medicine Rheumatology
DX: M89.8X1 Other specified disorders of bone, shoulder (principal); M19.90 Unspecified osteoarthritis, unspecified site; M25.812 Other specified joint disorders, left shoulder; R74.01 Elevation of levels of liver transaminase levels; M70.61 Trochanteric bursitis, right hip; M47.816 Spondylosis without myelopathy or radiculopathy, lumbar region; M19.041 Primary osteoarthritis, right hand; M19.042 Primary osteoarthritis, left hand; R29.898 Other symptoms and signs involving the musculoskeletal system
CPT/HCPCS: 99214; G2211

== ENCOUNTER → 2025-02-10 08:02 | Outpatient (BNVA) | payer MEDICARE, SELFPAY | PROVIDERS: PCP Internal Medicine; Visit Provider Internal Medicine Rheumatology | DX: M19.90 Unspecified osteoarthritis, unspecified site (principal); M25.812 Other specified joint disorders, left shoulder; R74.01 Elevation of levels of liver transaminase levels; M70.61 Trochanteric bursitis, right hip; M47.816 Spondylosis without myelopathy or radiculopathy, lumbar region; M19.041 Primary osteoarthritis, right hand; R29.898 Other symptoms and signs involving the musculoskeletal system | CPT/HCPCS: 99212 ==

== ENCOUNTER 2025-03-01 14:44 | Outpatient (REF) | payer MEDICARE, SELFPAY ==
--- OUTSIDE RECORDS SUMMARY | 2024-08-26 05:40 | XMS_ITS ---
Author Organization [facility] Address [address] [place] [address] Care Team Providers Care Internet Marketing Strategist Name Role Phone Danuta Barboza Primary Care Provider UnavailPeter Samayoa [phone] REASON FOR VISIT screening, serrated polyp Encounters Encounter Location Date Provider Diagnosis [facility] [place] [address] [place] [phone] 08/26/2024 Peter Rojas Colon cancer scree candice [...] * GREGG DIDICRISTOBALEDOB:[birth year] 59 (64 yo F)Acc No.[id number]:08/26/2024 COLON WITH MAC Patient: Kamlesh PadillaSATHISHDIDI WESTBROOKLENE Provider: Lynsey Rojas MD :1960 A ge:64 Y S ex:Female Date:08/26/2024 Address:[address] [place], [place] [phone] Pcp:Danuta Santiago Subjective: * Chief Complaints: * [...] provider. Sign off status: Pending * Provider: yLnsey Rojas MD Date: 0 08/26/2024 Generated for Kwesi alfred/Annika/Arielitting on: 0 03/01/2025 03:27 PM EDT
[2025-03-01 17:34] LABS: Alanine Aminotransferase 32 U/L (0-31); Aspartate Amino Transferase 40 U/L (5-31); Blood Urea Nitrogen 12 mg/dL (9-16); Estimated Glomerular Filt Rate > 60
[2025-03-02 08:16] LABS: HBS Num1 0.00 mIU/mL (0-7.99); HBc Num1 0.13 S/CO (0.00-0.79); HBsAGNum1 0.38 S/CO (0.00-0.99); Hepatitis B Surface Antigen Negative (Negative); ~HepC Num1 0.09 S/CO (0.00-0.79); ~Hepatitis B Surface Antibody NONREACTIVE (Nonreactive); ~Hepatitis C Antibody Nonreactive (Nonreactive)
[2025-03-02 10:57] LABS: Lyme Abs Screen <0.90 index
[2025-03-04 07:54] LABS: TS Negative Control Passed; TS Panel A 1; TS Panel B 2; TS Positive Control Passed; TSpotTB Negative (Negative)
[2025-03-06 15:42] LABS: HLA B27 Negative (Negative)
== END 2025-03-01 14:45 | disposition home or self-care (01) ==
LOC: HO.LAB 14:44
PROVIDERS: PCP Internal Medicine; Visit Provider Internal Medicine Rheumatology
DX: Z01.84 Encounter for antibody response examination (principal); Z11.59 Encounter for screening for other viral diseases; Z11.1 Encounter for screening for respiratory tuberculosis; M19.90 Unspecified osteoarthritis, unspecified site; M89.8X1 Other specified disorders of bone, shoulder; M25.812 Other specified joint disorders, left shoulder; R74.01 Elevation of levels of liver transaminase levels
CPT/HCPCS: 36415; 82565; 84450; 84460; 84520; 85652; 86140; 86200; 86431; 86481; 86617; 86618; 86704; 86706; 86803; 86812; 87340; 87476

== ENCOUNTER → 2025-03-04 13:57 | Outpatient (REF) | payer MEDICARE, SELFPAY ==
--- OUTSIDE RECORDS SUMMARY | 2024-08-26 05:40 | XMS_ITS ---
Author Organization [facility] Address [address] [place] [address] Care Team Providers Care Food Specialist Name Role Phone Danuta Barboza Primary Care Provider UnavailPeter Samayoa [phone] REASON FOR VISIT screening, serrated polyp Encounters Encounter Location Date Provider Diagnosis [facility] [place] [address] [place] [phone] 08/26/2024 Peter Rojas Colon cancer scree candice [...] * GREGG DIDICRISTOBALEDOB:[birth year] 59 (64 yo F)Acc No.[id number]:08/26/2024 COLON WITH MAC Patient: Kamlesh PadillaSATHISHDIDI WESTBROOKLENE Provider: Lynsey Rojas MD :1960 A ge:64 Y S ex:Female Date:08/26/2024 Address:[address] [place], [place] [phone] Pcp:Danuta Santiago Subjective: * Chief Complaints: * [...] 08/26/2024 Generated for Kwesi alfred/Annika/Arielitting on: 0 03/04/2025 02:05 PM EDT
--- NOTE | 2025-03-04 14:10 | CA_ITS ---
Transthoracic Echocardiogram Patient (Last, First, Middle): Vielka Palomino D Gender: F Date of : 1960 Age: 64 Procedure Date: 03/04/2025 Procedure Type: Transthoracic Echocardiogram Location: OP Height: 154.94 cm Weight: 85.73 kg BSA: 1.84 m2 Heart Rate: bpm BP: 98 / 58 mmHg Clinical Appeals Reviewer: TO Referring MD: Berny Macdonald MD Food Services Manager: Johnson Hsu MD Symptoms: R93.1 - Abnormal findings on diagnostic imaging of heart and coronary ci... Study Quality: Adequate with contrast ECG Rhythm: Sinus Conclusions: - 1. Low normal LV ejection fraction of 50-55% with impaired relaxation filling pattern 2. Mild aortic regurgitation 3. Mildly dilated ascending aorta at 3.7 cm 4. No gross pericardial effusion Findings Procedure Information Contrast agent, definity, is being given per protocol without apparent complications. Left Ventricle Normal left ventricular cavity size. There is normal left ventricular wall thickness. The left ventricular systolic function is low normal. The visually estimated ejection fraction is between 50-55%. Spectral Doppler is indicative of an impaired relaxation filling pattern. E/E prime ratio is between 8 and 15 consistent with indeterminate filling pressures. possible basal inferoseptal and inferior wall motion abnormality Right Ventricle Normal right ventricular cavity size and systolic function. Atria Both atria are normal in size. There is no evidence of interatrial shunt. Aortic Valve There is mild calcification of the aortic valve. There is no aortic valve stenosis. There is mild aortic valve regurgitation. Mitral Valve Normal mitral valve structure and function. There is trace mitral valve regurgitation. There is no mitral valve stenosis. Great Vessels The pulmonary artery was not well visualized. There is mild dilatation of the ascending aorta. Small plaque is seen in the sino tubular ridge. Venous The inferior vena cava is normal in size and collapses greater than 50% with inspiration. Pericardium/Pleural There is no evidence of pericardial effusion. Prior Study Comparison Changes noted compared to prior study dated: 11/26/2023. LV ejection fraction has improved Measurements 2D Linear Measurements IVSd: 0.92 0.6-0.9/0.6-1.0 cm LVIDd: 4.51 3.9-5.3/4.2-5.9 cm LVIDd Index: 2.45 2.4-3.2/2.2-3.1 cm/m2 LVIDs: 3.16 2.0-3.6 cm LVPWd: 0.74 0.7-1.1 cm LA Diam: 3.20 2.7-3.8/3.0-4.0 cm LAIDs Index: 1.74 1.5-2.3 cm/m2 LV Mass: 148.64 67-162/88-224 g LV Mass Index: 80.78 43-95/49-115 g/m2 LVOT Diam: 2.30 3.0+(-)1.3 cm 2D Systolic Function EF 4C: 51.80 >55% EF 2C: 53.40 >55% EF BiP: 52.90 >55% Mitral Valve MV Pk E: 0.51 MV PK A: 0.73 MV Decel Time: 211.00 E/A: 0.70 E'Lateral: 5.77 E'Medial: 3.81 E/E' Med: 13.40 E/E' Lat: 8.80 PHT: 62.00 MVA PHT: 3.55 Decel Russell: 2.41 Aortic Valve AoV Pk Zoran: 1.23 AoV Mn Zoran: 0.80 AoV VTI: 0.24 AoV Pk Grad: 6.00 Aov Mn Grad: 3.00 JOSELUIS Cont.VTI: 2.97 AI Pk Zoran: 3.46 AI Russell: 1.53 LVOT LVOT Pk Zoran: 0.93 LVOT Mn Zoran: 0.55 LVOT VTI: 0.17 LVOT Pk Grad: 3.00 LVOT Mn Grad: 1.00 LVOT Diam: 2.30 LVOT Area: 4.15 Diastolic Function MV Pk E: 0.51 MV Pk A: 0.73 E/A: 0.70 E'Medial: 3.81 E/E' Med: 13.40 E' Laterial: 5.77 E/E' Lat: 8.80 Right Ventricle TAPSE (mm): 24.80 TVS' Zoran: 14.10 Tricuspid Valve TR Pk Zoran: 2.08 TR Pk Grad: 17.00 RA Press: 3.00 RVSP: 20.00 Great Vessels Aorta Sinus of Valsalva: 3.82 2.0-3.5 cm Ao Asc: 3.70 2.1-3.4 cm Pulmonary Veins Pulm Vein S/D 1.30 Updated in Other Vendor System with Status of Final Johnson Hsu MD electronically signed on 03/05/2025 4:49:31 PM with status of Final
== END ==
LOC: HO.CARD 13:57
PROVIDERS: PCP Internal Medicine; Visit Provider Internal Medicine
DX: I42.8 Other cardiomyopathies (principal); R93.1 Abnormal findings on diagnostic imaging of heart and coronary circulation; I10 Essential (primary) hypertension; I49.8 Other specified cardiac arrhythmias
CPT/HCPCS: 93306; Q9957

== ENCOUNTER → 2025-03-04 14:10 | Outpatient (BNV) | payer MEDICARE, SELFPAY | PROVIDERS: PCP Internal Medicine; Visit Provider Internal Medicine Cardiovascular Disease | DX: I35.1 Nonrheumatic aortic (valve) insufficiency (principal); I77.810 Thoracic aortic ectasia | CPT/HCPCS: 93306 ==

== ENCOUNTER 2025-03-08 10:03 | Outpatient (REF) | payer MEDICARE, SELFPAY ==
--- OUTSIDE RECORDS SUMMARY | 2024-08-26 05:40 | XMS_ITS ---
Author Organization [facility] Address [address] [place] [address] Care Team Providers Care Drive Shaft And Steering Post Repairer Name Role Phone Danuta Barboza Primary Care Provider UnavailPeter Samayoa [phone] REASON FOR VISIT screening, serrated polyp Encounters Encounter Location Date Provider Diagnosis [facility] [place] [address] [place] [id number] 08/26/2024 Peter Rojas Colon cancer scree candice [...] * GREGG DIDICRISTOBALEDOB:[birth year] 59 (64 yo F)Acc No.[id number]:08/26/2024 COLON WITH MAC Patient: Kamlesh PadillaSATHISHDIDI WESTBROOKLENE Provider: Lynsey Rojas MD :1960 A ge:64 Y S ex:Female Date:08/26/2024 Address:[address] [place], [place] [phone] Pcp:Danuta Santiago Subjective: * Chief Complaints: * [...] 08/26/2024 Generated for Kwesi alfred/Annika/Arielitting on: 0 03/08/2025 11:14 AM EDT
== END 2025-03-08 10:04 | disposition home or self-care (01) ==
LOC: HO.BBR 10:03
PROVIDERS: PCP Internal Medicine; Visit Provider Internal Medicine
DX: Z13.89 Encounter for screening for other disorder (principal)

== ENCOUNTER 2025-03-11 13:29 | Outpatient (AMB) | payer MEDICARE, SELFPAY ==
--- OUTSIDE RECORDS SUMMARY | 2024-08-26 05:40 | XMS_ITS ---
Author Organization [facility] Address [address] [place] [address] Care Team Providers Care Television Service Engineer Name Role Phone Danuta Barboza Primary Care Provider UnavailPeter Samayoa [phone] REASON FOR VISIT screening, serrated polyp Encounters Encounter Location Date Provider Diagnosis [facility] [place] [address] [place] [id number] 08/26/2024 Peter Rojas Colon cancer scree candice [...] * GREGG DIDICRISTOBALEDOB:[birth year] 59 (64 yo F)Acc No.[id number]:08/26/2024 COLON WITH MAC Patient: Kamlesh PadillaSATHISHDIDI WESTBROOKLENE Provider: Lynsey Rojas MD :1960 A ge:64 Y S ex:Female Date:08/26/2024 Address:[address] [place], [place] [phone] Pcp:Danuta Santiago Subjective: * Chief Complaints: * [...] 08/26/2024 Generated for Kwesi alfred/Annika/Arielitting on: 0 03/11/2025 02:13 PM EDT
[2025-03-11 13:33] VITALS: BP 110/70; PULSE 82; BMI 35.8
--- NOTE | 2025-03-11 13:33 | A.OFFVIS_ITS ---
Vital Signs 03/11/25 13:33 Height 5 ft 1 in Weight 189 lb 9.561 oz BMI 35.8 BP 110/70 Blood Pressure Location Lt brachial Position Sitting Pulse 82 Pulse Source Pulse Oximeter Intake Visit Reasons: 1 yr f/up Allergies guaifenesin (From Mucinex) Allergy (Severe, Verified 02/10/25 08:08) Difficulty Breathing ciprofloxacin (Cipro) Allergy (Intermediate, Verified 02/10/25 08:08) Dizziness dog dander (dogs) Allergy (Intermediate, Verified 02/10/25 08:08) Itching environmental allergies Allergy (Intermediate, Verified 02/10/25 08:08) Itching musinex Allergy (Uncoded 11/10/24 12:55) dyspnea Medication List - Last Reconciled 03/11/25 by Berny Macdonald MD albuterol sulfate 90 mcg/actuation (Ventolin HFA) 1 puff PO QID PRN 30 days ascorbic acid (vitamin C) 500 mg PO DAILY carvedilol 25 mg PO BID 90 days cholecalciferol (vitamin D3) 50 mcg PO DAILY colostomy bags As directed elderberry fruit 200 mg PO DAILY hydrochlorothiazide 25 mg PO QAM levothyroxine 25 mcg PO DAILY losartan 25 mg PO QAM multivitamin 1 tab PO QAM thiamine HCl (vitamin B1) 100 mg PO DAILY turmeric root-sean root ext 150-25 mg 1 tab PO DAILY walker (Ultra-Light Rollator misc) As directed HPI Comments Details: Vielka returns for follow-up regarding cardiomyopathy. In the past, has seen [facility] as well as [facility] but she switched over to our care. She has had cardiomyopathy, LV dysfunction for almost 20+ years. Initially diagnosed in 2000. She has been described to have EF in the 25-30% range as well as 35-40% range at different times. There is also mention of apical RV hypokinesis. It seems that she has been offered ICD implantation for primary prevention the past but then declined. Otherwise, for the most part she is doing fine. No clear-cut anginal-type symptoms. With activity, she is again mostly feeling okay but may feel short of breath upon climbing stairs. No heart failure hospitalizations at all. Uncertain etiology for the cardiomyopathy. Otherwise, she also has a history of PVCs with intolerance to amiodarone. It seems that she has had attempted PVC ablation as well many years ago. Etiology for the cardiomyopathy is not clear. There is no malignancy history. She has hemochromatosis. However, a prior cardiac MRI did not show infiltrative disease. Since last seen, no new concerns. She states she feels good. [facility] Medical History Asthma Morbid obesity with BMI of 40.0-44.9, adult Transaminitis PVC (premature ventricular contraction) NICM (nonischemic cardiomyopathy) Diverticulitis of colon with perforation Upper respiratory tract infection Sciatica Hereditary hemochromatosis Hypovitaminosis D Ventricular bigeminy IBS (irritable bowel syndrome) Essential hypertension Obesity (BMI 35.0-39.9 without comorbidity) Mild persistent asthma Diverticulitis Hemochromatosis Family history of liver disease Arthritis Carpal tunnel syndrome, right Pain in right arm Surgical History History of colostomy reversal (12/02/23) History of exploratory laparotomy (08/27/23) Hx of foot surgery History of esophagogastroduodenoscopy (EGD) H/O colonoscopy H/O right heart catheterization History of loop electrical excision procedure (LEEP) H/O knee surgery Family History Father Diabetes Heart disease Stroke COPD (chronic obstructive pulmonary disease) High cholesterol Mother Diabetes Alzheimer disease HTN (hypertension) Brother Brain aneurysm Leukemia Sister COPD (chronic obstructive pulmonary disease) Diabetes Brother Heart valve replaced Social History Household Members: None Housing: House Are you a primary life care planner to a significant other at home: No Do you presently have visiting nurse or other home services: No Alcohol intake: current Alcohol intake frequency: a few times a week Alcohol type: wine Patient Tobacco Use Status: Former Tobacco user Tobacco use type: Cigarette Cigarette Packs Per Day: 1 Years Smoked: 7 e-Cigarette/Vaping Use: Never Used Second Hand Smoke Exposure: No Advance Directives Date on File: 08/22/23 service: No Current occupational status: employed Current occupational exposures/hazards: No Sexual orientation: Straight/Heterosexual Gender identity: Female Cognitive needs: No Hearing needs: No Vision needs: Yes (glasses) Review of Systems Const Denies weakness ENT Denies dizziness Card Denies chest pain, Denies chest pain with activity, Denies syncope, Denies rapid heart rate, Denies pedal edema, Denies edema, Denies leg edema, Denies lightheadedness, Denies palpitations, Denies dyspnea, Denies dyspnea on exertion and Denies orthopnea Resp Denies cough, Denies dyspnea and Denies dyspnea on exertion GI Denies hematochezia and Denies change in stool character Musc Denies abnormal gait, Denies muscle cramps, Denies muscle weakness, Denies numbness, Denies radiating pain into limb and Denies tingling Neuro Denies abnormal gait, Denies dizziness, Denies syncope, Denies numbness, Denies tingling and Denies weakness Endo Denies palpitations Physical Exam Vital Signs: Last Vital Signs Pulse 82 03/11/25 13:33 BP 110/70 03/11/25 13:33 BMI result Body Mass Index 35.8 Const General: comfortable and no acute distress Orientation/consciousness: patient oriented x3 HEENT Other: Unremarkable Head: Yes normal to inspection Neck Neck: Yes normal visual inspection Chest Chest palpation & inspection: normal inspection of the chest Resp Auscultation: clear to auscultation bilaterally Cardio Palpation: normal PMI Heart sounds: S1 normal heart sound present, S2 normal heart sound present, no gallops, no murmurs and no rubs GI Palpation (GI): Soft to palpation Back/Spine/Pelvis Other: unremarkable Skin General skin exam: no rashes or lesions noted Neuro General: patient oriented x3 Extrem General: Yes normal to inspection Psych Mental Status: mental status grossly normal Assessment & Plan Assessment & Plan (1) NICM (nonischemic cardiomyopathy): Comment: new patient of [facility]-10/01/23 Code(s): I42.8 - Other cardiomyopathies Category: Medical Plan: LVEF at various times have been 25-30%, 30-40%, 35-40% extra at different times. There is also mention of apical RV hypokinesis. In the most recent echocardiogram from this month, LVEF is 50-55%. Exercise stress echocardiogram negative at 8.1 METS. Cardiac BNP 32, normal. Clinically, no heart failure symptoms or signs. Continue current dose of carvedilol/losartan. Entresto was apparently very expensive. (2) PVC (premature ventricular contraction): Code(s): I49.3 - Ventricular premature depolarization Category: Medical Plan: History of attempted PVC ablation many years ago. This is a question of epicardial origin. In the past, there is also Amiodarone intolerance. However, in the most recent Holter monitor, mainly sinus rhythm with rare ectopy. Nothing significant. Plan Total time spent including review of data, counseling, documentation, coordination care-32 minutes. Coding Level of Care Code Est Pt Level 4 (03485) Complex EM visit Add On G2211 Diagnoses NICM (nonischemic cardiomyopathy) I42.8 PVC (premature ventricular contraction) I49.3
--- OUTSIDE RECORDS SUMMARY | 2025-03-11 14:14 | XMS_ITS | Patient Health Record ---
Author Organization [facility] Address [address] [place] [address] Care Team Providers Care Education And Training Coordinator Name Role Phone Danuta Barboza Primary Care Provider Peter Munoz [phone] Allergies Allergen (clinical drug ingredient) Drug/Non Drug Allergy documented on EMR Reaction Allergy Type Onset Date Status dust,grass,trees,cat s and dogs (uncoded) Unknown Allergy Active Results Component Value Reference Range Notes Pathology (Not yet reviewed by provider) Interpretation: Performing Lab:[facility], [address] [place] [id number] Notes/Report: Reason For Referral No Information Medications Medication [...] Problem Status W/U Status Risk Notes Problem 645868341 Encounter for screening for malignant neoplasm of colon (Z12.11) Active confirmed Problem 380773074 Abdominal bloati ng (R14.0) Active confirmed Problem 79100509 Hereditary hemochromatosis (E83.110) Active confirmed Problem Diverticular disease of colon (375510560) Diverticulosis of large intestine without perforation or abscess without bleeding (K57.30) Active confirmed Problem 223523994 Diverticulitis (K57.92) Active confirmed Problem 255168703 Elevated liver function tests (R79.89) Active confirmed Problem Fatty liver (862877047) Fatty liver (K76.0) Active confirmed Problem 16058445 Irritable bowel syndrome, unspecified type (K58.9) Active confirmed Problem 32516746 Other irritable bowel syndrome (K58.8) Active confirmed Problem 540689130 Retained food in stomach (K31.89) Active confirmed Problem 974106190 Serrated polyp o f colon (K63.5) Active confirmed Vital Signs Blood pressure diastolic 00 mm Hg 05/12/2024 Height 61 in 05/12/2024 Blood pressure systolic 00 mm Hg 05/12/2024 Weight 200 lbs 05/12/2024 BMI 37.79 kg/m2 05/12/2024 Encounters Encounter Location Date Provider Diagnosis [facility] [place] Outpatient [address] [place] [address] [phone] 08/26/2024 Peter Rojas Colon cancer screeni ng Z12.11 ; Colon polyps K63.5 ; Diverticulosis of large intestine without perforation or abscess without bleeding K57.30 and Other hemorrhoids K64.8 [facility] [address] [place] [address] 05/12/2024 Peter Rojas Serrated polyp of co [...] Antibody 07/03/2023 Hepatitis A,B,C Profile 07/03/2023 Pathology 08/26/2024 Pathology 06/12/2021 US abdomen comp w elastography Future Test Test Name Order Date UPPER GI ENDOSCOPY 07/30/2018 COLONOSCOPY 05/02/2021 COLONOSCOPY 05/12/2024 Insurance Providers Payer Name Payer Address Payer Phone Subscriber Number Group Number Insured Name Patient Relationship to Insured Coverage Start Date Coverage End Date [facility] [address] THANH SUMMERS [id number] VIELKA ESCOBEDO Self - patient is the insured Medical (General) History Medical History History ICD Code Denies [place],DM,CVA,renal disease Irregular heartbeat --ventr iculanadja sal[place] by [...] followed by the Hematology Clinic at [facility] [place] EGD in 10/2018 with [...]
== END 2025-03-11 13:49 | disposition home or self-care (01) ==
LOC: HO.HCS 13:30
PROVIDERS: PCP Internal Medicine; Visit Provider Internal Medicine
DX: I42.8 Other cardiomyopathies (principal); I49.3 Ventricular premature depolarization
CPT/HCPCS: 99214; G2211

== ENCOUNTER → 2025-03-11 13:29 | Outpatient (BNVA) | payer MEDICARE, SELFPAY | PROVIDERS: PCP Internal Medicine; Visit Provider Internal Medicine | DX: I49.3 Ventricular premature depolarization (principal); I42.8 Other cardiomyopathies | CPT/HCPCS: 99212 ==

== ENCOUNTER 2025-04-29 07:28 | Outpatient (AMB) | payer MEDICARE, SELFPAY ==
--- OUTSIDE RECORDS SUMMARY | 2024-08-26 05:40 | XMS_ITS ---
Author Organization [facility] Address [address] [place] [address] Care Team Providers Care Communication Assistant Name Role Phone Danuta Barboza Primary Care Provider UnavailPeter Samayoa [phone] REASON FOR VISIT screening, serrated polyp Encounters Encounter Location Date Provider Diagnosis [facility] [place] [address] [place] [id number] 08/26/2024 Peter Rojas Colon cancer scree candice [...] * GREGG DIDICRISTOBALEDOB:[birth year] 59 (64 yo F)Acc No.[id number]:08/26/2024 COLON WITH MAC Patient: Kamlesh PadillaSATHISHDIDI WESTBROOKLENE Provider: Lynsey Rojas MD :1960 A ge:64 Y S ex:Female Date:08/26/2024 Address:[address] [place], [place] [phone] Pcp:Danuta Santiago Subjective: * Chief Complaints: * [...] 08/26/2024 Generated for Kwesi alfred/Annika/Arielitting on: 1 07:32 AM EDT
--- OUTSIDE RECORDS SUMMARY | 2025-04-29 07:32 | XMS_ITS | Patient Health Record ---
Author Organization [facility] Address [address] [place] [address] Care Team Providers Care Collar Trimmer Name Role Phone Danuta Barboza Primary Care Provider Peter Munoz [phone] Allergies Allergen (clinical drug ingredient) Drug/Non Drug Allergy documented on EMR Reaction Allergy Type Onset Date Status dust,grass,trees,cat s and dogs (uncoded) Unknown Allergy Active Results Component Value Reference Range Notes Pathology (Not yet reviewed by provider) Interpretation: Performing Lab:[facility], [address] [place] [phone] Notes/Report: Reason For Referral No Information Medications Medication SIG (Take, Route, Frequency, Duration) Notes Start Date End Date Status Vitamin D Active Calcium Active Ventolin HFA 108 (90 Base) MCG/ACT 2 puffs as needed Inhalation every 6 hrs Active hydroCHLOROthiazide 25 MG 1 tablet in th e morning Orally Once a day; Duration: 30 day(s) Active Losartan Potassium 25 MG 1 tablet Orally Once a day; Duration: 30 day(s) Active Carvedilol 25 MG as [...] Problem Status W/U Status Risk Notes Problem Screening for malignant neoplasm of colon (892141667) Encounter for screening for malignant neoplasm of colon (Z12.11) Active confirmed Problem Abdominal bloating (787152146) Abdominal bloating (R14.0) Active confirmed Problem Hereditary hemochromatosis (38718283) Hereditary hemochromatosis (E83.110) Active confirmed Problem Diverticular disease of colon (540390364) Diverticulosis of large intestine without perforation or abscess without bleeding (K57.30) Active confirmed Problem Diverticulitis (72284717) Diverticulitis (K57.92) Active confirmed Problem Elevated liver enzymes level (395228922) Elevated liver function tests (R79.89) Active confirmed Problem Fatty liver (713585399) Fatty liver (K76.0) Active confirmed Problem Irritable bowel syndrome (67000091) Irritable bowel syndrome, unspecified type (K58.9) Active confirmed Problem Irritable bowel syndrome (23783292) Other irritable bowel syndrome (K58.8) Active confirmed Problem Retained food in stomach (K31.89) Active confirmed Problem Serrated polyp of colon (950315426) Serrated polyp of colon (K63.5) Active confirmed Vital Signs Blood pressure diastolic 00 mm Hg 05/12/2024 Height 61 in 05/12/2024 Blood pressure systolic 00 mm Hg 05/12/2024 Weight 200 lbs 05/12/2024 BMI 37.79 kg/m2 05/12/2024 Encounters Encounter Location Date Provider Diagnosis [facility] Out[place] [address] [place] [address] [phone] 08/26/2024 Peter Rojas Colon cancer screeni ng Z12.11 ; Colon polyps K63.5 ; Diverticulosis of large intestine without perforation or abscess without bleeding K57.30 and Other hemorrhoids K64.8 [facility] [address] [place] [address] 05/12/2024 Peter Rojas Serrated polyp of co [...] Insured Coverage Start Date Coverage End Date [facility] [address] THANH SUMMERS [id number] VIELKA ESCOBEDO Self - patient is the insured Medical (General) History Medical History History ICD Code Denies [place],DM,CVA,renal disease Irregular heartbeat --ventr icular bigeminy by [...] being followed by the Hematology Clinic at [facility] EGD in 10/2018 with a [...]
[2025-04-29 07:42] VITALS: BP 124/70; PULSE 63; O2SAT 98; BMI 36.7
--- NOTE | 2025-04-29 07:42 | A.OFFPC_ITS ---
Vital Signs 04/29/25 07:42 Height 5 ft 1 in Weight 194 lb BMI 36.7 BP 124/70 Blood Pressure Location Lt brachial Position Sitting Pulse 63 Pulse Source Pulse Oximeter Pulse Oximetry (%) 98 Oxygen Delivery Method Room Air Intake Visit Reasons: Annual physical Frame Straightener Required: No Accompanied by: Self / Same As Patient Allergies guaifenesin (From Mucinex) Allergy (Severe, Verified 04/29/25 07:58) Difficulty Breathing ciprofloxacin (Cipro) Allergy (Intermediate, Verified 04/29/25 07:58) Dizziness dog dander (dogs) Allergy (Intermediate, Verified 04/29/25 07:58) Itching environmental allergies Allergy (Intermediate, Verified 04/29/25 07:58) Itching musinex Allergy (Uncoded 04/29/25 07:58) dyspnea Medication List - Last Reconciled 04/29/25 by Danuta Santiago MD albuterol sulfate 90 mcg/actuation (Ventolin HFA) 1 puff PO QID PRN 30 days ascorbic acid (vitamin C) 500 mg PO DAILY carvedilol 25 mg PO BID 90 days cholecalciferol (vitamin D3) 50 mcg PO DAILY colostomy bags As directed elderberry fruit 200 mg PO DAILY hydrochlorothiazide 25 mg PO QAM levothyroxine 25 mcg PO DAILY losartan 25 mg PO QAM multivitamin 1 tab PO QAM thiamine HCl (vitamin B1) 100 mg PO DAILY turmeric root-sean root ext 150-25 mg 1 tab PO DAILY walker (Ultra-Light Rollator misc) As directed Tobacco use date assessed: 04/29/25 Fall risk assessment: No Falls in past year Last assessed Fall Risk: 04/29/25 Dental Screening Dental Screen Date: 04/29/25 Did you have a dental visit in the last 12 months?: Yes Did you have a dental problem in the last 6 months where you did not have access to dental care?: No Was dental information given to patient?: Patient has dentist HPI HPI Comments History of Present Illness Details The patient is a 64-year-old female presenting for a physical examination. She has a history of non-ischemic cardiomyopathy, with her last echocardiogram in February showing an ejection fraction of 50 to 55%. She is under cardiology care and takes carvedilol 25 mg twice daily. The patient also has hemochromatosis and follows up with hematology for management. She has Chronic Obstructive Pulmonary Disease (COPD) and uses a rescue inhaler as needed. Her preventative care includes a colonoscopy this year, which revealed fragments of sessile serrated polyp, diverticulosis, and hemorrhoids. She had a mammogram in January, which was normal, and a bone density scan in 2023, also normal, with the next due in 2025. The patient has a history of hypothyroidism, managed with levothyroxine 25 mcg. She reports allergies to Mucinex, Cipro, dog dander, and environmental factors. Socially, she quit smoking in 1985 and consumes wine a few times a week. Her family history includes COPD, diabetes, heart disease, stroke, Alzheimer's disease, and hypertension. - Vaccinations: Tetanus (2017, next due 2027), Pneumonia (at age 61, next due at 66), Influenza (March 24) - Screening: Colonoscopy (this year), Ma mmogram (January, normal), Bone density scan (2023, normal, next due 2025) PENDING SALE TO [facility] Medical History (Updated 04/29/25 @ 08:14 by Danuta Santiago MD) Asthma Morbid obesity with BMI of 40.0-44.9, adult Transaminitis PVC (premature ventricular contraction) NICM (nonischemic cardiomyopathy) Diverticulitis of colon with perforation Upper respiratory tract infection Sciatica Hereditary hemochromatosis Hypovitaminosis D Ventricular bigeminy IBS (irritable bowel syndrome) Essential hypertension Obesity (BMI 35.0-39.9 without comorbidity) Mild persistent asthma Diverticulitis Hemochromatosis Family history of liver disease Arthritis Carpal tunnel syndrome, right Pain in right arm Surgical History History of colostomy reversal (12/02/23) History of exploratory laparotomy (08/27/23) Hx of foot surgery History of esophagogastroduodenoscopy (EGD) H/O colonoscopy H/O right heart catheterization History of loop electrical excision procedure (LEEP) H/O knee surgery Family History Father Diabetes Heart disease Stroke COPD (chronic obstructive pulmonary disease) High cholesterol Mother Diabetes Alzheimer disease HTN (hypertension) Brother Brain aneurysm Leukemia Sister COPD (chronic obstructive pulmonary disease) Diabetes Brother Heart valve replaced Social History Household Members: None Housing: House Are you a primary healthcare prof to a significant other at home: No Do you presently have visiting nurse or other home services: No Alcohol intake: current Alcohol intake frequency: a few times a week Alcohol type: wine Patient Tobacco Use Status: Former Tobacco user Tobacco use type: Cigarette Cigarette Packs Per Day: 1 Years Smoked: 7 e-Cigarette/Vaping Use: Never Used Second Hand Smoke Exposure: No Advance Directives Date on File: 08/22/23 service: No Current occupational status: employed Current occupational exposures/hazards: No Sexual orientation: Straight/Heterosexual Gender identity: Female Cognitive needs: No Hearing needs: No Vision needs: Yes (glasses) Questionnaire PHQ-9 Over the last 2 weeks, how often have you been bothered by any of the following problems? 1. Little interest or pleasure in doing things: not at all 2. Feeling down, depressed, or hopeless: not at all 3. Trouble falling or staying asleep, or sleeping too much: not at all 4. Feeling tired or having little energy: not at all 5. Poor appetite or overeating: not at all 6. Feeling bad about yourself - or that you are a failure or have let yourself or your family down: not at all 7. Trouble concentrating on things, such as reading the newspaper or watching television: not at all 8. Moving or speaking so slowly that other people could have noticed. Or the opposite - being so fidgety or restless that you have been moving around a lot more than usual: not at all 9. Thoughts that you would be better off or of hurting yourself in some way: not at all Total score: 0 Depression Screening Interpretation: Negative Depression Screening Done: Yes 90099 - PHQ-9 Billing: Yes Source: Developed by Drs. Peter Anderson, Ester Hazel, Stefan Lyman and colleagues, with an educational adrienne from [employer]. Thrive Questionnaire Date Thrive assessed: 04/22/25 I am a: Patient What is your living situation today?: I have a steady place to live Within the past 12 months, did the food you bought not last and you didn't have the money to get more?: Never true Within the past 12 months, did you worry whether your food would run out before you got money to buy more?: I choose not to answer this question Do you have trouble paying for medicines?: No Do you have trouble getting transportation to medical appointments?: No Do you have trouble paying your heating and electricity bill?: No Do you have trouble taking care of your child, family member or friend?: No Do you have trouble with day-to-day activities such as bathing, preparing meals, shopping, managing finances, etc.?: No Are you currently unemployed and looking for a job?: No Are you interested in more education?: No Please select the resources that you would like help with: None Currently or been in a relationship where the following occur: No concerns reported THRIVE Score: 0 AUDIT C Alcohol Use Questionnaire (AUDIT-C) 1. How often do you have a drink containing alcohol?: 2-4 times a month 2. How many drinks containing alcohol do you have on a typical day when you are drinking?: 1 or 2 3. How often do you have six or more drinks on one occasion?: Never Total Score: 2 Score Reviewed/Action Taken: No BRITTNEY-7 AMB Questionnaire BRITTNEY-7 Date BRITTNEY - 7 assessed: 04/29/25 Feeling nervous, anxious, or on edge: 0 = Not at all Not being able to stop or control worryin = Not at all Worrying too much about different things: 0 = Not at all Trouble relaxin = Not at all Being so restless that it is hard to sit still: 0 = Not at all Becoming easily annoyed or irritable: 0 = Not at all Feeling afraid as if something awful might happen: 0 = Not at all Total BRITTNEY-7 score (0-4 normal; 5-9 mild; 10-14 moderate; 15-21 severe): 0 Source: Developed by Drs. Peter Anderson, Ester Hazel, Stefan Lyman and colleagues, with an educational adrienne from [employer]. BRITTNEY-7 Assessment Billing BRITTNEY-7 Assessment Tool: BRITTNEY-7 Assessment 94478 Review of Systems Const All systems reviewed & are unremarkable except as noted in HPI and below Card Denies chest pain at rest, Denies chest pain with activity, Denies edema, Denies irregular heart rhythm, Denies claudication, Denies dyspnea, Denies dyspnea on exertion, Denies orthopnea, Denies paroxysmal nocturnal dyspnea and Denies slow heart rate Resp Denies cough, Denies dyspnea and Denies dyspnea on exertion GI Denies abdominal pain, Denies change in bowel habits, Denies excessive flatus, Denies nausea and Denies vomiting Physical exam (Primary Care) Vital Signs: Last Vital Signs Pulse 63 04/29/25 07:42 BP 124/70 04/29/25 07:42 Pulse Ox 98 04/29/25 07:42 Oxygen Delivery Method Room Air 04/29/25 07:42 BMI result Body Mass Index 36.7 BMI Assessment/Plan discussion: High BMI High, discussed plan: lifestyle, weight reduction, dietary and physical activity Tobacco/Smoking Status: Tobacco use Status Tobacco use date assessed 04/29/25 04/29/25 07:47 Patient Tobacco Use Status Former Tobacco user 04/29/25 07:47 Tobacco use type Cigarette 04/29/25 07:47 e-Cigarette/Vaping Use Never Used 04/29/25 07:47 PHQ-9: PHQ-9 Score PHQ-9: Total score 0 04/29/25 07:47 Depression Screening Interpretation: Negative Thrive Assessment: Date of Thrive Assessment Date Thrive assessed 04/22/25 04/29/25 07:47 Currently or been in a relationship where the following occur: No concerns reported [facility] Head: Yes normal to inspection, Yes normocephalic and Yes atraumatic Ears: external ears normal Eyes General: appearance normal, both eyes and all related structures Eyelids: Yes eyelids normal Conjunctivae: conjunctivae normal Neck Neck: Yes normal visual inspection and Yes supple Resp Effort & Inspection: normal respiratory effort Auscultation: clear to auscultation bilaterally Cardio Jugular venous distension: no JVD Rate: regular rate Rhythm: regular rhythm Heart sounds: S1 normal heart sound present and S2 normal heart sound present GI Inspection: Yes normal to inspection Palpation (GI): Soft to palpation and nontender Auscultation: normal bowel sounds Skin General skin exam: no rashes or lesions noted Neuro General: no focal motor deficits Extrem General: Yes full ROM Psych Appearance: grossly normal Coding Level of Care Code Est Pt Prev Care >65y(93375) Diagnoses Physical exam Z00.00 NICM (nonischemic cardiomyopathy) I42.8 COPD (chronic obstructive pulmonary disease) J44.9 Additional Codes PHQ-9 - 11989 - PHQ-9 Billing: Yes ([id number]) BRITTNEY-7 Assessment Billing - BRITTNEY-7 Assessment Tool: BRITTNEY-7 Assessment 73613 ([id number]) Time Spent (min) 30 Assessment & Plan Assessment & Plan (1) Physical exam: Code(s): Z00.00 - Encounter for general adult medical examination without abnormal findings Category: Medical (2) NICM (nonischemic cardiomyopathy): Comment: new patient of [facility]-10/01/23 Code(s): I42.8 - Other cardiomyopathies Category: Medical (3) COPD (chronic obstructive pulmonary disease): Code(s): J44.9 - Chronic obstructive pulmonary disease, unspecified Category: Medical Plan Plan 1. Encounter for general adult medical examination without abnormal findings Z00.00 The patient is up to date with her vaccinations, including tetanus, pneumonia, and influenza. She has completed her mammogram and bone density scan, both of which were normal. Her colonoscopy this year showed fragments of sessile serrated polyp. 2. Other cardiomyopathies I42.8 HCC 85 The patient continues to follow up with cardiology for management of her non- ischemic cardiomyopathy. Her last echocardiogram in February showed an ejection fraction of 50 to 55%, which is stable. She is on carvedilol 25 mg twice daily. 3. Chronic obstructive pulmonary disease, unspecified J44.9 HCC 111 The patient uses a rescue inhaler as needed for her COPD. During the visit, we reviewed the patient's current health status, including her non-ischemic cardiomyopathy, hemochromatosis, and COPD management. We discussed her recent colonoscopy findings and the importance of continued follow-up with her specialists. The patient is advised to maintain her current medication regimen and follow up with routine screenings and vaccinations as scheduled. Orders: Orders Comprehensive [place]. Panel Fast Today I42.8 - Other cardiomyopathies Vitamin D 25-OH Total Today E55.9 - Vitamin D deficiency, unspecified Lipid Panel Today E78.5 - Hyperlipidemia, unspecified Thyroid Stimulating Hormone Today E03.9 - Hypothyroidism, unspecified NT Pro B Type Natriuretic Pept Today I42.8 - Other cardiomyopathies Patient Instructions: - Continue taking all prescribed medications as directed. - Follow up with cardiology and hematology as scheduled. - Schedule next vaccinations and screenings as advised. - Fast for 8 hours before upcoming blood work.
== END 2025-04-29 08:11 | disposition home or self-care (01) ==
LOC: HO.HMCH 07:29
PROVIDERS: PCP Internal Medicine; Visit Provider Internal Medicine
DX: Z00.00 Encounter for general adult medical examination without abnormal findings (principal); I42.8 Other cardiomyopathies; J44.9 Chronic obstructive pulmonary disease, unspecified

== ENCOUNTER → 2025-04-29 07:28 | Outpatient (BNVA) | payer MEDICARE, SELFPAY | PROVIDERS: PCP Internal Medicine; Visit Provider Internal Medicine | DX: Z00.00 Encounter for general adult medical examination without abnormal findings (principal); E83.119 Hemochromatosis, unspecified; E03.9 Hypothyroidism, unspecified; I42.8 Other cardiomyopathies; J44.9 Chronic obstructive pulmonary disease, unspecified; Z79.899 Other long term (current) drug therapy | CPT/HCPCS: 96127; 99397 ==

== ENCOUNTER 2025-04-29 13:00 | Outpatient (RCR) | payer MEDICARE, SELFPAY ==
--- NOTE | 2025-04-05 15:37 | MHC.PT.EP ---
[facility] [place] Office [place] Office [place] [facility] [address] Lashawn Sparks [address] [phone] F: [phone] F: [phone] F: [phone] F: [phone] Physical Therapy Plan of Care Date of Evaluation: 04/05/25 Date of Surgery: Diagnosis: SPONDYLOSIS W/O MYELOPATHY OR RSDICULOPATHY, MANJULA KNEE OA, Rt HIP BURSISTIS-> PT FOR MFR, TENS, BACK/LE STRENGTHENING Assessment: 64 YO FEMALE REF TO PT FOR SPONDYLOSIS, Rt HIP PAIN, AND MANJULA KNEE OA-> SHE HAS (+) LLI IMPACTING HER LUMBOPELVIC SYMMETRY- SHE HAS ALTERED GAIT MECH, DECR POSTURAL AWARENESS, LIMITED FUNCT MOB CHANELLE; DECR TRUNK AND HIP ROTAT ROM, WEAK CORE MM, AND FLUCTUATING PAIN IN HER MANJULA LUMBAR/ Rt HIP / GENERAL MANJULA KNEES, (+) SHANE MANJULA, PROBAB Rt HIP BURSITIS SXS PROBAB DUE TO LLI, AND SHE DENIES RADICULAR SXS.WE DISCUSSED PT POC AND SHE AGREES TO PROCEED. Frequency and Duration: The patient will be seen 2 X WK X 5 WKS Short Term Goals: DECREASE LBP/ Rt HIP PAIN TO 2-3/10 IMPROVE POSTURAL AWARENESS/ BODY MECH TO REDUCE STRESS TO HER LB/ Rt HIP INITIATE HEP-> CORE ENGAGEMENT, PROMOTE LUMBOPELVIC SYMMETRY Longterm Goals: Pt INDEP W HEP AND SELF SX MGMT TECHN IMPROVED OSWESTRY, AT EVAL IMPROVED STRENGTH IN HER LUMBOPELVIC AND PROX LEs -> WFL SYMMETRY, REDUCING IMPACT OF LLI Treatment Plan: Modalities to reduce pain, spasms and effusion. Manual therapy to restore motion and function. Therapeutic exercise to improve strength and flexibility. Neuromuscular re-education for posture and balance. Therapeutic activities to return to functional activities of daily living. Electronically signed by: RANDY RENTERIAPT Please sign and return to therapist. Thank you for your referral.
--- NOTE | 2025-04-29 15:38 | MHC.PT.DC ---
[facility] [place] Office [place] Office [place] Office [address] Lashawn Sparks [address] [phone] F: [phone] F: [phone] F: [phone] F: [phone] Physical Therapy Discharge Report Diagnosis: SPONDYLOSIS W/O MYELOPATHY OR RSDICULOPATHY, MANJULA KNEE OA, Rt HIP BURSISTIS-> PT FOR MFR, TENS, BACK/LE STRENGTHENING Date of Surgery: Date of Evaluation: 04/05/25 Date of Discharge: 04/29/25 Treatments to Date: 6 Cancellations to Date: No Shows to Date: Discharge Status: Achieved Goals Improved Function Independent with HEP Patient Elected to Stop Discharge Summary: PHILL MET HER PT GOALS AT THIS TIME AND IS READY FOR D/C FROM PT- HER OSWESTRY SCORE IS 3/50 ( AT EVAL 11/50; SHE DENIES ANY LBP AND DISPLAYS OVERALL IMPROVED FUNCT MOB- SHE IS MOTIVATED AND COMPLIANT W HER HEP AND IS D/C THIS DATE. Electronically signed by: RANDY RENTERIA,PT Please sign and return to therapist. Thank you for your referral.
== END 2025-04-29 15:39 | disposition home or self-care (01) ==
LOC: HO.PT 13:00
PROVIDERS: PCP Internal Medicine; Visit Provider Internal Medicine Rheumatology
DX: M47.816 Spondylosis without myelopathy or radiculopathy, lumbar region (principal); M17.0 Bilateral primary osteoarthritis of knee; M70.61 Trochanteric bursitis, right hip
CPT/HCPCS: 97110; 97162

== ENCOUNTER 2025-05-03 10:14 | Outpatient (REF) | payer MEDICARE, SELFPAY ==
--- OUTSIDE RECORDS SUMMARY | 2024-08-26 05:40 | XMS_ITS ---
Author Organization [facility] Address [address] [place] [address] Care Team Providers Care High Pressure Kettle Operator Name Role Phone Danuta Barboza Primary Care Provider UnavailPeter Samayoa [phone] REASON FOR VISIT screening, serrated polyp Encounters Encounter Location Date Provider Diagnosis [facility] [place] [place] [address] [place] [id number] 08/26/2024 Peter Rojas Colon cancer scree candice [...] * GREGG DIDICRISTOBALEDOB:[birth year] 59 (64 yo F)Acc No.[id number]:08/26/2024 COLON WITH MAC Patient: Kamlesh PadillaSATHISHDIDI WESTBROOKLENE Provider: Lynsey Rojas MD :1960 A ge:64 Y S ex:Female Date:08/26/2024 Address:[address] [place], [place] [phone] Pcp:Danuta Santiago Subjective: * Chief Complaints: * [...] 08/26/2024 Generated for Kwesi alfred/Annika/Arielitting on: 1 11:54 AM EDT
--- OUTSIDE RECORDS SUMMARY | 2025-05-03 11:54 | XMS_ITS | Patient Health Record ---
Author Organization [facility] Address [address] [place] [address] Care Team Providers Care Housekeeping And Laundry Team Leader Name Role Phone Danuta Barboza Primary Care Provider Peter Munoz [phone] Allergies Allergen (clinical drug ingredient) Drug/Non Drug Allergy documented on EMR Reaction Allergy Type Onset Date Status dust,grass,trees,cat s and dogs (uncoded) Unknown Allergy Active Results Component Value Reference Range Notes Pathology (Not yet reviewed by provider) Interpretation: Performing Lab:[facility], [address] [place] [id number] Notes/Report: Reason For Referral No Information Medications [...] Problem Screening for malignant neoplasm of colon (873947041) Encounter for screening for malignant neoplasm of colon (Z12.11) Active confirmed Problem Abdominal bloating (391334843) Abdominal bloating (R14.0) Active confirmed Problem Hereditary hemochromatosis (70083641) Hereditary hemochromatosis (E83.110) Active confirmed Problem Diverticular disease of colon (340685790) Diverticulosis of large intestine without perforation or abscess without bleeding (K57.30) Active confirmed Problem Diverticulitis (20470219) Diverticulitis (K57.92) Active confirmed Problem Elevated liver enzymes level (904472155) Elevated liver function tests (R79.89) Active confirmed Problem Fatty liver (151193584) Fatty liver (K76.0) Active confirmed Problem Irritable bowel syndrome (30786820) Irritable bowel syndrome, unspecified type (K58.9) Active confirmed Problem Irritable bowel syndrome (66362581) Other irritable bowel syndrome (K58.8) Active confirmed Problem Retained food in stomach (K31.89) Active confirmed Problem Serrated polyp of colon (346434693) Serrated polyp of colon (K63.5) Active confirmed Vital Signs Blood pressure diastolic 00 mm Hg 05/12/2024 Height 61 in 05/12/2024 Blood pressure systolic 00 mm Hg 05/12/2024 Weight 200 lbs 05/12/2024 BMI 37.79 kg/m2 05/12/2024 Encounters Encounter Location Date Provider Diagnosis [facility] Out[facility] [address] [place] [id number] 08/26/2024 Peter Rojas Colon cancer screeni ng Z12.11 ; Colon polyps K63.5 ; Diverticulosis of large intestine without perforation or abscess without bleeding K57.30 and Other hemorrhoids K64.8 [facility] [address] [place] [address] 05/12/2024 Peter Rojas Serrated polyp of co [...] Insured Coverage Start Date Coverage End Date [facility] [address] THANH SUMMERS [id number] VIELKA ESCOBEDO Self - patient is the insured Medical (General) History Medical History History ICD Code Denies [place],DM,CVA,renal disease Irregular heartbeat --ventr icular bigeminy by [...] followed by the Hematology Clinic at [facility] EGD in 10/2018 with [...]
== END 2025-05-03 10:15 | disposition home or self-care (01) ==
LOC: HO.BBR 10:14
PROVIDERS: PCP Internal Medicine; Visit Provider Internal Medicine
DX: Z13.89 Encounter for screening for other disorder (principal)

== ENCOUNTER 2025-05-31 08:58 | Day surgery (SDC) | payer MEDICARE, SELFPAY ==
--- OUTSIDE RECORDS SUMMARY | 2024-08-26 05:40 | XMS_ITS ---
Author Organization [facility] Address [address] [place] [address] Care Team Providers Care Oracle Software Engineer Name Role Phone Danuta Barboza Primary Care Provider UnavailPeter Samayoa [phone] REASON FOR VISIT screening, serrated polyp Encounters Encounter Location Date Provider Diagnosis [facility] Out[place] [address] [place] [phone] 08/26/2024 Peter Rojas Colon cancer scree candice [...] * GREGG DIDICRISTOBALEDOB:[birth year] 59 (64 yo F)Acc No.[id number]:08/26/2024 COLON WITH MAC Patient: Kamlesh PadillaSATHISHDIDI WESTBROOKLENE Provider: Lynsey Rojas MD :1960 A ge:64 Y S ex:Female Date:08/26/2024 Address:[address] [place], [place] [phone] Pcp:Danuta Santiago Subjective: * Chief Complaints: * [...] 08/26/2024 Generated for Kwesi alfred/Annika/Arielitting on: 1 01:38 PM EDT
--- OUTSIDE RECORDS SUMMARY | 2025-05-04 13:38 | XMS_ITS | Patient Health Record ---
Author Organization [facility] Address [address] [place] [address] Care Team Providers Care Draftsperson Name Role Phone Danuta Barboza Primary Care Provider Peter Munoz [phone] Allergies Allergen (clinical drug ingredient) Drug/Non Drug Allergy documented on EMR Reaction Allergy Type Onset Date Status dust,grass,trees,cat s and dogs (uncoded) Unknown Allergy Active Results Component Value Reference Range Notes Pathology (Not yet reviewed by provider) Interpretation: Performing Lab:[facility], [address] [place] [phone] Notes/Report: Reason For Referral No Information Medications [...] Problem Screening for malignant neoplasm of colon (360535180) Encounter for screening for malignant neoplasm of colon (Z12.11) Active confirmed Problem Abdominal bloating (372141697) Abdominal bloating (R14.0) Active confirmed Problem Hereditary hemochromatosis (83520474) Hereditary hemochromatosis (E83.110) Active confirmed Problem Diverticular disease of colon (175258586) Diverticulosis of large intestine without perforation or abscess without bleeding (K57.30) Active confirmed Problem Diverticulitis (94427353) Diverticulitis (K57.92) Active confirmed Problem Elevated liver enzymes level (227227526) Elevated liver function tests (R79.89) Active confirmed Problem Fatty liver (133912008) Fatty liver (K76.0) Active confirmed Problem Irritable bowel syndrome (42226502) Irritable bowel syndrome, unspecified type (K58.9) Active confirmed Problem Irritable bowel syndrome (09384317) Other irritable bowel syndrome (K58.8) Active confirmed Problem Retained food in stomach (K31.89) Active confirmed Problem Serrated polyp of colon (382921714) Serrated polyp of colon (K63.5) Active confirmed Vital Signs Blood pressure diastolic 00 mm Hg 05/12/2024 Height 61 in 05/12/2024 Blood pressure systolic 00 mm Hg 05/12/2024 Weight 200 lbs 05/12/2024 BMI 37.79 kg/m2 05/12/2024 Encounters Encounter Location Date Provider Diagnosis [facility] [place] [address] [place] [id number] 08/26/2024 Peter Rojas Colon cancer screeni ng Z12.11 ; Colon polyps K63.5 ; Diverticulosis of large intestine without perforation or abscess without bleeding K57.30 and Other hemorrhoids K64.8 [facility] [address] [place] [address] 05/12/2024 Peter Rojas Serrated polyp of co [...] Insured Coverage Start Date Coverage End Date [facility] [address] THANH SUMMERS [id number] VIELKA ESCOBEDO Self - patient is the insured Medical (General) History Medical History History ICD Code Denies [place],DM,CVA,renal disease Irregular heartbeat --ventr icular bigeminy by [...] being followed by the Hematology Clinic at [facility] [place] in 10/2018 with a small H [...]
--- NOTE | 2025-05-04 16:07 | PC.NURSE ---
Called pt regarding Holding her Turmeric for 3 days. LD will be SaturdayApr. Pt understood and no other questions or concerns about holding this. Also went over the need for a ride to and from hospital. PT stated, I will have to find a ride but you called 2 weeks in advance so it will give me enough time to do this Gave the pt the Rad front desk assistant number.
[2025-05-31] VITALS (7 sets, daily range): BP systolic 109–130; BP diastolic 52–75; PULSE 63–74; RESP 11–18; TEMP 36.5–36.6; O2SAT 95–98; BMI 37.4
--- NOTE | ~2025-05-31 | CT_ITS ---
Examination: CT-guided aspiration left sternoclavicular joint. CLINICAL INDICATION: Bilateral sternal clavicle joint cystic changes question inflammatory versus septic arthritis. COMPARISON: CT chest 01/25/2025. TECHNIQUE: Following explaining CT fluoroscopy guided left sternoclavicular with joint aspiration procedure, benefits and risk, a written consent was obtained. Patient was placed supine on CT fluoroscopy table and preliminary CT imaging was obtained through the upper chest with attention to the sternoclavicular joints. An optimal slice was selected and lead markers was placed along the left anterior chest wall and repeat CT imaging was performed. A lead marker was selected and marked on the skin. The area was cleaned with 2% chlorhexidine solution and draped in usual sterile manner. 1% lidocaine was administered puncture site. A 20-gauge and 18-gauge short needle was advanced on the skin into the left shoulder clavicle joint and aspiration was performed. Fluid collected was sent in several at least 4 tubes as requested by referring physician's. Post aspiration needle was withdrawn and complete hemostasis achieved at puncture site. Patient tolerated procedure extremely well. FINDINGS: On preliminary CT imaging thyroid lobes and bilateral submandibular glands are symmetrical. Laryngeal and tracheal airway is widely patent. There is mild widening AC joints with posterior fluid collection left worse than right. Mild sclerotic changes and widening seen of medial left clavicle . Subchondral cyst seen along the left acromion left AC joint. 20-gauge and 18-gauge short needle was advanced into left AC joint and the joint was aspirated. Small fluid was collected and sent to lab. CT/CT guided aspiration IMPRESSION: Successful CT fluoroscopy guided left AC joint aspiration for inflammatory or infectious etiology. DLP 272 mGy/cm. Electronically signed by: Sean Watson MD 05/31/2025 03:22 PM [facility]
[2025-05-31 09:31] LABS: MANUAL DIFF FLAG NO
[2025-05-31 09:36] LABS: Hematocrit 40.9 % (37.0-47.0); Hemoglobin 14.0 g/dl (12.0-16.0); Imm Gran Abs Auto 0.02 X10*3/uL (0.00-0.03); Imm Gran Pct Auto 0.4 % (0.0-0.4); Lymphocytes Absolute Auto 1.5 X10*3/uL (1.2-4.9); Mean Corpuscular HGB Conc 34.2 g/dl (31.0-35.0); Mean Corpuscular Hemoglobin 33.6 pg (27.0-33.0); Mean Corpuscular Volume 98.1 fL (80.0-98.0); NRBC Abs Auto 0.000 X10*3/uL (0.0-0.012); NRBC Pct Auto 0.0 /100WBC (0.0-0.2); Platelet Count 218 X10*3/uL (160-400); Red Blood Count 4.17 X10*6/uL (4.20-5.50); White Blood Count 4.7 X10*3/uL (4.8-10.8)
[2025-05-31 09:40] LABS: INTERNATIONAL NORM RATIO 1.0 (0.9-1.1); Prothrombin Time 12.7 SEC (11.2-13.5)
[2025-05-31 09:47] LABS: Anion Gap 14 (12-20); Blood Urea Nitrogen 13 mg/dL (9-16); Calcium 10.4 mg/dL (8.4-10.2); Carbon Dioxide 24 mmol/L (22-29); Chloride 107 mmol/L (96-108); Creatinine Clr Calc Pharmacy 71.5; Estimated Glomerular Filt Rate > 60; Potassium 4.0 mmol/L (3.3-5.1); Sodium 141 mmol/L (135-145)
[2025-05-31 11:49] LABS: MN% 52.6 %; PMN% 47.4 %; RBC Synovial Fluid 0.955 X10*6/uL
[2025-05-31 12:40] LABS: Eosinophils Synovial Fluid 5 %; Lymphocytes Synovial Fluid 34 %; Monocytes Synovial Fluid 2 %; Neutrophils Synovial Fluid 59 %
[2025-05-31 12:41] LABS: BF Shift QC OK YES; Man Diluent Bkgrd OK YES
[2025-06-01 21:38] LABS: Lyme Synovial Fluid PCR NOT DETECTED (NOT DETECTED)
== END 2025-05-31 12:15 | disposition home or self-care (01) ==
PROVIDERS: Radiology Diagnostic Radiology; PCP Internal Medicine; Visit Provider Internal Medicine Rheumatology
DX: M25.412 Effusion, left shoulder (principal); M25.48 Effusion, other site; M25.512 Pain in left shoulder; M79.89 Other specified soft tissue disorders; E83.119 Hemochromatosis, unspecified
CPT/HCPCS: 10160; 20605; 36415; 77012; 80048; 85025; 85610; 87070; 87073; 87116; 87205; 87206; 87476; 89051; 89060; J2003; J2250; J3010

== ENCOUNTER → 2025-05-31 10:29 | Outpatient (BNV) | payer MEDICARE, SELFPAY | PROVIDERS: PCP Internal Medicine; Visit Provider Radiology Diagnostic Radiology | DX: M89.8X1 Other specified disorders of bone, shoulder (principal) | CPT/HCPCS: 10160; 77012 ==

== ENCOUNTER 2025-06-08 12:46 | Outpatient (REF) | payer MEDICARE, SELFPAY ==
[2025-06-08 18:58] LABS: Alanine Aminotransferase 34 U/L (0-31); Albumin Level 4.4 g/dL (3.5-5.0); Alkaline Phosphatase 86 U/L (39-117); Aspartate Amino Transferase 38 U/L (5-31); Total Protein 7.0 g/dL (6.5-8.0)
== END 2025-06-08 12:47 | disposition home or self-care (01) ==
LOC: HO.HKASLDS 12:46
PROVIDERS: PCP Internal Medicine; Visit Provider Internal Medicine Rheumatology
DX: M19.012 Primary osteoarthritis, left shoulder (principal); M89.8X1 Other specified disorders of bone, shoulder; M25.812 Other specified joint disorders, left shoulder; R74.01 Elevation of levels of liver transaminase levels; M70.61 Trochanteric bursitis, right hip; M47.816 Spondylosis without myelopathy or radiculopathy, lumbar region; E83.118 Other hemochromatosis
CPT/HCPCS: 36415; 80076; 99212

== ENCOUNTER 2025-06-08 12:46 | Outpatient (AMB) | payer MEDICARE, SELFPAY ==
--- OUTSIDE RECORDS SUMMARY | 2024-08-26 04:40 | XMS_ITS ---
Author Organization [facility] Address [address] [place] [address] Care Team Providers Care Packaging Coordinator Name Role Phone Danuta Barboza Primary Care Provider UnavailPeter Samayoa [phone] REASON FOR VISIT screening, serrated polyp Encounters Encounter Location Date Provider Diagnosis [facility] [address] [place] [phone] 08/26/2024 Peter Rojas Colon cancer scree candice Z12.11 ; Colon polyps K63.5 ; Diverticulosis of large intestine without perforation or abscess without bleeding K57.30 and Other hemorrhoids K64.8 Assessments Encounter Date Diagnosis (ICD Code) Assessment Notes Treatment Notes Treatment Clinical Notes Section Notes 08/26/2024 Colon cancer screening (ICD-10 - Z12.11) 08/26/2024 Colon polyps (ICD-10 - K63.5) 08/26/2024 Diverticulosis of large intestine without perforation or abscess without bleeding (ICD-10 - K57.30) 08/26/2024 Other hemorrhoids (ICD-10 - K64.8) Plan Of Treatment No Information Progress Notes * GREGG DIDICRISTOBALEDOB:[birth year] (64 yo F)Acc No.[id number]:08/26/2024 COLON WITH MAC Patient: Kamlesh PadillaSATHISHDIDI WESTBROOKLENE Provider: Lynsey Rojas MD :1960 A ge:64 Y S ex:Female Date:08/26/2024 Address:[address] [place], [place] [id number] Pcp:Danuta Santiago Subjective: * Chief Complaints: * S creening, serrated polyp Assessment: * Assessment: 1. C olon cancer screening - Z12.11 (Primary) 2 . C olon polyps - K63.5? 3. D iverticulosis of large intestine without perforation or abscess without bleeding - K57.30 4 . O ther hemorrhoids - K64.8 Plan: * Procedure Codes: 4 5385 LESION REMOVAL COLONOSCOPY, Modifiers: 33 Billing Information: * Procedure Codes: 82533 LESION REMOVAL COLONOSCOPY. Modifiers: 33 * The named appointment provid er may or may not be the originator of this progress note, and it is not deemed complete until electronically signed by the appointment provider. Sign off status: Pending * Provider: Lynsey Rojas MD Date: 0 08/26/2024 Generated for Kwesi alfred/Annika/Arielitting on: 1 08/08/2024 04:24 PM EST
[2025-06-08 12:59] VITALS: BP 122/80; PULSE 76; O2SAT 96; BMI 37.9
--- NOTE | 2025-06-08 12:59 | A.OFFVIS_ITS ---
Vital Signs 06/08/25 12:59 Height 5 ft 1 in Weight 200 lb 9.93 oz BMI 37.9 BP 122/80 Blood Pressure Location Rt brachial Position Sitting Pulse 76 Pulse Source Pulse Oximeter Pulse Oximetry (%) 96 Oxygen Delivery Method Room Air Intake Visit Reasons: 3 months Intake Note: Patient presents today for a Lumbar spondylosis. Accompanied by: Self / Same As Patient Allergies guaifenesin (From Mucinex) Allergy (Severe, Verified 06/08/25 13:10) Difficulty Breathing ciprofloxacin (Cipro) Allergy (Intermediate, Verified 06/08/25 13:10) Dizziness dog dander (dogs) Allergy (Intermediate, Verified 06/08/25 13:10) Itching environmental allergies Allergy (Intermediate, Verified 06/08/25 13:10) Itching musinex Allergy (Uncoded 04/29/25 07:58) dyspnea HPI HPI 3 months: Details: Left sternoclavicular joint aspiration was painful. She has a rash secondary to reaction to adhesive. No worsening of joint symptoms. She completed PT for her lower back. [facility] Medical History BMI 37.0-37.9, adult Obesity (BMI 30-39.9) Asthma Morbid obesity with BMI of 40.0-44.9, adult Transaminitis PVC (premature ventricular contraction) NICM (nonischemic cardiomyopathy) Diverticulitis of colon with perforation Upper respiratory tract infection Sciatica Hereditary hemochromatosis Hypovitaminosis D Ventricular bigeminy IBS (irritable bowel syndrome) Essential hypertension Obesity (BMI 35.0-39.9 without comorbidity) Mild persistent asthma Diverticulitis Hemochromatosis Family history of liver disease Arthritis Carpal tunnel syndrome, right Pain in right arm Surgical History Hx of biopsy History of colostomy reversal (12/02/23) History of exploratory laparotomy (08/27/23) Hx of foot surgery History of esophagogastroduodenoscopy (EGD) H/O colonoscopy H/O right heart catheterization History of loop electrical excision procedure (LEEP) H/O knee surgery Family History Father Diabetes Heart disease Stroke COPD (chronic obstructive pulmonary disease) High cholesterol Mother Diabetes Alzheimer disease HTN (hypertension) Brother Brain aneurysm Leukemia Sister COPD (chronic obstructive pulmonary disease) Diabetes Brother Heart valve replaced Social History Household Members: None Housing: House Are you a primary customer care team coach to a significant other at home: No Do you presently have visiting nurse or other home services: No Alcohol intake: current Alcohol intake frequency: a few times a week Alcohol type: wine Patient Tobacco Use Status: Former Tobacco user Tobacco use type: Cigarette Cigarette Packs Per Day: 1 Years Smoked: 7 e-Cigarette/Vaping Use: Never Used Second Hand Smoke Exposure: No Advance Directives Date on File: 08/22/23 service: No Current occupational status: employed Current occupational exposures/hazards: No Sexual orientation: Straight/Heterosexual Gender identity: Female Cognitive needs: No Hearing needs: No Vision needs: Yes (glasses) Physical Exam Vital Signs: Last Vital Signs Pulse 76 06/08/25 12:59 BP 122/80 06/08/25 12:59 Pulse Ox 96 06/08/25 12:59 Oxygen Delivery Method Room Air 06/08/25 12:59 BMI result Body Mass Index 37.9 Const Other: General: Comfortable CVS: RRR Respiratory: clear to auscultation bilaterally. Good respiratory effort Skin: She has erythema localized to left sternoclavicular joint and anterior chest MSK: [place] nodes present. Weak toy painter. She has soft tissue swelling with tenderness along left sternoclavicular joint. Normal range of motion of upper extremities. Knee flexion is limited to 90 degrees bilateral. Assessment & Plan Assessment & Plan (1) Arthritis of left sternoclavicular joint: Comment: CT chest 01/25/2025 reveals arthritic changes of the proximal ends of the left greater than right clavicle, mechanical degenerative changes with evidence of erosions on the left and possibly the right side as well as joint effusions. Aspiration of left sternoclavicular joint revealed joint fluid with WBC count 435 and no crystals. Lyme PCR negative. Negative culture. AFB was not able to be per formed on the sample due to preparation requirement (specific medium was necessary when transported). We discuss results. Likely degenerative processes is contributing to left sternoclavicular joint arthritis, which is a rare site. She has pain with certain movements. We discussed conservative management. Code(s): M19.012 - Primary osteoarthritis, left shoulder Category: Medical Plan: I recommended PT for upper body strengthening to alleviate stress off of the left sternoclavicular joint She will use hydrocortisone 1% applied to affected area b.i.d. When rash resolves, she will start using diclofenac gel topical 1% applied to affected area every 4-6 hours as needed for least 2 weeks Baseline liver panel ordered. Post marketing data on diclofenac gel revealed that it may lead to elevated liver enzymes. I will repeat LFTs after trial on diclofenac gel. She has background hemochromatosis contributing to elevated liver enzymes. Avoid oral NSAIDs per recommendations of cardiology due to history of cardiomyopathy, hypertension and intermittent Return to clinic in 3 months (2) Enlargement of left sternoclavicular joint: Comment: Chronic. Code(s): M25.812 - Other specified joint disorders, left shoulder Category: Medical Plan: See above (3) Transaminitis: Comment: She has known hemochromatosis, which can contribute to transaminitis. CT abdomen/pelvis 08/[address] chest 01/25/2025 reveals hepatic steatosis Code(s): R74.01 - Elevation of levels of liver transaminase levels Category: Medical Plan: Monitor LFTs (4) Trochanteric bursitis, right hip: Comment: Improved with PT Code(s): M70.61 - Trochanteric bursitis, right hip Category: Medical Plan: Encouraged a regular home exercise program (5) Lumbar spondylosis: Comment: Improved with PT. Chronic back pain is due to combination of osteoarthritis (spondylosis and Grade 1 anterolisthesis of L4 and L5) and myofascial strain. Code(s): M47.816 - Spondylosis without myelopathy or radiculopathy, lumbar region Category: Medical Plan: Continue home exercise program Continue Tylenol 650 mg sparingly PRN pain Close monitoring of LFTs (transaminitis secondary to hemochromatosis). Liver panel ordered this visit Avoid oral NSAIDs per recommendations of cardiology due to history of cardiomyopathy, hypertension and intermittent arrhythmia Encouraged weight loss. She is working with [facility] management at [facility]. Plan See above Orders: Orders Liver Panel Today E83.118 - Other hemochromatosis, R74.01 - Elevation of levels of liver transaminase levels PT Evaluation and Treatment Today M19.012 - Primary osteoarthritis, left shoulder Medications: New diclofenac sodium 1% apply to affected area every 4-6 hours as needed 4 grams topical QID 100 grams 2RF Coding Level of Care Code Est Pt Level 4 (24784) Diagnoses Arthritis of left sternoclavicular joint M19.012 Enlargement of left sternoclavicular joint M25.812 Transaminitis R74.01 Trochanteric bursitis, right hip M70.61 Lumbar spondylosis M47.816
--- NOTE | 2025-06-08 16:10 | MHC.COMNAV ---
Intake Vital Signs 06/08/25 12:59 Height 5 ft 1 in Weight 200 lb 9.93 oz BMI 37.9 BP 122/80 Blood Pressure Location Rt brachial Position Sitting Pulse 76 Pulse Source Pulse Oximeter Pulse Oximetry (%) 96 Oxygen Delivery Method Room Air Intake Visit Reasons: 3 months Allergies guaifenesin (From Mucinex) Allergy (Severe, Verified 06/08/25 13:10) Difficulty Breathing ciprofloxacin (Cipro) Allergy (Intermediate, Verified 06/08/25 13:10) Dizziness dog dander (dogs) Allergy (Intermediate, Verified 06/08/25 13:10) Itching environmental allergies Allergy (Intermediate, Verified 06/08/25 13:10) Itching musinex Allergy (Uncoded 04/29/25 07:58) dyspnea PFSH Medical History BMI 37.0-37.9, adult Obesity (BMI 30-39.9) Asthma Morbid obesity with BMI of 40.0-44.9, adult Transaminitis PVC (premature ventricular contraction) NICM (nonischemic cardiomyopathy) Diverticulitis of colon with perforation Upper respiratory tract infection Sciatica Hereditary hemochromatosis Hypovitaminosis D Ventricular bigeminy IBS (irritable bowel syndrome) Essential hypertension Obesity (BMI 35.0-39.9 without comorbidity) Mild persistent asthma Diverticulitis Hemochromatosis Family history of liver disease Arthritis Carpal tunnel syndrome, right Pain in right arm Surgical History Hx of biopsy History of colostomy reversal (12/02/23) History of exploratory laparotomy (08/27/23) Hx of foot surgery History of esophagogastroduodenoscopy (EGD) H/O colonoscopy H/O right heart catheterization History of loop electrical excision procedure (LEEP) H/O knee surgery Family History Father Diabetes Heart disease Stroke COPD (chronic obstructive pulmonary disease) High cholesterol Mother Diabetes Alzheimer disease HTN (hypertension) Brother Brain aneurysm Leukemia Sister COPD (chronic obstructive pulmonary disease) Diabetes Brother Heart valve replaced Social History Household Members: None Housing: House Are you a primary congregational care pastor to a significant other at home: No Do you presently have visiting nurse or other home services: No Alcohol intake: current Alcohol intake frequency: a few times a week Alcohol type: wine Patient Tobacco Use Status: Former Tobacco user Tobacco use type: Cigarette Cigarette Packs Per Day: 1 Years Smoked: 7 e-Cigarette/Vaping Use: Never Used Second Hand Smoke Exposure: No Advance Directives Date on File: 08/22/23 service: No Current occupational status: employed Current occupational exposures/hazards: No Sexual orientation: Straight/Heterosexual Gender identity: Female Cognitive needs: No Hearing needs: No Vision needs: Yes (glasses) Questionnaires Thrive Questionnaire Date Thrive assessed: 04/22/25 I am a: Patient What is your living situation today?: I have a steady place to live Within the past 12 months, did the food you bought not last and you didn't have the money to get more?: Never true Within the past 12 months, did you worry whether your food would run out before you got money to buy more?: I choose not to answer this question Do you have trouble paying for medicines?: No Do you have trouble getting transportation to medical appointments?: No Do you have trouble paying your heating and electricity bill?: No Do you have trouble taking care of your child, family member or friend?: No Do you have trouble with day-to-day activities such as bathing, preparing meals, shopping, managing finances, etc.?: No Are you currently unemployed and looking for a job?: No Are you interested in more education?: No Please select the resources that you would like help with: None Currently or been in a relationship where the following occur: No concerns reported THRIVE Score: 0 Coding Level of Care Code Left Without Being Seen Diagnoses Arthritis of left sternoclavicular joint M19.012 Pain of left clavicle M89.8X1 Enlargement of left sternoclavicular joint M25.812 Transaminitis R74.01 Trochanteric bursitis, right hip M70.61 Lumbar spondylosis M47.816 Assessment & Plan Assessment & Plan (1) Arthritis of left sternoclavicular joint: Comment: CT chest 01/25/2025 reveals arthritic changes of the proximal ends of the left greater than right clavicle, mechanical degenerative changes with evidence of erosions on the left and possibly the right side as well as joint effusions. Aspiration of joint fluid revealed WBC count 435 and no crystals. Lyme PCR negative. We discuss results. Likely degenerative processes contributing to left sternoclavicular joint arthritis, which is rare. We discussed conservative management. Code(s): M19.012 - Primary osteoarthritis, left shoulder Category: Medical (2) Pain of left clavicle: Comment: I am concerned for inflammatory arthropathy. Radiologist is not highly concerned about septic arthritis due to lack of changes in the manubrium and chronic course. Code(s): M89.8X1 - Other specified disorders of bone, shoulder Category: Medical (3) Enlargement of left sternoclavicular joint: Comment: Chronic. Code(s): M25.812 - Other specified joint disorders, left shoulder Category: Medical (4) Transaminitis: Comment: She has known hemochromatosis, which can contribute to transaminitis. CT abdomen/pelvis 08/[address] chest 01/25/2025 reveals hepatic steatosis Code(s): R74.01 - Elevation of levels of liver transaminase levels Category: Medical (5) Trochanteric bursitis, right hip: Code(s): M70.61 - Trochanteric bursitis, right hip Category: Medical (6) Lumbar spondylosis: Comment: Improved with PT. Chronic back pain is due to combination of osteoarthritis (spondylosis and Grade 1 anterolisthesis of L4 and L5) and myofascial strain. Code(s): M47.816 - Spondylosis without myelopathy or radiculopathy, lumbar region Category: Medical Plan: This note was created in error. Orders: Orders Liver Panel Today E83.118 - Other hemochromatosis, R74.01 - Elevation of levels of liver transaminase levels PT Evaluation and Treatment Today M19.012 - Primary osteoarthritis, left shoulder Medications: New diclofenac sodium 1% apply to affected area every 4-6 hours as needed 4 grams topical QID 100 grams 2RF
--- OUTSIDE RECORDS SUMMARY | 2025-06-08 16:25 | XMS_ITS | Patient Health Record ---
Author Organization [facility] Address [address] [place] [address] Care Team Providers Care Firewall Engineer Name Role Phone Danuta Barboza Primary Care Provider Peter Munoz [phone] Allergies Allergen (clinical drug ingredient) Drug/Non Drug Allergy documented on EMR Reaction Allergy Type Onset Date Status dust,grass,trees,cat s and dogs (uncoded) Unknown Allergy Active Results Component Value Reference Range Notes Pathology (Not yet reviewed by provider) Interpretation: Performing Lab:[facility], [address] [place] [id number] Notes/Report: Reason For Referral No Information Medications Medication SIG (Take, Route, Frequency, Duration) Notes Start Date End Date Status Vitamin D Active Calcium Active Ventolin HFA 108 (90 Base) MCG/ACT Aerosol Solution 2 puffs as needed Inhalation every 6 hrs Active hydroCHLOROthiazide 25 MG Tablet 1 tablet in the morning Orally Once a day; Duration: 30 day(s) Active Losartan Potassium 25 MG Tablet 1 tablet Orally Once a day; Duration: 30 day(s) Active Carvedilol 25 MG Tablet as directed Oral ly BID Active Tylenol PRN Active Immunizations Vaccine Route Administration Date Status Comme nts Influenza Unknown 05/27/2018 Administered Influenza Unknown 04/27/2020 Administered Influenza Unknown 04/25/2021 Administered Influenza Unknown 06/14/2023 Administered Social History Tobacco Use: Social History Observation Description Date Details (start date - stop date) Former Smoker NA - NA Social History Drugs/Alcohol: Social Info Question Answer Notes Alcohol Screen Did you have a drink containing alcohol in the past year? Yes How often did you have a drink containing alcohol in the past year? 2 to 3 times a week (3 points) How many drinks did you have on a typical day when you were drinking in the past year? 1 or 2 drinks (0 point) How often did you have 6 or more drinks on one occasion in the past year? Never (0 point) Points 3 Interpretation Positive Tobacco Use: Social Info Question Answer Notes Tobacco Use/Smoking Patient is a former smoker How long has it been since you last smoked? 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 [employer] Section Notes: Nonsmoker; 2 glasses of wine [...] Problem Screening for malignant neoplasm of colon (192483614) Encounter for screening for malignant neoplasm of colon (Z12.11) Active confirmed Problem Abdominal bloating (840557734) Abdominal bloating (R14.0) Active confirmed Problem Hereditary hemochromatosis (81325786) Hereditary hemochromatosis (E83.110) Active confirmed Problem Diverticular disease of colon (063854496) Diverticulosis of large intestine without perforation or abscess without bleeding (K57.30) Active confirmed Problem Diverticulitis (80759238) Diverticulitis (K57.92) Active confirmed Problem Elevated liver enzymes level (134502209) Elevated liver function tests (R79.89) Active confirmed Problem Fatty liver (648596700) Fatty liver (K76.0) Active confirmed Problem Irritable bowel syndrome (32415466) Irritable bowel syndrome, unspecified type (K58.9) Active confirmed Problem Irritable bowel syndrome (90199943) Other irritable bowel syndrome (K58.8) Active confirmed Problem Retained food in stomach (K31.89) Active confirmed Problem Serrated polyp of colon (862377298) Serrated polyp of colon (K63.5) Active confirmed Encounters Encounter Location Date Provider Diagnosis [facility] [place] [facility] [address] [place] [address] [phone] 08/26/2024 Peter Rojas Colon cancer jarrode candice Z12.11 ; Colon polyps K63.5 ; [...] hemorrhoids (ICD-10 - K64.8) Plan Of Treatment Pending Test Test Name [...] Insured Coverage Start Date Coverage End Date [facility] [address] [place], [place] [id number] PHILL ESCOBEDO Self - patient is the insured Medical (General) History Medical History History ICD Code Denies [place],DM,CVA,renal disease Irregular heartbeat --ventr icular kuniny by [...] followed by the H[place]ology Clinic at [facility] [place] in 10/2018 with [...]
== END 2025-06-08 13:40 | disposition home or self-care (01) ==
LOC: HO.RHES 12:47
PROVIDERS: PCP Internal Medicine; Visit Provider Internal Medicine Rheumatology
DX: M19.012 Primary osteoarthritis, left shoulder (principal); M25.812 Other specified joint disorders, left shoulder; R74.01 Elevation of levels of liver transaminase levels; M70.61 Trochanteric bursitis, right hip; M47.816 Spondylosis without myelopathy or radiculopathy, lumbar region
CPT/HCPCS: 99214